=== PATIENT | male | born 1970 | race Caucasian/White ===

== ENCOUNTER 2022-01-27 14:39 | Outpatient (CLI) | payer OTHER, SELFPAY ==
[2022-01-27 15:02] LABS: Basophils Absolute Auto 0.1 K/mm3 (0.0-0.1); Basophils Percent Auto 0.9 % (0.2-1.2); Eosinophils Absolute Auto 0.5 K/mm3 (0-0.3); Eosinophils Percent Auto 5.5 % (0-4.4); Hematocrit 47.7 % (42.0-52.0); Hemoglobin 14.1 g/dL (14.0-18.0); Immature Granulocyte Absolute 0.04 K/mm3 (0.00-0.031); Immature Granulocyte Percent A 0.4 % (0-0.5); Lymphocytes Absolute Auto 1.59 K/mm3 (0.9-3.2); Lymphocytes Percent Auto 17.6 % (18.3-44.2); Mean Corpuscular HGB Conc 29.6 g/dl (32-36); Mean Corpuscular Hemoglobin 24.7 pg (26-34); Mean Corpuscular Volume 83.5 fl (80-100); Mean Platelet Volume 10.7 fl (7.4-10.4); Monocytes Absolute Auto 0.8 K/mm3 (0.1-0.6); Monocytes Percent Auto 8.4 % (2.6-8.5); Neutrophils Absolute Auto 6.1 K/mm3 (1.3-6.7); Neutrophils Percent Auto 67.2 % (45.5-73.1); Platelet Count Result 250 k/mm3 (150-375); Red Blood Count 5.71 M/mm3 (4.6-6.20); Red Cell Distribution Width 19.7 % (11.5-14.5)
[2022-01-27 15:09] LABS: Hypochromasia 1+ (NORMAL); Ovalocytes 1+ (NORMAL); Platelet Estimate Adequate (Adequate); Schistocytes None Seen (NORMAL)
[2022-01-27 15:10] LABS: Poikilocytosis 1+ (NORMAL)
[2022-01-27 16:29] LABS: Alanine Aminotransferase 43 U/L (6-50); Alkaline Phosphatase 134 U/L (38-126); Anion Gap 8 mmol/L (8-16); Aspartate Amino Transferase 36 U/L (17-59); Bilirubin,Total 0.8 mg/dL (0.2-1.3); Blood Urea Nitrogen 17 mg/dL (9-20); Calcium 8.6 mg/dL (8.4-10.2); Carbon Dioxide 30 mmol/L (22-30); Chloride 99 mmol/L (98-107); Estimated Glomerular Filt Rate > 60; Glucose 95 mg/dL (65-110); Potassium 4.2 mmol/L (3.4-5.0); Sodium 137 mmol/L (137-145)
[2022-02-07 17:11] LABS: Serotonin <10 ng/mL (56-244)
== END 2022-01-27 14:40 | disposition home or self-care (01) ==
LOC: ANHLAB 14:43
PROVIDERS: PCP Family Medicine; Visit Provider Internal Medicine Hematology & Oncology
DX: D3A.00 Benign carcinoid tumor of unspecified site (principal); Z85.89 Personal history of malignant neoplasm of other organs and systems
CPT/HCPCS: 36415; 80053; 84260; 85025; 86316

== ENCOUNTER 2022-06-01 07:31 | Emergency (ER) | payer OTHER, SELFPAY ==
[2022-06-01] VITALS (17 sets, daily range): BP systolic 76–112; BP diastolic 41–72; PULSE 74–94; RESP 14–23; TEMP 36.9; O2SAT 83–98
--- NOTE | 2022-06-01 07:50 | ED.ABDPAIN ---
HPI - Abdominal Pain General Chief Complaint: Abdominal Pain Stated Complaint: LLQ pain from [facility] Time Seen by Provider: 06/01/22 07:37 History of Present Illness HPI narrative: Patient presents with pain in his left side, started last night, but became worse today, initially was in the left upper quadrant but seem to radiate down to the left lower quadrant. States he had a CT scan done 3 months ago at [place] showing something on his pancreas. Related Data Allergies Allergy/AdvReac Type Severity Reaction Status Date / Time No Known Allergies Allergy Mild Verified 06/01/22 08:22 Review of Systems Review of Systems: CONST: No fever. HEENT: No sore throat C/V: No chest pain RESP: No cough GI: Reports abdominal pain : No dysuria. M/S: No joint pain. SKIN: No rash. NEURO: [No headache or focal numbness or weakness] PSYCH: [No depression] [facility] Past Medical History Medical History (Updated 06/01/22 @ 10:01 by Soraida Rodríguez MD) Obesity Exam Narrative: EXAMINATION OF ORGAN SYSTEMS/BODY AREAS: Constitutional: Vital signs per nursing GENERAL: Appears somewhat uncomfortable in bed, quite obese HEAD: Normal with no signs of head trauma. EYES: EOMI, conjunctiva normal ENT: Hearing grossly intact, somewhat nasally LUNGS: Nonlabored breathing. HEART: [Regular rate and rhythm] ABD: [Soft], [mildly tender to palpation] left lower abdomen EXT: Moving all extremities SKIN: [No rashes or lesions.] NEURO: [Alert and oriented x 3. No gross focal sensory or strength deficits.] PSYCH: Normal affect Course Vital Signs Vital signs: Vital Signs Temperature 98.4 F 06/01/22 07:37 Pulse Rate 92 06/01/22 07:37 Respiratory Rate 16 06/01/22 07:37 Blood Pressure 110/72 06/01/22 07:37 Pulse Oximetry 88 L 06/01/22 07:37 Oxygen Delivery Room Air 06/01/22 07:37 Temperature 98.4 F 06/01/22 07:37 Pulse Rate 77 06/01/22 09:51 Respiratory Rate 20 06/01/22 09:51 Blood Pressure 103/65 06/01/22 09:51 Pulse Oximetry 95 06/01/22 09:51 Oxygen Delivery Nasal Cannula 06/01/22 08:20 Oxygen Flow Rate 2 06/01/22 08:20 MDM - Abdominal Pain MDM Narrative Medical decision making narrative: Electronic medical record was reviewed. Patient presented to the ED with complaint of [abdominal pain]. Vitals notable for hypoxia. Physical exam revealed soft abdomen with some mild [tenderness to palpation in left side of abdomen]. Based on the patient's history and physical exam, my differential includes but is not limited to [gastritis, gastroenteritis, diverticulitis, UTI, nephrolithiasis]. [IV access was established by nursing staff]. CBC, BMP, lipase, LFTs, bilirubin and alk phos were obtained. Labs were pertinent for Cr of 5 with baseline of 0.8, and K 5.1. CT ordered however patient could not fit in our CT scanner; as pt has been to [facility] before and would like to be transferred there, call made, Dr Rainey (uro) accepting and Dr Griffin in ER accepting physician. Patient agreeable with plan. total crit care time 31 min Lab Data 06/01/22 07:57 06/01/22 07:57 Labs: Lab Results 06/01/22 06/01/22 06/01/22 Range/Units 07:57 07:57 09:10 WBC 7.3 (4.5-10.0) K/mm3 RBC 4.74 (4.6-6.20) M/mm3 Hgb 12.2 L (14.0-18.0) g/dL Hct 41.6 L (42.0-52.0) % MCV 87.8 (80-100) fl MCH 25.7 L (26-34) pg MCHC 29.3 L (32-36) g/dl RDW 17.9 H (11.5-14.5) % Plt Count 242 (150-375) k/mm3 MPV 10.7 H (7.4-10.4) fl Immature Gran % (Auto) 0.4 (0-0.5) % Neut % (Auto) 73.9 H (45.5-73.1) % Lymph % (Auto) 9.9 L (18.3-44.2) % [place] % (Auto) 10.7 H (2.6-8.5) % Eos % (Auto) 4.3 (0-4.4) % Baso % (Auto) 0.8 (0.2-1.2) % Lymph # (Auto) 0.72 L (0.9-3.2) K/mm3 [place] # (Auto) 0.8 H (0.1-0.6) K/mm3 Eos # (Auto) 0.3 (0-0.3) K/mm3 Baso # (Auto) 0.1 (0.0-0.1) K/mm3 Abs Immat Gran (auto) 0.03 (0.00-0.031)
[2022-06-01 08:04] LABS: Basophils Absolute Auto 0.1 K/mm3 (0.0-0.1); Basophils Percent Auto 0.8 % (0.2-1.2); Eosinophils Absolute Auto 0.3 K/mm3 (0-0.3); Eosinophils Percent Auto 4.3 % (0-4.4); Hematocrit 41.6 % (42.0-52.0); Hemoglobin 12.2 g/dL (14.0-18.0); Immature Granulocyte Absolute 0.03 K/mm3 (0.00-0.031); Immature Granulocyte Percent A 0.4 % (0-0.5); Lymphocytes Absolute Auto 0.72 K/mm3 (0.9-3.2); Lymphocytes Percent Auto 9.9 % (18.3-44.2); Mean Corpuscular HGB Conc 29.3 g/dl (32-36); Mean Corpuscular Hemoglobin 25.7 pg (26-34); Mean Corpuscular Volume 87.8 fl (80-100); Mean Platelet Volume 10.7 fl (7.4-10.4); Monocytes Absolute Auto 0.8 K/mm3 (0.1-0.6); Monocytes Percent Auto 10.7 % (2.6-8.5); Neutrophils Absolute Auto 5.4 K/mm3 (1.3-6.7); Neutrophils Percent Auto 73.9 % (45.5-73.1); Platelet Count Result 242 k/mm3 (150-375); Red Blood Count 4.74 M/mm3 (4.6-6.20); Red Cell Distribution Width 17.9 % (11.5-14.5); White Blood Count 7.3 K/mm3 (4.5-10.0)
[2022-06-01 08:28] LABS: Alanine Aminotransferase 26 U/L (6-50); Alkaline Phosphatase 133 U/L (38-126); Anion Gap 8 mmol/L (8-16); Aspartate Amino Transferase 28 U/L (17-59); Blood Urea Nitrogen 43 mg/dL (9-20); Calcium 8.5 mg/dL (8.4-10.2); Carbon Dioxide 29 mmol/L (22-30); Chloride 99 mmol/L (98-107); Estimated CRCL calculation 26 ml/min; Estimated Glomerular Filt Rate 12; Glucose 101 mg/dL (65-110); Lipase 35 U/L (23-300); Potassium 5.1 mmol/L (3.4-5.0); Sodium 136 mmol/L (137-145)
--- NOTE | 2022-06-01 09:41 | PC.NURSE ---
Patient unable to be scanned in our CT scanner. [facility] notified for possible transfer. [facility] access requested that we measure his girth and of his hips from underneath and return their call. We measured and girth is 55 and 31 underneath of hips/buttocks. Information was given to [facility] access line and will await an accepting provider and guidance.
[2022-06-01 09:52] LABS: Influenza A QL RT-PCR Negative (Negative); Influenza B QL RT-PCR Negative (Negative); RSV RNA, RT-PCR Negative (Negative); SARS-CoV-2 RNA PCR Negative
--- NOTE | 2022-06-01 12:01 | PC.NURSE ---
[facility] arrived to take patient over to [facility].
== END 2022-06-01 12:01 | disposition short-term general hospital (02) ==
PROVIDERS: Emergency Provider Emergency Medicine; PCP Family Medicine
DX: N17.9 Acute kidney failure, unspecified (principal); R10.32 Left lower quadrant pain; Z20.822 Contact with and (suspected) exposure to COVID-19
CPT/HCPCS: 36415; 80053; 83690; 85025; 87637; 96365; 99285; J0131

== ENCOUNTER 2022-12-02 21:24 | Inpatient (IN) | payer OTHER, SELFPAY ==
[2022-12-02] VITALS (8 sets, daily range): BP systolic 101–119; BP diastolic 59–75; PULSE 69–83; RESP 8–18; TEMP 36.9; O2SAT 98–100
[2022-12-03] VITALS (50 sets, daily range): BP systolic 101–153; BP diastolic 67–103; PULSE 61–108; RESP 8–22; TEMP 36.3–36.4; O2SAT 93–100; BMI 66.4
--- NOTE | 2022-12-03 02:39 | ED.WOUNDLAC ---
HPI - Wound/Laceration General Chief Complaint: Wound/Laceration Stated Complaint: MULTIPLE WOUNDS; >500# Time Seen by Provider: 12/03/22 02:26 Source: patient Limitations: no limitations History of Present Illness HPI narrative: Patient is a 52 yo M presenting to the ED from [facility] living for multiple sores that are painful. Patient states he has had sores for a long time and sometimes they get worse which he is having now, noting they are more painful. Patient states he has sores on his buttock, scrotum, and left calf. Patient denies any recent injuries nor history of blood clots. Patient denies recent antibiotic use. Patient denies fever, vomiting, chest pain, shortness of breath, cough, dysuria, decreased urine production, diarrhea, numbness, weakness, sore throat, abdominal pain. Patient admits to chronic swelling of his legs without recent changes. Patient notes all of the sores are painful and he usually takes oxycodone 10 mg for his pain over the past 15 years but his doctor recently decreased his dose to 5 mg which he believes is also a source of more pain. Patient admits to a small amount of bleeding from various sores yesterday which he doesn't usually have. Admits to tetanus being up to date. Related Data Allergies Allergy/AdvReac Type Severity Reaction Status Date / Time No Known Allergies Allergy Mild Verified 12/02/22 21:36 Review of Systems Review of Systems: A 10 system review of systems was completed on the patient and is negative except for what is stated in the HPI. Nursing and ancillary documentation was reviewed. [facility] Past Medical History Medical History (Updated 12/03/22 @ 05:21 by Shiva Cheng DO) Obesity Comments At time of signature, I have reviewed and agree with nursing past medical, surgical, social and family history unless otherwise noted. Please see the nursing chart for further information. There is no relevant family history pertinent to the presenting complaint. Exam Narrative: CONST: No acute distress. Well nourished. Morbidly obese. HENMT: Head is normocephalic and atraumatic. Tacky mucous membranes. No posterior oropharynx erythema. EYES: No conjunctival icterus, injection, or pallor. PERRL. NECK: No meningeal signs. RESP: Able to speak in full sentences. Normal respiratory effort. CTAB. CARDIO: Regular rate. Regular rhythm. 2+ DP and radial pulses bilaterally. GI: Nondistended. No tenderness to palpation. Soft. : No CVA tenderness to palpation. NEURO: Oriented x3. Moves all extremities. No focal neurological deficits. EXTREM: Diffuse bilateral lower extremity edema, trace pitting. Left calf mild tenderness to palpation with overlying erythema and palpable warmth, mild induration present, no crepitus, no fluctuance, compartments are soft, no bleeding or discharge, no joint space involvement. PSYCH: Normal affect. Skin: Other: Multiple ulcers and macerated tissue present throughout the perineum, proximal medial thighs, scrotum, pannus, and inter-pannus fold: no palpable fluctuance, scant purulent exudate and granulation tissue present, scant induration, mild erythema surrounding the ulcers, mild tenderness to palpation, no bleeding, no crepitus, no fistulous tracts, all ulcers are superficial and do not extend deeper than the dermis, no joint space involvement. Course Vital Signs Vital signs: Vital Signs Temperature 98.5 F 12/02/22 21:34 Pulse Rate 73 12/02/22 21:34 Respiratory Rate 15 12/02/22 21:34 Blood Pressure 119/75 12/02/22 21:34 Pulse Oximetry 99 12/02/22 21:34 Oxygen Delivery Room Air 12/02/22 21:34 Temperature 98.5 F 12/02/22 21:34 Pulse Rate 108 H 12/03/22 09:41 Respiratory Rate 20 12/03/22 09:41 Blood Pressure 119/70 12/03/22 09:41 Pulse Oximetry 97 12/03/22 07:01 Oxygen Delivery Room Air 12/02/22 21:34 MDM - Wound/Laceration MDM Narrative Medical decision making narrat
[2022-12-03] MEDS: CLINDAMYCIN 900 MG/D5W 50 ML 900 MG/50 ML PIGGYBACK 50 MG IVPB ×2 (02:40→08:58)
[2022-12-03 03:27] LABS: Basophils Percent Auto 0.3 % (0.2-1.2); Eosinophils Absolute Auto 0.1 K/mm3 (0-0.3); Eosinophils Percent Auto 0.6 % (0-4.4); Hematocrit 33.5 % (42.0-52.0); Immature Granulocyte Absolute 0.48 K/mm3 (0.00-0.031); Immature Granulocyte Percent A 4.8 % (0-0.5); Lymphocytes Absolute Auto 2.44 K/mm3 (0.9-3.2); Lymphocytes Percent Auto 24.4 % (18.3-44.2); Mean Corpuscular HGB Conc 32.8 g/dl (32-36); Mean Corpuscular Hemoglobin 31.9 pg (26-34); Mean Corpuscular Volume 97.1 fl (80-100); Mean Platelet Volume 9.5 fl (7.4-10.4); Monocytes Absolute Auto 0.8 K/mm3 (0.1-0.6); Monocytes Percent Auto 7.9 % (2.6-8.5); Neutrophils Absolute Auto 6.2 K/mm3 (1.3-6.7); Nucleated Red Blood Cells Perc 0.4 % (0.0-0.2); Platelet Count Result 213 k/mm3 (150-375); Red Blood Count 3.45 M/mm3 (4.6-6.20)
[2022-12-03 03:29] LABS: Appearance Urine Clear (Clear); Bilirubin Urine Negative (Negative); Blood Urine Negative (Negative); Color Urine Yellow (Yellow); Glucose Urine UA 1+ mg/dL (Negative); Ketones Urine Negative (Negative); Leukocyte Esterase Ur Negative LEU/UL (Negative); Nitrate Urine Negative (Negative); Protein Urine Negative (Negative); Specific Grav Ur 1.012 (1.001-1.035); Urobilinogen Urine 0.2 mg/dL (<2.0); pH Urine 7.5 (5.0-9.0)
[2022-12-03 03:37] LABS: Partial Thromboplastin Time 32.6 SECONDS (22.3-36.8); Prothrombin Time 13.6 Seconds (11.1-14.7)
[2022-12-03 03:39] LABS: Add Urine Microscopic? NO
[2022-12-03 03:41] LABS: D Dimer 0.45 ug/mL (<0.48)
[2022-12-03 03:44] LABS: Alanine Aminotransferase 55 U/L (6-50); Albumin Level 3.4 g/dL (3.5-5.1); Alkaline Phosphatase 71 U/L (38-126); Aspartate Amino Transferase 25 U/L (17-59); Bilirubin,Total 0.6 mg/dL (0.2-1.3); Blood Urea Nitrogen 23 mg/dL (9-20); CRP 2.2 mg/dL (<1.0); Calcium 8.8 mg/dL (8.4-10.2); Carbon Dioxide > 40 mmol/L (22-30); Chloride 91 mmol/L (98-107); Estimated CRCL calculation 173 ml/min; Estimated Glomerular Filt Rate > 60; Glucose 202 mg/dL (65-110); Magnesium 1.4 mg/dL (1.6-2.3); Potassium 3.5 mmol/L (3.4-5.0); Sodium 135 mmol/L (137-145)
[2022-12-03 03:47] LABS: NT Pro B Type Natriuretic Pept 1910 pg/mL (19.9-100)
[2022-12-03 03:57] LABS: Creatine Kinase 30 U/L (55-170)
[2022-12-03] MEDS: MORPHINE SULFATE (*CRX) 4 MG/ML INJ IV PUSH (04:27)
[2022-12-03] MEDS: LACTATED RINGERS 1,000 ML 999 ML IV CONT (04:27)
[2022-12-03] MEDS: PIPERACILLN/TAZ 3.375GM/NS50ML 3.375 GM/50 ML BAG IVPB (04:28)
[2022-12-03 05:03] LABS: Lactic Acid Reflex 2.9 mmol/L (0.7-2.0)
[2022-12-03] MEDS: MAGNESIUM SULF 2 GM/WATER 50ML 2 GM/50 ML BAG IVPB (06:38)
[2022-12-03 07:46] LABS: Reflex Lactic Acid Yes or No Add Lactic
[2022-12-03 08:39] LABS: Lactic Acid 1.9 mmol/L (0.7-2.0)
[2022-12-03] MEDS: LACTATED RINGERS 1,000 ML 125 ML IV CONT (08:58)
--- NOTE | 2022-12-03 11:23 | PM.IMHP ---
H&P: HPI History of Present Illness Date/Time: 12/03/22 11:23 Chief Complaint: Painful bedsores Narrative: 52-year-old male from assisted living presenting with multiple bedsores. He states they have increased in pain recently and if started to have some scant amounts of bleeding which is new. No chest pain or shortness of breath. No nausea, vomiting or diarrhea. No fevers or chills. In the ER, he was noted to have significant macerated skin over the buttocks, scrotum and calf. Patient denies any trauma or injury to the areas. He was initiated on IV antibiotics due to concern for superimposed infection and admitted for further wound care. Review of Systems Review of Systems: 12 point review of systems was assessed and was negative except as noted in the HPI [facility] Past Medical History Medical History (Updated 12/03/22 @ 15:18 by Allyson Fernandez DO) Obesity Social History Social History Smoking packs per day: 2 Smoking cigarettes per day: 40.0 Years smoked: 33 Smoking pack-years: 66.00 Smoking status: Former smoker Tobacco type: cigarettes Alcohol intake: never Substance use: current Substance use type: marijuana Lack of Transportation: No Lack of Food: Never True Current Housing: I Have Housing Concerned About Future Housing: No Difficulty Paying Gas/Electric Bills: No Difficulty Paying for Meds: No Currently Unemployed: No Education: High School Diploma/GED Difficulty w/ Childcare or Family Care: No Spiritual care concerns: No Meds Home Medications and Allergies Home Medications Medication Instructions Recorded Confirmed Type albuterol sulfate 90 mcg/actuation 2 puff inhalation QID PRN 12/03/22 12/03/22 History aerosol inhaler (ProAir HFA) Shortness Of Breath Or Wheezing aripiprazole 2 mg tablet 2 mg PO HS 12/03/22 12/03/22 History cyclobenzaprine 10 mg tablet 10 mg PO BID PRN Spasms 12/03/22 12/03/22 History dexamethasone 6 mg tablet 6 mg PO DAILY 12/03/22 12/03/22 History ergocalciferol (vitamin D2) 50,000 50,000 unit PO WEEKLY 12/03/22 12/03/22 History unit tablet fluoxetine 60 mg tablet 60 mg PO DAILY 12/03/22 12/03/22 History furosemide 40 mg tablet 40 mg PO BID 12/03/22 12/03/22 History hydrochlorothiazide 25 mg tablet 25 mg PO DAILY 12/03/22 12/03/22 History insulin glargine 100 unit/mL 30 unit subcut BID 12/03/22 12/03/22 History subcutaneous solution losartan 100 mg tablet 100 mg PO DAILY 12/03/22 12/03/22 History metformin 1,000 mg tablet 1,000 mg PO BID 12/03/22 12/03/22 History metoprolol succinate 50 mg 50 mg PO DAILY 12/03/22 12/03/22 History tablet,extended release 24 hr (Toprol XL) oxycodone 5 mg tablet 5 mg PO Q8H PRN Pain 12/03/22 12/03/22 History potassium chloride 20 mEq oral 20 meq PO DAILY 12/03/22 12/03/22 History packet rivaroxaban 20 mg tablet (Xarelto) 20 mg PO DAILY 12/03/22 12/03/22 History tamsulosin 0.4 mg capsule 0.4 mg PO DAILY 12/03/22 12/03/22 History Allergies Allergy/AdvReac Type Severity Reaction Status Date / Time No Known Allergies Allergy Mild Verified 12/02/22 21:36 Vital Signs Vital Signs - 24 hr 12/02/22 21:34 12/02/22 22:53 12/02/22 23:48 Temperature 98.5 F Pulse Rate 73 69 78 Respiratory Rate 15 17 12 Blood Pressure 119/75 101/59 L 114/71 Pulse Oximetry 99 98 100 Oxygen Delivery Room Air 12/03/22 02:54 12/03/22 06:05 12/03/22 09:41 Temperature Pulse Rate 70 80 108 H Respiratory Rate 16 20 Blood Pressure 129/87 113/73 119/70 Pulse Oximetry 97 98 Oxygen Delivery 12/02/22 23:10 12/02/22 23:25 12/02/22 23:40 Temperature Pulse Rate 77 72 83 Respiratory Rate 8 L 12 18 Blood Pressure Pulse Oximetry 98 98 98 Oxygen Delivery 12/02/22 23:45 12/02/22 23:50 12/03/22 00:00 Temperature Pulse Rate 76 76 74 Respiratory Rate 15 10 L 11 L Blood Pressure 114/71 Pulse Oximetry 99 100 99
[2022-12-03 12:26] LABS: Procalcitonin 0.1 ng/mL
[2022-12-03 12:26] LABS: Alveolar/Arterial O2 Gradient 9.6 mmHg; Base Excess ABG 7.8 mEq/l (+/-2.0); Fractional Inspired Oxygen 21 %; HCO3 ABG 29.6 mEq/l (22.0-26.0); Oxygen Content ABG 16.1 %vol (16.0-22.0); Oxygen Saturation ABG 98.4 % (95.0-100.0); Oxyhemoglobin 96.8 % THb (90.0-100.0); PCO2 ABG 32.1 mmHg (35.0-45.0); PO2 ABG 101.7 mmHg (80.0-100.0); PO2 FiO2 Ratio Arterial Blood 4.84 %; Total Hemoglobin 11.7 g/dL (12.0-18.0)
[2022-12-03 12:28] LABS: pH ABG 7.583 (7.350-7.450)
[2022-12-03 12:29] LABS: Device ROOM AIR; Modified Allen's Test Pass; Site Drawn LEFT RADIAL
--- NOTE | 2022-12-03 12:37 | PC.NURSE ---
Blood gas results call to provider. No answer. Message left. Will follow up.
[2022-12-03] MEDS: metroNIDAZOLE 500 MG/ISO 100ML 500 MG/100 ML BAG 100 MG IVPB ×2 (13:04→22:00)
[2022-12-03] MEDS: CEFEPIME 2 GM/NS 50 ML 2 GM/50 ML BAG IVPB ×2 (13:04→20:39)
--- NOTE | 2022-12-03 13:19 | PCDIET ---
Provider called. Message left.
--- NOTE | 2022-12-03 14:54 | PCPTNOTE ---
Attempted to see for physical therapy initial evaluation. Pt refused stating he is in too much pain (10/22 and nurse notified) and is frustrated cause he is still NPO. Will continue to follow.
--- NOTE | 2022-12-03 15:38 | PCOTNOTE ---
Attempted to see pt. for occupational therapy evaluation. Pt. stating that he was in too much pain and has not received pain medication yet. Nursing updated and aware.
[2022-12-03 17:22] LABS: Glucose Point of Care 207 mg/dl (65-105)
[2022-12-03] MEDS: RIVAROXABAN 20 MG TABLET PO (17:30)
[2022-12-03] MEDS: oxyCODONE HCL (*CRX) 5 MG TAB IR PO (17:30)
[2022-12-03] MEDS: FUROSEMIDE 40 MG TABLET PO (17:31)
[2022-12-03] MEDS: INSULIN GLARGINE (*BKC) 100 UNITS/ML 30 UNITS SUB-Q (17:31)
[2022-12-03] MEDS: metFORMIN HCL 500 MG TABLET 1000 MG PO (17:31)
[2022-12-03] MEDS: CYCLOBENZAPRINE HCL 10 MG TABLET PO (20:24)
[2022-12-03] MEDS: ARIPiprazole 2 MG TABLET PO (20:24)
[2022-12-03 22:03] LABS: Glucose Point of Care 227 mg/dl (65-105)
[2022-12-04] MEDS: CEFEPIME 2 GM/NS 50 ML 2 GM/50 ML BAG IVPB ×3 (03:32→19:56)
[2022-12-04] MEDS: metroNIDAZOLE 500 MG/ISO 100ML 500 MG/100 ML BAG 100 MG IVPB ×3 (04:15→19:55)
[2022-12-04 06:00] VITALS: BP 136/77; PULSE 96; RESP 20; TEMP 36.9; O2SAT 99
[2022-12-04 07:15] LABS: Basophils Absolute Auto 0.1 K/mm3 (0.0-0.1); Basophils Percent Auto 0.8 % (0.2-1.2); Eosinophils Absolute Auto 0.2 K/mm3 (0-0.3); Eosinophils Percent Auto 2.2 % (0-4.4); Hematocrit 33.7 % (42.0-52.0); Hemoglobin 10.8 g/dL (14.0-18.0); Immature Granulocyte Absolute 0.29 K/mm3 (0.00-0.031); Immature Granulocyte Percent A 3.8 % (0-0.5); Lymphocytes Absolute Auto 1.55 K/mm3 (0.9-3.2); Lymphocytes Percent Auto 20.2 % (18.3-44.2); Mean Corpuscular Hemoglobin 31.4 pg (26-34); Mean Platelet Volume 9.2 fl (7.4-10.4); Monocytes Absolute Auto 0.5 K/mm3 (0.1-0.6); Monocytes Percent Auto 6.8 % (2.6-8.5); Neutrophils Absolute Auto 5.1 K/mm3 (1.3-6.7); Neutrophils Percent Auto 66.2 % (45.5-73.1); Nucleated Red Blood Cells Perc 0.5 % (0.0-0.2); Platelet Count Result 164 k/mm3 (150-375); Red Blood Count 3.44 M/mm3 (4.6-6.20); Red Cell Distribution Width 16.6 % (11.5-14.5); White Blood Count 7.7 K/mm3 (4.5-10.0)
[2022-12-04 07:29] LABS: Alanine Aminotransferase 58 U/L (6-50); Albumin Level 3.2 g/dL (3.5-5.1); Alkaline Phosphatase 65 U/L (38-126); Anion Gap 2 mmol/L (8-16); Aspartate Amino Transferase 29 U/L (17-59); Bilirubin,Total 0.8 mg/dL (0.2-1.3); Blood Urea Nitrogen 16 mg/dL (9-20); Carbon Dioxide 38 mmol/L (22-30); Chloride 93 mmol/L (98-107); Estimated CRCL calculation 173 ml/min; Estimated Glomerular Filt Rate > 60; Glucose 146 mg/dL (65-110); Magnesium 1.5 mg/dL (1.6-2.3); Sodium 133 mmol/L (137-145)
[2022-12-04 07:57] LABS: Glucose Point of Care 162 mg/dl (65-105)
--- NOTE | 2022-12-04 08:32 | PCOTNOTE ---
Attempted OT evaluation this AM. Patient declined at this time due to being in too much pain. He is willing to work with therapy after pain meds and breakfast.
[2022-12-04] MEDS: oxyCODONE HCL (*CRX) 5 MG TAB IR PO (08:42)
[2022-12-04] MEDS: hydroCHLOROthiazide 25 MG TABLET PO (08:43)
[2022-12-04] MEDS: FUROSEMIDE 40 MG TABLET PO ×2 (08:43→17:03)
[2022-12-04] MEDS: LOSARTAN POTASSIUM 100 MG TABLET PO (08:43)
[2022-12-04] MEDS: FLUoxetine HCL 20 MG CAPSULE 60 MG PO (08:43)
[2022-12-04 08:44] VITALS: PULSE 72
[2022-12-04] MEDS: METOPROLOL SUCCINATE EXT REL 50 MG TABCR PO (08:44)
[2022-12-04] MEDS: metFORMIN HCL 500 MG TABLET 1000 MG PO (08:44)
[2022-12-04] MEDS: INSULIN GLARGINE (*BKC) 100 UNITS/ML 30 UNITS SUB-Q ×2 (08:45→17:03)
[2022-12-04] MEDS: TAMSULOSIN HCL 0.4 MG CAPSULE PO (08:45)
[2022-12-04 09:41] VITALS: O2SAT 97
[2022-12-04] MEDS: POTASSIUM CHLORIDE 20 MEQ ER TABLET 60 MEQ PO (11:33)
[2022-12-04] MEDS: POTASSIUM CHLORIDE 20 MEQ ER TABLET PO (11:33)
[2022-12-04 11:47] LABS: Glucose Point of Care 176 mg/dl (65-105)
--- NOTE | 2022-12-04 13:41 | PM.IMPN ---
Progress Note: A&P Assessment and Plan (1) Cellulitis: Code(s): L03.90 - Cellulitis, unspecified Status: Acute Assessment and Plan: Initially started on vancomycin, Zosyn and clindamycin 12/03 Switched to vanc, cefepime, Flagyl Blood cultures pending Consult wound care (2) Hypomagnesemia: Code(s): E83.42 - Hypomagnesemia Status: Acute Assessment and Plan: Repleted, recheck 12/04 pending (3) Obesity: Code(s): E66.9 - Obesity, unspecified Status: Acute (4) Essential hypertension: Code(s): I10 - Essential (primary) hypertension Status: Acute Assessment and Plan: Blood pressures reviewed 12/04 Continue home losartan (5) Type 2 diabetes mellitus: Code(s): E11.9 - Type 2 diabetes mellitus without complications Status: Acute Assessment and Plan: Accu-Cheks, sliding scale insulin, check A1c Blood glucose reviewed 12/04 Hold home metformin Plan Chronic pain: Restart home oxycodone 10 mg q.8 hours p.r.n. DVT prophylaxis with Xarelto GI prophylaxis not indicated Code status full code Subjective Date/time seen: 12/04/22 13:41 Exam Narrative: General: No acute distress, alert and oriented per baseline HEENT: Atraumatic, normocephalic, mucous membranes moist CV: Regular rate and rhythm, S1, S2 Lungs: Clear to auscultation bilaterally, no rales or crackles noted, no wheezes, good air entry Abdomen: Soft, nontender, nondistended Extremities: Normal to inspection, significant edema and redness Skin: Diffuse and scattered macerated areas of skin with serosanguineous drainage noted throughout sub pannus area, and thigh folds Psych: Euthymic, normal affect Objective Data Vital Signs Vital Signs: Vital Signs - 24 hr 12/03/22 14:00 12/03/22 22:00 12/04/22 06:00 Temperature 97.6 F 97.4 F L 98.4 F Pulse Rate 86 82 96 Respiratory Rate 22 H 18 20 Blood Pressure 115/67 153/89 H 136/77 Pulse Oximetry 99 93 99 Oxygen Delivery 12/04/22 08:44 12/04/22 08:40 12/04/22 09:41 Temperature Pulse Rate 72 Respiratory Rate Blood Pressure Pulse Oximetry 97 Oxygen Delivery Room Air Room Air Intake/Output Intake/Output: Intake & Output 12/01/22 12/02/22 12/03/22 12/04/22 23:59 23:59 23:59 23:59 Intake Total 3690 940 Balance 3690 940 Meds/Results Medications: Active Medications Generic Name Dose Route Start Last Admin Trade Name Freq PRN Reason Stop Dose Admin Albuterol 2 puff 12/03/22 15:12 Albuterol Sulfate (*Sp) Aerosol 1 Puff INHALATION QIDRT PRN Shortness Of Breath Or Wheezin Aripiprazole 2 mg 12/03/22 21:00 12/03/22 20:24 Aripiprazole 2 Mg Tablet PO 2 mg HS ANKUR Administration Cyclobenzaprine HCl 10 mg 12/03/22 15:12 12/03/22 20:24 Cyclobenzaprine Hcl 10 Mg Tablet PO 10 mg BID PRN Administration Spasms Ergocalciferol 50,000 units 12/11/22 09:00 Ergocalciferol 50,000 Units Capsule PO 01/09/23 08:59 WEEKLY ANKUR Fluoxetine HCl 60 mg 12/04/22 09:00 12/04/22 08:43 Fluoxetine Hcl 20 Mg Capsule PO 60 mg DAILY ANKUR Administration Furosemide 40 mg 12/03/22 17:00 12/04/22 08:43 Furosemide 40 Mg Tablet PO 40 mg BID ANKUR Administration Hydrochlorothiazide 25 mg 12/04/22 09:00 12/04/22 08:43 Hydrochlorothiazide 25 Mg Tablet PO 25 mg DAILY ANKUR Administration Vancomycin HCl 2,000 mg in 500 mls @ 250 mls/hr 12/03/22 05:00 12/04/22 07:35 Vancomycin 2,000 Mg/D5w 500 Ml IVPB Infused Q12H ANKUR Infusion Cefepime HCl 2 gm in 50 mls @ 100 mls/hr 12/03/22 12:00 12/04/22 12:40 Maxipime 2 Gm/Ns 50 Ml IVPB Infused Q8H ANKUR Infusion Metronidazole 500 mg in 100 mls @ 100 mls/hr 12/03/22 12:00 12/04/22 12:41 Flagyl 500 Mg/Iso Soln 100 Ml IVPB 100 mls/hr Q8H ANKUR Administration Insulin Glargine 30 units 12/03/22 17:00 12/04/22 08:45 Insulin Glargine (*[facility]) 100 Units
[2022-12-04 14:00] VITALS: BP 92/48; PULSE 83; RESP 18; TEMP 36.4; O2SAT 95
[2022-12-04] MEDS: oxyCODONE HCL (*CRX) 5 MG TAB IR 10 MG PO ×2 (16:04→21:13)
[2022-12-04 16:26] LABS: Glucose Point of Care 152 mg/dl (65-105)
[2022-12-04] MEDS: RIVAROXABAN 20 MG TABLET PO (17:03)
[2022-12-04 18:30] LABS: Vancomycin Trough 15.4 ug/mL (10.0-20.0)
[2022-12-04] MEDS: ARIPiprazole 2 MG TABLET PO (19:57)
[2022-12-04 20:00] VITALS: PULSE 83; RESP 18; O2SAT 95
[2022-12-04 22:00] VITALS: BP 96/52; PULSE 82; RESP 18; TEMP 35.7; O2SAT 94
[2022-12-05 00:18] LABS: Glucose Point of Care 163 mg/dl (65-105)
[2022-12-05] MEDS: CEFEPIME 2 GM/NS 50 ML 2 GM/50 ML BAG IVPB ×3 (03:32→22:48)
[2022-12-05] MEDS: metroNIDAZOLE 500 MG/ISO 100ML 500 MG/100 ML BAG 100 MG IVPB ×3 (03:32→23:42)
[2022-12-05] MEDS: oxyCODONE HCL (*CRX) 5 MG TAB IR 10 MG PO ×3 (03:36→17:31)
[2022-12-05 05:51] LABS: Basophils Absolute Auto 0.1 K/mm3 (0.0-0.1); Basophils Percent Auto 0.7 % (0.2-1.2); Eosinophils Absolute Auto 0.2 K/mm3 (0-0.3); Eosinophils Percent Auto 1.7 % (0-4.4); Hematocrit 31.6 % (42.0-52.0); Hemoglobin 10.1 g/dL (14.0-18.0); Immature Granulocyte Absolute 0.41 K/mm3 (0.00-0.031); Immature Granulocyte Percent A 4.6 % (0-0.5); Lymphocytes Absolute Auto 1.68 K/mm3 (0.9-3.2); Lymphocytes Percent Auto 18.8 % (18.3-44.2); Mean Corpuscular Hemoglobin 31.9 pg (26-34); Mean Corpuscular Volume 99.7 fl (80-100); Mean Platelet Volume 9.2 fl (7.4-10.4); Monocytes Absolute Auto 0.8 K/mm3 (0.1-0.6); Monocytes Percent Auto 9.4 % (2.6-8.5); Neutrophils Absolute Auto 5.8 K/mm3 (1.3-6.7); Neutrophils Percent Auto 64.8 % (45.5-73.1); Nucleated Red Blood Cells Absolute Auto 0.1 K/mm3 (0.0-0.012); Nucleated Red Blood Cells Perc 0.9 % (0.0-0.2); Platelet Count Result 178 k/mm3 (150-375); Red Blood Count 3.17 M/mm3 (4.6-6.20); Red Cell Distribution Width 17.4 % (11.5-14.5); White Blood Count 8.9 K/mm3 (4.5-10.0)
[2022-12-05 06:00] VITALS: BP 108/58; PULSE 90; RESP 18; TEMP 35.8; O2SAT 91
[2022-12-05 06:03] LABS: Alanine Aminotransferase 52 U/L (6-50); Albumin Level 3.1 g/dL (3.5-5.1); Alkaline Phosphatase 62 U/L (38-126); Anion Gap -1 mmol/L (8-16); Aspartate Amino Transferase 28 U/L (17-59); Bilirubin,Total 1.2 mg/dL (0.2-1.3); Blood Urea Nitrogen 21 mg/dL (9-20); Calcium 7.9 mg/dL (8.4-10.2); Carbon Dioxide 37 mmol/L (22-30); Chloride 94 mmol/L (98-107); Estimated CRCL calculation 85 ml/min; Estimated Glomerular Filt Rate 42; Glucose 152 mg/dL (65-110); Potassium 3.5 mmol/L (3.4-5.0); Sodium 130 mmol/L (137-145)
[2022-12-05 08:08] LABS: Glucose Point of Care 168 mg/dl (65-105)
[2022-12-05] MEDS: FUROSEMIDE 40 MG TABLET PO ×2 (08:32→17:30)
[2022-12-05] MEDS: FLUoxetine HCL 20 MG CAPSULE 60 MG PO (08:32)
[2022-12-05] MEDS: hydroCHLOROthiazide 25 MG TABLET PO (08:32)
[2022-12-05 08:33] VITALS: PULSE 86
[2022-12-05] MEDS: METOPROLOL SUCCINATE EXT REL 50 MG TABCR PO (08:33)
[2022-12-05] MEDS: POTASSIUM CHLORIDE 20 MEQ ER TABLET PO (08:33)
[2022-12-05] MEDS: INSULIN GLARGINE (*BKC) 100 UNITS/ML 30 UNITS SUB-Q ×2 (08:33→17:31)
[2022-12-05] MEDS: LOSARTAN POTASSIUM 100 MG TABLET PO (08:33)
[2022-12-05] MEDS: TAMSULOSIN HCL 0.4 MG CAPSULE PO (08:33)
[2022-12-05] MEDS: SODIUM CHLORIDE 0.9% IV 1,000 ML 100 ML IV CONT (10:28)
--- NOTE | 2022-12-05 10:33 | PCPTNOTE ---
attempted PT evaluation, nursing was giving pt meds and he needs to be cleaned up.
[2022-12-05 11:29] LABS: Glucose Point of Care 166 mg/dl (65-105)
[2022-12-05 13:11] VITALS: O2SAT 95
[2022-12-05 14:00] VITALS: BP 102/49; PULSE 86; RESP 16; TEMP 36.1; O2SAT 100
[2022-12-05 16:57] LABS: Glucose Point of Care 207 mg/dl (65-105)
[2022-12-05] MEDS: RIVAROXABAN 20 MG TABLET PO (17:30)
[2022-12-05] MEDS: INSULIN ASPART (*BKC) 100 UNITS/ML SUB-Q (17:31)
--- NOTE | 2022-12-05 18:58 | PM.IMPN ---
Progress Note: A&P Assessment and Plan (1) Cellulitis: Code(s): L03.90 - Cellulitis, unspecified Status: Acute Assessment and Plan: Initially started on vancomycin, Zosyn and clindamycin 12/03 Switched to vanc, cefepime, Flagyl Blood cultures pending Consult wound care (2) Hypomagnesemia: Code(s): E83.42 - Hypomagnesemia Status: Acute Assessment and Plan: Repleted, recheck 12/04 still low, replete and recheck (3) Obesity: Code(s): E66.9 - Obesity, unspecified Status: Acute (4) Essential hypertension: Code(s): I10 - Essential (primary) hypertension Status: Acute Assessment and Plan: Blood pressures reviewed 12/05 Continue home losartan (5) Type 2 diabetes mellitus: Code(s): E11.9 - Type 2 diabetes mellitus without complications Status: Acute Assessment and Plan: Accu-Cheks, sliding scale insulin, check A1c Blood glucose reviewed 12/05 Hold home metformin Plan Chronic pain: Restart home oxycodone 10 mg q.8 hours p.r.n. DVT prophylaxis with Xarelto GI prophylaxis not indicated Code status full code Subjective Date/time seen: 12/05/22 18:58 Interval history: No overnight events noted. No chest pain or shortness of breath. No nausea, vomiting or diarrhea. No fevers or chills. States he feels better than yesterday. Review of Systems Review of Systems: 12 point review of systems was assessed and was negative except as noted in the HPI Exam Narrative: General: No acute distress, alert and oriented per baseline HEENT: Atraumatic, normocephalic, mucous membranes moist CV: Regular rate and rhythm, S1, S2 Lungs: Clear to auscultation bilaterally, no rales or crackles noted, no wheezes, good air entry Abdomen: Soft, nontender, nondistended Extremities: Normal to inspection, significant edema and redness Skin: Diffuse and scattered macerated areas of skin with serosanguineous drainage noted throughout sub pannus area, and thigh folds Psych: Euthymic, normal affect Objective Data Vital Signs Vital Signs: Vital Signs - 24 hr 12/04/22 20:00 12/04/22 22:00 12/05/22 06:00 Temperature 96.3 F L 96.5 F L Pulse Rate 83 82 90 Respiratory Rate 18 18 18 Blood Pressure 96/52 L 108/58 L Pulse Oximetry 95 94 91 Oxygen Delivery Room Air 12/05/22 08:33 12/05/22 08:30 12/05/22 13:10 Temperature Pulse Rate 86 Respiratory Rate Blood Pressure Pulse Oximetry Oxygen Delivery Room Air Room Air 12/05/22 13:11 12/05/22 14:00 Temperature 97.0 F L Pulse Rate 86 Respiratory Rate 16 Blood Pressure 102/49 L Pulse Oximetry 95 100 Oxygen Delivery Room Air Intake/Output Intake/Output: Intake & Output 12/02/22 12/03/22 12/04/22 12/05/22 23:59 23:59 23:59 23:59 Intake Total 3690 1852 2890 Balance 3690 1852 2890 Meds/Results Medications: Active Medications Generic Name Dose Route Start Last Admin Trade Name Freq PRN Reason Stop Dose Admin Albuterol 2 puff 12/03/22 15:12 Albuterol Sulfate (*Sp) Aerosol 1 Puff INHALATION QIDRT PRN Shortness Of Breath Or Wheezin Aripiprazole 2 mg 12/03/22 21:00 12/04/22 19:57 Aripiprazole 2 Mg Tablet PO 2 mg HS ANKUR Administration Cyclobenzaprine HCl 10 mg 12/03/22 15:12 12/03/22 20:24 Cyclobenzaprine Hcl 10 Mg Tablet PO 10 mg BID PRN Administration Spasms Dextrose 12.5 gm 12/04/22 19:02 Dextrose 50% 25 Gm/50 Ml Syringe IV PUSH PRN PRN Hypoglycemia Protocol Ergocalciferol 50,000 units 12/11/22 09:00 Ergocalciferol 50,000 Units Capsule PO 01/09/23 08:59 WEEKLY ANKUR Fluoxetine HCl 60 mg 12/04/22 09:00 12/05/22 08:32 Fluoxetine Hcl 20 Mg Capsule PO 60 mg DAILY ANKUR Administration Furosemide 40 mg 12/03/22 17:00 12/05/22 17:30 Furosemide 40 Mg Tablet PO 40 mg BID ANKUR Administration Glucagon 1 mg 12/04/22 19:02 Glu
[2022-12-05] MEDS: MAGNESIUM SULF 2 GM/WATER 50ML 2 GM/50 ML BAG IVPB (20:53)
[2022-12-05] MEDS: ARIPiprazole 2 MG TABLET PO (20:59)
[2022-12-05 22:00] VITALS: BP 97/47; PULSE 77; RESP 20; TEMP 36.5; O2SAT 98
[2022-12-06 03:29] LABS: Glucose Point of Care 213 mg/dl (65-105)
[2022-12-06] MEDS: CEFEPIME 2 GM/NS 50 ML 2 GM/50 ML BAG IVPB ×3 (03:32→21:15)
[2022-12-06] MEDS: metroNIDAZOLE 500 MG/ISO 100ML 500 MG/100 ML BAG 100 MG IVPB ×3 (04:09→21:15)
[2022-12-06 06:00] VITALS: BP 106/51; PULSE 85; RESP 16; TEMP 36.1; O2SAT 94
[2022-12-06 08:21] LABS: Glucose Point of Care 197 mg/dl (65-105)
[2022-12-06 08:46] VITALS: PULSE 79
[2022-12-06] MEDS: oxyCODONE HCL (*CRX) 5 MG TAB IR 10 MG PO ×2 (08:46→16:27)
[2022-12-06] MEDS: METOPROLOL SUCCINATE EXT REL 50 MG TABCR PO (08:46)
[2022-12-06] MEDS: LOSARTAN POTASSIUM 100 MG TABLET PO (08:46)
[2022-12-06] MEDS: FUROSEMIDE 40 MG TABLET PO ×2 (08:46→16:27)
[2022-12-06] MEDS: TAMSULOSIN HCL 0.4 MG CAPSULE PO (08:46)
[2022-12-06] MEDS: POTASSIUM CHLORIDE 20 MEQ ER TABLET PO (08:46)
[2022-12-06] MEDS: FLUoxetine HCL 20 MG CAPSULE 60 MG PO (08:46)
[2022-12-06] MEDS: SODIUM CHLORIDE 0.9% IV 1,000 ML 100 ML IV CONT (08:47)
[2022-12-06] MEDS: INSULIN GLARGINE (*BKC) 100 UNITS/ML 30 UNITS SUB-Q ×2 (08:47→16:27)
[2022-12-06 11:17] LABS: Glucose Point of Care 205 mg/dl (65-105)
[2022-12-06] MEDS: INSULIN ASPART (*BKC) 100 UNITS/ML SUB-Q ×2 (11:45→16:28)
[2022-12-06 12:24] LABS: Alanine Aminotransferase 39 U/L (6-50); Albumin Level 2.9 g/dL (3.5-5.1); Alkaline Phosphatase 56 U/L (38-126); Anion Gap 4 mmol/L (8-16); Aspartate Amino Transferase 26 U/L (17-59); Bilirubin,Total 1.4 mg/dL (0.2-1.3); Blood Urea Nitrogen 24 mg/dL (9-20); Calcium 7.5 mg/dL (8.4-10.2); Carbon Dioxide 30 mmol/L (22-30); Chloride 94 mmol/L (98-107); Estimated CRCL calculation 102 ml/min; Estimated Glomerular Filt Rate 53; Glucose 206 mg/dL (65-110); Magnesium 1.9 mg/dL (1.6-2.3); Potassium 3.4 mmol/L (3.4-5.0); Sodium 128 mmol/L (137-145)
[2022-12-06 12:57] LABS: Vancomycin Trough 24.7 ug/mL (10.0-20.0)
[2022-12-06 13:14] LABS: Basophils Percent Auto 0.5 % (0.2-1.2); Eosinophils Absolute Auto 0.1 K/mm3 (0-0.3); Eosinophils Percent Auto 1.6 % (0-4.4); Hematocrit 23.1 % (42.0-52.0); Hemoglobin 7.6 g/dL (14.0-18.0); Immature Granulocyte Absolute 0.34 K/mm3 (0.00-0.031); Immature Granulocyte Percent A 4.3 % (0-0.5); Lymphocytes Absolute Auto 1.13 K/mm3 (0.9-3.2); Lymphocytes Percent Auto 14.3 % (18.3-44.2); Mean Corpuscular HGB Conc 32.9 g/dl (32-36); Mean Corpuscular Hemoglobin 32.6 pg (26-34); Mean Corpuscular Volume 99.1 fl (80-100); Mean Platelet Volume 9.2 fl (7.4-10.4); Neutrophils Absolute Auto 5.2 K/mm3 (1.3-6.7); Neutrophils Percent Auto 66.3 % (45.5-73.1); Nucleated Red Blood Cells Perc 0.5 % (0.0-0.2); Platelet Count Result 142 k/mm3 (150-375); Red Blood Count 2.33 M/mm3 (4.6-6.20); Red Cell Distribution Width 17.4 % (11.5-14.5); White Blood Count 7.9 K/mm3 (4.5-10.0)
[2022-12-06 13:21] LABS: Hemoglobin A1C 9.6 % (<5.7)
[2022-12-06 14:00] VITALS: BP 98/40; PULSE 80; RESP 16; TEMP 36.6; O2SAT 94
--- NOTE | 2022-12-06 15:11 | PM.IMPN ---
Progress Note: A&P Assessment and Plan (1) Cellulitis: Code(s): L03.90 - Cellulitis, unspecified Status: Acute Assessment and Plan: Initially started on vancomycin, Zosyn and clindamycin 12/03 Switched to vanc, cefepime, Flagyl Blood cultures pending, NGTD Consult wound care (2) Hypomagnesemia: Code(s): E83.42 - Hypomagnesemia Status: Acute Assessment and Plan: Resolved (3) Obesity: Code(s): E66.9 - Obesity, unspecified Status: Acute (4) Essential hypertension: Code(s): I10 - Essential (primary) hypertension Status: Acute Assessment and Plan: Blood pressures reviewed 12/06 Continue home losartan (5) Type 2 diabetes mellitus: Code(s): E11.9 - Type 2 diabetes mellitus without complications Status: Acute Assessment and Plan: Accu-Cheks, sliding scale insulin, A1c 9.6 Blood glucose reviewed 12/06 Hold home metformin (6) Hyponatremia: Code(s): E87.1 - Hypo-osmolality and hyponatremia Status: Acute Assessment and Plan: Worsened with IV fluids, DC IV fluids and recheck tomorrow Plan Chronic pain: Restart home oxycodone 10 mg q.8 hours p.r.n. DVT prophylaxis with Xarelto GI prophylaxis not indicated Code status full code Subjective Date/time seen: 12/06/22 15:11 Interval history: 52-year-old male from assisted living presenting with multiple bedsores. No overnight events noted. No chest pain or shortness of breath. No nausea, vomiting or diarrhea. No fevers or chills. Pain almost completely resolved. Review of Systems Review of Systems: 12 point review of systems was assessed and was negative except as noted in the HPI Exam Narrative: General: No acute distress, alert and oriented per baseline HEENT: Atraumatic, normocephalic, mucous membranes moist CV: Regular rate and rhythm, S1, S2 Lungs: Clear to auscultation bilaterally, no rales or crackles noted, no wheezes, good air entry Abdomen: Soft, nontender, nondistended Extremities: Normal to inspection, significant edema and redness Skin: Erythema and drainage much improved over wounds Psych: Euthymic, normal affect Objective Data Vital Signs Vital Signs: Vital Signs - 24 hr 12/05/22 20:00 12/05/22 22:00 12/06/22 06:00 Temperature 97.7 F 97.0 F L Pulse Rate 77 85 Respiratory Rate 20 16 Blood Pressure 97/47 L 106/51 L Pulse Oximetry 98 94 Oxygen Delivery Room Air 12/06/22 08:46 12/06/22 08:40 12/06/22 14:00 Temperature 97.9 F Pulse Rate 79 80 Respiratory Rate 16 Blood Pressure 98/40 L Pulse Oximetry 94 Oxygen Delivery Room Air Intake/Output Intake/Output: Intake & Output 12/03/22 12/04/22 12/05/22 12/06/22 23:59 23:59 23:59 23:59 Intake Total 1777 1858 4552 2015 Balance 3697 6356 9982 2015 Meds/Results Medications: Active Medications Generic Name Dose Route Start Last Admin Trade Name Freq PRN Reason Stop Dose Admin Albuterol 2 puff 12/03/22 15:12 Albuterol Sulfate (*Sp) Aerosol 1 Puff INHALATION QIDRT PRN Shortness Of Breath Or Wheezin Aripiprazole 2 mg 12/03/22 21:00 12/05/22 20:59 Aripiprazole 2 Mg Tablet PO 2 mg HS ANKUR Administration Cyclobenzaprine HCl 10 mg 12/03/22 15:12 12/03/22 20:24 Cyclobenzaprine Hcl 10 Mg Tablet PO 10 mg BID PRN Administration Spasms Dextrose 12.5 gm 12/04/22 19:02 Dextrose 50% 25 Gm/50 Ml Syringe IV PUSH PRN PRN Hypoglycemia Protocol Ergocalciferol 50,000 units 12/11/22 09:00 Ergocalciferol 50,000 Units Capsule PO 01/09/23 08:59 WEEKLY ANKUR Fluoxetine HCl 60 mg 12/04/22 09:00 12/06/22 08:46 Fluoxetine Hcl 20 Mg Capsule PO 60 mg DAILY ANKUR Administration Furosemide 40 mg 12/03/22 17:00 12/06/22 08:46 Furosemide 40 Mg Tablet PO 40 mg BID ANKUR Administration Glucagon 1 mg 12/04/22 19:02 Glucagon For Inj 1 Mg Vial
[2022-12-06 16:16] LABS: Glucose Point of Care 206 mg/dl (65-105)
[2022-12-06] MEDS: RIVAROXABAN 20 MG TABLET PO (16:27)
[2022-12-06 19:47] VITALS: BP 103/53; PULSE 77; RESP 16; TEMP 36.9; O2SAT 95
[2022-12-06] MEDS: ARIPiprazole 2 MG TABLET PO (21:15)
[2022-12-06 22:27] LABS: Glucose Point of Care 222 mg/dl (65-105)
[2022-12-07 04:23] VITALS: BP 99/54; PULSE 69; RESP 20; TEMP 36.1; O2SAT 97
[2022-12-07] MEDS: metroNIDAZOLE 500 MG/ISO 100ML 500 MG/100 ML BAG 100 MG IVPB ×2 (04:26→11:10)
[2022-12-07] MEDS: CEFEPIME 2 GM/NS 50 ML 2 GM/50 ML BAG IVPB ×2 (04:26→11:10)
[2022-12-07 06:52] LABS: Basophils Absolute Auto 0.1 K/mm3 (0.0-0.1); Basophils Percent Auto 0.7 % (0.2-1.2); Eosinophils Absolute Auto 0.2 K/mm3 (0-0.3); Hemoglobin 9.3 g/dL (14.0-18.0); Immature Granulocyte Absolute 0.39 K/mm3 (0.00-0.031); Immature Granulocyte Percent A 4.7 % (0-0.5); Lymphocytes Absolute Auto 1.19 K/mm3 (0.9-3.2); Lymphocytes Percent Auto 14.3 % (18.3-44.2); Mean Corpuscular HGB Conc 32.1 g/dl (32-36); Mean Corpuscular Hemoglobin 31.7 pg (26-34); Mean Platelet Volume 9.4 fl (7.4-10.4); Monocytes Absolute Auto 1.3 K/mm3 (0.1-0.6); Monocytes Percent Auto 15.9 % (2.6-8.5); Neutrophils Absolute Auto 5.2 K/mm3 (1.3-6.7); Neutrophils Percent Auto 62.4 % (45.5-73.1); Nucleated Red Blood Cells Perc 0.5 % (0.0-0.2); Platelet Count Result 175 k/mm3 (150-375); Red Blood Count 2.93 M/mm3 (4.6-6.20); Red Cell Distribution Width 17.2 % (11.5-14.5); White Blood Count 8.3 K/mm3 (4.5-10.0)
[2022-12-07 07:05] LABS: Alanine Aminotransferase 34 U/L (6-50); Albumin Level 2.8 g/dL (3.5-5.1); Alkaline Phosphatase 61 U/L (38-126); Anion Gap 3 mmol/L (8-16); Aspartate Amino Transferase 21 U/L (17-59); Bilirubin,Total 1.2 mg/dL (0.2-1.3); Blood Urea Nitrogen 27 mg/dL (9-20); Calcium 7.9 mg/dL (8.4-10.2); Carbon Dioxide 31 mmol/L (22-30); Chloride 95 mmol/L (98-107); Estimated CRCL calculation 85 ml/min; Estimated Glomerular Filt Rate 42; Glucose 184 mg/dL (65-110); Potassium 3.1 mmol/L (3.4-5.0); Sodium 129 mmol/L (137-145)
[2022-12-07 07:34] LABS: Glucose Point of Care 163 mg/dl (65-105)
[2022-12-07] MEDS: INSULIN GLARGINE (*BKC) 100 UNITS/ML 30 UNITS SUB-Q ×2 (08:07→17:07)
[2022-12-07] MEDS: oxyCODONE HCL (*CRX) 5 MG TAB IR 10 MG PO (08:09)
[2022-12-07] MEDS: FLUoxetine HCL 20 MG CAPSULE 60 MG PO (08:11)
[2022-12-07] MEDS: FUROSEMIDE 40 MG TABLET PO ×2 (08:11→17:07)
[2022-12-07] MEDS: LOSARTAN POTASSIUM 100 MG TABLET PO (08:11)
[2022-12-07] MEDS: POTASSIUM CHLORIDE 20 MEQ ER TABLET PO (08:11)
[2022-12-07] MEDS: METOPROLOL SUCCINATE EXT REL 50 MG TABCR PO (08:11)
[2022-12-07] MEDS: TAMSULOSIN HCL 0.4 MG CAPSULE PO (08:11)
[2022-12-07 11:22] LABS: Glucose Point of Care 177 mg/dl (65-105)
--- NOTE | 2022-12-07 13:45 | PM.IMPN ---
Progress Note: A&P Assessment and Plan (1) Cellulitis: Code(s): L03.90 - Cellulitis, unspecified Status: Acute Assessment and Plan: Initially started on vancomycin, Zosyn and clindamycin 12/03 Switched to vanc, cefepime, Flagyl Blood cultures pending, NGTD Consult wound care 12/07: transition to oral abx, d/c vanc, start oral levaquin + flagyl (2) Hypomagnesemia: Code(s): E83.42 - Hypomagnesemia Status: Acute Assessment and Plan: Resolved (3) Obesity: Code(s): E66.9 - Obesity, unspecified Status: Acute (4) Essential hypertension: Code(s): I10 - Essential (primary) hypertension Status: Acute Assessment and Plan: Blood pressures reviewed 12/06 Continue home losartan (5) Type 2 diabetes mellitus: Code(s): E11.9 - Type 2 diabetes mellitus without complications Status: Acute Assessment and Plan: Accu-Cheks, sliding scale insulin, A1c 9.6 Blood glucose reviewed 12/06 Hold home metformin (6) Hyponatremia: Code(s): E87.1 - Hypo-osmolality and hyponatremia Status: Acute Assessment and Plan: Worsened with IV fluids, DC IV fluids and recheck tomorrow Plan Chronic pain: Restart home oxycodone 10 mg q.8 hours p.r.n. DVT prophylaxis with Xarelto GI prophylaxis not indicated Code status full code Subjective Date/time seen: 12/07/22 13:45 Interval history: 52-year-old male from assisted living presenting with multiple bedsores. No overnight events noted. No chest pain or shortness of breath. No nausea, vomiting or diarrhea. No fevers or chills. No complaints. Doing well. Review of Systems Review of Systems: 12 point review of systems was assessed and was negative except as noted in the HPI Exam Narrative: General: No acute distress, alert and oriented per baseline HEENT: Atraumatic, normocephalic, mucous membranes moist CV: Regular rate and rhythm, S1, S2 Lungs: Clear to auscultation bilaterally, no rales or crackles noted, no wheezes, good air entry Abdomen: Soft, nontender, nondistended Extremities: Normal to inspection, significant edema and redness Skin: Erythema and drainage much improved over wounds Psych: Euthymic, normal affect Objective Data Vital Signs Vital Signs: Vital Signs - 24 hr 12/06/22 14:00 12/06/22 19:47 12/07/22 04:23 Temperature 97.9 F 98.5 F 97 F L Pulse Rate 80 77 69 Respiratory Rate 16 16 20 Blood Pressure 98/40 L 103/53 L 99/54 L Pulse Oximetry 94 95 97 Oxygen Delivery 12/07/22 08:00 Temperature Pulse Rate Respiratory Rate Blood Pressure Pulse Oximetry Oxygen Delivery Room Air Intake/Output Intake/Output: Intake & Output 12/04/22 12/05/22 12/06/22 12/07/22 23:59 23:59 23:59 23:59 Intake Total 1852 6090 2838 812 Balance 1852 5390 2838 812 Meds/Results Medications: Active Medications Generic Name Dose Route Start Last Admin Trade Name Freq PRN Reason Stop Dose Admin Albuterol 2 puff 12/03/22 15:12 Albuterol Sulfate (*Sp) Aerosol 1 Puff INHALATION QIDRT PRN Shortness Of Breath Or Wheezin Aripiprazole 2 mg 12/03/22 21:00 12/06/22 21:15 Aripiprazole 2 Mg Tablet PO 2 mg HS ANKUR Administration Cyclobenzaprine HCl 10 mg 12/03/22 15:12 12/03/22 20:24 Cyclobenzaprine Hcl 10 Mg Tablet PO 10 mg BID PRN Administration Spasms Dextrose 12.5 gm 12/04/22 19:02 Dextrose 50% 25 Gm/50 Ml Syringe IV PUSH PRN PRN Hypoglycemia Protocol Ergocalciferol 50,000 units 12/11/22 09:00 Ergocalciferol 50,000 Units Capsule PO 01/09/23 08:59 WEEKLY ANKUR Fluoxetine HCl 60 mg 12/04/22 09:00 12/07/22 08:11 Fluoxetine Hcl 20 Mg Capsule PO 60 mg DAILY ANKUR Administration Furosemide 40 mg 12/03/22 17:00 12/07/22 08:11 Furosemide 40 Mg Tablet PO 40 mg BID ANKUR Administration Glucagon 1 mg 12/04/22 19:02 Glucagon For Inj 1
[2022-12-07 14:00] VITALS: BP 104/39; PULSE 76; RESP 18; TEMP 35.9; O2SAT 97
[2022-12-07 16:52] LABS: Glucose Point of Care 216 mg/dl (65-105)
[2022-12-07] MEDS: RIVAROXABAN 20 MG TABLET PO (17:07)
[2022-12-07] MEDS: INSULIN ASPART (*BKC) 100 UNITS/ML SUB-Q (17:07)
[2022-12-07] MEDS: levoFLOXacin 750 MG TABLET PO (17:07)
[2022-12-07] MEDS: ARIPiprazole 2 MG TABLET PO (21:22)
[2022-12-07 21:34] LABS: Glucose Point of Care 195 mg/dl (65-105)
[2022-12-07 21:40] VITALS: BP 78/36; PULSE 73; RESP 20; TEMP 36.9; O2SAT 96
[2022-12-07] MEDS: metroNIDAZOLE 250 MG TABLET 500 MG PO (22:15)
[2022-12-08] MEDS: ALBUMIN HUMAN 25% 12.5 GM/50ML 50 ML IVPB (01:08)
[2022-12-08 02:18] VITALS: BP 94/62; PULSE 72
[2022-12-08] MEDS: oxyCODONE HCL (*CRX) 5 MG TAB IR 10 MG PO ×2 (02:21→08:59)
[2022-12-08 06:00] VITALS: BP 111/55; PULSE 80; RESP 20; TEMP 36.5; O2SAT 97
[2022-12-08 06:17] LABS: Hematocrit 28.4 % (42.0-52.0); Hemoglobin 9.1 g/dL (14.0-18.0); Mean Corpuscular Hemoglobin 31.5 pg (26-34); Mean Corpuscular Volume 98.3 fl (80-100); Platelet Count Result 187 k/mm3 (150-375); Red Blood Count 2.89 M/mm3 (4.6-6.20); Red Cell Distribution Width 17.4 % (11.5-14.5)
[2022-12-08 06:28] LABS: Alanine Aminotransferase 30 U/L (6-50); Alkaline Phosphatase 63 U/L (38-126); Anion Gap 8 mmol/L (8-16); Aspartate Amino Transferase 21 U/L (17-59); Bilirubin,Total 1.1 mg/dL (0.2-1.3); Blood Urea Nitrogen 30 mg/dL (9-20); Calcium 7.9 mg/dL (8.4-10.2); Carbon Dioxide 27 mmol/L (22-30); Chloride 96 mmol/L (98-107); Estimated CRCL calculation 80 ml/min; Estimated Glomerular Filt Rate 40; Glucose 163 mg/dL (65-110); Potassium 3.2 mmol/L (3.4-5.0); Sodium 131 mmol/L (137-145)
[2022-12-08] MEDS: metroNIDAZOLE 250 MG TABLET 500 MG PO ×2 (06:29→14:50)
[2022-12-08 06:48] LABS: Anisocytosis 1+ (NORMAL); Band Neutrophils Percent 5 % (0-6); Eosinophils Absolute Manual 0.16 K/mm3 (0.02-0.5); Eosinophils Percent Manual 2 % (0-4); Lymphocytes Absolute Manual 1.44 K/mm3 (1.1-4.5); Lymphocytes Percent Manual 18 % (18-44); Metamyelocytes Percent 5 %; Monocytes Absolute Manual 0.56 K/mm3 (0.1-0.90); Monocytes Percent Manual 7 % (3-9); Neutrophils Absolute Manual 5.44 K/mm3 (1.3-6.7); Neutrophils Percent Manual 63 % (46-73); Platelet Estimate Adequate (Adequate); Total Cells Counted 100
[2022-12-08 06:49] LABS: Polychromasia 1+ (NORMAL)
[2022-12-08 06:50] LABS: Hypochromasia 1+ (NORMAL); Schistocytes None Seen (NORMAL)
[2022-12-08 07:59] LABS: Glucose Point of Care 162 mg/dl (65-105)
[2022-12-08] MEDS: TAMSULOSIN HCL 0.4 MG CAPSULE PO (08:53)
[2022-12-08] MEDS: INSULIN GLARGINE (*BKC) 100 UNITS/ML 30 UNITS SUB-Q (08:53)
[2022-12-08] MEDS: POTASSIUM CHLORIDE 20 MEQ ER TABLET PO (08:54)
[2022-12-08] MEDS: LOSARTAN POTASSIUM 100 MG TABLET PO (08:55)
[2022-12-08] MEDS: FLUoxetine HCL 20 MG CAPSULE 60 MG PO (08:55)
[2022-12-08 08:57] VITALS: PULSE 83
[2022-12-08] MEDS: METOPROLOL SUCCINATE EXT REL 50 MG TABCR PO (08:57)
[2022-12-08] MEDS: FUROSEMIDE 40 MG TABLET PO (08:59)
--- NOTE | 2022-12-08 09:55 | PM.DS ---
DS: Admitting Diagnosis Discharge Date 12/09/22 Admitting Diagnosis cellulitis DS: Discharge Diagnosis Discharge Diagnosis (1) Cellulitis: Code(s): L03.90 - Cellulitis, unspecified Status: Acute Assessment and Plan: Initially started on vancomycin, Zosyn and clindamycin 12/03 Switched to vanc, cefepime, Flagyl Blood cultures pending, NGTD Consult wound care 12/07: transition to oral abx, d/c vanc, start oral levaquin + flagyl (2) Hypomagnesemia: Code(s): E83.42 - Hypomagnesemia Status: Acute Assessment and Plan: Resolved (3) Obesity: Code(s): E66.9 - Obesity, unspecified Status: Acute (4) Essential hypertension: Code(s): I10 - Essential (primary) hypertension Status: Inactive Assessment and Plan: Blood pressures reviewed 12/06 Continue home losartan (5) Type 2 diabetes mellitus: Code(s): E11.9 - Type 2 diabetes mellitus without complications Status: Acute Assessment and Plan: Accu-Cheks, sliding scale insulin, A1c 9.6 Blood glucose reviewed 12/06 Hold home metformin (6) Hyponatremia: Code(s): E87.1 - Hypo-osmolality and hyponatremia Status: Acute Assessment and Plan: Worsened with IV fluids, DC IV fluids and recheck tomorrow Plan Chronic pain: Restart home oxycodone 10 mg q.8 hours p.r.n. DVT prophylaxis with Xarelto GI prophylaxis not indicated Code status full code DS: Summary Hospital Course Hospital Course: 52-year-old male from assisted living presenting with multiple bedsores.? He states they have increased in pain recently and if started to have some scant amounts of bleeding which is new. In the ER, he was noted to have significant macerated skin over the buttocks, scrotum and calf.? Patient denies any trauma or injury to the areas.? He was initiated on IV antibiotics due to concern for superimposed infection and admitted for further wound care. Initially started on vancomycin, Zosyn and clindamycin 12/03 Switched to vanc, cefepime, Flagyl Blood cultures pending, NGTD Consult wound care 12/07: transition to oral abx, d/c vanc, start oral levaquin + flagyl Please see above and med rec for details. Patient's symptoms significantly improved and he was eager to be discharged. Wounds much less erythematous and no longer painful. Time Spent with Patient Time attestation: Total time spent providing and/or coordinating discharge services: Exam Narrative: General: No acute distress, alert and oriented per baseline HEENT: Atraumatic, normocephalic, mucous membranes moist CV: Regular rate and rhythm, S1, S2 Lungs: Clear to auscultation bilaterally, no rales or crackles noted, no wheezes, good air entry Abdomen: Soft, nontender, nondistended Extremities: Normal to inspection, significant edema and redness Skin: Erythema and drainage much improved over wounds Psych: Euthymic, normal affect DS: Data Data Completed and Pending Labs on day of discharge: Labs from last 24 hours 12/08/22 12/08/22 12/07/22 07:53 05:58 21:09 WBC 8.0 RBC 2.89 L Hgb 9.1 L Hct 28.4 L MCV 98.3 MCH 31.5 MCHC 32.0 RDW 17.4 H Plt Count 187 MPV 9.0 Immature Gran % (Auto) Not Reportable Neut % (Auto) Not Reportable Lymph % (Auto) Not Reportable [place] % (Auto) Not Reportable Eos % (Auto) Not Reportable Baso % (Auto) Not Reportable Lymph # (Auto) Not Reportable [place] # (Auto) Not Reportable Eos # (Auto) Not Reportable Baso # (Auto) Not Reportable Abs Immat Gran (auto) Not Reportable Absolute Neuts (auto) Not Reportable Absolute Nucleated RBC Not Reportable Total Counted 100 Neutrophils % (Manual) 63 Band Neutrophils % 5 Lymphocytes % (Manual) 18 Monocytes % (Manual) 7 Eosinophils % (Manual) 2 Metamyelocytes % 5 Nucleated RBC % Not Reportable Abs Neuts (Manual) 5.44 Abs Lymphs (Manual
[2022-12-08 11:38] LABS: Glucose Point of Care 170 mg/dl (65-105)
[2022-12-08] MEDS: POTASSIUM CHLORIDE 20 MEQ ER TABLET 40 MEQ PO (12:11)
[2022-12-08 13:04] LABS: SARS-CoV-2 RNA PCR Negative (Negative)
[2022-12-08 14:00] VITALS: BP 93/53; PULSE 76; RESP 16; TEMP 35.7; O2SAT 96
[2022-12-08 16:02] LABS: Glucose Point of Care 166 mg/dl (65-105)
== END 2022-12-08 17:20 | DRG 383 ==
LOC: ANHED 12-03 05:21 → ANH3MEDSUR 12-03 09:41
PROVIDERS: Admitting Provider Family Medicine; Emergency Provider Student in an Organized Health Care Education/Training Program; PCP Family Medicine; Visit Provider Student in an Organized Health Care Education/Training Program
DX: L03.315 Cellulitis of perineum (principal); E87.1 Hypo-osmolality and hyponatremia; L89.309 Pressure ulcer of unspecified buttock, unspecified stage; L03.115 Cellulitis of right lower limb; L03.116 Cellulitis of left lower limb; N49.2 Inflammatory disorders of scrotum; L03.311 Cellulitis of abdominal wall; Z68.44 Body mass index [BMI] 60.0-69.9, adult; L89.899 Pressure ulcer of other site, unspecified stage; E83.42 Hypomagnesemia; I10 Essential (primary) hypertension; E11.9 Type 2 diabetes mellitus without complications; E66.01 Morbid (severe) obesity due to excess calories; Z87.891 Personal history of nicotine dependence
CPT/HCPCS: 36415; 36600; 80053; 80202; 81003; 82550; 82805; 82948; 83036; 83605; 83735; 83880; 84145; 85025; 85380; 85610; 85730; 86140; 86850; 86900; 86901; 87040; 87635; 96361; 96365; 96366; 96367; 96375; 97110; 97161; 97165; 97530; 99285; A9270; G0378; G0379; J0692; J1815; J1836; J2270; J2543; J3370; J3475; J7030; J7120; P9047

== ENCOUNTER 2022-12-08 20:35 | Inpatient (IN) | payer OTHER, SELFPAY ==
--- NOTE | ~2022-12-08 | US_ITS ---
EXAMINATION: US renal BI DATE: 12/10/2022 20:44 INDICATION: Acute kidney injury TECHNIQUE: Multiple grayscale and Doppler ultrasound images of the kidneys were obtained. COMPARISON: None. FINDINGS: The examination is significantly limited by the patient's body habitus. The right kidney measures 13.4 x 5.6 x 6.4 cm. The left kidney measures 15.0 x 6.9 x 6.6 cm. The kidneys demonstrate n ormal parenchymal echogenicity. There is grossly no hydronephrosis. The bladder is not visualized (pa umair voided prior to study). IMPRESSION: 1. Grossly normal kidneys without hydronephrosis. Reviewed, dictated and finalized at location F.
--- NOTE | ~2022-12-08 | US_ITS ---
EXAMINATION:US venous doppler LE LT INDICATION:Leg edema TECHNIQUE: Multiple grayscale, color flow and Doppler images of the left lower extremity deep venous systems were obtained and reviewed. COMPARISON:No prior studies for comparison. FINDINGS: Study is extremely limited due to patient body habitus and intolerance to pain. The left fe moral, popliteal and gastrocnemius veins are patent. The remainder of the left lower extremity veins are not examined. IMPRESSION: 1: No lower extremity deep venous thrombosis. Extremely limited examination. Reviewed, dictated and finalized at location B.
--- NOTE | ~2022-12-08 | XR_ITS ---
EXAMINATION: XR chest 1V portable Exam Date/Time: 12/08/2022 22:00 CDT HISTORY: weakness, DIZZINESS, SHORTNESS OF BREATH AND LOSS OF HEARING Comparison: None. RESULT: Lines, tubes, and devices: None. Lungs and pleura: Clear. Cardiomediastinal silhouette: Unremarkable. Other: No acute osseous or upper abdominal finding. IMPRESSION: No acute cardiopulmonary process. Reviewed, dictated and finalized at location K.
[2022-12-08 20:40] VITALS: BP 82/55; PULSE 80; RESP 20; TEMP 37.3; O2SAT 98
--- NOTE | 2022-12-08 21:27 | ECG_ITS ---
Measurements Intervals [place] Rate: 78 P: -11 MS: 202 QRS: -34 QRSD: 115 T: 9 QT: 419 QTc: 477 Interpretive Statements SINUS RHYTHM LEFT AXIS DEVIATION INCOMPLETE RIGHT BUNDLE BRANCH BLOCK PATTERN CONSISTENT WITH PULMONARY DISEASE ST-T WAVE ABNORMALITY IN SEPTAL LEADS- CONSIDER ISCHEMIA BASELINE ARTIFACT- I, III, AVL, V2 ABNORMAL ECG NO PREVIOUS ECG AVAILABLE FOR COMPARISON Electronically Signed On 12-09-2022 6:34:15 CDT by Andrew Eldridge D.O.
[2022-12-08] MEDS: SODIUM CHLORIDE 0.9% IV 1,000 ML 999 ML IV CONT (22:19)
[2022-12-08 22:35] LABS: Basophils Absolute Auto 0.1 K/mm3 (0.0-0.1); Basophils Percent Auto 0.8 % (0.2-1.2); Eosinophils Absolute Auto 0.2 K/mm3 (0-0.3); Hematocrit 27.2 % (42.0-52.0); Hemoglobin 8.9 g/dL (14.0-18.0); Immature Granulocyte Absolute 0.74 K/mm3 (0.00-0.031); Lymphocytes Absolute Auto 1.25 K/mm3 (0.9-3.2); Lymphocytes Percent Auto 11.7 % (18.3-44.2); Mean Corpuscular HGB Conc 32.7 g/dl (32-36); Mean Corpuscular Hemoglobin 31.9 pg (26-34); Mean Corpuscular Volume 97.5 fl (80-100); Mean Platelet Volume 9.2 fl (7.4-10.4); Monocytes Absolute Auto 1.5 K/mm3 (0.1-0.6); Monocytes Percent Auto 13.9 % (2.6-8.5); Neutrophils Absolute Auto 6.9 K/mm3 (1.3-6.7); Neutrophils Percent Auto 64.6 % (45.5-73.1); Nucleated Red Blood Cells Absolute Auto 0.1 K/mm3 (0.0-0.012); Nucleated Red Blood Cells Perc 1.1 % (0.0-0.2); Platelet Count Result 229 k/mm3 (150-375); Red Blood Count 2.79 M/mm3 (4.6-6.20); Red Cell Distribution Width 17.7 % (11.5-14.5); White Blood Count 10.6 K/mm3 (4.5-10.0)
[2022-12-08 22:46] LABS: INR 1.4; Prothrombin Time 18.2 Seconds (11.1-14.7)
[2022-12-08 22:47] LABS: Lactic Acid Reflex 2.2 mmol/L (0.7-2.0)
[2022-12-08 22:48] LABS: Alanine Aminotransferase 29 U/L (6-50); Albumin Level 3.1 g/dL (3.5-5.1); Alkaline Phosphatase 74 U/L (38-126); Anion Gap 7 mmol/L (8-16); Aspartate Amino Transferase 26 U/L (17-59); Blood Urea Nitrogen 32 mg/dL (9-20); Calcium 8.4 mg/dL (8.4-10.2); Carbon Dioxide 27 mmol/L (22-30); Chloride 95 mmol/L (98-107); Estimated CRCL calculation 57 ml/min; Estimated Glomerular Filt Rate 31; Glucose 211 mg/dL (65-110); Magnesium 1.6 mg/dL (1.6-2.3); Potassium 3.7 mmol/L (3.4-5.0); Sodium 129 mmol/L (137-145)
[2022-12-08 22:59] LABS: Troponin I 0.013 ng/mL (0.000-0.034)
[2022-12-08 23:05] LABS: Large Platelets Present; Platelet Estimate Adequate (Adequate); Polychromasia 1+ (NORMAL)
[2022-12-08 23:06] LABS: Anisocytosis 1+ (NORMAL); Basophilic Stippling 1+ (NORMAL); Schistocytes None Seen (NORMAL)
[2022-12-08 23:11] LABS: Appearance Urine Clear (Clear); Bacteria Urine None Seen /hpf; Bilirubin Urine 1+ (Negative); Blood Urine Negative (Negative); Color Urine Dark Yellow (Yellow); Glucose Urine UA Negative (Negative); Hyaline Casts Urine Present /lpf; Ketones Urine Trace mg/dL (Negative); Leukocyte Esterase Ur Negative LEU/UL (Negative); Nitrate Urine Negative (Negative); Protein Urine 1+ mg/dL (Negative); RBC Urine 0-2 /hpf (0-2); Specific Grav Ur 1.016 (1.001-1.035); Squamous Epithelial Cell Urine Occasional /hpf (Few); Urobilinogen Urine 0.2 mg/dL (<2.0); WBC Urine 0-5 /hpf
[2022-12-08 23:15] LABS: Add Urine Microscopic? YES
[2022-12-09] VITALS (10 sets, daily range): BP systolic 90–98; BP diastolic 46–64; PULSE 71–86; RESP 12–20; TEMP 35.7–36.8; O2SAT 94–98
--- NOTE | 2022-12-09 | ECHO_ITS ---
Patient Info Name: Yobani Murillo Age: 52 years : 1970 Gender: Male Ht: 71 in Wt: 475 lbs BSA: 3.42 m2 HR: 99 bpm BP: 90 / 53 mmHg Heart Rhythm: Sinus Rhythm Technical Quality: Poor Exam Date: 12/09/2022 10:01 AM Exam Location: [facility] Patient Status: Inpatient Admit Date: 12/09/2022 Staff Ordering Physician: Ofelia Harrington DO Attending Provider: Ofelia Harrington DO Referring Physician: Len RODRIGUEZ; Exam Type: CA echo dop color flow w con Study Info Indications - hypotension, Edema Complete two-dimensional, color flow and Doppler transthoracic echocardiogram is performed with contrast to opacify the left ventricle and to improve the deliniation of the left ventricle endocardial borders. Contrast/Agitated Saline Contrast/Ag. Saline: Definity Amount: 3.00 ml Reason for Poor Study: poor echocardiographic windows Summary 1. Technically difficult study with limited views. 2. Left ventricular chamber dimension is normal. 3. Left ventricular systolic function is hyperdynamic, estimated at >70%. 4. Right ventricular systolic function is normal. 5. There is mild tricuspid valve regurgitation. 6. There is trivial pericardial effusion. Left Ventricle Left ventricular chamber dimension is normal. Left ventricular systolic function is hyperdynamic, estimated at >70%. Right Ventricle Right ventricular chamber dimension is normal. Right ventricular systolic function is normal. Left Atria Left atrial chamber dimension is normal. Right Atria Right atrial chamber dimension is normal. Atrial Septum Interatrial septum is not well visualized. Aortic Valve The aortic valve is not well visualized. There is no aortic valve stenosis. There is no aortic valve regurgitation. Pulmonic Valve The pulmonic valve is not well visualized. Mitral Valve There is trace mitral valve regurgitation. Tricuspid Valve There is mild tricuspid valve regurgitation. Pericardium/Pleural The pericardium appears epicardial fat pad. There is trivial pericardial effusion. Inferior Vena Cava Inferior vena cava is not well visualized. Aorta The aortic root size at the sinus of Valsalva is normal. Left Ventricular Outflow Tract Name Value Normal LVOT 2D LVOT Diameter 2.00 cm LVOT Doppler LVOT Peak Gradient 5 mmHg LVOT Mean Gradient 3 mmHg LVOT VTI 27.34 cm LVOT VTI/AV VTI Ratio 0.55 LVOT Stroke Volume 85.47 ml LVOT CO 6.67 l/min LVOT CI 1.95 L/min/m2 Pulmonic Valve Name Value Normal RVOT Doppler RVOT Peak Gradient 3 mmHg PV Doppler PV Peak Gradient 4 mmHg Tricuspid Valve ---
--- NOTE | 2022-12-09 00:10 | ED.GENADULT ---
HPI - General Adult General Chief complaint: Dizziness Stated complaint: dizziness and rt ear hearing loss Time Seen by Provider: 12/08/22 21:21 History of Present Illness HPI narrative: Patient 52-year-old gentleman who presents emergency department with chief complaint of dizziness. Patient reports he was just in the hospital and was discharged after being treated for cellulitis patient reports that he got home and started feeling very lightheaded and as though he was in a tunnel with his hearing patient states that he had no syncope denies chest pain Related Data Home Medications Medication Instructions Recorded Confirmed albuterol sulfate 90 mcg/actuation 2 puff inhalation QID PRN 12/03/22 12/03/22 aerosol inhaler (ProAir HFA) Shortness Of Breath Or Wheezing aripiprazole 2 mg tablet 2 mg PO HS 12/03/22 12/03/22 cyclobenzaprine 10 mg tablet 10 mg PO BID PRN Spasms 12/03/22 12/03/22 ergocalciferol (vitamin D2) 50,000 50,000 unit PO WEEKLY 12/03/22 12/03/22 unit tablet fluoxetine 60 mg tablet 60 mg PO DAILY 12/03/22 12/03/22 furosemide 40 mg tablet 40 mg PO BID 12/03/22 12/03/22 insulin glargine 100 unit/mL 30 unit subcut BID 12/03/22 12/03/22 subcutaneous solution losartan 100 mg tablet 100 mg PO DAILY 12/03/22 12/03/22 metformin 1,000 mg tablet 1,000 mg PO BID 12/03/22 12/03/22 metoprolol succinate 50 mg 50 mg PO DAILY 12/03/22 12/03/22 tablet,extended release 24 hr (Toprol XL) oxycodone 5 mg tablet 5 mg PO Q8H PRN Pain 12/03/22 12/03/22 potassium chloride 20 mEq oral 20 meq PO DAILY 12/03/22 12/03/22 packet rivaroxaban 20 mg tablet (Xarelto) 20 mg PO DAILY 12/03/22 12/03/22 tamsulosin 0.4 mg capsule 0.4 mg PO DAILY 12/03/22 12/03/22 Allergies Allergy/AdvReac Type Severity Reaction Status Date / Time No Known Allergies Allergy Mild Verified 12/02/22 21:36 Review of Systems Review of Systems: A 10 system review of systems was completed on the patient and is negative except for what is stated in the HPI. Nursing and ancillary documentation was reviewed. [facility] Past Medical History Medical History Obesity Social History Social History Smoking packs per day: 2 Smoking cigarettes per day: 40.0 Years smoked: 33 Smoking pack-years: 66.00 Smoking status: Former smoker Tobacco type: cigarettes Alcohol intake: never Substance use: current Substance use type: marijuana Lack of Transportation: No Lack of Food: Never True Current Housing: I Have Housing Concerned About Future Housing: No Difficulty Paying Gas/Electric Bills: No Difficulty Paying for Meds: No Currently Unemployed: No Education: High School Diploma/GED Difficulty w/ Childcare or Family Care: No Spiritual care concerns: No Exam Narrative: GENERAL: Ill-appearing, obese, and in no acute distress. HEAD: Normocephalic, atraumatic. EYES: PERRLA and EOMI. ENT: Nares clear, no rhinorrhea or epistaxis. Mucous membranes moist. TMs clear NECK: Supple. CHEST: Clear to auscultation. No respiratory distress. HEART: Regular rate and rhythm. No murmur heard. Normal peripheral pulses. ABDOMEN: Soft, nontender, nondistended, normal active bowel sounds. EXTREMITIES: Normal range of motion. No edema. SKIN: Warm, dry, no rash. NEURO: No focal deficits. Alert and oriented x3. PSYCH: Normal mood and affect. Course Vital Signs Vital signs: Vital Signs Temperature 37.3 C 12/08/22 20:40 Pulse Rate 80 12/08/22 20:40 Respiratory Rate 20 12/08/22 20:40 Blood Pressure 82/55 L 12/08/22 20:40 Pulse Oximetry 98 12/08/22 20:40 Oxygen Delivery Room Air 12/08/22 20:40 Temperature 37.3 C 12/08/22 20:40 Pulse Rate 82 12/09/22 00:07 Respiratory Rate 20 12/09/22 00:07 Blood Pressure 98/54 L 12/09/22 00:07 Pulse Oximetry 98 12/09/22 00:07 Oxyge
[2022-12-09] MEDS: SODIUM CHLORIDE 0.9% IV 1,000 ML 999 ML IV CONT ×2 (00:44→02:27)
--- NOTE | 2022-12-09 00:44 | PM.IMHP ---
H&P: HPI History of Present Illness Date/Time: 12/09/22 00:44 Chief Complaint: Dizziness, tunnel vision and ringing in his ears Narrative: 52-year-old male with a past medical history of essential hypertension, BPH, type 2 diabetes mellitus and morbid obesity with BMI greater than 55 who presented to the ER from [facility] via EMS 2 hours after discharge from the hospital with dizziness, tunnel vision and ringing in his ears. The patient had been hospitalized for cellulitis of the buttocks and legs he will. He had been initially treated with vanc Zosyn and clindamycin had been transition to cefepime, Flagyl and vanc. He was switched to oral antibiotics with Levaquin and Flagyl on discharge. The patient was found to be hypotensive in the field with blood pressures in the low 80s systolic. On review of the patient's recent hospital stay the patient's blood pressures had been trending downward throughout his stay. His blood pressures the 1st couple of days of his stay were in the 120s to 130s. As his hospital stay for [facility] patient's blood pressures were mostly in the upper 90s in the 100 systolic. The patient also had increasing creatinine during his hospital stay with creatinine going from 0.8 up to 1.8 on discharge. Patient does not have a history of chronic kidney disease. Patient was afebrile during her recent hospitalization and his temperature on arrival to the ER today was 99.2. Patient is on Lasix at home but does not have an echocardiogram on file confirming history of CHF. The patient received 1 L of IV fluids on arrival to the ER and systolic blood pressures improved up to the 100s initially. However after an additional 2 L of fluid bolus patient's blood pressure still borderline low in the low to mid 90s. Maps were maintained above 60. The patient reports he has been having terrible pain in his buttocks and calf since his last presentation the hospital on the . On examination the patient had a large area of induration and erythema with increased warmth over the left calf. Bedside ultrasound was utilized and demonstrated a large area of subcutaneous abscess. Bedside I&D was offered to the patient and the patient refused. Patient has been started on antibiotic therapy with cefepime and Flagyl in the ER. I will add vancomycin and check MRSA screen. General surgery has been consulted. Patient does report decreased appetite but no nausea vomiting or changes in bowel habits. He reports chronic sensation of incomplete bladder emptying. He denies any dysuria. His A1c on the 24 of this month was 9.6. His glucoses are in the 200s. Patient reports that he was evaluated at [place] in March and was diagnosed with pancreatic cancer. He states that he is supposed to follow-up with Dr. Villa from Oncology in December. Review of Systems Review of Systems: 12 systems were reviewed with pertinent positives and negatives per HPI. Except as documented in the HPI, all other systems were reviewed and are negative. [facility] Past Medical History Medical History (Updated 12/09/22 @ 05:29 by Ofelia Harrington DO) Anxiety and depression BPH (benign prostatic hyperplasia) COPD (chronic obstructive pulmonary disease) Essential hypertension GERD (gastroesophageal reflux disease) Lymphedema associated with obesity Obstructive sleep apnea Pancreatic mass Rheumatoid arthritis Type 2 diabetes mellitus Surgical History Surgical History (Updated 12/09/22 @ 05:17 by Ofelia Harrington DO) History of arthroscopy of right knee Hx of cholecystectomy Family History Family History Mother Pacemaker Diabetes mellitus Hypertension Father Heart attack Diabetes mellitus Hypertension Sibling Epilepsy Diabetes mellitus Hypertension Social History Social History (Updated 12/09/22 @ 05:19 by Ofelia Harrington DO) Social History: Patient reports that before July 02
[2022-12-09] MEDS: CEFEPIME 2 GM/NS 50 ML 2 GM/50 ML BAG IVPB ×3 (01:16→17:59)
[2022-12-09 01:32] LABS: Reflex Lactic Acid Yes or No Add Lactic
[2022-12-09] MEDS: metroNIDAZOLE 500 MG/ISO 100ML 500 MG/100 ML BAG 100 MG IVPB ×3 (01:44→17:59)
[2022-12-09] MEDS: SODIUM CHLORIDE 0.9% IV 1,000 ML 100 ML IV CONT (01:56)
[2022-12-09] MEDS: fentaNYL CITRATE INJ (*CRX) 100 MCG/2 ML VIAL 50 MCG IV PUSH (02:21)
[2022-12-09 03:21] LABS: Lactic Acid 2.2 mmol/L (0.7-2.0)
[2022-12-09] MEDS: VANCOMYCIN 1,250 MG/NS 250 ML 1,250 MG/250 ML BAG 166.67 MG IVPB ×2 (04:43→06:20)
[2022-12-09] MEDS: INSULIN GLARGINE (*BKC) 100 UNITS/ML 30 UNITS SUB-Q (06:23)
[2022-12-09 06:49] LABS: Glucose Point of Care 166 mg/dl (65-105)
[2022-12-09 07:59] LABS: Hematocrit 26.6 % (42.0-52.0); Hemoglobin 8.5 g/dL (14.0-18.0); Mean Corpuscular Hemoglobin 31.6 pg (26-34); Mean Corpuscular Volume 98.9 fl (80-100); Mean Platelet Volume 9.1 fl (7.4-10.4); Platelet Count Result 192 k/mm3 (150-375); Red Blood Count 2.69 M/mm3 (4.6-6.20); Red Cell Distribution Width 17.7 % (11.5-14.5)
[2022-12-09 08:01] LABS: Alanine Aminotransferase 27 U/L (6-50); Albumin Level 2.8 g/dL (3.5-5.1); Alkaline Phosphatase 68 U/L (38-126); Anion Gap 6 mmol/L (8-16); Aspartate Amino Transferase 21 U/L (17-59); Bilirubin,Total 0.7 mg/dL (0.2-1.3); Blood Urea Nitrogen 30 mg/dL (9-20); Calcium 7.7 mg/dL (8.4-10.2); Carbon Dioxide 26 mmol/L (22-30); Chloride 100 mmol/L (98-107); Estimated CRCL calculation 60 ml/min; Estimated Glomerular Filt Rate 33; Glucose 165 mg/dL (65-110); Potassium 3.7 mmol/L (3.4-5.0); Sodium 132 mmol/L (137-145)
[2022-12-09] MEDS: TAMSULOSIN HCL 0.4 MG CAPSULE PO (08:34)
[2022-12-09] MEDS: POTASSIUM CHLORIDE 20 MEQ PACKET (FOR LIQUID) PO (08:34)
[2022-12-09] MEDS: FLUoxetine HCL 20 MG CAPSULE 60 MG PO (08:34)
[2022-12-09 08:37] LABS: Band Neutrophils Percent 2 % (0-6); Eosinophils Absolute Manual 0.27 K/mm3 (0.02-0.5); Eosinophils Percent Manual 3 % (0-4); Lymphocytes Absolute Manual 2.07 K/mm3 (1.1-4.5); Lymphocytes Percent Manual 23 % (18-44); Metamyelocytes Percent 5 %; Monocytes Absolute Manual 1.17 K/mm3 (0.1-0.90); Monocytes Percent Manual 13 % (3-9); Neutrophils Absolute Manual 5.04 K/mm3 (1.3-6.7); Neutrophils Percent Manual 54 % (46-73); Nucleated Red Blood Cells 1 %; Platelet Estimate Adequate (Adequate); Total Cells Counted 100
[2022-12-09 08:38] LABS: Anisocytosis 1+ (NORMAL); Schistocytes None Seen (NORMAL)
[2022-12-09] MEDS: PERFLUTREN LIPID MICROSPHERES 1.5 ML VIAL DILUTED TO 10 ML TOTAL VOLUME IV PUSH (09:20)
--- NOTE | 2022-12-09 09:45 | PM.CNGS ---
Assessment and Plan Assessment and plan (1) Abscess of lower leg: Code(s): L02.419 - Cutaneous abscess of limb, unspecified <Lizzie RuanoLAURI lechuga - Last Filed: 12/09/22 11:06> Status: Acute <Lizzie AugustineLAURI - Last Filed: 12/09/22 11:06> Assessment and Plan: Patient presented with a left posterior calf abscess. Continue broad-spectrum IV antibiotics for now. Discussed with Dr. Dunham, who has also evaluated the patient as well. We would recommend proceeding with incision and drainage of the left calf abscess in the OR tomorrow. Will allow him to eat today and make him NPO after midnight. Description of the procedure, risks, benefits, expected outcomes, and expected recovery were discussed with the patient in detail. Patient agrees to proceed. <Lizzie RuanoLAURI lechuga - Last Filed: 12/09/22 11:06> Patient presented with a left posterior calf abscess. Continue broad-spectrum IV antibiotics for now. Discussed with Dr. Dunham, who has also evaluated the patient as well. We would recommend proceeding with incision and drainage of the left calf abscess in the OR tomorrow. Will allow him to eat today and make him NPO after midnight. Description of the procedure, risks, benefits, expected outcomes, and expected recovery were discussed with the patient in detail. Patient agrees to proceed. I have personally seen and evaluated the patient today with INTERNET ASSESSOR.? ? I have reviewed any new relevant radiographic and laboratory results.? I have reviewed the fuller elements of the patient's current surgical or medical problems and I have personally performed a substantive portion of the care for this patient.? I personally performed the pertinent physical exam and reviewed and confirmed the patient's medicine list.? ? I have formulated the surgical care plan and I agree with the documented note above. <Caleb Dunham MD - Last Filed: 12/09/22 16:51> (2) Acute kidney injury: Code(s): N17.9 - Acute kidney failure, unspecified <Lizzie RuanoLAURI lechuga - Last Filed: 12/09/22 11:06> Status: Acute <Lizzie RuanoLAURI lechuga - Last Filed: 12/09/22 11:06> Assessment and Plan: YEVGENIY on his last hospitalization and creatinine is up since discharge to 2.2. Could be related to hypotension and dehydration, continue IV fluids, monitor labs. <Lizzie Augustine CROSSING TENDER - Last Filed: 12/09/22 11:06> (3) Anticoagulant long-term use: Code(s): Z79.01 - snf (current) use of anticoagulants <Lizzie Augustine CROSSING TENDER - Last Filed: 12/09/22 11:06> Status: Acute <Lizzie BThomas Augustine CROSSING TENDER - Last Filed: 12/09/22 11:06> Assessment and Plan: Continue to hold Xarelto, plan to go to the OR tomorrow for I&D. 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 <Lizzie Augustine CROSSING TENDER - Last Filed: 12/09/22 11:06> (5) Obstructive sleep apnea: Code(s): G47.33 - Obstructive sleep apnea (adult) (pediatric) <Lizzie BThomas Frazierabhijeet CROSSING TENDER - Last Filed: 12/09/22 11:06> Status: Acute <Lizzie B. Freddieabhijeet CROSSING TENDER - Last Filed: 12/09/22 11:06> (6) Hyponatremia: Code(s): E87.1 - Hypo-osmolality and hyponatremia <Lizzie BThomas Frazierabhijeet CROSSING TENDER - Last Filed: 12/09/22 11:06> Status: Acute <Lizzie BThomas Frazierabhijeet CROSSING TENDER - Last Filed: 12/09/22 11:06> (7) Morbid obesity: Code(s): E66.01 - Morbid (severe) obesity due to excess calories <Lizzie B. Wasmuth, CROSSING TENDER - Last Filed: 12/09/22 11:06> Status: Acute <LAURI Cobian - Last Filed: 12/09/22 11:06> (8) Lymphedema associat
[2022-12-09 11:39] LABS: Glucose Point of Care 164 mg/dl (65-105)
[2022-12-09] MEDS: oxyCODONE HCL (*CRX) 5 MG TAB IR PO (12:13)
[2022-12-09] MEDS: TOLNAFTATE 1% POWDER 45 GM BTL 1 APPLIC TOPICAL ×2 (12:19→20:55)
--- NOTE | 2022-12-09 12:28 | IVDEFINITY ---
Prior to administration of IV Definity the patient was educated on the risks and benefits of the imaging enhancing agent including potential adverse side effects. The patient verbalized understanding. Allergies were verified. No exclusion criteria were identified and at least one of the following inclusion criteria were met: 1) physician request, 2) patient technically difficult to image (per the [place] [employer] guidelines of two or more segments not discernable within the apical view), or 3) questionable left ventricular function. ?
--- NOTE | 2022-12-09 14:18 | PM.IMPN ---
Progress Note: A&P Assessment and Plan (1) Acute hypotension: Code(s): I95.9 - Hypotension, unspecified Status: Acute Assessment and Plan: Patient brought back to the emergency room for dizziness and hypotension. Blood pressure 78/36 on admission. Blood pressure still soft but improved. Patient had been discharged earlier that same day. Was noted that his creatinine climbed from 0.8 to 1.8 so consider possibly dehydration. He was on his home Lasix during his hospital course. Lasix on hold. Contineu IV fluids. Monitor renal fucntion and BP (2) Abscess of lower leg: Code(s): L02.419 - Cutaneous abscess of limb, unspecified Status: Acute Assessment and Plan: Patient was admitted on 12/03 for left leg cellulitis. He also had erythema and possible cellulitis of the buttocks. Was initially treated with vancomycin, Zosyn and clindamycin that was changed to cefepime, Flagyl and vancomycin. No imaging was done. White count was normal and remained normal. He was switched to Levaquin and Flagyl at time of discharge but returned a few hours later for the hypotension. Patient has indurated firm area in the left calf a bedside ultrasound was concerning for subcutaneous abscess. Lower extremity venous Doppler was negative for DVT but was limited due to pain and body habitus. Patient again on cefepime and vancomycin and Flagyl. Original blood cultures were negative from 12/03/2022. Repeat blood cultures from 12/09/2022 are no growth to date. Continue IV antibiotics. General surgery is planned for I and D tomorrow. Appreciate General surgery input. (3) Acute kidney injury: Code(s): N17.9 - Acute kidney failure, unspecified Status: Acute Assessment and Plan: As above. Creatinine climbed to 2.2 but slightly better today. Continue IV fluids. Continue to monitor. (4) Near syncope: Code(s): R55 - Syncope and collapse Status: Acute Assessment and Plan: Related hypotension. As above. (5) Hyponatremia: Code(s): E87.1 - Hypo-osmolality and hyponatremia Status: Acute Assessment and Plan: Sodium dropped to 128 prior to discharge. Sodium has improved to 132 today. Continue to follow. (6) Type 2 diabetes mellitus with hyperglycemia, with long-term current use of insulin: Code(s): E11.65 - Type 2 diabetes mellitus with hyperglycemia; Z79.4 - parts counterman (current) use of insulin Status: Acute Assessment and Plan: A1c 9.6. The patient's blood glucose was reviewed on 12/09 Glucose remains reasonably well controlled. Continue AccuCheks covering with sliding scale. Hypoglycemia protocol available as needed. Continue to monitor. Hold Lantus tonight since NPO in the morning. (7) Obstructive sleep apnea: Code(s): G47.33 - Obstructive sleep apnea (adult) (pediatric) Status: Acute Assessment and Plan: Stable. Continue auto-PAP therapy. Plan DVT prophylaxis - Lovenox; resume Xarelto when able Code status - full Subjective Date/time seen: 12/09/22 14:18 Interval history: 52yo male with HTN, DM, morbid obesity, RA and TAMY here for for dizziness and found to have HoTN and left leg infection. Assuming care. Chart reviewed. Patient complains of buttock and left leg pain. He denies any chest pain shortness of breath. No nausea or vomiting although had not eaten prior to my visit. No cough. Exam Narrative: AF 98.2 97/58 78 16 96% ra Gen - NARD Chest - CTA bilaterally, nml RR CV - RRR S1/S2 Abd -soft. Obese. Ext -left calf firm with central indurated area and surrounding erythema associated with pain Psych - Nml mood and affect Skin -as above. Buttock area was not examined at this time. Objective Data Vital Signs Vital Signs: Vital Signs - 24 hr 12/08/22 20:40 12/09/22 00:07 12/09/22 01:17 Temperature 99.2 F Pulse Rate 80 82 86 Respiratory Rate 20 20 12 Bl
[2022-12-09] MEDS: oxyCODONE HCL (*CRX) 5 MG TAB IR 10 MG PO ×2 (15:29→20:58)
[2022-12-09 16:34] LABS: Glucose Point of Care 163 mg/dl (65-105)
[2022-12-09 20:31] LABS: Glucose Point of Care 206 mg/dl (65-105)
[2022-12-09] MEDS: ARIPiprazole 2 MG TABLET PO (20:53)
[2022-12-09] MEDS: INSULIN ASPART (*BKC) 100 UNITS/ML SUB-Q (21:25)
--- NOTE | 2022-12-09 22:50 | PC.NURSE ---
Woke him up multiple times to educate him on the importance of CPAP use, but he remains noncompliant with use.
[2022-12-10] VITALS (16 sets, daily range): BP systolic 92–126; BP diastolic 45–77; PULSE 77–102; RESP 14–20; TEMP 35.7–37.2; O2SAT 92–100
[2022-12-10] MEDS: metroNIDAZOLE 500 MG/ISO 100ML 500 MG/100 ML BAG 100 MG IVPB ×5 (01:19→23:14)
[2022-12-10] MEDS: CEFEPIME 2 GM/NS 50 ML 2 GM/50 ML BAG IVPB ×3 (01:19→16:58)
[2022-12-10] MEDS: SODIUM CHLORIDE 0.9% IV 1,000 ML 100 ML IV CONT (05:24)
[2022-12-10 06:30] LABS: Hematocrit 27.4 % (42.0-52.0); Hemoglobin 8.7 g/dL (14.0-18.0); Mean Corpuscular HGB Conc 31.8 g/dl (32-36); Mean Corpuscular Hemoglobin 31.6 pg (26-34); Mean Corpuscular Volume 99.6 fl (80-100); Mean Platelet Volume 8.9 fl (7.4-10.4); Platelet Count Result 178 k/mm3 (150-375); Red Blood Count 2.75 M/mm3 (4.6-6.20); Red Cell Distribution Width 18.3 % (11.5-14.5); White Blood Count 7.2 K/mm3 (4.5-10.0)
[2022-12-10 06:42] LABS: Alanine Aminotransferase 26 U/L (6-50); Albumin Level 2.9 g/dL (3.5-5.1); Alkaline Phosphatase 76 U/L (38-126); Anion Gap 5 mmol/L (8-16); Aspartate Amino Transferase 22 U/L (17-59); Bilirubin,Total 0.6 mg/dL (0.2-1.3); Blood Urea Nitrogen 28 mg/dL (9-20); Carbon Dioxide 24 mmol/L (22-30); Chloride 102 mmol/L (98-107); Estimated CRCL calculation 55 ml/min; Estimated Glomerular Filt Rate 30; Glucose 180 mg/dL (65-110); Magnesium 1.9 mg/dL (1.6-2.3); Potassium 3.4 mmol/L (3.4-5.0); Sodium 131 mmol/L (137-145)
[2022-12-10 07:06] LABS: Anisocytosis 1+ (NORMAL); Band Neutrophils Percent 12 % (0-6); Basophils Absolute Manual 0.07 K/mm3 (0.0-0.1); Basophils Percent Manual 1 % (0-1); Hypochromasia 1+ (NORMAL); Large Platelets Present; Lymphocytes Absolute Manual 1.65 K/mm3 (1.1-4.5); Metamyelocytes Percent 5 %; Monocytes Absolute Manual 0.64 K/mm3 (0.1-0.90); Monocytes Percent Manual 9 % (3-9); Myelocytes Percent 3 %; Neutrophils Absolute Manual 4.24 K/mm3 (1.3-6.7); Neutrophils Percent Manual 47 % (46-73); Platelet Estimate Adequate (Adequate); Poikilocytosis 1+ (NORMAL); Schistocytes None Seen (NORMAL); Total Cells Counted 100
[2022-12-10 07:45] LABS: Glucose Point of Care 177 mg/dl (65-105)
[2022-12-10 08:30] LABS: Glucose Point of Care 173 mg/dl (65-105)
[2022-12-10] MEDS: LACTATED RINGERS 1,000 ML 30 ML IV CONT (08:30)
--- NOTE | 2022-12-10 08:36 | WPDANESEPPF ---
Anes - Initial Pre Proc Eval Procedure: Operation Date: 12/10/22 09:30 Proposed Procedures p Incision and Drainage Left Lower Leg(Left) - Caleb Dunham MD Date/Time: 12/10/22 08:36 Surgeon: Ofelia Harrington DO Pre Op Diagnosis: Acute Kidney Injury, Sepsis Patient Data Age: 52 Gender: M Height: 1.78 m Weight: 175 kg Last Vital Signs Temp 36.5 C 12/10/22 08:00 Pulse 78 12/10/22 08:00 Resp 14 12/10/22 08:00 BP 101/62 12/10/22 08:00 Pulse Ox 99 12/10/22 08:00 O2 Del Method Room Air 12/09/22 23:31 Allergies Allergy/AdvReac Type Severity Reaction Status Date / Time No Known Allergies Allergy Mild Verified 12/02/22 21:36 Home Medications Medication Instructions Recorded Confirmed Type albuterol sulfate 90 mcg/actuation 2 puff inhalation QID PRN 12/03/22 12/09/22 History aerosol inhaler (ProAir HFA) Shortness Of Breath Or Wheezing aripiprazole 2 mg tablet 2 mg PO HS 12/03/22 12/09/22 History cyclobenzaprine 10 mg tablet 10 mg PO BID PRN Spasms 12/03/22 12/09/22 History ergocalciferol (vitamin D2) 50,000 50,000 unit PO WEEKLY 12/03/22 12/09/22 History unit tablet fluoxetine 60 mg tablet 60 mg PO DAILY 12/03/22 12/09/22 History furosemide 40 mg tablet 40 mg PO BID 12/03/22 12/09/22 History insulin glargine 100 unit/mL 30 unit subcut BID 12/03/22 12/09/22 History subcutaneous solution losartan 100 mg tablet 100 mg PO DAILY 12/03/22 12/09/22 History metformin 1,000 mg tablet 1,000 mg PO BID 12/03/22 12/09/22 History metoprolol succinate 50 mg 50 mg PO DAILY 12/03/22 12/09/22 History tablet,extended release 24 hr (Toprol XL) oxycodone 5 mg tablet 10 mg PO Q8H PRN Pain 12/03/22 12/09/22 History potassium chloride 20 mEq oral 20 meq PO DAILY 09/21/23 09/27/23 History packet rivaroxaban 20 mg tablet (Xarelto) 20 mg PO DAILY 12/03/22 12/09/22 History tamsulosin 0.4 mg capsule 0.4 mg PO DAILY 12/03/22 12/09/22 History levofloxacin 750 mg tablet 750 mg PO DAILY 3 days #3 tabs 12/08/22 12/09/22 Rx metronidazole 250 mg tablet 500 mg PO Q8HR 3 days #18 tabs 12/08/22 12/09/22 Rx Laboratory Tests 12/09/22 12/09/22 12/09/22 07:35 11:34 16:28 WBC 9.0 K/mm3 (4.5-10.0) RBC 2.69 L M/mm3 (4.6-6.20) Hgb 8.5 L g/dL (14.0-18.0) Hct 26.6 L % (42.0-52.0) MCV 98.9 fl (80-100) MCH 31.6 pg (26-34) MCHC 32.0 g/dl (32-36) RDW 17.7 H % (11.5-14.5) Plt Count 192 k/mm3 (150-375) MPV 9.1 fl (7.4-10.4) Immature Gran % (Auto) Not Reportable Neut % (Auto) Not Reportable Lymph % (Auto) Not Reportable Alexander % (Auto) Not Reportable Eos % (Auto) Not Reportable Baso % (Auto) Not Reportable Lymph # (Auto) Not Reportable Alexander # (Auto) Not Reportable Eos # (Auto) Not Reportable Baso # (Auto) Not Reportable Abs Immat Gran (auto) Not Reportable Absolute Neuts (auto) Not Reportable Absolute Nucleated RBC Not Reportable Total Counted 100 Neutrophils % (Manual) 54 % (46-73) Band Neutrophils % 2 % (0-6) Lymphocytes % (Manual) 23 % (18-44) Monocytes % (Manual) 13 H % (3-9) Eosinophils % (Manual) 3 % (0-4) Basophils % (Manual) Metamyelocytes % 5 % Myelocytes % Nucleated RBC % Not Reportable Abs Neuts (Manual) 5.04 K/mm3 (1.3-6.7) Abs Lymphs (Manual) 2.07 K/mm3 (1.1-4.5) Abs Monocytes (Manual) 1.17 H K/mm3 (0.1-0.90) Absolute Eos (Manual) 0.27 K/mm3 (0.02-0.5) Abs Basophils (Manual) Nucleated RBCs 1 % Platelet Estimate Adequate (Adequate) Large Platelets Hypochromasia Poikilocytosis Anisocytosis 1+
--- NOTE | 2022-12-10 09:31 | WPDHPUPDATE1 ---
History and Physical Update Update Date/Time: 12/10/22 09:31 History and Physical has been reviewed, including an updated exam of the patient. There are NO changes in the patient's condition. Risks, benefits, and alternatives have been discussed and questions answered. Patient agrees to proceed with procedure.
--- NOTE | 2022-12-10 09:55 | PC.NURSE ---
po meds will be late today. pt having procedure this am. will give po meds when pt back to the floor and safe to do so
[2022-12-10] MEDS: LIDO 1%/EPINEPHRINE 1:100,000 20 ML VIAL INFILTRATE (10:26)
--- NOTE | 2022-12-10 10:31 | SUR.OPER ---
Specimen given to Mag in pathology
--- NOTE | 2022-12-10 10:37 | P.OP_ITS ---
Procedure Note - Detailed Date of Procedure 12/10/22 Pre-op Diagnosis Left posterior calf subcutaneous abscess Post-op Diagnosis Same Procedure Performed Incision and drainage of posterior calf subcutaneous abscess Surgeon Caleb Dunham MD Gender Studies Professor JAVIER Coates Anesthesia General Indications Patient is a 52-year-old gentleman who is super morbidly obese. He was readmitted from the long term with low blood pressure and was also found to have a left calf abscess with associated cellulitis. He presents now for incision and drainage of left calf abscess. Findings Patient had a 10cm diameter area of induration in the midportion of the left posterior calf. In the center portion of the induration there was about a 2cm area of fluctuance. The abscess cavity was opened in a cruciate fashion with a scalpel and the contents were cultured. Description of Procedure After informed consent was obtained patient brought to the operating room was placed supine on his specialized hospital bed. General endotracheal anesthesia was then administered. The area of the left posterior calf was then prepped and draped usual sterile fashion. A time-out was then performed correctly i dentifying the patient as well as procedure to be performed verifying the site marking. He was already on scheduled IV antibiotics. I then utilized a #15 blade scalpel to incise the abscess cavity over the most fluctuant portion of the area of induration. There of induration measured about 10cm in diameter in the central portion there was a 2cm area of fluctuance. A cruciate incision was made with a scalpel and less than 5cc of pus drained from the abscess cavity. I obtained a culture swab of the abscess cavity and sent this to microbiology for a routine Gram stain, aerobic, and anaerobic culture. I then irrigated out the abscess cavity with sterile saline solution. A placement dex finger into the abscess cavity to break down any loculations and the abscess cavity had no tunneling. I then achieved hemostasis utilized electrocautery and then packed the wound tightly with quarter-inch iodoform gauze. I then injected some 1% lidocaine mixed with 0.5% Marcaine around the skin edges for local anesthetic effect. The wound was then dressed with fluffed 4x4 gauze and then wrapped with a Kerlix gauze and then finally wrapped with a 6 inch double Jimmy wrap from just below the knee distal to the left toes. The patient tolerated the procedure well no complications. All sponges, needles, and instrument counts were correct at the end procedure. EBL was _5__cc. The patient was awakened and taken to recovery in stable and satisfactory condition. Implants None Estimated Blood Loss 10 Drains No Packing Yes (Approximately 2ft of quarter-inch iodoform gauze left posterior calf.) Pathology Other (Wound culture sent to microbiology) Complications No immediate complications Condition Stable Disposition PACU [facility] Billing Surgery - Charge Forward: Surgery Billing
[2022-12-10 10:53] LABS: Glucose Point of Care 171 mg/dl (65-105)
--- NOTE | 2022-12-10 11:06 | ECG_ITS ---
Measurements Intervals [place] Rate: 89 P: [place]: 0 QRS: -36 QRSD: 118 T: 30 QT: 424 QTc: 519 Interpretive Statements SINUS RHYTHM ATRIAL AND VENTRICULAR PREMATURE COMPLEXES LEFT AXIS DEVIATION INTRAVENTRICULAR CONDUCTION DELAY PATTERN CONSISTENT WITH PULMONARY DISEASE BORDERLINE ST-T WAVE ABNORMALITY- ANT/HIGH LAT LEADS PROLONGED QT INTERVAL BASELINE WANDER- AVR, AVL, AVF ABNORMAL ECG COMPARED TO ECG 12/08/2022 21:50:07 INTRAVENTRICULAR CONDUCTION DELAY NOW PRESENT PROLONGED QT INTERVAL NOW PRESENT Electronically Signed On 12-10-2022 12:13:04 CDT by Andrew Eldridge D.O.
--- NOTE | 2022-12-10 11:21 | SUR.PHASEI ---
Dr. Burns aware of new onset A-fib. He told me to contact hospitalist and see if he/she wanted cardiology consulted. Dr. Vance aware and wants RN to consult cardiology.
--- NOTE | 2022-12-10 11:36 | SUR.PHASEI ---
Dr. Dunham aware of new onset A-fib and said patient may resume Xarelto immediately if that's what cardiology wants to do.
[2022-12-10] MEDS: TAMSULOSIN HCL 0.4 MG CAPSULE PO (12:39)
[2022-12-10] MEDS: POTASSIUM CHLORIDE 20 MEQ PACKET (FOR LIQUID) PO (12:39)
[2022-12-10] MEDS: FLUoxetine HCL 20 MG CAPSULE 60 MG PO (12:39)
[2022-12-10] MEDS: oxyCODONE HCL (*CRX) 5 MG TAB IR 10 MG PO ×2 (12:40→18:57)
[2022-12-10] MEDS: TOLNAFTATE 1% POWDER 45 GM BTL 1 APPLIC TOPICAL ×2 (12:53→21:09)
--- NOTE | 2022-12-10 14:52 | PM.IMPN ---
Progress Note: A&P Assessment and Plan (1) Acute hypotension: Code(s): I95.9 - Hypotension, unspecified Status: Acute Assessment and Plan: Patient brought back to the emergency room on the day of discharge for dizziness and hypotension. Blood pressure 78/36 on admission. Blood pressure still soft but improved. Patient was hospitalized for cellultis and had been discharged earlier that same day. Was noted that his creatinine climbed from 0.8 to 1.8 so consider possibly dehydration. Consider also sepsis related to cellulitis/abscess. He was on his home Lasix during his hospital course but now on hold. Losartan and Metoprolol also on hold. Continue IV fluids. Monitor renal function and BP. If BP does not improve after abscess drainage, consider adding midodrine. (2) Abscess of lower leg: Code(s): L02.419 - Cutaneous abscess of limb, unspecified Status: Acute Assessment and Plan: Patient was admitted on 12/03 for left leg cellulitis. He also had erythema and possible cellulitis of the buttocks. He was initially treated with vancomycin, Zosyn and clindamycin that was changed to cefepime, Flagyl and vancomycin. No imaging was done. White count was normal and remained normal. He was switched to Levaquin and Flagyl at time of discharge and discharged on 12/08. Patient returned a few hours later for dizziness and hypotension. Patient found to have indurated firm area in the left calf a bedside ultrasound that was concerning for subcutaneous abscess. Lower extremity venous Doppler was negative for DVT but was limited due to pain and body habitus. Patient started on cefepime and vancomycin and Flagyl. Original BCx negative from 12/03/22. Repeat BCx from 12/09/2022 NGTD. MRSA screen and Wound Cx pending. WBC normal and remaining normal but bandemia noted today at 12% with metamyelocytes and myelocytes. General surgery consulted and patient underwent I&D of left calf abscess today. Appreciate General surgery input. Continue IV antibiotics. Follow up on cultures (3) Acute kidney injury: Code(s): N17.9 - Acute kidney failure, unspecified Status: Acute Assessment and Plan: Creatine baseline 0.8 on original admission. During that hospitalization, creatinine climbed to 1.8 at time of discharge. Cr 2.2 on this admission and about the same at 2.3. Continue IV fluids. Check renal US. Continue to monitor. (4) Near syncope: Code(s): R55 - Syncope and collapse Status: Acute Assessment and Plan: Related to the hypotension. As above. (5) Hyponatremia: Code(s): E87.1 - Hypo-osmolality and hyponatremia Status: Acute Assessment and Plan: Sodium dropped to 128 prior to discharge. Sodium has improved to 131. Continue to follow. (6) Type 2 diabetes mellitus with hyperglycemia, with long-term current use of insulin: Code(s): E11.65 - Type 2 diabetes mellitus with hyperglycemia; Z79.4 - regional intermodal truck driver (current) use of insulin Status: Acute Assessment and Plan: A1c 9.6. The patient's blood glucose was reviewed on 12/10 Glucose remains reasonably well controlled. Continue AccuCheks covering with sliding scale. Hypoglycemia protocol available as needed. Continue to monitor. Lantus resumed. (7) Obstructive sleep apnea: Code(s): G47.33 - Obstructive sleep apnea (adult) (pediatric) Status: Acute Assessment and Plan: Stable. Continue auto-PAP therapy. 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 Patient had a pancreatic tail mass biopsy March 2021 showing neuroendocrine tumor. He is followed by [facility] oncology. His CT of his abdomen and pelvis in May showed stable pancreatic tail mass, prominent retroperitoneal/mese
[2022-12-10 16:28] LABS: Glucose Point of Care 180 mg/dl (65-105)
[2022-12-10] MEDS: INSULIN GLARGINE (*BKC) 100 UNITS/ML 30 UNITS SUB-Q (17:28)
[2022-12-10] MEDS: RIVAROXABAN 20 MG TABLET PO (18:16)
[2022-12-10 18:25] LABS: Vancomycin Trough 22.5 ug/mL (10.0-20.0)
[2022-12-10] MEDS: ARIPiprazole 2 MG TABLET PO (20:50)
[2022-12-10] MEDS: CYCLOBENZAPRINE HCL 10 MG TABLET PO (20:50)
[2022-12-10 21:29] LABS: Glucose Point of Care 187 mg/dl (65-105)
[2022-12-11] VITALS (9 sets, daily range): BP systolic 80–119; BP diastolic 53–57; PULSE 92–100; RESP 12–18; TEMP 35.6–36.8; O2SAT 91–100
[2022-12-11] MEDS: oxyCODONE HCL (*CRX) 5 MG TAB IR 10 MG PO ×3 (01:07→14:23)
[2022-12-11] MEDS: CEFEPIME 2 GM/NS 50 ML 2 GM/50 ML BAG IVPB ×3 (01:07→16:52)
[2022-12-11] MEDS: metroNIDAZOLE 500 MG/ISO 100ML 500 MG/100 ML BAG 100 MG IVPB ×4 (05:08→23:38)
[2022-12-11 06:36] LABS: Glucose Point of Care 181 mg/dl (65-105)
[2022-12-11] MEDS: INSULIN GLARGINE (*BKC) 100 UNITS/ML 30 UNITS SUB-Q ×2 (06:42→16:55)
[2022-12-11 06:50] LABS: Hematocrit 28.8 % (42.0-52.0); Hemoglobin 8.7 g/dL (14.0-18.0); Mean Corpuscular HGB Conc 30.2 g/dl (32-36); Mean Corpuscular Volume 109.1 fl (80-100); Mean Platelet Volume 9.6 fl (7.4-10.4); Platelet Count Result 189 k/mm3 (150-375); Red Blood Count 2.64 M/mm3 (4.6-6.20); Red Cell Distribution Width 19.2 % (11.5-14.5); White Blood Count 7.8 K/mm3 (4.5-10.0)
[2022-12-11 07:28] LABS: Albumin Level 2.7 g/dL (3.5-5.1); Anion Gap 4 mmol/L (8-16); Blood Urea Nitrogen 29 mg/dL (9-20); CRP 4.9 mg/dL (<1.0); Carbon Dioxide 26 mmol/L (22-30); Chloride 102 mmol/L (98-107); Estimated CRCL calculation 48 ml/min; Estimated Glomerular Filt Rate 26; Glucose 191 mg/dL (65-110); Magnesium 1.7 mg/dL (1.6-2.3); Phosphorus 3.7 mg/dL (2.5-4.5); Sodium 132 mmol/L (137-145)
[2022-12-11 07:41] LABS: Glucose Point of Care 206 mg/dl (65-105)
--- NOTE | 2022-12-11 08:00 | PC.NURSE ---
RN and PCT offered multiple times to turn and clean up patient during the nightshift. Pt only agreeable to be turned when it can coincide with pain medication administration due to the severe leg pain pt experiences with movement. Roxicodone administered this morning and pt did allow RN and PCT to turn him to change his linens. Open areas on back of thighs are draining bloody fluid, pt encouraged to change position with assistance more often so these spots do not continue to worsen.
[2022-12-11] MEDS: CYCLOBENZAPRINE HCL 10 MG TABLET PO ×2 (08:08→16:53)
[2022-12-11] MEDS: POTASSIUM CHLORIDE 20 MEQ PACKET (FOR LIQUID) PO (08:08)
[2022-12-11] MEDS: TAMSULOSIN HCL 0.4 MG CAPSULE PO (08:08)
[2022-12-11] MEDS: FLUoxetine HCL 20 MG CAPSULE 60 MG PO (08:08)
[2022-12-11] MEDS: INSULIN ASPART (*BKC) 100 UNITS/ML SUB-Q (08:09)
[2022-12-11] MEDS: TOLNAFTATE 1% POWDER 45 GM BTL 1 APPLIC TOPICAL ×2 (08:10→21:46)
[2022-12-11 08:13] LABS: Band Neutrophils Percent 8 % (0-6); Eosinophils Absolute Manual 0.07 K/mm3 (0.02-0.5); Eosinophils Percent Manual 1 % (0-4); Lymphocytes Absolute Manual 2.26 K/mm3 (1.1-4.5); Metamyelocytes Percent 3 %; Monocytes Absolute Manual 0.31 K/mm3 (0.1-0.90); Monocytes Percent Manual 4 % (3-9); Neutrophils Absolute Manual 4.91 K/mm3 (1.3-6.7); Neutrophils Percent Manual 55 % (46-73); Platelet Estimate Adequate (Adequate); Schistocytes None Seen (NORMAL); Total Cells Counted 100
[2022-12-11 08:14] LABS: Anisocytosis 1+ (NORMAL); Ovalocytes 1+ (NORMAL); Polychromasia 1+ (NORMAL)
[2022-12-11] MEDS: SODIUM CHLORIDE 0.9% IV 1,000 ML 100 ML IV CONT (08:17)
--- NOTE | 2022-12-11 09:10 | WPDANESPN ---
Anes - Prog Note Post-Op Date/Time: 12/11/22 09:10 Cardiovascular status: normal Respiratory status: normal Airway patency: baseline Mental status: baseline Post-Op hydration status: normal Vital Signs: Last Vital Signs Temp 36.2 C L 12/11/22 08:13 Pulse 92 12/11/22 08:13 Resp 12 12/11/22 08:13 BP 113/54 L 12/11/22 08:13 Pulse Ox 98 12/11/22 08:13 O2 Del Method Room Air 12/10/22 20:00 O2 Flow Rate 2 12/10/22 11:45 Pain Score (VAS): 04/24 I/O: Intake & Output 12/10/22 12/11/22 12/11/22 23:59 07:59 15:59 Intake Total 844 966 0 Balance 844 966 0 Laboratory Tests 12/11/22 06:43 12/11/22 06:53 12/10/22 12/10/22 12/10/22 10:50 16:18 17:38 WBC RBC Hgb Hct MCV MCH MCHC RDW Plt Count MPV Immature Gran % (Auto) Neut % (Auto) Lymph % (Auto) Mcnairy % (Auto) Eos % (Auto) Baso % (Auto) Lymph # (Auto) Mcnairy # (Auto) Eos # (Auto) Baso # (Auto) Abs Immat Gran (auto) Absolute Neuts (auto) Absolute Nucleated RBC Total Counted Neutrophils % (Manual) Band Neutrophils % Lymphocytes % (Manual) Monocytes % (Manual) Eosinophils % (Manual) Metamyelocytes % Nucleated RBC % Abs Neuts (Manual) Abs Lymphs (Manual) Abs Monocytes (Manual) Absolute Eos (Manual) Platelet Estimate Polychromasia Anisocytosis Ovalocytes Schistocytes Sodium Potassium Chloride Carbon Dioxide Anion Gap BUN Creatinine Estim Creat Clear Calc Estimated GFR Glucose POC Capillary Glucose 171 H 180 H Calcium Phosphorus Magnesium C-Reactive Protein Albumin Vancomycin Trough 22.5 H 12/10/22 12/11/22 12/11/22 21:05 06:32 06:43 WBC 7.8 RBC 2.64 L Hgb 8.7 L Hct 28.8 L MCV 109.1 H D MCH 33.0 MCHC 30.2 L RDW 19.2 H Plt Count 189 MPV 9.6 Immature Gran % (Auto) Not Reportable Neut % (Auto) Not Reportable Lymph % (Auto) Not Reportable Mcnairy % (Auto) Not Reportable Eos % (Auto) Not Reportable Baso % (Auto) Not Reportable Lymph # (Auto) Not Reportable Mcnairy # (Auto) Not Reportable Eos # (Auto) Not Reportable Baso # (Auto) Not Reportable Abs Immat Gran (auto) Not Reportable Absolute Neuts (auto) Not Reportable Absolute Nucleated RBC Not Reportable Total Counted 100 Neutrophils % (Manual) 55 Band Neutrophils % 8 H Lymphocytes % (Manual) 29.0 Monocytes % (Manual) 4 Eosinophils % (Manual) 1 Metamyelocytes % 3 Nucleated RBC % Not Reportable Abs Neuts (Manual) 4.91 Abs Lymphs (Manual) 2.26 Abs Monocytes (Manual) 0.31 Absolute Eos (Manual) 0.07 Platelet Estimate Adequate Polychromasia 1+ Anisocytosis 1+ Ovalocytes 1+ Schistocytes None seen Sodium Potassium Chloride Carbon Dioxide Anion Gap BUN Creatinine Estim Creat Clear Calc Estimated GFR Glucose POC Capillary Glucose 187 H 181 H Calcium Phosphorus Magnesium C-Reactive Protein Albumin Vancomycin Trough 12/11/22 12/11/22 06:53 07:27 WBC RBC Hgb Hct MCV MCH MCHC RDW Plt Count MPV Immature Gran % (Auto) Neut % (Auto) Lymph % (Auto) Mcnairy % (Auto) Eos % (Auto) Baso % (Auto) Lymph # (Auto) Mcnairy # (Auto) Eos # (Auto) Baso # (Auto) Abs Immat Gran (auto) Absolute Neuts (auto) Absolute Nucleated RBC Total Counted Neutrophils % (Manual) Band Neutrophils % Lymphocytes % (Manual) Monocytes % (Manual) Eosinophils % (Manual) Metamyelocytes % Nucleated RBC % Abs Neuts (Manual) Abs Lymphs (Manual) Abs Monocytes (Manual) Absolute Eos (Manual) Platelet Estimate Polychromasia Anisocytosis Ovalocytes Schistocytes Sodium 132 L Potassium 4.0 Chloride 102 Carbon Dioxide 26 Anion Gap 4 L BUN 29 H Creat
[2022-12-11 11:25] LABS: Glucose Point of Care 172 mg/dl (65-105)
--- NOTE | 2022-12-11 13:23 | PCPTNOTE ---
Attempted PT evaluation. Per RN, pt is resting and asked that the pt do not be disturbed at this time. Will follow.
--- NOTE | 2022-12-11 15:38 | PM.IMPN ---
Progress Note: A&P Assessment and Plan (1) Acute hypotension: Code(s): I95.9 - Hypotension, unspecified Status: Acute Assessment and Plan: Patient brought back to the emergency room on the day of discharge for dizziness and hypotension. Blood pressure 78/36 on admission. Blood pressure still soft but improved. Patient was hospitalized for cellulitis and had been discharged earlier that same day. Was noted that his creatinine climbed from 0.8 to 1.8 so consider possibly dehydration. Consider also sepsis related to cellulitis/abscess. He was on his home Lasix during his hospital course but now on hold. Losartan and Metoprolol also on hold. BP still soft but better. Continue IV fluids. Monitor renal function and BP. Consider adding midodrine. (2) Abscess of lower leg: Code(s): L02.419 - Cutaneous abscess of limb, unspecified Status: Acute Assessment and Plan: Patient was admitted on 12/03 for left leg cellulitis. He also had erythema and possible cellulitis of the buttocks. He was initially treated with vancomycin, Zosyn and clindamycin that was changed to cefepime, Flagyl and vancomycin. No imaging was done. White count was normal and remained normal. He was switched to Levaquin and Flagyl at time of discharge and discharged on 12/08. Patient returned a few hours later for dizziness and hypotension. Patient found to have indurated firm area in the left calf a bedside ultrasound that was concerning for subcutaneous abscess. Lower extremity venous Doppler was negative for DVT but was limited due to pain and body habitus. Patient started on cefepime and vancomycin and Flagyl. General surgery consulted and patient underwent I&D of left calf abscess 12/10. Appreciate General surgery input. Original BCx negative from 12/03/22. Repeat BCx from 12/09/2022 NGTD. MRSA screen 12/09 negative. Wound Cx 12/10 pending. WBC normal and remaining normal; Bandemia better at 8%. Continue IV antibiotics. Follow up on cultures (3) Acute kidney injury: Code(s): N17.9 - Acute kidney failure, unspecified Status: Acute Assessment and Plan: Creatine baseline 0.8 on original admission. During that hospitalization, creatinine climbed to 1.8 at time of discharge. Cr 2.2 on this admission. UA showing 1+ protein, no RBC/WBC but 11-20 casts. Consider post-strept vs ATN vs pre-renal (Lasix). Consider rhabdo. No exposure to contrast. Panc NET playing a part? Renal US grossly normal. Cr higher. Continue IV fluids. Check blood and urine studies. Nephrology consult Continue to monitor. (4) Near syncope: Code(s): R55 - Syncope and collapse Status: Acute Assessment and Plan: Related to the hypotension. As above. (5) Hyponatremia: Code(s): E87.1 - Hypo-osmolality and hyponatremia Status: Acute Assessment and Plan: Sodium dropped to 128 prior to discharge. Sodium has improved to 132 Continue to follow. (6) Type 2 diabetes mellitus with hyperglycemia, with long-term current use of insulin: Code(s): E11.65 - Type 2 diabetes mellitus with hyperglycemia; Z79.4 - prison (current) use of insulin Status: Acute Assessment and Plan: A1c 9.6. The patient's blood glucose was reviewed on 12/11 Glucose remains reasonably well controlled. Continue AccuCheks covering with sliding scale. Hypoglycemia protocol available as needed. Continue to monitor. (7) Obstructive sleep apnea: Code(s): G47.33 - Obstructive sleep apnea (adult) (pediatric) Status: Acute Assessment and Plan: Stable. Continue auto-PAP therapy. Encouraged compliance. 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 Patient had a pancreatic tail mass biopsy March
[2022-12-11 16:44] LABS: Creatine Kinase 30 U/L (55-170)
[2022-12-11 16:45] LABS: Creatinine Urine 231.7 mg/dL; Urea Random Urine 338 MG/DL
[2022-12-11 16:46] LABS: Sodium Urine Random 8 meq/L
[2022-12-11 16:53] LABS: Complement C3 104 mg/dL (88-165)
[2022-12-11] MEDS: RIVAROXABAN 20 MG TABLET PO (16:53)
[2022-12-11 17:08] LABS: Glucose Point of Care 164 mg/dl (65-105)
[2022-12-11 17:15] LABS: Eosinophil Urine None Seen % (None Seen); Urine Eos QC 2nd Tech Confirmed
[2022-12-11 20:02] LABS: Glucose Point of Care 150 mg/dl (65-105)
[2022-12-11] MEDS: ARIPiprazole 2 MG TABLET PO (21:45)
--- NOTE | 2022-12-11 22:03 | P.PNCROSS_ITS ---
Event Note Event Note Event Note: patient's BP 76/40 at 2140, manual repeated and patient 80/56 x2. patient is as ymptomatic. recheck BP at 2300, if remains low will initiate midodrine. Repeat blood pressure at 2300 80/56. Initiating midodrine 2.5 mg TID. Continue to monitor BP.
--- NOTE | 2022-12-11 22:04 | PC.NURSE ---
Spoke with Maria Isabel Agrawal r/t patient having low BP (80/56). New orders received to recheck BP in 1 hour and call back with results.
--- NOTE | 2022-12-12 00:15 | PC.NURSE ---
Dr. Sheets at nurses station at this time. Spoke with him r/t patient having incontinence with multiple open areas to buttocks, scrotum, and posterior thighs. New order received to place hector catheter.
[2022-12-12] MEDS: CEFEPIME 2 GM/NS 50 ML 2 GM/50 ML BAG IVPB ×3 (01:30→16:29)
[2022-12-12] MEDS: MIDODRINE HCL 2.5 MG TABLET PO ×4 (02:05→16:33)
[2022-12-12] MEDS: SODIUM CHLORIDE 0.9% IV 1,000 ML 100 ML IV CONT ×2 (02:06→14:53)
[2022-12-12 04:30] VITALS: PULSE 107; RESP 20; O2SAT 98
[2022-12-12 05:48] VITALS: BP 105/49; PULSE 104; RESP 16; TEMP 36.4; O2SAT 100
[2022-12-12] MEDS: INSULIN GLARGINE (*BKC) 100 UNITS/ML 30 UNITS SUB-Q ×2 (05:57→17:10)
[2022-12-12] MEDS: metroNIDAZOLE 500 MG/ISO 100ML 500 MG/100 ML BAG 100 MG IVPB ×2 (05:59→12:05)
[2022-12-12 06:07] LABS: Glucose Point of Care 142 mg/dl (65-105)
[2022-12-12 06:41] LABS: Hematocrit 27.5 % (42.0-52.0); Hemoglobin 8.5 g/dL (14.0-18.0); Immature Platelet Fraction Pct 1.7 % (0.9-11.2); Mean Corpuscular HGB Conc 30.9 g/dl (32-36); Mean Corpuscular Hemoglobin 31.6 pg (26-34); Mean Corpuscular Volume 102.2 fl (80-100); Mean Platelet Volume 9.1 fl (7.4-10.4); Platelet Count Result 222 k/mm3 (150-375); Red Blood Count 2.69 M/mm3 (4.6-6.20); Red Cell Distribution Width 18.9 % (11.5-14.5); White Blood Count 7.2 K/mm3 (4.5-10.0)
[2022-12-12 06:45] LABS: Albumin Level 2.8 g/dL (3.5-5.1); Anion Gap 5 mmol/L (8-16); Blood Urea Nitrogen 26 mg/dL (9-20); Calcium 8.1 mg/dL (8.4-10.2); Carbon Dioxide 24 mmol/L (22-30); Chloride 103 mmol/L (98-107); Estimated CRCL calculation 45 ml/min; Estimated Glomerular Filt Rate 24; Glucose 156 mg/dL (65-110); Magnesium 1.7 mg/dL (1.6-2.3); Sodium 132 mmol/L (137-145)
[2022-12-12 07:43] LABS: Band Neutrophils Percent 17 % (0-6); Basophils Absolute Manual 0.07 K/mm3 (0.0-0.1); Basophils Percent Manual 1 % (0-1); Eosinophils Absolute Manual 0.21 K/mm3 (0.02-0.5); Eosinophils Percent Manual 3 % (0-4); Lymphocytes Absolute Manual 1.08 K/mm3 (1.1-4.5); Metamyelocytes Percent 1 %; Monocytes Absolute Manual 0.07 K/mm3 (0.1-0.90); Monocytes Percent Manual 1 % (3-9); Neutrophils Absolute Manual 5.68 K/mm3 (1.3-6.7); Neutrophils Percent Manual 62 % (46-73); Platelet Estimate Adequate (Adequate); Total Cells Counted 100
[2022-12-12 07:44] LABS: Anisocytosis 2+ (NORMAL); Microcytosis 2+ (NORMAL); Ovalocytes 1+ (NORMAL); Poikilocytosis 1+ (NORMAL); Schistocytes None Seen (NORMAL)
[2022-12-12 07:49] LABS: Glucose Point of Care 178 mg/dl (65-105)
[2022-12-12] MEDS: FLUoxetine HCL 20 MG CAPSULE 60 MG PO (09:09)
[2022-12-12] MEDS: TAMSULOSIN HCL 0.4 MG CAPSULE PO (09:09)
[2022-12-12] MEDS: TOLNAFTATE 1% POWDER 45 GM BTL 1 APPLIC TOPICAL ×2 (09:10→21:09)
[2022-12-12] MEDS: CYCLOBENZAPRINE HCL 10 MG TABLET PO (09:18)
[2022-12-12 09:19] VITALS: RESP 16; O2SAT 100
[2022-12-12 09:19] LABS: Free T4 Free Thyroxine Reflex 1.57 ng/dL (0.78-2.19)
[2022-12-12] MEDS: oxyCODONE HCL (*CRX) 5 MG TAB IR 10 MG PO (09:19)
[2022-12-12 09:52] LABS: Folic Acid 18.4 ng/mL (2.76->20)
[2022-12-12 10:08] LABS: Total Triiodothyronine (T3) 0.98 NG/ML (0.97-1.69)
--- NOTE | 2022-12-12 11:11 | PM.PNGS ---
Progress Note: A&P Assessment and Plan (1) Abscess of lower leg: Code(s): L02.419 - Cutaneous abscess of limb, unspecified Status: Acute Assessment and Plan: Left calf abscess is well drained and cellulitis is resolving. Packing was removed from the abscess cavity today and there is no need to repack the wound. Wound just cover with dry gauze now. IV antibiotics as per hospitalist service but can transition to oral antibiotics for another 10 days from my standpoint. Patient may discharge from the hospital when medically stable from hospital standpoint. Can follow-up see me in the office after discharge. Subjective Subjective Date/Time Seen: 12/12/22 11:11 Interval history: Patient is doing well. He is now 2 days status post incision and drainage of left calf abscess. He is doing well from that perspective and has much less pain in the area. Exam Skin: Other: Left mid posterior calf abscess cavity is opened with viable tissue. No purulent drainage. Redness is almost all resolved. Minimal residual induration. Objective Data Vital Signs Vital Signs: Vital Signs - 24 hr 12/11/22 14:00 12/11/22 15:15 12/11/22 15:37 Temperature 36.8 C Pulse Rate 92 Respiratory Rate 16 Blood Pressure 119/54 L Pulse Oximetry 100 Oxygen Delivery Room Air Room Air Oxygen Flow Rate 12/11/22 21:39 12/11/22 21:40 12/11/22 20:00 Temperature 36.7 C 36.7 C Pulse Rate 100 100 Respiratory Rate 13 18 Blood Pressure 80/56 L Pulse Oximetry 94 94 94 Oxygen Delivery Nasal Cannula Oxygen Flow Rate 3 12/11/22 23:59 12/12/22 04:30 12/12/22 05:48 Temperature 36.4 C Pulse Rate 107 H 104 H Respiratory Rate 20 16 Blood Pressure 82/56 L 105/49 L Pulse Oximetry 98 100 Oxygen Delivery Nasal Cannula Oxygen Flow Rate 2 12/12/22 09:19 Temperature Pulse Rate Respiratory Rate 16 Blood Pressure Pulse Oximetry 100 Oxygen Delivery Room Air Oxygen Flow Rate Intake/Output Intake/Output: Intake & Output 12/09/22 12/10/22 12/11/22 12/12/22 23:59 23:59 23:59 23:59 Intake Total 4275 0697 9755 6900 Output Total 150 700 Balance 4272 3717 6974 2430 Meds/Results Medications: Active Medications Generic Name Dose Route Start Last Admin Trade Name Freq PRN Reason Stop Dose Admin Albuterol 2 puff 12/09/22 05:27 Albuterol Sulfate (*Sp) Aerosol 1 Puff INHALATION QIDRT PRN Shortness Of Breath Or Wheezin Aripiprazole 2 mg 12/09/22 21:00 12/11/22 21:45 Aripiprazole 2 Mg Tablet PO 2 mg HS ANKUR Administration Cyclobenzaprine HCl 10 mg 12/09/22 05:27 12/12/22 09:18 Cyclobenzaprine Hcl 10 Mg Tablet PO 10 mg BID PRN Administration Spasms Dextrose 12.5 gm 12/09/22 03:36 Dextrose 50% 25 Gm/50 Ml Syringe IV PUSH PRN PRN Hypoglycemia Protocol Fluoxetine HCl 60 mg 12/09/22 09:00 12/12/22 09:09 Fluoxetine Hcl 20 Mg Capsule PO 60 mg DAILY ANKUR Administration Glucagon 1 mg 12/09/22 03:36 Glucagon For Inj 1 Mg Vial IM PRN PRN Hypoglycemia Protocol Glucose 15 gm 12/09/22 03:36 Glucose Oral Gel 15 Gm Of Glucse In 37.5 Gm Tube PO PRN PRN Hypoglycemia Protocol Cefepime HCl 2 gm in 50 mls @ 100 mls/hr 12/09/22 09:00 12/12/22 09:39 Maxipime 2 Gm/Ns 50 Ml IVPB Infused Q8H ANKUR Infusion Sodium Chloride 1,000 mls @ 100 mls/hr 12/09/22 00:45 12/12/22 09:40 Normal Saline Iv IV CONT 100 mls/hr .Q10H ANKUR Infusion Dextrose 1,000 mls @ 100 mls/hr 12/09/22 03:36 Dextrose 5% 1,000 Ml IVPB PRN PRN Hypoglycemia Protocol Metronidazole 500 mg in 100 mls @ 100 mls/hr 12/09/22 12:00 12/12/22 06:59 Flagyl 500 Mg/Iso Soln 100 Ml IVPB Infused Q6H ANKUR Infusion Vancomycin HCl 1,500 mg in 500 mls @ 250 mls/hr 12/11/22 06:00 12/12/22 08:00 Vancomycin 1,500 Mg/D5w 500 Ml IVPB Infused Q24H ANKUR Infusion Insulin Aspart 4 - 8
--- NOTE | 2022-12-12 11:25 | PM.CNNEP ---
Assessment and Plan Assessment and plan (1) Acute kidney injury: Code(s): N17.9 - Acute kidney failure, unspecified Status: Acute Assessment and Plan: creatinine normal on previous admission however, creatinine alvina to 1.8mg/dl by the time of discharge unclear if normal creatinine on last admission was falsely low possibly due to fluid overload creatinine on this admission 2.2mg/dl... suspect issues with hypotension on admission likely leading to renal hypoperfusion post-infectious GN versus ATN from infection also possible evaluation to date: urine electrolyte prerenal (despite evidence of volume overload) renal ultrasound w/o obstruction urine eosinophils negative CPK okay diuretics on hold gentle IVFs making urine and no critical electrolytes follow trend of repeat labs and UOP (2) Acute hypotension: Code(s): I95.9 - Hypotension, unspecified Status: Acute Assessment and Plan: quite significant on admission - reportedly 70s systolic in ER BP medications and diuretics on hold midodrine added/started due to persistence of hypotension follow trend of hemodynamcis (3) Abscess of lower leg: Code(s): L02.419 - Cutaneous abscess of limb, unspecified Status: Acute Assessment and Plan: as noted on this admission General Surgery follow -- s/p I&D 12/10/22 on antibiotics follow culture data local wound care (4) Pancreatic mass: Code(s): K86.89 - Other specified diseases of pancreas Status: Acute Assessment and Plan: biopsy with neuroendocrine tumor following with [facility] (5) Type 2 diabetes mellitus with hyperglycemia, with long-term current use of insulin: Code(s): E11.65 - Type 2 diabetes mellitus with hyperglycemia; Z79.4 - snf (current) use of insulin Status: Chronic Assessment and Plan: follow accu-cheks glycemic control per hospitalists Discussed case with Dr. Christianson. I will continue to follow patient with you while he remains hospitalized and make further recommendations as needed. Thank you for allowing me to participate in care of this patient. History of Present Illness Reason for Consult Consult date: 12/12/22 Reason for consult: acute renal failure Chief Complaint Chief complaint: Acute Kidney Injury, Sepsis History of Present Illness Narrative: The patient is a 52-year-old male with a past medical history as outlined below who presented to [facility] Emergency room approximately 2 hr of previous hospital discharge with complaints of dizziness, lightheadedness, and tunnel vision. The patient was just hospitalized here [facility] for cellulitis of the buttocks and legs and was treated with broad-spectrum IV antibiotic therapy. These this condition seemed to clinically improve and he was eventually switched to oral antibiotics with subsequent discharge. However, following his discharge, he was noted to have significant lightheadedness and dizziness. He apparently had a systolic BP in the 80s when he had the symptoms. He was subsequently transferred back to the ER given these symptoms and findings. Workup and evaluation in the emergency room confirmed this hypotension with his systolic BP being in the high 70s. he received aggressive IV fluid hydration with improvement in his systolic BP is in the 100s. However, his blood pressure continued to fluctuate in the ER and received further IV fluid boluses an effort to maintain his mean arterial pressure. On further investigation put, the patient complained of increasing pain in his buttocks as well as his calf area and subsequent investigation demonstrated that he had a large subcutaneous abscess in his left calf. Given this finding and his recent hospitalization for cellulitis, repeat cultures were obtained and he was started on broad-spectrum IV antibiotic therapy. General surgery was consulted f
--- NOTE | 2022-12-12 11:25 | P.CONNP_ITS ---
Assessment and Plan Assessment and plan (1) Acute kidney injury: Code(s): N17.9 - Acute kidney failure, unspecified Status: Acute Assessment and Plan: * creatinine normal on previous admission * however, creatinine alvina to 1.8mg/dl by the time of discharge * unclear if normal creatinine on last admission was falsely low possibly due to fluid overload * creatinine on this admission 2.2mg/dl... * suspect issues with hypotension on admission likely leading to renal hypoperfusion * post-infectious GN versus ATN from infection also possible * evaluation to date: * urine electrolyte prerenal (despite evidence of volume overload) * renal ultrasound w/o obstruction * urine eosinophils negative * CPK okay * diuretics on hold * gentle IVFs * making urine and no critical electrolytes * follow trend of repeat labs and UOP (2) Acute hypotension: Code(s): I95.9 - Hypotension, unspecified Status: Acute Assessment and Plan: * quite significant on admission - reportedly 70s systolic in ER * BP medications and diuretics on hold * midodrine added/started due to persistence of hypotension * follow trend of hemodynamcis (3) Abscess of lower leg: Code(s): L02.419 - Cutaneous abscess of limb, unspecified Status: Acute Assessment and Plan: * as noted on this admission * General Surgery follow -- s/p I&D 12/10/22 * on antibiotics * follow culture data * local wound care (4) Pancreatic mass: Code(s): K86.89 - Other specified diseases of pancreas Status: Acute Assessment and Plan: * biopsy with neuroendocrine tumor * following with [facility] (5) Type 2 diabetes mellitus with hyperglycemia, with long-term current use of insulin: Code(s): E11.65 - Type 2 diabetes mellitus with hyperglycemia; Z79.4 - middle or intermediate school principal (current) use of insulin Status: Chronic Assessment and Plan: * follow accu-cheks * glycemic control per hospitalists Discussed case with Dr. Christianson. I will continue to follow patient with you while he remains hospitalized and make further recommendations as needed. Thank you for allowing me to participate in care of this patient. History of Present Illness Reason for Consult Consult date: 12/12/22 Reason for consult: acute renal failure Chief Complaint Chief complaint: Acute Kidney Injury, Sepsis History of Present Illness Narrative: The patient is a 52-year-old male with a past medical history as outlined below who presented to [facility] Emergency room approximately 2 hr of previous hospital discharge with complaints of dizziness, lightheadedness, and tunnel vision. The patient was just hospitalized here [facility] for cellulitis of the buttocks and legs and was treated with broad-spectrum IV antibiotic therapy. These this condition seemed to clinically improve and he was eventually switched to oral antibiotics with subsequent discharge. However, following his discharge, he was noted to have significant lightheadedness and dizziness. He apparently had a systolic BP in the 80s when he had the symptoms. He was subsequently transferred back to the ER given these symptoms and findings. Workup and evaluation in the emergency room confirmed this hypotension with his systolic BP being in the high 70s. he received aggressive IV fluid hydration with improvement in his systolic BP is in the 100s. However, his blood pressure continued to fluctuate in the ER and received further IV fluid boluses an effort to maintain his mean michele
[2022-12-12 11:48] LABS: Glucose Point of Care 157 mg/dl (65-105)
[2022-12-12 14:00] VITALS: BP 101/52; PULSE 97; RESP 22; TEMP 37; O2SAT 96
--- NOTE | 2022-12-12 15:44 | PM.IMPN ---
Progress Note: A&P Assessment and Plan (1) Acute hypotension: Code(s): I95.9 - Hypotension, unspecified Status: Acute Assessment and Plan: Patient brought back to the emergency room on the day of discharge for dizziness and hypotension. Blood pressure 78/36 on admission. Patient was hospitalized for cellulitis and had been discharged earlier that same day. Was noted that his creatinine climbed from 0.8 to 1.8 so consider possibly dehydration. Consider also sepsis related to cellulitis/abscess. He was on his home Lasix during his hospital course but now this is on hold. Losartan and Metoprolol also on hold. BP soft overnight (80/56) and midodrine added. TSH mildly elevated but not significant enough to cause HoTN. Continue IV fluids. Monitor renal function and BP. Consider advancing midodrine if needed. Check cortisol level. Consider Albumin with lasix. Begin to wean down narcotics. (2) Abscess of lower leg: Code(s): L02.419 - Cutaneous abscess of limb, unspecified Status: Acute Assessment and Plan: Patient was admitted on 12/03 for left leg cellulitis. He also had erythema and possible cellulitis of the buttocks. He was initially treated with vancomycin, Zosyn and clindamycin that was changed to cefepime, Flagyl and vancomycin. No imaging was done. White count was normal and remained normal. He was switched to Levaquin and Flagyl at time of discharge and discharged on 12/08. Patient returned a few hours later for dizziness and hypotension. Patient found to have indurated firm area in the left calf a bedside ultrasound that was concerning for subcutaneous abscess. Lower extremity venous Doppler was negative for DVT but was limited due to pain and body habitus. Patient started on cefepime, vancomycin and Flagyl. General surgery consulted and patient underwent I&D of left calf abscess 12/10. Appreciate General surgery input. BCx (12/03) negative BCx (12/09) growing gram positive coccobacilli from aerobic bottle. (1of2) MRSA screen 12/09 negative. Wound Cx 12/10 Staph aureus WBC normal and remaining normal; Bandemia up to 17% now for unclear reasons. CRP 4.9 yesterday. Smoldering infection? He is on good abx coverage. Consider fungal? Continue IV antibiotics. Follow up on cultures (3) Acute kidney injury: Code(s): N17.9 - Acute kidney failure, unspecified Status: Acute Assessment and Plan: Creatine baseline 0.8 on original admission. During that hospitalization, creatinine climbed to 1.8 at time of discharge. -- he may have been fluid overloaded so Cr 0.8 was falsely low. Cr 2.2 on this admission. UA showing 1+ protein, no RBC/WBC but 11-20 casts. Consider post-strept vs ATN vs pre-renal (Lasix and HoTN). No exposure to contrast. Panc NET playing a part? Renal US grossly normal. TCK 30. C3/C4 normal. Urine Eos negative. FEUrea 13% and FENa .06% consistent with prerenal disease despite being fluid positive (I/O not accurate) Cr higher again today Continue IV fluids but hold on lasix since BP soft Nephrology consulted Continue to monitor. (4) Near syncope: Code(s): R55 - Syncope and collapse Status: Acute Assessment and Plan: Related to the hypotension. Continue midodrine. As above. (5) Hyponatremia: Code(s): E87.1 - Hypo-osmolality and hyponatremia Status: Acute Assessment and Plan: Sodium dropped to 128 prior to last discharge. Sodium has improved to 132 Continue to follow. (6) Type 2 diabetes mellitus with hyperglycemia, with long-term current use of insulin: Code(s): E11.65 - Type 2 diabetes mellitus with hyperglycemia; Z79.4 - half-way (current) use of insulin Status: Acute Assessment and Plan: A1c 9.6. The patient's blood glucose was reviewed on 12/12 Glucose remains reasonably well controlled. Continue AccuCheks covering with sliding scale. Hypoglycemia protocol available as needed. Continue to mo
[2022-12-12] MEDS: RIVAROXABAN 20 MG TABLET PO (16:33)
[2022-12-12 16:47] LABS: Glucose Point of Care 161 mg/dl (65-105)
[2022-12-12 20:00] VITALS: O2SAT 96
[2022-12-12 20:31] LABS: Glucose Point of Care 147 mg/dl (65-105)
[2022-12-12] MEDS: ARIPiprazole 2 MG TABLET PO (21:07)
[2022-12-12] MEDS: metroNIDAZOLE 250 MG TABLET 500 MG PO (21:07)
[2022-12-12] MEDS: oxyCODONE HCL (*CRX) 5 MG TAB IR PO (21:07)
[2022-12-12 22:00] VITALS: BP 105/53; PULSE 95; RESP 22; TEMP 36.9; O2SAT 93
[2022-12-13] VITALS (8 sets, daily range): BP systolic 111–133; BP diastolic 68–74; PULSE 78–104; RESP 20–22; TEMP 36.6–36.8; O2SAT 94–98
[2022-12-13] MEDS: SODIUM CHLORIDE 0.9% IV 1,000 ML 100 ML IV CONT (04:30)
[2022-12-13 04:53] LABS: Glucose Point of Care 133 mg/dl (65-105)
[2022-12-13] MEDS: INSULIN GLARGINE (*BKC) 100 UNITS/ML 30 UNITS SUB-Q ×2 (05:22→17:15)
[2022-12-13] MEDS: CEFEPIME 2 GM/NS 50 ML 2 GM/50 ML BAG IVPB (05:22)
[2022-12-13] MEDS: metroNIDAZOLE 250 MG TABLET 500 MG PO ×2 (05:23→13:13)
[2022-12-13] MEDS: oxyCODONE HCL (*CRX) 5 MG TAB IR PO ×2 (05:34→21:13)
[2022-12-13 06:57] LABS: Hemoglobin 8.3 g/dL (14.0-18.0); Mean Corpuscular HGB Conc 30.7 g/dl (32-36); Mean Corpuscular Hemoglobin 31.6 pg (26-34); Mean Corpuscular Volume 102.7 fl (80-100); Mean Platelet Volume 9.1 fl (7.4-10.4); Platelet Count Result 204 k/mm3 (150-375); Red Blood Count 2.63 M/mm3 (4.6-6.20); Red Cell Distribution Width 19.4 % (11.5-14.5); White Blood Count 6.7 K/mm3 (4.5-10.0)
[2022-12-13 07:17] LABS: Albumin Level 2.7 g/dL (3.5-5.1); Anion Gap 6 mmol/L (8-16); Blood Urea Nitrogen 24 mg/dL (9-20); Calcium 8.3 mg/dL (8.4-10.2); Carbon Dioxide 22 mmol/L (22-30); Chloride 106 mmol/L (98-107); Estimated CRCL calculation 50 ml/min; Estimated Glomerular Filt Rate 27; Glucose 149 mg/dL (65-110); Magnesium 1.7 mg/dL (1.6-2.3); Phosphorus 3.2 mg/dL (2.5-4.5); Potassium 3.9 mmol/L (3.4-5.0); Sodium 134 mmol/L (137-145)
[2022-12-13 07:44] LABS: Cortisol Random 9.83 ug/dL
[2022-12-13 07:46] LABS: Band Neutrophils Percent 5 % (0-6); Basophils Absolute Manual 0.06 K/mm3 (0.0-0.1); Basophils Percent Manual 1 % (0-1); Eosinophils Percent Manual 3 % (0-4); Lymphocytes Absolute Manual 1.47 K/mm3 (1.1-4.5); Lymphocytes Percent Manual 22 % (18-44); Metamyelocytes Percent 3 %; Monocytes Absolute Manual 0.53 K/mm3 (0.1-0.90); Monocytes Percent Manual 8 % (3-9); Myelocytes Percent 1 %; Neutrophils Absolute Manual 4.15 K/mm3 (1.3-6.7); Neutrophils Percent Manual 57 % (46-73); Total Cells Counted 100
[2022-12-13 07:47] LABS: Anisocytosis 2+ (NORMAL); Nucleated Red Blood Cells 1 %; Platelet Estimate Adequate (Adequate); Polychromasia 1+ (NORMAL); Schistocytes None Seen (NORMAL)
[2022-12-13 07:59] LABS: Glucose Point of Care 148 mg/dl (65-105)
[2022-12-13] MEDS: TAMSULOSIN HCL 0.4 MG CAPSULE PO (08:41)
[2022-12-13] MEDS: MIDODRINE HCL 2.5 MG TABLET PO ×3 (08:41→16:50)
[2022-12-13] MEDS: FLUoxetine HCL 20 MG CAPSULE 60 MG PO (08:41)
[2022-12-13] MEDS: TOLNAFTATE 1% POWDER 45 GM BTL 1 APPLIC TOPICAL ×2 (08:42→21:09)
--- NOTE | 2022-12-13 10:46 | PM.PNGS ---
Progress Note: A&P Assessment and Plan (1) Abscess of lower leg: Code(s): L02.419 - Cutaneous abscess of limb, unspecified Status: Acute Assessment and Plan: Patient is doing well after incision and drainage of the posterior left calf abscess. Cellulitis is almost all resolved. Induration is resolving. Wound is no longer being packed. Cultures show Staph aureus and susceptibility is pending. He remains on IV antibiotics. We will take down the dressing tomorrow and examined the wound. From a surgical perspective he can likely be discharged from the hospital on oral antibiotics for another 10 days or so so he completes a 14 day course of oral plus IV antibiotics. Item by to be determined was the abscess cavity shows MRSA or oxacillin sensitive Staph aureus. Subjective Subjective Date/Time Seen: 12/13/22 10:46 Interval history: Patient clinically stable. No new complaints. States at the left calf is feeling better and less sore. Exam Skin: Other: Left calf wound is dressed. Dressing is dry. Jimmy wrap from the knee to the toe is in place without any strike through with any bleeding or fluid. Objective Data Vital Signs Vital Signs: Vital Signs - 24 hr 12/12/22 14:00 12/12/22 20:00 12/12/22 22:00 Temperature 37.0 C 36.9 C Pulse Rate 97 95 Respiratory Rate 22 H 22 H Blood Pressure 101/52 L 105/53 L Pulse Oximetry 96 96 93 Oxygen Delivery Room Air 12/13/22 06:00 12/13/22 10:18 Temperature 36.8 C Pulse Rate 94 Respiratory Rate 20 Blood Pressure 126/68 Pulse Oximetry 96 94 Oxygen Delivery Room Air Intake/Output Intake/Output: Intake & Output 12/10/22 12/11/22 12/12/22 12/13/22 23:59 23:59 23:59 23:59 Intake Total 3716 0384 4185 2240 Output Total 150 1600 500 Balance 3716 2504 2585 1740 Meds/Results Medications: Active Medications Generic Name Dose Route Start Last Admin Trade Name Freq PRN Reason Stop Dose Admin Acetaminophen 650 mg 12/12/22 16:41 Acetaminophen 325 Mg Tablet PO Q6H PRN Mild Pain (1-3) or Fever Hydrocodone Bitart/Acetaminophen 1 tab 12/12/22 16:41 Hydrocodone/Acetaminophen (*Crx) 5-325 Mg Tablet PO Q6H PRN Pain Rated 4-6 Albuterol 2 puff 12/09/22 05:27 Albuterol Sulfate (*Sp) Aerosol 1 Puff INHALATION QIDRT PRN Shortness Of Breath Or Wheezin Aripiprazole 2 mg 12/09/22 21:00 12/12/22 21:07 Aripiprazole 2 Mg Tablet PO 2 mg HS ANKUR Administration Cyclobenzaprine HCl 10 mg 12/09/22 05:27 12/12/22 09:18 Cyclobenzaprine Hcl 10 Mg Tablet PO 10 mg BID PRN Administration Spasms Dextrose 12.5 gm 12/09/22 03:36 Dextrose 50% 25 Gm/50 Ml Syringe IV PUSH PRN PRN Hypoglycemia Protocol Fluoxetine HCl 60 mg 12/09/22 09:00 12/13/22 08:41 Fluoxetine Hcl 20 Mg Capsule PO 60 mg DAILY ANKUR Administration Glucagon 1 mg 12/09/22 03:36 Glucagon For Inj 1 Mg Vial IM PRN PRN Hypoglycemia Protocol Glucose 15 gm 12/09/22 03:36 Glucose Oral Gel 15 Gm Of Glucse In 37.5 Gm Tube PO PRN PRN Hypoglycemia Protocol Sodium Chloride 1,000 mls @ 100 mls/hr 12/09/22 00:45 12/13/22 06:05 Normal Saline Iv IV CONT 100 mls/hr .Q10H ANKUR Infusion Dextrose 1,000 mls @ 100 mls/hr 12/09/22 03:36 Dextrose 5% 1,000 Ml IVPB PRN PRN Hypoglycemia Protocol Vancomycin HCl 1,500 mg in 500 mls @ 250 mls/hr 12/11/22 06:00 12/13/22 07:22 Vancomycin 1,500 Mg/D5w 500 Ml IVPB Infused Q24H ANKUR Infusion Cefepime HCl 2 gm in 50 mls @ 100 mls/hr 12/13/22 06:00 12/13/22 05:52 Maxipime 2 Gm/Ns 50 Ml IVPB Infused Q12H ANKUR Infusion Insulin Aspart 4 - 8 units 12/09/22 21:00 12/13/22 07:45 Insulin Aspart (*Bkc) 100 Units/Ml SUB-Q Not Given 0800,1200,1700,2100 [facility] Protocol Insulin Glargine 30 units 12/09/22 06:00 12/13/22 05:22 Insulin Glargine (*Bkc) 100 Units/Ml SUB-Q 30 u
[2022-12-13 11:24] LABS: Glucose Point of Care 139 mg/dl (65-105)
--- NOTE | 2022-12-13 11:33 | PM.PNNEP ---
Progress Note: A&P Assessment and Plan (1) Acute kidney injury: Code(s): N17.9 - Acute kidney failure, unspecified Status: Acute Assessment and Plan: creatinine fluctuating at this time creatinine normal on previous admission however, creatinine alvina to 1.8mg/dl by the time of discharge unclear if normal creatinine on last admission was falsely low possibly due to fluid overload creatinine on this admission 2.2mg/dl... suspect issues with hypotension on admission likely leading to renal hypoperfusion post-infectious GN versus ATN from infection also possible evaluation to date: urine electrolyte prerenal (despite evidence of volume overload) renal ultrasound w/o obstruction urine eosinophils negative CPK okay diuretics on hold making urine and no critical electrolytes follow trend of repeat labs and UOP (2) Acute hypotension: Code(s): I95.9 - Hypotension, unspecified Status: Acute Assessment and Plan: quite significant on admission - reportedly 70s systolic in ER BP medications and diuretics on hold midodrine added/started due to persistence of hypotension follow trend of hemodynamcis (3) Abscess of lower leg: Code(s): L02.419 - Cutaneous abscess of limb, unspecified Status: Acute Assessment and Plan: as noted on this admission General Surgery follow -- s/p I&D 12/10/22 on antibiotics follow culture data local wound care (4) Pancreatic mass: Code(s): K86.89 - Other specified diseases of pancreas Status: Acute Assessment and Plan: biopsy with neuroendocrine tumor following with [facility] (5) Type 2 diabetes mellitus with hyperglycemia, with long-term current use of insulin: Code(s): E11.65 - Type 2 diabetes mellitus with hyperglycemia; Z79.4 - skilled nursing (current) use of insulin Status: Chronic Assessment and Plan: follow accu-cheks glycemic control per hospitalists Will continue to follow. Subjective Date/time seen: 12/13/22 11:33 Interval history: Follow-up for acute renal failure/acute kidney injury. Seems to be feeling reaonably well at the time of my visit; no apparent distress voiced; still with some left calf pain but tolerable; no other issues/events overnight or earlier this morning. Exam Narrative: General: large male in NAD Heart: normal S1 and S2; no rub Lungs: clear anteriorly, decreased at bases Abdomen: soft, nontender, nondistended, positive bowel sounds Extremities: left calf CYNDEE wrapped; diffuse UE/LE edema. Skin: warm and dry Objective Data Vital Signs Vital Signs: Vital Signs Temp Pulse Resp BP Pulse Ox O2 Del Method 12/13/22 08:42 20 94 Room Air 12/13/22 10:18 94 Room Air 12/13/22 06:00 98.3 F 94 20 126/68 96 12/12/22 22:00 98.5 F 95 22 H 105/53 L 93 12/12/22 20:00 96 Room Air Intake/Output Intake/Output: Intake & Output 12/10/22 12/11/22 12/12/22 12/13/22 23:59 23:59 23:59 23:59 Intake Total 3716 2654 4185 3362 Output Total 150 1600 500 Balance 3716 3855 4910 6202 Meds/Results Medications: Active Medications Generic Name Dose Route Start Last Admin Trade Name Freq PRN Reason Stop Dose Admin Acetaminophen 650 mg 12/12/22 16:41 Acetaminophen 325 Mg Tablet PO Q6H PRN Mild Pain (1-3) or Fever Hydrocodone Bitart/Acetaminophen 1 tab 12/12/22 16:41 Hydrocodone/Acetaminophen (*Crx) 5-325 Mg Tablet PO Q6H PRN Pain Rated 4-6 Albuterol 2 puff 12/09/22 05:27 Albuterol Sulfate (*Sp) Aerosol 1 Puff INHALATION QIDRT PRN Shortness Of Breath Or Wheezin Aripiprazole 2 mg 12/09/22 21:00 12/12/22 21:07 Aripiprazole 2 Mg Tablet PO 2 mg HS ANKUR Administration Cyclobenzaprine HCl 10 mg 12/09/22 05:27 12/12/22 09:18 Cyclobenzaprine Hcl 10 Mg Tablet PO 10 mg BID PRN Administration Spasms Dextrose 12.5 gm
--- NOTE | 2022-12-13 11:33 | P.PNNP_ITS ---
Progress Note: A&P Assessment and Plan (1) Acute kidney injury: Code(s): N17.9 - Acute kidney failure, unspecified Status: Acute Assessment and Plan: * creatinine fluctuating at this time * creatinine normal on previous admission * however, creatinine alvina to 1.8mg/dl by the time of discharge * unclear if normal creatinine on last admission was falsely low possibly due to fluid overload * creatinine on this admission 2.2mg/dl... * suspect issues with hypotension on admission likely leading to renal hypoperfusion * post-infectious GN versus ATN from infection also possible * evaluation to date: * urine electrolyte prerenal (despite evidence of volume overload) * renal ultrasound w/o obstruction * urine eosinophils negative * CPK okay * diuretics on hold * making urine and no critical electrolytes * follow trend of repeat labs and UOP (2) Acute hypotension: Code(s): I95.9 - Hypotension, unspecified Status: Acute Assessment and Plan: * quite significant on admission - reportedly 70s systolic in ER * BP medications and diuretics on hold * midodrine added/started due to persistence of hypotension * follow trend of hemodynamcis (3) Abscess of lower leg: Code(s): L02.419 - Cutaneous abscess of limb, unspecified Status: Acute Assessment and Plan: * as noted on this admission * General Surgery follow -- s/p I&D 12/10/22 * on antibiotics * follow culture data * local wound care (4) Pancreatic mass: Code(s): K86.89 - Other specified diseases of pancreas Status: Acute Assessment and Plan: * biopsy with neuroendocrine tumor * following with [facility] (5) Type 2 diabetes mellitus with hyperglycemia, with long-term current use of insulin: Code(s): E11.65 - Type 2 diabetes mellitus with hyperglycemia; Z79.4 - correction (current) use of insulin Status: Chronic Assessment and Plan: * follow accu-cheks * glycemic control per hospitalists Will continue to follow. Subjective Date/time seen: 12/13/22 11:33 Interval history: Follow-up for acute renal failure/acute kidney injury. Seems to be feeling reaonably well at the time of my visit; no apparent distress voiced; still with some left calf pain but tolerable; no other issues/events overnight or earlier this morning. Exam Narrative: General: large male in NAD Heart: normal S1 and S2; no rub Lungs: clear anteriorly, decreased at bases Abdomen: soft, nontender, nondistended, positive bowel sounds Extremities: left calf CYNDEE wrapped; diffuse UE/LE edema. Skin: warm and dry Objective Data Vital Signs Vital Signs: Vital Signs Temp Pulse Resp BP Pulse Ox O2 Del Method 12/13/22 08:42 20 94 Room Air 12/13/22 10:18 94 Room Air 12/13/22 06:00 98.3 F 94 20 126/68 96 12/12/22 22:00 98.5 F 95 22 H 105/53 L 93 12/12/22 20:00 96 Room Air Intake/Output Intake/Output: Intake & Output 12/10/22 12/11/22 12/12/22 12/13/22 23:59 23:59 23:59 23:59 Intake Total 3716 2654 4185 3362 Output Total 150 1600 500 Balance 3716 7464 0985 2862 Meds/Results Medications: Active Medications
--- NOTE | 2022-12-13 13:33 | PM.IMPN ---
Progress Note: A&P Assessment and Plan (1) Acute hypotension: Code(s): I95.9 - Hypotension, unspecified Status: Acute Assessment and Plan: Patient brought back to the emergency room on the day of discharge for dizziness and hypotension. Blood pressure 78/36 on admission. Patient was hospitalized for cellulitis and had been discharged earlier that same day. Was noted that his creatinine climbed from 0.8 to 1.8 so consider possibly dehydration. Consider also sepsis related to cellulitis/abscess. He was on his home Lasix during his hospital course but now this is on hold. Losartan and Metoprolol also on hold. BP soft and midodrine added. Cortisol level okay. TSH mildly elevated but not significant enough to cause HoTN. BP better controlled. Continue IV fluids. Monitor renal function and BP. Continue midodrine. Consider Albumin with lasix. (2) Abscess of lower leg: Code(s): L02.419 - Cutaneous abscess of limb, unspecified Status: Acute Assessment and Plan: Patient was admitted on 12/03 for left leg cellulitis. He also had erythema and possible cellulitis of the buttocks. He was initially treated with vancomycin, Zosyn and clindamycin that was changed to cefepime, Flagyl and vancomycin. No imaging was done. White count was normal and remained normal. He was switched to Levaquin and Flagyl at time of discharge and discharged on 12/08. Patient returned a few hours later for dizziness and hypotension. Patient found to have indurated firm area in the left calf a bedside ultrasound that was concerning for subcutaneous abscess. Lower extremity venous Doppler was negative for DVT but was limited due to pain and body habitus. Patient started on cefepime, vancomycin and Flagyl. General surgery consulted and patient underwent I&D of left calf abscess 12/10. Appreciate General surgery input. BCx (12/03) negative BCx (12/09) growing gram positive coccobacilli from aerobic bottle. (1of2) MRSA screen 12/09 negative. Wound Cx 12/10 MRSA BCx (12/13) pending WBC normal and remaining normal; Bandemia normal. Continue IV antibiotics; change to Rocephin and Vancomycin. Stop Flagyl. Follow up on cultures (3) Acute kidney injury: Code(s): N17.9 - Acute kidney failure, unspecified Status: Acute Assessment and Plan: Creatine baseline 0.8 on original admission. During that hospitalization, creatinine climbed to 1.8 at time of discharge. -- he may have been fluid overloaded so Cr 0.8 was falsely low. Cr 2.2 on this admission. UA showing 1+ protein, no RBC/WBC but 11-20 casts. Consider post-strept vs ATN vs pre-renal (Lasix and HoTN). No exposure to contrast. Panc NET playing a part? Renal US grossly normal. TCK 30. C3/C4 normal. Urine Eos negative. FEUrea 13% and FENa .06% consistent with prerenal disease despite being fluid positive (I/O not accurate) Cr better today. Becoming edematous so will stop IV fluids. Nephrology consulted and appreciate their input. Consider trial of Lasix or Albumin/Lasix Continue to monitor. (4) Near syncope: Code(s): R55 - Syncope and collapse Status: Acute Assessment and Plan: Related to the hypotension. Continue midodrine. As above. (5) Hyponatremia: Code(s): E87.1 - Hypo-osmolality and hyponatremia Status: Acute Assessment and Plan: Sodium dropped to 128 prior to last discharge. Sodium has improved to 134 Continue to follow. (6) Type 2 diabetes mellitus with hyperglycemia, with long-term current use of insulin: Code(s): E11.65 - Type 2 diabetes mellitus with hyperglycemia; Z79.4 - alf (current) use of insulin Status: Acute Assessment and Plan: A1c 9.6. The patient's blood glucose was reviewed on 12/13 Glucose remains reasonably well controlled. Continue AccuCheks covering with sliding scale. Hypoglycemia protocol available as needed. Continue to monitor. (7) Obstructive sleep apnea:
[2022-12-13 16:38] LABS: Glucose Point of Care 155 mg/dl (65-105)
[2022-12-13] MEDS: RIVAROXABAN 20 MG TABLET PO (16:50)
[2022-12-13] MEDS: ARIPiprazole 2 MG TABLET PO (21:08)
[2022-12-13] MEDS: cefTRIAXone 2 GM/NS 100 ML 2 GM/100 ML BAG IVPB (21:08)
[2022-12-13 21:19] LABS: Glucose Point of Care 128 mg/dl (65-105)
--- NOTE | 2022-12-13 21:22 | PC.NURSE ---
informed Maria Isabel COATES that sepsis alert was alerted this evening, reported current vitals to Maria Isabel COATES 111/74 97.8 86 98% Ra 20
--- NOTE | 2022-12-13 21:30 | PC.NURSE ---
[employer] Maria Isabel Agrawal to place orders r/t sepsis alert.
[2022-12-14] VITALS (10 sets, daily range): BP systolic 113–116; BP diastolic 69–79; PULSE 77–92; RESP 18; TEMP 35.9–36.8; O2SAT 95–98
[2022-12-14] MEDS: oxyCODONE HCL (*CRX) 5 MG TAB IR PO ×3 (05:36→17:07)
[2022-12-14] MEDS: INSULIN GLARGINE (*BKC) 100 UNITS/ML 30 UNITS SUB-Q ×2 (05:40→17:07)
[2022-12-14 05:59] LABS: Glucose Point of Care 155 mg/dl (65-105)
--- NOTE | 2022-12-14 06:02 | PC.NURSE ---
awaiting results of vancomycin trough before giving vancomycin this morning lab here now to draw trough
[2022-12-14 06:16] LABS: Hematocrit 30.9 % (42.0-52.0); Hemoglobin 9.6 g/dL (14.0-18.0); Mean Corpuscular HGB Conc 31.1 g/dl (32-36); Mean Corpuscular Hemoglobin 31.6 pg (26-34); Mean Corpuscular Volume 101.6 fl (80-100); Mean Platelet Volume 8.9 fl (7.4-10.4); Platelet Count Result 232 k/mm3 (150-375); Red Blood Count 3.04 M/mm3 (4.6-6.20); Red Cell Distribution Width 19.4 % (11.5-14.5); White Blood Count 7.3 K/mm3 (4.5-10.0)
[2022-12-14 06:27] LABS: Alanine Aminotransferase 20 U/L (6-50); Albumin Level 3.2 g/dL (3.5-5.1); Alkaline Phosphatase 73 U/L (38-126); Anion Gap 7 mmol/L (8-16); Aspartate Amino Transferase 18 U/L (17-59); Bilirubin,Total 0.5 mg/dL (0.2-1.3); Blood Urea Nitrogen 21 mg/dL (9-20); Calcium 8.7 mg/dL (8.4-10.2); Carbon Dioxide 21 mmol/L (22-30); Chloride 106 mmol/L (98-107); Estimated CRCL calculation 50 ml/min; Estimated Glomerular Filt Rate 27; Glucose 126 mg/dL (65-110); Magnesium 1.7 mg/dL (1.6-2.3); Phosphorus 3.1 mg/dL (2.5-4.5); Potassium 3.7 mmol/L (3.4-5.0); Sodium 134 mmol/L (137-145)
--- NOTE | 2022-12-14 06:46 | PC.NURSE ---
vancomycin trough still has not resulted yet this morning, awaiting results for vancomycin dosing this morning
[2022-12-14 06:55] LABS: Band Neutrophils Percent 2 % (0-6); Basophils Absolute Manual 0.21 K/mm3 (0.0-0.1); Basophils Percent Manual 3 % (0-1); Lymphocytes Absolute Manual 2.26 K/mm3 (1.1-4.5); Metamyelocytes Percent 1 %; Monocytes Absolute Manual 0.43 K/mm3 (0.1-0.90); Monocytes Percent Manual 6 % (3-9); Myelocytes Percent 2 %; Neutrophils Absolute Manual 4.16 K/mm3 (1.3-6.7); Neutrophils Percent Manual 55 % (46-73); Nucleated Red Blood Cells 1 %; Total Cells Counted 100
[2022-12-14 06:56] LABS: Platelet Estimate Adequate (Adequate)
[2022-12-14 06:57] LABS: Anisocytosis 1+ (NORMAL); Schistocytes None Seen (NORMAL)
[2022-12-14 06:58] LABS: Vancomycin Trough 23.8 ug/mL (10.0-20.0)
--- NOTE | 2022-12-14 07:00 | PC.NURSE ---
vancomycin trough high, pharmacist to redose vancomycin
[2022-12-14 07:51] LABS: Glucose Point of Care 131 mg/dl (65-105)
[2022-12-14] MEDS: TAMSULOSIN HCL 0.4 MG CAPSULE PO (07:59)
[2022-12-14] MEDS: MIDODRINE HCL 2.5 MG TABLET PO ×3 (07:59→17:07)
[2022-12-14] MEDS: FLUoxetine HCL 20 MG CAPSULE 60 MG PO (07:59)
[2022-12-14] MEDS: TOLNAFTATE 1% POWDER 45 GM BTL 1 APPLIC TOPICAL ×2 (07:59→20:31)
--- NOTE | 2022-12-14 10:22 | PM.IMPN ---
Progress Note: A&P Assessment and Plan (1) Acute hypotension: Code(s): I95.9 - Hypotension, unspecified Status: Acute Assessment and Plan: Patient brought back to the emergency room on the day of discharge for dizziness and hypotension. Blood pressure 78/36 on admission. Patient was hospitalized for cellulitis and had been discharged earlier that same day. Was noted that his creatinine climbed from 0.8 to 1.8 so consider possibly dehydration. Consider also sepsis related to cellulitis/abscess. He was on his home Lasix during his hospital course but now this is on hold. Losartan and Metoprolol also on hold. BP soft and midodrine added. Cortisol level okay. TSH mildly elevated but not significant enough to cause HoTN. BP better controlled. IV fluids stopped and able to maintain stable BP. Monitor BP. Continue midodrine. (2) Abscess of lower leg: Code(s): L02.419 - Cutaneous abscess of limb, unspecified Status: Acute Assessment and Plan: Patient was admitted on 12/03 for left leg cellulitis. He also had erythema and possible cellulitis of the buttocks. He was initially treated with vancomycin, Zosyn and clindamycin that was changed to cefepime, Flagyl and vancomycin. No imaging was done. White count was normal and remained normal. He was switched to Levaquin and Flagyl at time of discharge and discharged on 12/08. Patient returned a few hours later for dizziness and hypotension. Patient found to have indurated firm area in the left calf a bedside ultrasound that was concerning for subcutaneous abscess. Lower extremity venous Doppler was negative for DVT but was limited due to pain and body habitus. Patient started on cefepime, vancomycin and Flagyl. General surgery consulted and patient underwent I&D of left calf abscess 12/10. Appreciate General surgery input. BCx (12/03) negative BCx (12/09) growing Corynebacterium (1of2) - felt to be a contaminant MRSA screen 12/09 negative. Wound Cx 12/10 MRSA BCx (12/13) NGTD WBC normal and remaining normal; Bandemia normal. Changed to Rocephin and Vancomycin and Flagyl stopped. Change to Augmentin and Doxycycline to complete 7 days from I&D. Continue current dressing changes. Appreciate GenSurg input (3) Acute kidney injury: Code(s): N17.9 - Acute kidney failure, unspecified Status: Acute Assessment and Plan: Creatine baseline 0.8 on original admission. During that hospitalization, creatinine climbed to 1.8 at time of discharge. -- he may have been fluid overloaded so Cr 0.8 may have been falsely low. Cr 2.2 on this admission. UA showing 1+ protein, no RBC/WBC but 11-20 casts. Consider post-strept vs ATN vs pre-renal (Lasix and HoTN). No exposure to contrast. Panc NET playing a part? Renal US grossly normal. TCK 30. C3/C4 normal. Urine Eos negative. FEUrea 13% and FENa .06% consistent with prerenal disease despite being fluid positive (I/O not accurate) Cr stable at 2.5 Becoming edematous so IV fluids stopped. Nephrology consulted and appreciate their input. Consider trial of Lasix or Albumin/Lasix. Remove Portillo Continue to monitor. (4) Near syncope: Code(s): R55 - Syncope and collapse Status: Acute Assessment and Plan: Related to the hypotension. Continue midodrine. As above. (5) Hyponatremia: Code(s): E87.1 - Hypo-osmolality and hyponatremia Status: Acute Assessment and Plan: Sodium dropped to 128 prior to last discharge. Sodium has improved to 134 Continue to follow. (6) Type 2 diabetes mellitus with hyperglycemia, with long-term current use of insulin: Code(s): E11.65 - Type 2 diabetes mellitus with hyperglycemia; Z79.4 - nursing home (current) use of insulin Status: Acute Assessment and Plan: A1c 9.6. The patient's blood glucose was reviewed on 12/14 Glucose remains reasonably well controlled. Continue AccuCheks covering with sliding scale. Hypoglycemia protoc
--- NOTE | 2022-12-14 10:50 | P.PNNP_ITS ---
Progress Note: A&P Assessment and Plan (1) Acute kidney injury: Code(s): N17.9 - Acute kidney failure, unspecified Status: Acute Assessment and Plan: * creatinine fluctuating at this time * creatinine normal on previous admission * however, creatinine alvina to 1.8mg/dl by the time of discharge * unclear if normal creatinine on last admission was falsely low possibly due to fluid overload * creatinine on this admission 2.2mg/dl... * suspect issues with hypotension on admission likely leading to renal hypoperfusion * post-infectious GN versus ATN from infection also possible * evaluation to date: * urine electrolyte prerenal (despite evidence of volume overload) * renal ultrasound w/o obstruction * urine eosinophils negative * CPK okay * diuretics on hold * making urine and no critical electrolytes * follow trend of repeat labs and UOP (2) Acute hypotension: Code(s): I95.9 - Hypotension, unspecified Status: Acute Assessment and Plan: * quite significant on admission - reportedly 70s systolic in ER * BP medications and diuretics on hold * midodrine added/started due to persistence of hypotension * follow trend of hemodynamcis (3) Abscess of lower leg: Code(s): L02.419 - Cutaneous abscess of limb, unspecified Status: Acute Assessment and Plan: * as noted on this admission * General Surgery follow -- s/p I&D 12/10/22 * on antibiotics * follow culture data * local wound care (4) Pancreatic mass: Code(s): K86.89 - Other specified diseases of pancreas Status: Acute Assessment and Plan: * biopsy with neuroendocrine tumor * following with [facility] (5) Type 2 diabetes mellitus with hyperglycemia, with long-term current use of insulin: Code(s): E11.65 - Type 2 diabetes mellitus with hyperglycemia; Z79.4 - residential (current) use of insulin Status: Chronic Assessment and Plan: * follow accu-cheks * glycemic control per hospitalists Will continue to follow. Subjective Date/time seen: 12/14/22 10:50 Interval history: Follow-up for acute renal failure/acute kidney injury. No apparent distress noted at the time of my visti; pain control seems satisfctory, swelling/edema seems stable if not better at this tie; no events overnight or earlier today; contiues to make good urine output in spite of renal dysfunction. Exam Narrative: General: large male in NAD Heart: normal S1 and S2; no rub Lungs: clear anteriorly, decreased at bases Abdomen: soft, nontender, nondistended, positive bowel sounds Extremities: left calf CYNDEE wrapped; UE/LE edema improved Skin: warm and intact Objective Data Vital Signs Vital Signs: Vital Signs Temp Pulse Resp BP Pulse Ox O2 Del Method 12/14/22 08:00 Room Air 12/14/22 05:37 98.3 F 87 18 116/74 95 12/14/22 04:00 86 12/14/22 00:00 88 12/13/22 23:25 78 97 Autopap 12/13/22 20:00 84 12/13/22 21:24 97.8 F 86 20 111/74 98 12/13/22 16:44 104 H 12/13/22 14:00 97.9 F 94 22 H 133/73 95 Intake/Output Intake/Output: Intake & Output 12/11/22 12/12/22 12/13/22 12/14/22 23:59 23:59 23:59 23:59 Intake Total 4653 9626 4406 12
--- NOTE | 2022-12-14 10:50 | PM.PNNEP ---
Progress Note: A&P Assessment and Plan (1) Acute kidney injury: Code(s): N17.9 - Acute kidney failure, unspecified Status: Acute Assessment and Plan: creatinine fluctuating at this time creatinine normal on previous admission however, creatinine alvina to 1.8mg/dl by the time of discharge unclear if normal creatinine on last admission was falsely low possibly due to fluid overload creatinine on this admission 2.2mg/dl... suspect issues with hypotension on admission likely leading to renal hypoperfusion post-infectious GN versus ATN from infection also possible evaluation to date: urine electrolyte prerenal (despite evidence of volume overload) renal ultrasound w/o obstruction urine eosinophils negative CPK okay diuretics on hold making urine and no critical electrolytes follow trend of repeat labs and UOP (2) Acute hypotension: Code(s): I95.9 - Hypotension, unspecified Status: Acute Assessment and Plan: quite significant on admission - reportedly 70s systolic in ER BP medications and diuretics on hold midodrine added/started due to persistence of hypotension follow trend of hemodynamcis (3) Abscess of lower leg: Code(s): L02.419 - Cutaneous abscess of limb, unspecified Status: Acute Assessment and Plan: as noted on this admission General Surgery follow -- s/p I&D 12/10/22 on antibiotics follow culture data local wound care (4) Pancreatic mass: Code(s): K86.89 - Other specified diseases of pancreas Status: Acute Assessment and Plan: biopsy with neuroendocrine tumor following with [facility] (5) Type 2 diabetes mellitus with hyperglycemia, with long-term current use of insulin: Code(s): E11.65 - Type 2 diabetes mellitus with hyperglycemia; Z79.4 - shelter (current) use of insulin Status: Chronic Assessment and Plan: follow accu-cheks glycemic control per hospitalists Will continue to follow. Subjective Date/time seen: 12/14/22 10:50 Interval history: Follow-up for acute renal failure/acute kidney injury. No apparent distress noted at the time of my visti; pain control seems satisfctory, swelling/edema seems stable if not better at this tie; no events overnight or earlier today; contiues to make good urine output in spite of renal dysfunction. Exam Narrative: General: large male in NAD Heart: normal S1 and S2; no rub Lungs: clear anteriorly, decreased at bases Abdomen: soft, nontender, nondistended, positive bowel sounds Extremities: left calf CYNDEE wrapped; UE/LE edema improved Skin: warm and intact Objective Data Vital Signs Vital Signs: Vital Signs Temp Pulse Resp BP Pulse Ox O2 Del Method 12/14/22 08:00 Room Air 12/14/22 05:37 98.3 F 87 18 116/74 95 12/14/22 04:00 86 12/14/22 00:00 88 12/13/22 23:25 78 97 Autopap 12/13/22 20:00 84 12/13/22 21:24 97.8 F 86 20 111/74 98 12/13/22 16:44 104 H 12/13/22 14:00 97.9 F 94 22 H 133/73 95 Intake/Output Intake/Output: Intake & Output 12/11/22 12/12/22 12/13/22 12/14/22 23:59 23:59 23:59 23:59 Intake Total 2654 4185 4406 1218 Output Total 150 1600 1350 1050 Balance 2504 2585 3056 168 Meds/Results Medications: Active Medications Generic Name Dose Route Start Last Admin Trade Name Freq PRN Reason Stop Dose Admin Acetaminophen 650 mg 12/12/22 16:41 Acetaminophen 325 Mg Tablet PO Q6H PRN Mild Pain (1-3) or Fever Hydrocodone Bitart/Acetaminophen 1 tab 12/12/22 16:41 Hydrocodone/Acetaminophen (*Crx) 5-325 Mg Tablet PO Q6H PRN Pain Rated 4-6 Albuterol 2 puff 12/09/22 05:27 Albuterol Sulfate (*Sp) Aerosol 1 Puff INHALATION QIDRT PRN Shortness Of Breath Or Wheezin Aripiprazole 2 mg 12/09/22 21:00 12/13/22 21:08 Aripiprazole 2 Mg Tablet PO 2 mg HS ANKUR Administration
[2022-12-14 12:21] LABS: Glucose Point of Care 117 mg/dl (65-105)
--- NOTE | 2022-12-14 13:30 | PM.PNGS ---
Progress Note: A&P Assessment and Plan (1) Abscess of lower leg: Code(s): L02.419 - Cutaneous abscess of limb, unspecified Status: Acute Assessment and Plan: Patient is doing well after incision and drainage of the posterior left calf abscess. Cellulitis nearly resolved. Induration is resolving. Cultures with MRSA, currently on IV Vancomycin. Continue local wound care with dry gauze dressing changes and jimmy wrap for compression. No longer needing to be packed. Okay from a surgical standpoint to discharge the patient from the hospital on oral antibiotics when medically stable and okay with the primary service. Would recommend too complete a 14 day course of oral antibiotics plus IV. Plan I have discussed the patient's case and plan of care with Dr. Dunham. Subjective Subjective Date/Time Seen: 12/14/22 13:30 Post Op day: 4 (I&D left calf abscess) Patient reports: no new complaints and afebrile Interval history: Chart reviewed since last seen. Patient reports pain in left lower extremity continues to improve after surgery. Overall redness and swelling has improved. No acute events overnight. Exam Narrative: Left lower leg dressing and Jimmy wrap removed. Open wound posterior calf where incision and drainage was performed. There is some granulating tissue at the base. No purulence drainage. Erythema and swelling nearly completely resolved. Induration much improved. Const: Nutritional Appearance: obese morbidly obese Objective Data Vital Signs Vital Signs: Vital Signs - 24 hr 12/13/22 14:00 12/13/22 16:44 12/13/22 21:24 Temperature 97.9 F 97.8 F Pulse Rate 94 104 H 86 Respiratory Rate 22 H 20 Blood Pressure 133/73 111/74 Pulse Oximetry 95 98 Oxygen Delivery 12/13/22 20:00 12/13/22 23:25 12/14/22 00:00 Temperature Pulse Rate 84 78 88 Respiratory Rate Blood Pressure Pulse Oximetry 97 Oxygen Delivery Autopap 12/14/22 04:00 12/14/22 05:37 12/14/22 08:00 Temperature 98.3 F Pulse Rate 86 87 Respiratory Rate 18 Blood Pressure 116/74 Pulse Oximetry 95 Oxygen Delivery Room Air Intake/Output Intake/Output: Intake & Output 12/11/22 12/12/22 12/13/22 12/14/22 23:59 23:59 23:59 23:59 Intake Total 2654 4185 4406 1218 Output Total 150 1600 1350 1050 Balance 2504 0815 0802 168 Meds/Results Medications: Active Medications Generic Name Dose Route Start Last Admin Trade Name Freq PRN Reason Stop Dose Admin Acetaminophen 650 mg 12/12/22 16:41 Acetaminophen 325 Mg Tablet PO Q6H PRN Mild Pain (1-3) or Fever Hydrocodone Bitart/Acetaminophen 1 tab 12/12/22 16:41 Hydrocodone/Acetaminophen (*Crx) 5-325 Mg Tablet PO Q6H PRN Pain Rated 4-6 Albuterol 2 puff 12/09/22 05:27 Albuterol Sulfate (*Sp) Aerosol 1 Puff INHALATION QIDRT PRN Shortness Of Breath Or Wheezin Aripiprazole 2 mg 12/09/22 21:00 12/13/22 21:08 Aripiprazole 2 Mg Tablet PO 2 mg HS ANKUR Administration Cyclobenzaprine HCl 10 mg 12/09/22 05:27 12/12/22 09:18 Cyclobenzaprine Hcl 10 Mg Tablet PO 10 mg BID PRN Administration Spasms Dextrose 12.5 gm 12/09/22 03:36 Dextrose 50% 25 Gm/50 Ml Syringe IV PUSH PRN PRN Hypoglycemia Protocol Fluoxetine HCl 60 mg 12/09/22 09:00 12/14/22 07:59 Fluoxetine Hcl 20 Mg Capsule PO 60 mg DAILY ANKUR Administration Glucagon 1 mg 12/09/22 03:36 Glucagon For Inj 1 Mg Vial IM PRN PRN Hypoglycemia Protocol Glucose 15 gm 12/09/22 03:36 Glucose Oral Gel 15 Gm Of Glucse In 37.5 Gm Tube PO PRN PRN Hypoglycemia Protocol Dextrose 1,000 mls @ 100 mls/hr 12/09/22 03:36 Dextrose 5% 1,000 Ml IVPB PRN PRN Hypoglycemia Protocol Ceftriaxone Sodium 2 gm in 100 mls @ 200 mls/hr 12/13/22 21:00 12/13/22 21:36 Rocephin 2 Gm/Ns 100 Ml IVPB Infused Q24H ANKUR Infusion Vancomycin HCl 1,500 mg in 5
[2022-12-14 13:38] LABS: Albumin 2.3 g/dL (3.8-4.8); Alpha 1 Globulin 0.4 g/dL (0.2-0.3); Alpha 2 Globulin 0.8 g/dL (0.5-0.9); Beta 1 Globulin 0.5 g/dL (0.4-0.6); Gamma Globulin 0.8 g/dL (0.8-1.7); Protein, Total 5.3 g/dL (6.1-8.1)
[2022-12-14] MEDS: RIVAROXABAN 20 MG TABLET PO (17:07)
[2022-12-14 17:11] LABS: Glucose Point of Care 109 mg/dl (65-105)
[2022-12-14] MEDS: AMOXICILLIN/CLAVULANATE K 875-125 MG TAB 1 TABLET PO (20:31)
[2022-12-14] MEDS: ARIPiprazole 2 MG TABLET PO (20:31)
[2022-12-14] MEDS: DOXYCYCLINE HYCLATE 100 MG TABLET PO (20:31)
[2022-12-14 21:05] LABS: Glucose Point of Care 155 mg/dl (65-105)
[2022-12-15] VITALS (9 sets, daily range): BP systolic 122–138; BP diastolic 70–84; PULSE 85–100; RESP 17–20; TEMP 36–36.4; O2SAT 97–98
[2022-12-15 05:51] LABS: Glucose Point of Care 92 mg/dl (65-105)
[2022-12-15] MEDS: INSULIN GLARGINE (*BKC) 100 UNITS/ML 30 UNITS SUB-Q ×2 (05:51→17:52)
[2022-12-15 07:18] LABS: Hemoglobin 9.4 g/dL (14.0-18.0); Mean Corpuscular HGB Conc 31.3 g/dl (32-36); Mean Corpuscular Hemoglobin 31.8 pg (26-34); Mean Corpuscular Volume 101.4 fl (80-100); Mean Platelet Volume 9.2 fl (7.4-10.4); Platelet Count Result 218 k/mm3 (150-375); Red Blood Count 2.96 M/mm3 (4.6-6.20); Red Cell Distribution Width 18.7 % (11.5-14.5); White Blood Count 6.1 K/mm3 (4.5-10.0)
[2022-12-15 07:27] LABS: Albumin Level 2.9 g/dL (3.5-5.1); Anion Gap 8 mmol/L (8-16); Blood Urea Nitrogen 20 mg/dL (9-20); Calcium 8.4 mg/dL (8.4-10.2); Carbon Dioxide 22 mmol/L (22-30); Chloride 106 mmol/L (98-107); Estimated CRCL calculation 52 ml/min; Estimated Glomerular Filt Rate 28; Glucose 133 mg/dL (65-110); Magnesium 1.6 mg/dL (1.6-2.3); Phosphorus 3.2 mg/dL (2.5-4.5); Potassium 3.5 mmol/L (3.4-5.0); Sodium 136 mmol/L (137-145)
[2022-12-15 07:48] LABS: Glucose Point of Care 141 mg/dl (65-105)
[2022-12-15 08:19] LABS: Band Neutrophils Percent 18 % (0-6); Eosinophils Absolute Manual 0.18 K/mm3 (0.02-0.5); Eosinophils Percent Manual 3 % (0-4); Lymphocytes Absolute Manual 1.46 K/mm3 (1.1-4.5); Monocytes Absolute Manual 0.42 K/mm3 (0.1-0.90); Monocytes Percent Manual 7 % (3-9); Neutrophils Absolute Manual 3.96 K/mm3 (1.3-6.7); Neutrophils Percent Manual 47 % (46-73); Total Cells Counted 100
[2022-12-15 08:20] LABS: Basophilic Stippling 1+ (NORMAL); Platelet Estimate Adequate (Adequate); Schistocytes None Seen (NORMAL)
[2022-12-15 08:21] LABS: Anisocytosis 2+ (NORMAL); Poikilocytosis 1+ (NORMAL); Polychromasia 1+ (NORMAL)
[2022-12-15] MEDS: TOLNAFTATE 1% POWDER 45 GM BTL 1 APPLIC TOPICAL ×2 (10:11→21:04)
[2022-12-15] MEDS: MIDODRINE HCL 2.5 MG TABLET PO ×3 (10:11→17:52)
[2022-12-15] MEDS: DOXYCYCLINE HYCLATE 100 MG TABLET PO ×2 (10:11→21:04)
[2022-12-15] MEDS: AMOXICILLIN/CLAVULANATE K 875-125 MG TAB 1 TABLET PO ×2 (10:11→21:04)
[2022-12-15] MEDS: TAMSULOSIN HCL 0.4 MG CAPSULE PO (10:11)
[2022-12-15] MEDS: FLUoxetine HCL 20 MG CAPSULE 60 MG PO (10:11)
--- NOTE | 2022-12-15 10:34 | PM.PNNEP ---
Progress Note: A&P Assessment and Plan (1) Acute kidney injury: Code(s): N17.9 - Acute kidney failure, unspecified Status: Acute Assessment and Plan: creatinine fluctuating at this time creatinine normal on previous admission however, creatinine alvina to 1.8mg/dl by the time of discharge unclear if normal creatinine on last admission was falsely low possibly due to fluid overload creatinine on this admission 2.2mg/dl... suspect issues with hypotension on admission likely leading to renal hypoperfusion post-infectious GN versus ATN from infection also possible evaluation to date: urine electrolyte prerenal (despite evidence of volume overload) renal ultrasound w/o obstruction urine eosinophils negative CPK okay diuretics on hold making urine and no critical electrolytes follow trend of repeat labs and UOP (2) Acute hypotension: Code(s): I95.9 - Hypotension, unspecified Status: Acute Assessment and Plan: quite significant on admission - reportedly 70s systolic in ER BP medications and diuretics on hold midodrine added/started due to persistence of hypotension follow trend of hemodynamcis (3) Abscess of lower leg: Code(s): L02.419 - Cutaneous abscess of limb, unspecified Status: Acute Assessment and Plan: as noted on this admission General Surgery follow -- s/p I&D 12/10/22 on antibiotics follow culture data local wound care (4) Pancreatic mass: Code(s): K86.89 - Other specified diseases of pancreas Status: Acute Assessment and Plan: biopsy with neuroendocrine tumor following with [facility] (5) Type 2 diabetes mellitus with hyperglycemia, with long-term current use of insulin: Code(s): E11.65 - Type 2 diabetes mellitus with hyperglycemia; Z79.4 - correction (current) use of insulin Status: Chronic Assessment and Plan: follow accu-cheks glycemic control per hospitalists Will continue to follow. Subjective Date/time seen: 12/15/22 10:34 Interval history: Follow-up for acute renal failure/acute kidney injury. Has noted issues/problems with standing and bearing weignt on his legs due to left calf pain; no other acute issues or problems voiced; no issues overnight; no apparent distress. Exam Narrative: General: large male in NAD Heart: normal S1 and S2; no rub Lungs: clear anteriorly, decreased at bases Abdomen: soft, nontender, nondistended, positive bowel sounds Extremities: left calf CYNDEE wrapped; UE/LE edema improving Skin: no rash Objective Data Vital Signs Vital Signs: Vital Signs Temp Pulse Resp BP Pulse Ox O2 Del Method 12/15/22 10:00 97.6 F 90 17 138/70 97 Room Air 12/15/22 12:00 100 12/15/22 08:00 90 12/15/22 05:40 96.8 F L 87 18 122/75 98 12/15/22 04:00 87 12/15/22 00:00 85 12/14/22 23:30 77 98 Autopap 12/14/22 20:00 92 12/14/22 22:00 96.6 F L 86 18 113/79 98 12/14/22 20:00 97 Room Air Intake/Output Intake/Output: Intake & Output 12/12/22 12/13/22 12/14/22 12/15/22 23:59 23:59 23:59 23:59 Intake Total 4185 4406 1898 1712 Output Total 1600 1350 1250 300 Balance 2585 3056 648 1412 Meds/Results Medications: Active Medications Generic Name Dose Route Start Last Admin Trade Name Freq PRN Reason Stop Dose Admin Acetaminophen 650 mg 12/12/22 16:41 Acetaminophen 325 Mg Tablet PO Q6H PRN Mild Pain (1-3) or Fever Hydrocodone Bitart/Acetaminophen 1 tab 12/12/22 16:41 Hydrocodone/Acetaminophen (*Crx) 5-325 Mg Tablet PO Q6H PRN Pain Rated 4-6 Albuterol 2 puff 12/09/22 05:27 Albuterol Sulfate (*Sp) Aerosol 1 Puff INHALATION QIDRT PRN Shortness Of Breath Or Wheezin Amoxicillin/Clavulanate Potassium 1 tablet 12/14/22 21:00 12/15/22 10:11 Amoxicillin/Clavulanate K 875-125 Mg Tab PO 12/17/22 21:01 1 tablet
--- NOTE | 2022-12-15 10:34 | P.PNNP_ITS ---
Progress Note: A&P Assessment and Plan (1) Acute kidney injury: Code(s): N17.9 - Acute kidney failure, unspecified Status: Acute Assessment and Plan: * creatinine fluctuating at this time * creatinine normal on previous admission * however, creatinine alvina to 1.8mg/dl by the time of discharge * unclear if normal creatinine on last admission was falsely low possibly due to fluid overload * creatinine on this admission 2.2mg/dl... * suspect issues with hypotension on admission likely leading to renal hypoperfusion * post-infectious GN versus ATN from infection also possible * evaluation to date: * urine electrolyte prerenal (despite evidence of volume overload) * renal ultrasound w/o obstruction * urine eosinophils negative * CPK okay * diuretics on hold * making urine and no critical electrolytes * follow trend of repeat labs and UOP (2) Acute hypotension: Code(s): I95.9 - Hypotension, unspecified Status: Acute Assessment and Plan: * quite significant on admission - reportedly 70s systolic in ER * BP medications and diuretics on hold * midodrine added/started due to persistence of hypotension * follow trend of hemodynamcis (3) Abscess of lower leg: Code(s): L02.419 - Cutaneous abscess of limb, unspecified Status: Acute Assessment and Plan: * as noted on this admission * General Surgery follow -- s/p I&D 12/10/22 * on antibiotics * follow culture data * local wound care (4) Pancreatic mass: Code(s): K86.89 - Other specified diseases of pancreas Status: Acute Assessment and Plan: * biopsy with neuroendocrine tumor * following with [facility] (5) Type 2 diabetes mellitus with hyperglycemia, with long-term current use of insulin: Code(s): E11.65 - Type 2 diabetes mellitus with hyperglycemia; Z79.4 - nursing home (current) use of insulin Status: Chronic Assessment and Plan: * follow accu-cheks * glycemic control per hospitalists Will continue to follow. Subjective Date/time seen: 12/15/22 10:34 Interval history: Follow-up for acute renal failure/acute kidney injury. Has noted issues/problems with standing and bearing weignt on his legs due to left calf pain; no other acute issues or problems voiced; no issues overnight; no apparent distress. Exam Narrative: General: large male in NAD Heart: normal S1 and S2; no rub Lungs: clear anteriorly, decreased at bases Abdomen: soft, nontender, nondistended, positive bowel sounds Extremities: left calf CYNDEE wrapped; UE/LE edema improving Skin: no rash Objective Data Vital Signs Vital Signs: Vital Signs Temp Pulse Resp BP Pulse Ox O2 Del Method 12/15/22 10:00 97.6 F 90 17 138/70 97 Room Air 12/15/22 12:00 100 12/15/22 08:00 90 12/15/22 05:40 96.8 F L 87 18 122/75 98 12/15/22 04:00 87 12/15/22 00:00 85 12/14/22 23:30 77 98 Autopap 12/14/22 20:00 92 12/14/22 22:00 96.6 F L 86 18 113/79 98 12/14/22 20:00 97 Room Air Intake/Output Intake/Output: Intake & Output 12/12/22 12/13/22 12/14/22 12/15/22 23:59 23:59 23:59 23:59 Intake Total 4185 4404 1890 1712 Output Tot
[2022-12-15 11:43] LABS: Glucose Point of Care 135 mg/dl (65-105)
--- NOTE | 2022-12-15 15:11 | PM.PNGS ---
Progress Note: A&P Assessment and Plan (1) Abscess of lower leg: Code(s): L02.419 - Cutaneous abscess of limb, unspecified Status: Acute Assessment and Plan: Patient is doing well after incision and drainage of the posterior left calf abscess. Cellulitis nearly resolved. Induration is resolving. Cultures with MRSA, transitioned to oral doxycycline and Augmentin. Continue local wound care with dry gauze dressing changes and juan c wrap for compression. No longer needing to be packed. Okay from a surgical standpoint to discharge the patient from the hospital on oral antibiotics when medically stable and okay with the primary service. Would recommend too complete a 14 day course of oral antibiotics plus IV. Plan I have discussed the patient's case and plan of care with Dr. Dunham. Subjective Subjective Date/Time Seen: 12/15/22 15:11 Post Op day: 5 (I&D left calf abscess) Patient reports: no new complaints and afebrile Interval history: Patient without any acute changes today. He denies any events overnight. He denies any pain in his left lower leg. He had a little pain last night, but continues to improve daily. Exam Narrative: Left lower leg dressing dry and intact Objective Data Vital Signs Vital Signs: Vital Signs - 24 hr 12/14/22 16:00 12/14/22 20:00 12/14/22 22:00 Temperature 96.6 F L Pulse Rate 89 86 Respiratory Rate 18 Blood Pressure 113/79 Pulse Oximetry 97 98 Oxygen Delivery Room Air 12/14/22 20:00 12/14/22 23:30 12/15/22 00:00 Temperature Pulse Rate 92 77 85 Respiratory Rate Blood Pressure Pulse Oximetry 98 Oxygen Delivery Autopap 12/15/22 04:00 12/15/22 05:40 12/15/22 08:00 Temperature 96.8 F L Pulse Rate 87 87 90 Respiratory Rate 18 Blood Pressure 122/75 Pulse Oximetry 98 Oxygen Delivery 12/15/22 12:00 12/15/22 08:00 Temperature Pulse Rate 100 Respiratory Rate Blood Pressure Pulse Oximetry Oxygen Delivery Room Air Intake/Output Intake/Output: Intake & Output 12/12/22 12/13/22 12/14/22 12/15/22 23:59 23:59 23:59 23:59 Intake Total 4185 4406 1898 942 Output Total 1600 1350 1250 300 Balance 2585 3056 648 642 Meds/Results Medications: Active Medications Generic Name Dose Route Start Last Admin Trade Name Freq PRN Reason Stop Dose Admin Acetaminophen 650 mg 12/12/22 16:41 Acetaminophen 325 Mg Tablet PO Q6H PRN Mild Pain (1-3) or Fever Hydrocodone Bitart/Acetaminophen 1 tab 12/12/22 16:41 Hydrocodone/Acetaminophen (*Crx) 5-325 Mg Tablet PO Q6H PRN Pain Rated 4-6 Albuterol 2 puff 12/09/22 05:27 Albuterol Sulfate (*Sp) Aerosol 1 Puff INHALATION QIDRT PRN Shortness Of Breath Or Wheezin Amoxicillin/Clavulanate Potassium 1 tablet 12/14/22 21:00 12/15/22 10:11 Amoxicillin/Clavulanate K 875-125 Mg Tab PO 12/17/22 21:01 1 tablet Q12HR ANKUR Administration Aripiprazole 2 mg 12/09/22 21:00 12/14/22 20:31 Aripiprazole 2 Mg Tablet PO 2 mg HS ANKUR Administration Cyclobenzaprine HCl 10 mg 12/09/22 05:27 12/12/22 09:18 Cyclobenzaprine Hcl 10 Mg Tablet PO 10 mg BID PRN Administration Spasms Dextrose 12.5 gm 12/09/22 03:36 Dextrose 50% 25 Gm/50 Ml Syringe IV PUSH PRN PRN Hypoglycemia Protocol Doxycycline Hyclate 100 mg 12/14/22 21:00 12/15/22 10:11 Doxycycline Hyclate 100 Mg Tablet PO 12/17/22 21:01 100 mg Q12HR ANKUR Administration Fluoxetine HCl 60 mg 12/09/22 09:00 12/15/22 10:11 Fluoxetine Hcl 20 Mg Capsule PO 60 mg DAILY ANKUR Administration Glucagon 1 mg 12/09/22 03:36 Glucagon For Inj 1 Mg Vial IM PRN PRN Hypoglycemia Protocol Glucose 15 gm 12/09/22 03:36 Glucose Oral Gel 15 Gm Of Glucse In 37.5 Gm Tube PO PRN PRN Hypoglycemia Protocol Dextrose 1,000 mls @ 100 mls/hr 12/09/22 03:36 Dextrose 5% 1,000 Ml IVPB PRN PRN Hypog
--- NOTE | 2022-12-15 16:38 | PM.IMPN ---
Progress Note: A&P Assessment and Plan (1) Acute hypotension: Code(s): I95.9 - Hypotension, unspecified Status: Acute Assessment and Plan: Patient brought back to the emergency room on the day of discharge for dizziness and hypotension. Blood pressure 78/36 on admission. Patient was hospitalized for cellulitis and had been discharged earlier that same day. Was noted that his creatinine climbed from 0.8 to 1.8 so consider possibly dehydration. Consider also sepsis related to cellulitis/abscess. He was on his home Lasix during his hospital course but now this is on hold. Losartan and Metoprolol also on hold. BP soft and midodrine added. Cortisol level okay. TSH mildly elevated but not significant enough to cause HoTN. BP better controlled. IV fluids stopped and able to maintain stable BP. Monitor BP. Continue midodrine. (2) Abscess of lower leg: Code(s): L02.419 - Cutaneous abscess of limb, unspecified Status: Acute Assessment and Plan: Patient was admitted on 12/03 for left leg cellulitis. He also had erythema and possible cellulitis of the buttocks. He was initially treated with vancomycin, Zosyn and clindamycin that was changed to cefepime, Flagyl and vancomycin. No imaging was done. White count was normal and remained normal. He was switched to Levaquin and Flagyl at time of discharge and discharged on 12/08. Patient returned a few hours later for dizziness and hypotension. Patient found to have indurated firm area in the left calf a bedside ultrasound that was concerning for subcutaneous abscess. Lower extremity venous Doppler was negative for DVT but was limited due to pain and body habitus. Patient started on cefepime, vancomycin and Flagyl. General surgery consulted and patient underwent I&D of left calf abscess 12/10. Appreciate General surgery input. BCx (12/03) negative BCx (12/09) growing Corynebacterium (1of2) - felt to be a contaminant MRSA screen 12/09 negative. Wound Cx 12/10 MRSA BCx (12/13) NGTD WBC normal and remaining normal; Band count back up to 18% for unclear reasons. Changed to Rocephin and Vancomycin and Flagyl stopped. Changed to Augmentin and Doxycycline to complete 7 days from I&D. Continue current dressing changes. Appreciate GenSurg input (3) Acute kidney injury: Code(s): N17.9 - Acute kidney failure, unspecified Status: Acute Assessment and Plan: Creatinine baseline 0.8 on original admission. During that hospitalization, creatinine climbed to 1.8 at time of discharge. -- he may have been fluid overloaded so Cr 0.8 may have been falsely low. Cr 2.2 on this admission. UA showing 1+ protein, no RBC/WBC but 11-20 casts. Consider post-strept vs ATN vs pre-renal (Lasix and HoTN). No exposure to contrast. Panc NET playing a part? Renal US grossly normal. TCK 30. C3/C4 normal. Urine Eos negative. FEUrea 13% and FENa .06% consistent with prerenal disease despite being fluid positive (I/O not accurate) Becoming edematous so IV fluids stopped 12/14. Cr stable at 2.4 Nephrology consulted and appreciate their input. Consider trial of Lasix or Albumin/Lasix. Continue to monitor. (4) Near syncope: Code(s): R55 - Syncope and collapse Status: Acute Assessment and Plan: Related to the hypotension. Continue midodrine. As above. (5) Hyponatremia: Code(s): E87.1 - Hypo-osmolality and hyponatremia Status: Acute Assessment and Plan: Sodium dropped to 128 prior to last discharge. Sodium has improved to 136 Continue to follow. (6) Type 2 diabetes mellitus with hyperglycemia, with long-term current use of insulin: Code(s): E11.65 - Type 2 diabetes mellitus with hyperglycemia; Z79.4 - welfare supervisor (current) use of insulin Status: Acute Assessment and Plan: A1c 9.6. The patient's blood glucose was reviewed on 12/15 Glucose remains reasonably well controlled. Continue AccuCheks covering with sliding sca
[2022-12-15 17:13] LABS: Glucose Point of Care 121 mg/dl (65-105)
[2022-12-15] MEDS: RIVAROXABAN 20 MG TABLET PO (17:52)
[2022-12-15 18:34] LABS: Strep DNASE B Antibody <95 U/mL (<301)
[2022-12-15] MEDS: oxyCODONE HCL (*CRX) 5 MG TAB IR PO (19:46)
[2022-12-15] MEDS: ARIPiprazole 2 MG TABLET PO (21:04)
[2022-12-15 21:36] LABS: Glucose Point of Care 123 mg/dl (65-105)
[2022-12-16] VITALS (14 sets, daily range): BP systolic 128–137; BP diastolic 76–81; PULSE 79–96; RESP 16–18; TEMP 35.8–36.1; O2SAT 95–98
[2022-12-16] MEDS: INSULIN GLARGINE (*BKC) 100 UNITS/ML 30 UNITS SUB-Q ×2 (05:41→17:09)
[2022-12-16 05:45] LABS: Glucose Point of Care 100 mg/dl (65-105)
[2022-12-16 06:14] LABS: Basophils Absolute Auto 0.1 K/mm3 (0.0-0.1); Basophils Percent Auto 0.9 % (0.2-1.2); Eosinophils Absolute Auto 0.3 K/mm3 (0-0.3); Eosinophils Percent Auto 4.2 % (0-4.4); Hemoglobin 9.2 g/dL (14.0-18.0); Immature Granulocyte Absolute 0.32 K/mm3 (0.00-0.031); Immature Granulocyte Percent A 4.9 % (0-0.5); Lymphocytes Absolute Auto 1.84 K/mm3 (0.9-3.2); Lymphocytes Percent Auto 27.9 % (18.3-44.2); Mean Corpuscular HGB Conc 30.7 g/dl (32-36); Mean Corpuscular Hemoglobin 31.1 pg (26-34); Mean Corpuscular Volume 101.4 fl (80-100); Mean Platelet Volume 8.9 fl (7.4-10.4); Monocytes Absolute Auto 0.8 K/mm3 (0.1-0.6); Monocytes Percent Auto 11.8 % (2.6-8.5); Neutrophils Absolute Auto 3.3 K/mm3 (1.3-6.7); Neutrophils Percent Auto 50.3 % (45.5-73.1); Nucleated Red Blood Cells Absolute Auto 0.1 K/mm3 (0.0-0.012); Nucleated Red Blood Cells Perc 0.8 % (0.0-0.2); Platelet Count Result 238 k/mm3 (150-375); Red Blood Count 2.96 M/mm3 (4.6-6.20); Red Cell Distribution Width 18.4 % (11.5-14.5); White Blood Count 6.6 K/mm3 (4.5-10.0)
[2022-12-16 06:29] LABS: Alanine Aminotransferase 17 U/L (6-50); Albumin Level 2.9 g/dL (3.5-5.1); Alkaline Phosphatase 64 U/L (38-126); Anion Gap 8 mmol/L (8-16); Aspartate Amino Transferase 19 U/L (17-59); Bilirubin,Total 0.5 mg/dL (0.2-1.3); Blood Urea Nitrogen 19 mg/dL (9-20); Calcium 8.4 mg/dL (8.4-10.2); Carbon Dioxide 22 mmol/L (22-30); Chloride 105 mmol/L (98-107); Estimated CRCL calculation 52 ml/min; Estimated Glomerular Filt Rate 28; Glucose 102 mg/dL (65-110); Magnesium 1.6 mg/dL (1.6-2.3); Phosphorus 3.5 mg/dL (2.5-4.5); Potassium 3.5 mmol/L (3.4-5.0); Sodium 135 mmol/L (137-145)
[2022-12-16 07:37] LABS: Glucose Point of Care 94 mg/dl (65-105)
[2022-12-16] MEDS: FLUoxetine HCL 20 MG CAPSULE 60 MG PO (08:48)
[2022-12-16] MEDS: MIDODRINE HCL 2.5 MG TABLET PO ×3 (08:48→17:09)
[2022-12-16] MEDS: TAMSULOSIN HCL 0.4 MG CAPSULE PO (08:49)
[2022-12-16] MEDS: AMOXICILLIN/CLAVULANATE K 875-125 MG TAB 1 TABLET PO ×2 (08:49→20:14)
[2022-12-16] MEDS: DOXYCYCLINE HYCLATE 100 MG TABLET PO ×2 (08:49→20:14)
[2022-12-16] MEDS: TOLNAFTATE 1% POWDER 45 GM BTL 1 APPLIC TOPICAL ×2 (08:51→20:14)
[2022-12-16] MEDS: oxyCODONE HCL (*CRX) 5 MG TAB IR PO ×2 (08:54→20:14)
[2022-12-16 09:25] LABS: Anti Streptolysin O Screen <50 IU/mL (<200)
--- NOTE | 2022-12-16 10:29 | PM.IMPN ---
Progress Note: A&P Assessment and Plan (1) Acute hypotension: Code(s): I95.9 - Hypotension, unspecified Status: Acute Assessment and Plan: Patient brought back to the emergency room on the day of discharge for dizziness and hypotension. Blood pressure 78/36 on admission. Patient was hospitalized for cellulitis and had been discharged earlier that same day. Was noted that his creatinine climbed from 0.8 to 1.8 so consider possibly dehydration. Consider also sepsis related to cellulitis/abscess. He was on his home Lasix during his hospital course but now this is on hold. Losartan and Metoprolol also on hold. BP soft and midodrine added. Cortisol level okay. TSH mildly elevated but not significant enough to cause HoTN. BP better controlled. IV fluids stopped and able to maintain stable BP. Monitor BP. Continue midodrine. (2) Abscess of lower leg: Code(s): L02.419 - Cutaneous abscess of limb, unspecified Status: Acute Assessment and Plan: Patient was admitted on 12/03 for left leg cellulitis. He also had erythema and possible cellulitis of the buttocks. He was initially treated with vancomycin, Zosyn and clindamycin that was changed to cefepime, Flagyl and vancomycin. No imaging was done. White count was normal and remained normal. He was switched to Levaquin and Flagyl at time of discharge and discharged on 12/08. Patient returned a few hours later for dizziness and hypotension. Patient found to have indurated firm area in the left calf a bedside ultrasound that was concerning for subcutaneous abscess. Lower extremity venous Doppler was negative for DVT but was limited due to pain and body habitus. Patient started on cefepime, vancomycin and Flagyl. General surgery consulted and patient underwent I&D of left calf abscess 12/10. Appreciate General surgery input. BCx (12/03) negative BCx (12/09) growing Corynebacterium (1of2) - felt to be a contaminant MRSA screen 12/09 negative. Wound Cx 12/10 MRSA BCx (12/13) NGTD WBC normal and remaining normal; Band count back up to 18% for unclear reasons. Changed to Rocephin and Vancomycin and Flagyl stopped. Changed to Augmentin and Doxycycline to complete 7 days from I&D. Continue current dressing changes. Appreciate GenSurg input (3) Acute kidney injury: Code(s): N17.9 - Acute kidney failure, unspecified Status: Acute Assessment and Plan: Creatinine baseline 0.8 on original admission. During that hospitalization, creatinine climbed to 1.8 at time of discharge. -- he may have been fluid overloaded so Cr 0.8 may have been falsely low. Cr 2.2 on this admission. UA showing 1+ protein, no RBC/WBC but 11-20 casts. Consider post-strept vs ATN vs pre-renal (Lasix and HoTN). No exposure to contrast. Panc NET playing a part? Renal US grossly normal. TCK 30. C3/C4 normal. Urine Eos negative. FEUrea 13% and FENa .06% consistent with prerenal disease despite being fluid positive (I/O not accurate) Becoming edematous so IV fluids stopped 12/14. Cr stable at 2.4 Nephrology consulted and appreciate their input. Consider trial of Lasix or Albumin/Lasix. Continue to monitor. (4) Near syncope: Code(s): R55 - Syncope and collapse Status: Acute Assessment and Plan: Related to the hypotension. Continue midodrine. As above. (5) Hyponatremia: Code(s): E87.1 - Hypo-osmolality and hyponatremia Status: Acute Assessment and Plan: Sodium dropped to 128 prior to last discharge. Sodium has improved to 135 Continue to follow. (6) Type 2 diabetes mellitus with hyperglycemia, with long-term current use of insulin: Code(s): E11.65 - Type 2 diabetes mellitus with hyperglycemia; Z79.4 - termite control service representative (current) use of insulin Status: Acute Assessment and Plan: A1c 9.6. The patient's blood glucose was reviewed on 12/16 Glucose remains reasonably well controlled. Continue AccuCheks covering with sliding scal
[2022-12-16 11:31] LABS: Glucose Point of Care 122 mg/dl (65-105)
--- NOTE | 2022-12-16 13:20 | P.PNNP_ITS ---
Progress Note: A&P Assessment and Plan (1) Acute kidney injury: Code(s): N17.9 - Acute kidney failure, unspecified Status: Acute Assessment and Plan: * creatinine fluctuating at this time * creatinine normal on previous admission * however, creatinine alvina to 1.8mg/dl by the time of discharge * unclear if normal creatinine on last admission was falsely low possibly due to fluid overload * creatinine on this admission 2.2mg/dl... * suspect issues with hypotension on admission likely leading to renal hypoperfusion * post-infectious GN versus ATN from infection also possible * evaluation to date: * urine electrolyte prerenal (despite evidence of volume overload) * renal ultrasound w/o obstruction * urine eosinophils negative * CPK okay * diuretics on hold * making urine and no critical electrolytes * follow trend of repeat labs and UOP (2) Acute hypotension: Code(s): I95.9 - Hypotension, unspecified Status: Acute Assessment and Plan: * quite significant on admission - reportedly 70s systolic in ER * BP medications and diuretics on hold * midodrine added/started due to persistence of hypotension * follow trend of hemodynamcis (3) Abscess of lower leg: Code(s): L02.419 - Cutaneous abscess of limb, unspecified Status: Acute Assessment and Plan: * as noted on this admission * General Surgery follow -- s/p I&D 12/10/22 * on antibiotics * follow culture data * local wound care (4) Pancreatic mass: Code(s): K86.89 - Other specified diseases of pancreas Status: Acute Assessment and Plan: * biopsy with neuroendocrine tumor * following with [facility] (5) Type 2 diabetes mellitus with hyperglycemia, with long-term current use of insulin: Code(s): E11.65 - Type 2 diabetes mellitus with hyperglycemia; Z79.4 - residential (current) use of insulin Status: Chronic Assessment and Plan: * follow accu-cheks * glycemic control per hospitalists Will continue to follow. Subjective Date/time seen: 12/16/22 13:20 Interval history: Follow-up for acute renal failure/acute kidney injury. Renal function remains stable (but not really improving) associated with good urine output and no critical electrollytes; pain control seems adequate; no apparent distress voiced. Exam Narrative: General: large male in NAD Heart: normal S1 and S2; no rub Lungs: clear anteriorly, decreased at bases Abdomen: soft, nontender, nondistended, positive bowel sounds Extremities: left calf CYNDEE wrapped; UE/LE edema improving Skin: no nodules Objective Data Vital Signs Vital Signs: Vital Signs Temp Pulse Resp BP Pulse Ox O2 Del Method 12/16/22 13:09 96.4 F L 83 16 130/76 97 12/16/22 11:19 128/76 12/16/22 08:00 88 12/16/22 08:30 98 Room Air 12/16/22 04:00 83 12/16/22 05:33 96.9 F L 88 16 137/81 98 12/16/22 00:00 90 12/16/22 00:25 79 97 Autopap 12/15/22 20:00 90 17 97 Room Air 12/15/22 20:00 90 12/15/22 21:55 97.2 F L 87 20 132/84 98 Intake/Output Intake/Output: Intake & Output 12/13/22 12/14/22 12/15/22 12/16/22 23:59 23:59 23:59 23:59 Int
--- NOTE | 2022-12-16 13:20 | PM.PNNEP ---
Progress Note: A&P Assessment and Plan (1) Acute kidney injury: Code(s): N17.9 - Acute kidney failure, unspecified Status: Acute Assessment and Plan: creatinine fluctuating at this time creatinine normal on previous admission however, creatinine alvina to 1.8mg/dl by the time of discharge unclear if normal creatinine on last admission was falsely low possibly due to fluid overload creatinine on this admission 2.2mg/dl... suspect issues with hypotension on admission likely leading to renal hypoperfusion post-infectious GN versus ATN from infection also possible evaluation to date: urine electrolyte prerenal (despite evidence of volume overload) renal ultrasound w/o obstruction urine eosinophils negative CPK okay diuretics on hold making urine and no critical electrolytes follow trend of repeat labs and UOP (2) Acute hypotension: Code(s): I95.9 - Hypotension, unspecified Status: Acute Assessment and Plan: quite significant on admission - reportedly 70s systolic in ER BP medications and diuretics on hold midodrine added/started due to persistence of hypotension follow trend of hemodynamcis (3) Abscess of lower leg: Code(s): L02.419 - Cutaneous abscess of limb, unspecified Status: Acute Assessment and Plan: as noted on this admission General Surgery follow -- s/p I&D 12/10/22 on antibiotics follow culture data local wound care (4) Pancreatic mass: Code(s): K86.89 - Other specified diseases of pancreas Status: Acute Assessment and Plan: biopsy with neuroendocrine tumor following with [facility] (5) Type 2 diabetes mellitus with hyperglycemia, with long-term current use of insulin: Code(s): E11.65 - Type 2 diabetes mellitus with hyperglycemia; Z79.4 - nursing home (current) use of insulin Status: Chronic Assessment and Plan: follow accu-cheks glycemic control per hospitalists Will continue to follow. Subjective Date/time seen: 12/16/22 13:20 Interval history: Follow-up for acute renal failure/acute kidney injury. Renal function remains stable (but not really improving) associated with good urine output and no critical electrollytes; pain control seems adequate; no apparent distress voiced. Exam Narrative: General: large male in NAD Heart: normal S1 and S2; no rub Lungs: clear anteriorly, decreased at bases Abdomen: soft, nontender, nondistended, positive bowel sounds Extremities: left calf CYNDEE wrapped; UE/LE edema improving Skin: no nodules Objective Data Vital Signs Vital Signs: Vital Signs Temp Pulse Resp BP Pulse Ox O2 Del Method 12/16/22 13:09 96.4 F L 83 16 130/76 97 12/16/22 11:19 128/76 12/16/22 08:00 88 12/16/22 08:30 98 Room Air 12/16/22 04:00 83 12/16/22 05:33 96.9 F L 88 16 137/81 98 12/16/22 00:00 90 12/16/22 00:25 79 97 Autopap 12/15/22 20:00 90 17 97 Room Air 12/15/22 20:00 90 12/15/22 21:55 97.2 F L 87 20 132/84 98 Intake/Output Intake/Output: Intake & Output 12/13/22 12/14/22 12/15/22 12/16/22 23:59 23:59 23:59 23:59 Intake Total 4406 1898 1712 1284 Output Total 1350 1250 300 Balance 3056 648 1412 1284 Meds/Results Medications: Active Medications Generic Name Dose Route Start Last Admin Trade Name Freq PRN Reason Stop Dose Admin Acetaminophen 650 mg 12/12/22 16:41 Acetaminophen 325 Mg Tablet PO Q6H PRN Mild Pain (1-3) or Fever Hydrocodone Bitart/Acetaminophen 1 tab 12/12/22 16:41 Hydrocodone/Acetaminophen (*Crx) 5-325 Mg Tablet PO Q6H PRN Pain Rated 4-6 Albuterol 2 puff 12/09/22 05:27 Albuterol Sulfate (*Sp) Aerosol 1 Puff INHALATION QIDRT PRN Shortness Of Breath Or Wheezin Amoxicillin/Clavulanate Potassium 1 tablet 12/14/22 21:00 12/16/22 08:49 Amoxicillin/Clavulanate K 875-125
--- NOTE | 2022-12-16 13:30 | PCNWS ---
Weekly nutritional screen. Patient is tolerating current diabetic consistent carb diet with adequate intake. No weight loss reported. No nutritional needs at this time.
[2022-12-16 16:30] LABS: Glucose Point of Care 145 mg/dl (65-105)
[2022-12-16] MEDS: RIVAROXABAN 20 MG TABLET PO (17:09)
[2022-12-16] MEDS: ARIPiprazole 2 MG TABLET PO (20:14)
[2022-12-16 21:03] LABS: Glucose Point of Care 142 mg/dl (65-105)
[2022-12-17] VITALS (9 sets, daily range): BP systolic 126–140; BP diastolic 72–82; PULSE 84–95; RESP 16–18; TEMP 36–36.4; O2SAT 94–100
[2022-12-17 05:49] LABS: Glucose Point of Care 72 mg/dl (65-105)
--- NOTE | 2022-12-17 06:15 | PC.NURSE ---
blood sugar 72 juice given, leaving lantus of day nurse to administer if needed.
[2022-12-17 06:31] LABS: Basophils Absolute Auto 0.1 K/mm3 (0.0-0.1); Basophils Percent Auto 1.2 % (0.2-1.2); Eosinophils Absolute Auto 0.3 K/mm3 (0-0.3); Eosinophils Percent Auto 4.6 % (0-4.4); Hematocrit 29.9 % (42.0-52.0); Hemoglobin 9.2 g/dL (14.0-18.0); Immature Granulocyte Absolute 0.25 K/mm3 (0.00-0.031); Immature Granulocyte Percent A 4.3 % (0-0.5); Lymphocytes Absolute Auto 1.54 K/mm3 (0.9-3.2); Lymphocytes Percent Auto 26.5 % (18.3-44.2); Mean Corpuscular HGB Conc 30.8 g/dl (32-36); Mean Corpuscular Hemoglobin 31.7 pg (26-34); Mean Corpuscular Volume 103.1 fl (80-100); Mean Platelet Volume 9.4 fl (7.4-10.4); Monocytes Absolute Auto 0.7 K/mm3 (0.1-0.6); Monocytes Percent Auto 12.7 % (2.6-8.5); Neutrophils Percent Auto 50.7 % (45.5-73.1); Platelet Count Result 243 k/mm3 (150-375); Red Cell Distribution Width 18.3 % (11.5-14.5); White Blood Count 5.8 K/mm3 (4.5-10.0)
[2022-12-17 06:36] LABS: Potassium 3.6 mmol/L (3.4-5.0)
[2022-12-17 06:41] LABS: Alanine Aminotransferase 15 U/L (6-50); Albumin Level 2.7 g/dL (3.5-5.1); Alkaline Phosphatase 63 U/L (38-126); Anion Gap 5 mmol/L (8-16); Aspartate Amino Transferase 21 U/L (17-59); Bilirubin,Total 0.5 mg/dL (0.2-1.3); Blood Urea Nitrogen 18 mg/dL (9-20); Calcium 8.4 mg/dL (8.4-10.2); Carbon Dioxide 24 mmol/L (22-30); Chloride 105 mmol/L (98-107); Estimated CRCL calculation 52 ml/min; Estimated Glomerular Filt Rate 28; Glucose 116 mg/dL (65-110); Sodium 134 mmol/L (137-145)
[2022-12-17 07:37] LABS: Glucose Point of Care 139 mg/dl (65-105)
--- NOTE | 2022-12-17 08:28 | PM.IMPN ---
Progress Note: A&P Assessment and Plan (1) Acute hypotension: Code(s): I95.9 - Hypotension, unspecified Status: Acute Assessment and Plan: Patient brought back to the emergency room on the day of discharge for dizziness and hypotension. Blood pressure 78/36 on admission. Patient was hospitalized for cellulitis and had been discharged earlier that same day. Was noted that his creatinine climbed from 0.8 to 1.8 so consider possibly dehydration. Consider also sepsis related to cellulitis/abscess. He was on his home Lasix during his hospital course but now this is on hold. Losartan and Metoprolol also on hold. BP soft and midodrine added. Cortisol level okay. TSH mildly elevated but not significant enough to cause HoTN. BP better controlled. IV fluids stopped and able to maintain stable BP. Monitor BP. Continue midodrine. Restart home lasix + losartan when able, defer to nephrology for further care 12/17: BP much improved, wean midodrine as able, restart lasix when ok with nephrology (2) Abscess of lower leg: Code(s): L02.419 - Cutaneous abscess of limb, unspecified Status: Acute Assessment and Plan: Patient was admitted on 12/03 for left leg cellulitis. He also had erythema and possible cellulitis of the buttocks. He was initially treated with vancomycin, Zosyn and clindamycin that was changed to cefepime, Flagyl and vancomycin. No imaging was done. White count was normal and remained normal. He was switched to Levaquin and Flagyl at time of discharge and discharged on 12/08. Patient returned a few hours later for dizziness and hypotension. Patient found to have indurated firm area in the left calf a bedside ultrasound that was concerning for subcutaneous abscess. Lower extremity venous Doppler was negative for DVT but was limited due to pain and body habitus. Patient started on cefepime, vancomycin and Flagyl. General surgery consulted and patient underwent I&D of left calf abscess 12/10. Appreciate General surgery input. BCx (12/03) negative BCx (12/09) growing Corynebacterium (1of2) - felt to be a contaminant MRSA screen 12/09 negative. Wound Cx 12/10 MRSA BCx (12/13) NGTD WBC normal and remaining normal; Band count back up to 18% for unclear reasons. Changed to Rocephin and Vancomycin and Flagyl stopped. Changed to Augmentin and Doxycycline to complete 7 days from I&D. Continue current dressing changes. Appreciate GenSurg input (3) Acute kidney injury: Code(s): N17.9 - Acute kidney failure, unspecified Status: Acute Assessment and Plan: Creatinine baseline 0.8 on original admission. During that hospitalization, creatinine climbed to 1.8 at time of discharge. -- he may have been fluid overloaded so Cr 0.8 may have been falsely low. Cr 2.2 on this admission. UA showing 1+ protein, no RBC/WBC but 11-20 casts. Consider post-strept vs ATN vs pre-renal (Lasix and HoTN). No exposure to contrast. Panc NET playing a part? Renal US grossly normal. TCK 30. C3/C4 normal. Urine Eos negative. FEUrea 13% and FENa .06% consistent with prerenal disease despite being fluid positive (I/O not accurate) Becoming edematous so IV fluids stopped 12/14. Cr stable at 2.4 Nephrology consulted and appreciate their input. Consider trial of Lasix or Albumin/Lasix. Continue to monitor. (4) Near syncope: Code(s): R55 - Syncope and collapse Status: Acute Assessment and Plan: Related to the hypotension. Continue midodrine. As above. (5) Hyponatremia: Code(s): E87.1 - Hypo-osmolality and hyponatremia Status: Acute Assessment and Plan: Sodium dropped to 128 prior to last discharge. Sodium has improved to 135 Continue to follow. (6) Type 2 diabetes mellitus with hyperglycemia, with long-term current use of insulin: Code(s): E11.65 - Type 2 diabetes mellitus with hyperglycemia; Z79.4 - [facility] (current) use of insulin Status: Acute Assessm
[2022-12-17] MEDS: AMOXICILLIN/CLAVULANATE K 875-125 MG TAB 1 TABLET PO ×2 (08:54→20:20)
[2022-12-17] MEDS: FLUoxetine HCL 20 MG CAPSULE 60 MG PO (08:54)
[2022-12-17] MEDS: MIDODRINE HCL 2.5 MG TABLET PO ×2 (08:54→12:57)
[2022-12-17] MEDS: TAMSULOSIN HCL 0.4 MG CAPSULE PO (08:54)
[2022-12-17] MEDS: DOXYCYCLINE HYCLATE 100 MG TABLET PO ×2 (08:55→20:20)
[2022-12-17] MEDS: oxyCODONE HCL (*CRX) 5 MG TAB IR PO ×2 (08:58→20:32)
[2022-12-17] MEDS: TOLNAFTATE 1% POWDER 45 GM BTL 1 APPLIC TOPICAL ×2 (09:00→22:45)
[2022-12-17 11:30] LABS: Glucose Point of Care 124 mg/dl (65-105)
--- NOTE | 2022-12-17 13:26 | P.PNNP_ITS ---
Progress Note: A&P Assessment and Plan (1) Acute kidney injury: Code(s): N17.9 - Acute kidney failure, unspecified Status: Acute Assessment and Plan: * creatinine fluctuating at this time * creatinine normal on previous admission * however, creatinine alvina to 1.8mg/dl by the time of discharge * unclear if normal creatinine on last admission was falsely low possibly due to fluid overload * creatinine on this admission 2.2mg/dl... * suspect issues with hypotension on admission likely leading to renal hypoperfusion * post-infectious GN versus ATN from infection also possible * evaluation to date: * urine electrolyte prerenal (despite evidence of volume overload) * renal ultrasound w/o obstruction * urine eosinophils negative * CPK okay * diuretics on hold * making urine and no critical electrolytes * follow trend of repeat labs and UOP (2) Acute hypotension: Code(s): I95.9 - Hypotension, unspecified Status: Acute Assessment and Plan: * quite significant on admission - reportedly 70s systolic in ER * BP medications and diuretics on hold * midodrine added/started due to persistence of hypotension * follow trend of hemodynamcis (3) Abscess of lower leg: Code(s): L02.419 - Cutaneous abscess of limb, unspecified Status: Acute Assessment and Plan: * as noted on this admission * General Surgery follow -- s/p I&D 12/10/22 * on antibiotics * follow culture data * local wound care (4) Pancreatic mass: Code(s): K86.89 - Other specified diseases of pancreas Status: Acute Assessment and Plan: * biopsy with neuroendocrine tumor * following with [facility] (5) Type 2 diabetes mellitus with hyperglycemia, with long-term current use of insulin: Code(s): E11.65 - Type 2 diabetes mellitus with hyperglycemia; Z79.4 - [facility] use of insulin Status: Chronic Assessment and Plan: * follow accu-cheks * glycemic control per hospitalists Will continue to follow. Subjective Date/time seen: 12/17/22 13:26 Interval history: Follow-up for acute renal failure/acute kidney injury. Overall, continues to make slow and steady improvement; creatinine stable if not slightly better but good urine output noted with stable electrolytes; pain control satisfactory; no apparent distress to report. Exam Narrative: General: large male in NAD Heart: normal S1 and S2; no rub Lungs: clear anteriorly, decreased at bases Abdomen: soft, nontender, nondistended, positive bowel sounds Extremities: left calf CYNDEE wrapped; UE/LE edema improving Skin: warm and dry Objective Data Vital Signs Vital Signs: Vital Signs Temp Pulse Resp BP Pulse Ox O2 Del Method 12/17/22 08:00 Room Air 12/17/22 04:00 96.8 F L 84 16 128/82 96 12/17/22 03:00 89 94 Autopap 12/17/22 04:00 87 12/17/22 00:00 87 12/16/22 23:50 96 95 Autopap 12/16/22 20:00 79 12/16/22 21:20 96.6 F L 85 18 129/81 98 12/16/22 19:41 97 Room Air 12/16/22 16:00 85 Intake/Output Intake/Output: Intake & Output 12/14/22 12/15/22 12/16/22 12/17/22 23:59 23:59 23:59 23:59 Intake Total 9062 7995 4627 9607
--- NOTE | 2022-12-17 13:26 | PM.PNNEP ---
Progress Note: A&P Assessment and Plan (1) Acute kidney injury: Code(s): N17.9 - Acute kidney failure, unspecified Status: Acute Assessment and Plan: creatinine fluctuating at this time creatinine normal on previous admission however, creatinine alvina to 1.8mg/dl by the time of discharge unclear if normal creatinine on last admission was falsely low possibly due to fluid overload creatinine on this admission 2.2mg/dl... suspect issues with hypotension on admission likely leading to renal hypoperfusion post-infectious GN versus ATN from infection also possible evaluation to date: urine electrolyte prerenal (despite evidence of volume overload) renal ultrasound w/o obstruction urine eosinophils negative CPK okay diuretics on hold making urine and no critical electrolytes follow trend of repeat labs and UOP (2) Acute hypotension: Code(s): I95.9 - Hypotension, unspecified Status: Acute Assessment and Plan: quite significant on admission - reportedly 70s systolic in ER BP medications and diuretics on hold midodrine added/started due to persistence of hypotension follow trend of hemodynamcis (3) Abscess of lower leg: Code(s): L02.419 - Cutaneous abscess of limb, unspecified Status: Acute Assessment and Plan: as noted on this admission General Surgery follow -- s/p I&D 12/10/22 on antibiotics follow culture data local wound care (4) Pancreatic mass: Code(s): K86.89 - Other specified diseases of pancreas Status: Acute Assessment and Plan: biopsy with neuroendocrine tumor following with [facility] (5) Type 2 diabetes mellitus with hyperglycemia, with long-term current use of insulin: Code(s): E11.65 - Type 2 diabetes mellitus with hyperglycemia; Z79.4 - nursing home (current) use of insulin Status: Chronic Assessment and Plan: follow accu-cheks glycemic control per hospitalists Will continue to follow. Subjective Date/time seen: 12/17/22 13:26 Interval history: Follow-up for acute renal failure/acute kidney injury. Overall, continues to make slow and steady improvement; creatinine stable if not slightly better but good urine output noted with stable electrolytes; pain control satisfactory; no apparent distress to report. Exam Narrative: General: large male in NAD Heart: normal S1 and S2; no rub Lungs: clear anteriorly, decreased at bases Abdomen: soft, nontender, nondistended, positive bowel sounds Extremities: left calf CYNDEE wrapped; UE/LE edema improving Skin: warm and dry Objective Data Vital Signs Vital Signs: Vital Signs Temp Pulse Resp BP Pulse Ox O2 Del Method 12/17/22 08:00 Room Air 12/17/22 04:00 96.8 F L 84 16 128/82 96 12/17/22 03:00 89 94 Autopap 12/17/22 04:00 87 12/17/22 00:00 87 12/16/22 23:50 96 95 Autopap 12/16/22 20:00 79 12/16/22 21:20 96.6 F L 85 18 129/81 98 12/16/22 19:41 97 Room Air 12/16/22 16:00 85 Intake/Output Intake/Output: Intake & Output 12/14/22 12/15/22 12/16/22 12/17/22 23:59 23:59 23:59 23:59 Intake Total 1898 1712 1968 1285 Output Total 1250 300 Balance 648 1412 1968 1285 Meds/Results Medications: Active Medications Generic Name Dose Route Start Last Admin Trade Name Freq PRN Reason Stop Dose Admin Acetaminophen 650 mg 12/12/22 16:41 Acetaminophen 325 Mg Tablet PO Q6H PRN Mild Pain (1-3) or Fever Hydrocodone Bitart/Acetaminophen 1 tab 12/12/22 16:41 Hydrocodone/Acetaminophen (*Crx) 5-325 Mg Tablet PO Q6H PRN Pain Rated 4-6 Albuterol 2 puff 12/09/22 05:27 Albuterol Sulfate (*Sp) Aerosol 1 Puff INHALATION QIDRT PRN Shortness Of Breath Or Wheezin Amoxicillin/Clavulanate Potassium 1 tablet 12/14/22 21:00 12/17/22 08:54 Amoxicillin/Clavulanate K 875-125 Mg Tab PO 12/17/22
[2022-12-17 16:35] LABS: Glucose Point of Care 121 mg/dl (65-105)
[2022-12-17] MEDS: RIVAROXABAN 20 MG TABLET PO (17:14)
[2022-12-17] MEDS: ARIPiprazole 2 MG TABLET PO (20:20)
[2022-12-17] MEDS: CYCLOBENZAPRINE HCL 10 MG TABLET PO (20:32)
[2022-12-17 21:36] LABS: Glucose Point of Care 122 mg/dl (65-105)
[2022-12-18] VITALS (7 sets, daily range): BP systolic 120–131; BP diastolic 69–71; PULSE 75–105; RESP 18; TEMP 35.6–36.6; O2SAT 96–98
[2022-12-18 06:44] LABS: Basophils Absolute Auto 0.1 K/mm3 (0.0-0.1); Basophils Percent Auto 1.3 % (0.2-1.2); Eosinophils Absolute Auto 0.3 K/mm3 (0-0.3); Hematocrit 33.2 % (42.0-52.0); Hemoglobin 9.6 g/dL (14.0-18.0); Immature Granulocyte Absolute 0.16 K/mm3 (0.00-0.031); Immature Granulocyte Percent A 2.7 % (0-0.5); Lymphocytes Absolute Auto 1.71 K/mm3 (0.9-3.2); Lymphocytes Percent Auto 28.7 % (18.3-44.2); Mean Corpuscular HGB Conc 28.9 g/dl (32-36); Mean Corpuscular Hemoglobin 31.2 pg (26-34); Mean Corpuscular Volume 107.8 fl (80-100); Mean Platelet Volume 9.3 fl (7.4-10.4); Monocytes Absolute Auto 0.8 K/mm3 (0.1-0.6); Monocytes Percent Auto 13.1 % (2.6-8.5); Neutrophils Absolute Auto 2.9 K/mm3 (1.3-6.7); Neutrophils Percent Auto 49.2 % (45.5-73.1); Nucleated Red Blood Cells Perc 0.3 % (0.0-0.2); Platelet Count Result 246 k/mm3 (150-375); Red Blood Count 3.08 M/mm3 (4.6-6.20); Red Cell Distribution Width 18.2 % (11.5-14.5)
[2022-12-18 06:55] LABS: Anion Gap 9 mmol/L (8-16); Aspartate Amino Transferase 27 U/L (17-59); Bilirubin,Total 0.6 mg/dL (0.2-1.3); Blood Urea Nitrogen 16 mg/dL (9-20); Calcium 8.1 mg/dL (8.4-10.2); Carbon Dioxide 17 mmol/L (22-30); Chloride 108 mmol/L (98-107); Estimated CRCL calculation 57 ml/min; Estimated Glomerular Filt Rate 31; Glucose 117 mg/dL (65-110); Potassium 3.7 mmol/L (3.4-5.0); Sodium 134 mmol/L (137-145)
[2022-12-18 06:56] LABS: Alanine Aminotransferase 12 U/L (6-50); Albumin Level 2.8 g/dL (3.5-5.1); Alkaline Phosphatase 58 U/L (38-126)
[2022-12-18 07:54] LABS: Glucose Point of Care 121 mg/dl (65-105)
[2022-12-18] MEDS: TAMSULOSIN HCL 0.4 MG CAPSULE PO (09:26)
[2022-12-18] MEDS: FLUoxetine HCL 20 MG CAPSULE 60 MG PO (09:26)
[2022-12-18] MEDS: INSULIN GLARGINE (*BKC) 100 UNITS/ML 10 UNITS SUB-Q (09:27)
--- NOTE | 2022-12-18 11:28 | PM.DS ---
DS: Admitting Diagnosis Discharge Date 12/18/22 Admitting Diagnosis cellulitis/abscess DS: Discharge Diagnosis Discharge Diagnosis (1) Acute hypotension: Code(s): I95.9 - Hypotension, unspecified Status: Acute Assessment and Plan: Patient brought back to the emergency room on the day of discharge for dizziness and hypotension. Blood pressure 78/36 on admission. Patient was hospitalized for cellulitis and had been discharged earlier that same day. Was noted that his creatinine climbed from 0.8 to 1.8 so consider possibly dehydration. Consider also sepsis related to cellulitis/abscess. He was on his home Lasix during his hospital course but now this is on hold. Losartan and Metoprolol also on hold. BP soft and midodrine added. Cortisol level okay. TSH mildly elevated but not significant enough to cause HoTN. BP better controlled. IV fluids stopped and able to maintain stable BP. Monitor BP. Continue midodrine. Restart home lasix + losartan when able, defer to nephrology for further care 12/17: BP much improved, wean midodrine as able, restart lasix when ok with nephrology (2) Abscess of lower leg: Code(s): L02.419 - Cutaneous abscess of limb, unspecified Status: Acute Assessment and Plan: Patient was admitted on 12/03 for left leg cellulitis. He also had erythema and possible cellulitis of the buttocks. He was initially treated with vancomycin, Zosyn and clindamycin that was changed to cefepime, Flagyl and vancomycin. No imaging was done. White count was normal and remained normal. He was switched to Levaquin and Flagyl at time of discharge and discharged on 12/08. Patient returned a few hours later for dizziness and hypotension. Patient found to have indurated firm area in the left calf a bedside ultrasound that was concerning for subcutaneous abscess. Lower extremity venous Doppler was negative for DVT but was limited due to pain and body habitus. Patient started on cefepime, vancomycin and Flagyl. General surgery consulted and patient underwent I&D of left calf abscess 12/10. Appreciate General surgery input. BCx (12/03) negative BCx (12/09) growing Corynebacterium (1of2) - felt to be a contaminant MRSA screen 12/09 negative. Wound Cx 12/10 MRSA BCx (12/13) NGTD WBC normal and remaining normal; Band count back up to 18% for unclear reasons. Changed to Rocephin and Vancomycin and Flagyl stopped. Changed to Augmentin and Doxycycline to complete 7 days from I&D. Continue current dressing changes. Appreciate GenSur input (3) Acute kidney injury: Code(s): N17.9 - Acute kidney failure, unspecified Status: Acute Assessment and Plan: Creatinine baseline 0.8 on original admission. During that hospitalization, creatinine climbed to 1.8 at time of discharge. -- he may have been fluid overloaded so Cr 0.8 may have been falsely low. Cr 2.2 on this admission. UA showing 1+ protein, no RBC/WBC but 11-20 casts. Consider post-strept vs ATN vs pre-renal (Lasix and HoTN). No exposure to contrast. Panc NET playing a part? Renal US grossly normal. TCK 30. C3/C4 normal. Urine Eos negative. FEUrea 13% and FENa .06% consistent with prerenal disease despite being fluid positive (I/O not accurate) Becoming edematous so IV fluids stopped 12/14. Cr stable at 2.4 Nephrology consulted and appreciate their input. Consider trial of Lasix or Albumin/Lasix. Continue to monitor. (4) Near syncope: Code(s): R55 - Syncope and collapse Status: Acute Assessment and Plan: Related to the hypotension. Continue midodrine. As above. (5) Hyponatremia: Code(s): E87.1 - Hypo-osmolality and hyponatremia Status: Acute Assessment and Plan: Sodium dropped to 128 prior to last discharge. Sodium has improved to 135 Continue to follow. (6) Type 2 diabetes mellitus with hyperglycemia, with long-term current use of insulin: Code(s): E11.65 - Type 2 diabetes mellitus
[2022-12-18 11:33] LABS: Glucose Point of Care 136 mg/dl (65-105)
[2022-12-18 12:47] LABS: SARS-CoV-2 RNA PCR Negative (Negative)
[2022-12-18 16:37] LABS: Glucose Point of Care 133 mg/dl (65-105)
[2022-12-18] MEDS: oxyCODONE HCL (*CRX) 5 MG TAB IR PO (17:27)
[2022-12-18] MEDS: RIVAROXABAN 20 MG TABLET PO (17:27)
[2022-12-18 21:07] LABS: Glucose Point of Care 165 mg/dl (65-105)
[2022-12-18 22:07] LABS: Glucose Point of Care 118 mg/dl (65-105)
[2022-12-20 23:44] LABS: Creatinine, Random Urine 199 mg/dL (20-320); Total Protein/Creatinine Ratio 678 mg/g creat (25-148)
== END 2022-12-18 20:40 | DRG 383 ==
LOC: ANHED 12-09 00:46 → ANH3MEDSUR 12-09 01:52
PROVIDERS: Internal Medicine; Surgery; Admitting Provider Internal Medicine; Emergency Provider Emergency Medicine; PCP Family Medicine; Visit Provider Student in an Organized Health Care Education/Training Program
PROC: 0Y9J0ZZ Drainage of Left Lower Leg, Open Approach (ICD-10-PCS; principal; 2022-12-10 09:30)
DX: L02.416 Cutaneous abscess of left lower limb (principal); C78.89 Secondary malignant neoplasm of other digestive organs; N17.9 Acute kidney failure, unspecified; I95.9 Hypotension, unspecified; C7A.8 Other malignant neuroendocrine tumors; I48.20 Chronic atrial fibrillation, unspecified; E87.1 Hypo-osmolality and hyponatremia; Z68.43 Body mass index [BMI] 50.0-59.9, adult; E86.0 Dehydration; L03.116 Cellulitis of left lower limb; E66.01 Morbid (severe) obesity due to excess calories; B95.62 Methicillin resistant Staphylococcus aureus infection as the cause of diseases classified elsewhere; R55 Syncope and collapse; I10 Essential (primary) hypertension; F41.8 Other specified anxiety disorders; J44.9 Chronic obstructive pulmonary disease, unspecified; K21.9 Gastro-esophageal reflux disease without esophagitis; E11.65 Type 2 diabetes mellitus with hyperglycemia; N40.1 Benign prostatic hyperplasia with lower urinary tract symptoms; Z23 Encounter for immunization; R39.14 Feeling of incomplete bladder emptying; G47.33 Obstructive sleep apnea (adult) (pediatric); N50.9 Disorder of male genital organs, unspecified; L97.129 Non-pressure chronic ulcer of left thigh with unspecified severity; L97.119 Non-pressure chronic ulcer of right thigh with unspecified severity; M06.9 Rheumatoid arthritis, unspecified; Z87.891 Personal history of nicotine dependence; Z90.49 Acquired absence of other specified parts of digestive tract; Z79.4 Long term (current) use of insulin; Z74.01 Bed confinement status; Z79.01 Long term (current) use of anticoagulants; Z11.52 Encounter for screening for COVID-19
CPT/HCPCS: 36415; 71045; 76775; 80053; 80069; 80202; 81001; 82533; 82550; 82570; 82607; 82746; 82948; 83605; 83735; 84100; 84155; 84156; 84165; 84166; 84300; 84439; 84443; 84480; 84484; 84540; 85025; 85055; 85610; 85730; 85999; 86038; 86060; 86140; 86160; 86215; 86225; 86334; 86335; 87040; 87070; 87075; 87077; 87081; 87147; 87181; 87186; 87205; 87635; 90471; 90686; 93005; 93971; 96360; 96361; 96365; 96367; 96375; 97110; 97161; 97166; 97530; 99285; A9270; C8929; G0008; J0692; J0696; J1650; J1815; J1836; J2405; J2704; J3010; J3370; J7030; J7120; Q9957

== ENCOUNTER 2023-07-23 00:40 | Inpatient (IN) | payer OTHER, SELFPAY ==
[2023-07-23] VITALS (20 sets, daily range): BP systolic 109–149; BP diastolic 59–85; PULSE 94–108; RESP 13–26; TEMP 37.3–39.4; O2SAT 92–98
--- NOTE | ~2023-07-23 | XR_ITS ---
Portable chest x-ray Comparison: 12/08/2022 Clinical History: Weakness Findings: Questionable minimal central congestive changes. No consolidation or pleural effusion. Ca rdiomediastinal silhouette is stable. Bones and soft tissues are unremarkable. Impression: Questionable minimal central congestive changes. Cardiomegaly. Reviewed, dictated and finalized at location . Impression: Questionable minimal central congestive changes. Cardiomegaly.
--- NOTE | ~2023-07-23 | US_ITS ---
EXAMINATION: US renal BI DATE: 07/26/2023 15:09 INDICATION: Fever. TECHNIQUE: Multiple ultrasound grayscale images of the kidneys were obtained. COMPARISON: Ultrasound 12/10/2022 FINDINGS: The right kidney measures 12.6 x 6.2 x 6.2 cm. The left kidney is not well visualized due to obesity. There is no right-sided hydronephrosis. The bladder is not visualized. IMPRESSION: 1. Normal right kidney. 2. Left kidney not well visualized due to obesity. Reviewed, dictated and finalized at location A.
--- NOTE | 2023-07-23 00:50 | ECG_ITS ---
SEE SCANNED COPY FOR CONFIRMED REPORT MTDD
[2023-07-23 00:56] LABS: Glucose Point of Care 431 mg/dl (65-105)
--- NOTE | 2023-07-23 00:57 | ECG_ITS ---
SEE SCANNED COPY FOR CONFIRMED REPORT MTDD
[2023-07-23] MEDS: SODIUM CHLORIDE 0.9% IV 1,000 ML 999 ML IV CONT (01:28)
[2023-07-23 01:43] LABS: Alanine Aminotransferase 91 U/L (6-50); Albumin Level 3.6 g/dL (3.5-5.1); Alkaline Phosphatase 74 U/L (38-126); Anion Gap 4 mmol/L (4-12); Aspartate Amino Transferase 70 U/L (17-59); Bilirubin,Total 1.2 mg/dL (0.2-1.3); Blood Urea Nitrogen 30 mg/dL (9-20); Calcium 8.5 mg/dL (8.4-10.2); Carbon Dioxide 30 mmol/L (22-30); Chloride 98 mmol/L (98-107); Estimated CRCL calculation 128 ml/min; Estimated Glomerular Filt Rate > 60; Glucose 394 mg/dL (65-110); Potassium 4.2 mmol/L (3.4-5.0); Sodium 132 mmol/L (137-145)
--- NOTE | 2023-07-23 01:53 | ED.WEAKNESS ---
HPI - Weakness General Chief complaint: Weakness Stated complaint: FEVER, WEAKNESS Time Seen by Provider: 07/23/23 01:40 Source: patient and EMS Mode of arrival: EMS Limitations: no limitations History of Present Illness HPI Narrative: 53-year-old male presenting for generalized weakness. Started becoming more weak today after eating dinner. Just feels ill . Nothing really specific. Related Data Home Medications Medication Instructions Recorded Confirmed albuterol sulfate 90 mcg/actuation 2 puff inhalation QID PRN 12/03/22 12/09/22 aerosol inhaler (ProAir HFA) Shortness Of Breath Or Wheezing aripiprazole 2 mg tablet 2 mg PO HS 12/03/22 12/09/22 cyclobenzaprine 10 mg tablet 10 mg PO BID PRN Spasms 12/03/22 12/09/22 ergocalciferol (vitamin D2) 50,000 50,000 unit PO WEEKLY 12/03/22 12/09/22 unit tablet fluoxetine 60 mg tablet 60 mg PO DAILY 12/03/22 12/09/22 insulin glargine 100 unit/mL 30 unit subcut BID 12/03/22 12/09/22 subcutaneous solution metformin 1,000 mg tablet 1,000 mg PO BID 12/03/22 12/09/22 rivaroxaban 20 mg tablet (Xarelto) 20 mg PO DAILY 12/03/22 12/09/22 tamsulosin 0.4 mg capsule 0.4 mg PO DAILY 12/03/22 12/09/22 Allergies Allergy/AdvReac Type Severity Reaction Status Date / Time No Known Allergies Allergy Mild Verified 12/10/22 08:55 Review of Systems Review of Systems: All systems reviewed & are unremarkable except as noted in HPI and below PMFSH Past Medical History Medical History Anxiety and depression BPH (benign prostatic hyperplasia) COPD (chronic obstructive pulmonary disease) Essential hypertension GERD (gastroesophageal reflux disease) Lymphedema associated with obesity Necrotizing fasciitis 2020 treated at [place] with multiple debridements and wound care Obstructive sleep apnea Pancreatic mass Rheumatoid arthritis Type 2 diabetes mellitus Surgical History Surgical History History of arthroscopy of right knee Hx of cholecystectomy Family History Family History Mother Pacemaker Diabetes mellitus Hypertension Father Heart attack Diabetes mellitus Hypertension Sibling Epilepsy Diabetes mellitus Hypertension Social History Social History Social History: Patient reports that before June 2022 he lives with his mother. When his mother needed more assistance she moved in with the patient's sister. The patient himself then had to move into [facility]. He has smoked as much as 2 packs of cigarettes per day for 33 years. He quit smoking in 2020. He still smokes marijuana frequently. He denies alcohol use. Code status: Full code Surrogate decision maker: Brenna Murillo (mother) Smoking packs per day: 2 Smoking cigarettes per day: 40.0 Years smoked: 33 Smoking pack-years: 66.00 Smoking status: Former smoker Alcohol intake: never Substance use: current Substance use type: marijuana Lack of Transportation: No Lack of Food: Never True Current Housing: I Have Housing Concerned About Future Housing: No Difficulty Paying Gas/Electric Bills: No Difficulty Paying for Meds: No Currently Unemployed: No Education: High School Diploma/GED Difficulty w/ Childcare or Family Care: No Spiritual care concerns: No Exam Narrative: Constitutional: Generally well appearing, no acute distress . Morbidly obese Head: Atraumatic, no deformities. Eyes: Pupils equal, round, and reactive to light. Neck: Supple, no tracheal deviation, no JVD. ENMT: Mucous membranes moist Cardiovascular: S1, S2 auscultated. No murmurs, rubs, or gallops. No S3/S4. Normal Distal pulses. No peripheral edema. Respiratory: Lung sounds equal. No wheezes, rales, or rhonchi. Gastrointestinal: Abdomen was soft and non-tend
[2023-07-23 02:01] LABS: INR 1.3; Prothrombin Time 16.4 Seconds (11.1-14.7)
[2023-07-23 02:02] LABS: Partial Thromboplastin Time 37.4 Seconds (22.3-36.8)
[2023-07-23 02:08] LABS: Influenza A QL RT-PCR Negative (Negative); Influenza B QL RT-PCR Negative (Negative); RSV RNA, RT-PCR Negative (Negative); SARS-CoV-2 RNA PCR Negative (Negative)
[2023-07-23 02:13] LABS: Basophils Absolute Auto 0.1 K/mm3 (0.0-0.1); Basophils Percent Auto 0.6 % (0.2-1.2); Eosinophils Percent Auto 0.2 % (0-4.4); Hematocrit 37.9 % (42.0-52.0); Hemoglobin 11.9 g/dL (14.0-18.0); Immature Granulocyte Absolute 0.19 K/mm3 (0.00-0.031); Immature Granulocyte Percent A 1.9 % (0-0.5); Lymphocytes Absolute Auto 0.51 K/mm3 (0.9-3.2); Lymphocytes Percent Auto 5.1 % (18.3-44.2); Mean Corpuscular HGB Conc 31.4 g/dl (32-36); Mean Corpuscular Hemoglobin 29.4 pg (26-34); Mean Corpuscular Volume 93.6 fl (80-100); Monocytes Absolute Auto 0.7 K/mm3 (0.1-0.6); Monocytes Percent Auto 6.9 % (2.6-8.5); Neutrophils Absolute Auto 8.5 K/mm3 (1.3-6.7); Neutrophils Percent Auto 85.3 % (45.5-73.1); Nucleated Red Blood Cells Perc 0.4 % (0.0-0.2); Platelet Count Result 130 k/mm3 (150-375); Red Blood Count 4.05 M/mm3 (4.6-6.20); Red Cell Distribution Width 17.5 % (11.5-14.5)
[2023-07-23 02:22] LABS: Lactic Acid Reflex 2.8 mmol/L (0.7-2.0)
[2023-07-23 02:28] LABS: Appearance Urine Cloudy (Clear); Bacteria Urine 4+ /hpf; Bilirubin Urine 1+ (Negative); Blood Urine 2+ (Negative); Glucose Urine UA 3+ mg/dL (Negative); Ketones Urine Trace mg/dL (Negative); Leukocyte Esterase Ur Trace LEU/UL (Negative); Need Manual Microscopic Reviewed; Nitrate Urine Positive (Negative); Non Pathogenic Casts >20; Protein Urine 2+ mg/dL (Negative); RBC Urine >100 /hpf (0-2); Specific Grav Ur 1.027 (1.001-1.035); Squamous Epithelial Cell Urine None Seen /hpf (Few); WBC Urine 51-100 /hpf (0-3)
[2023-07-23 02:29] LABS: Add Urine Microscopic? YES
[2023-07-23 02:32] LABS: Color Urine Light Red (Yellow)
[2023-07-23] MEDS: cefTRIAXone 2 GM/NS 100 ML 2 GM/100 ML BAG IVPB (02:49)
[2023-07-23] MEDS: ACETAMINOPHEN 500 MG TABLET 1000 MG PO ×2 (02:50→08:24)
[2023-07-23] MEDS: SODIUM CHLORIDE 0.9% IV 1,000 ML 75 ML IV CONT ×2 (03:24→20:12)
[2023-07-23] MEDS: VANCOMYCIN 1,250 MG/NS 250 ML 1,250 MG/250 ML BAG 166.67 MG IVPB ×2 (03:25→05:24)
[2023-07-23 04:09] LABS: Glucose Point of Care 362 mg/dl (65-105)
--- NOTE | 2023-07-23 05:07 | ADMGEN ---
This patient, Yobani Murillo, was admitted to [facility] Surg Room 312-01 at 0335. Patient/family oriented to hospital policies and general routines including ID bracelet, bed and alarms, visiting hours, pain management, procedures, bathroom and other care routines, personal items, smoking policy, room service/diet, and visiting hours. Information on how to activate the Rapid Response Team has been discussed. Patient/Family are encouraged to report perceived risks to care and to ask questions if they do not understand what they are told or what they should do.
[2023-07-23 05:11] LABS: Reflex Lactic Acid Yes or No Add Lactic
--- NOTE | 2023-07-23 05:13 | PC.NURSE ---
pt reported to this RN that he had a fall at [facility] on 07/21/23. pt denies hitting his head or losing consciousness. pt was not evaluated in the ED for this fall
[2023-07-23 05:42] LABS: Lactic Acid 2.4 mmol/L (0.7-2.0)
[2023-07-23 07:26] LABS: Glucose Point of Care 339 mg/dl (65-105)
--- NOTE | 2023-07-23 08:11 | PM.IMHP ---
H&P: HPI History of Present Illness Date/Time: 07/23/23 08:11 Chief Complaint: Fever Narrative: This is a 54-year-old male with a past medical history of insulin-dependent diabetes, COPD, hypertension, lymphedema, TAMY and rheumatoid arthritis that presents to the ED [facility]. Patient has been put on oxygen and mostly requires it during sleep. He does not wear CPAP because he is not compliant with it. [facility] 1 [facility]. He does have chronic indwelling Portillo catheter. This was exchanged in the ED. Patient states that he did not have any symptoms of UTI including dysuria, hematuria or urinary frequency. Patient states that he does not get frequent urinary tract infections. He states that Portillo catheter was placed due to not being able to keep himself dry. Patient did state that he had a fall the day prior to admission. States that he fell because his knees gave out. He was not sent to the hospital after his fall. He denies any residual pain. Vital signs in the ED: Blood pressure 135/85, pulse 108, respirations 26, temp 100.6?, O2 saturation 94 on 3L findings in the ED: White blood cell count 10, hemoglobin and hematocrit 11.9/37.9, sodium 132, BUN and creatinine 30/1.1, glucose 394, lactic acid 2.8, AST 70 ALT 91. UA with 2+ blood, positive nitrate, trace LE, greater than 100 rbc's, 51-100 wbc's, 4+ bacteria Patient admitted for treatment of urosepsis. [facility] Past Medical History Medical History (Updated 07/23/23 @ 08:24 by Flaquita Reddy PA-C) Anxiety and depression BPH (benign prostatic hyperplasia) COPD (chronic obstructive pulmonary disease) Essential hypertension GERD (gastroesophageal reflux disease) Lymphedema associated with obesity Necrotizing fasciitis 2020 treated at [place] with multiple debridements and wound care Obstructive sleep apnea Pancreatic mass Rheumatoid arthritis Type 2 diabetes mellitus Surgical History Surgical History History of arthroscopy of right knee Hx of cholecystectomy Family History Family History Mother Pacemaker Diabetes mellitus Hypertension Father Heart attack Diabetes mellitus Hypertension Sibling Epilepsy Diabetes mellitus Hypertension Social History Social History Social History: Patient reports that before June 2022 he lives with his mother. When his mother needed more assistance she moved in with the patient's sister. The patient himself then had to move into [facility]. He has smoked as much as 2 packs of cigarettes per day for 33 years. He quit smoking in 2020. He still smokes marijuana frequently. He denies alcohol use. Code status: Full code Surrogate decision maker: Brenna Murillo (mother) Smoking packs per day: 2 Smoking cigarettes per day: 40.0 Years smoked: 33 Smoking pack-years: 66.00 Smoking status: Former smoker Alcohol intake: never Substance use: current Substance use type: marijuana Do You Feel Safe in your Home?: Yes Lack of Transportation: No Lack of Food: Never True Current Housing: I Have Housing Concerned About Future Housing: No Difficulty Paying Gas/Electric Bills: No Difficulty Paying for Meds: No Currently Unemployed: No Education: High School Diploma/GED Difficulty w/ Childcare or Family Care: No Spiritual care concerns: No Meds Home Medications and Allergies Home Medications Medication Instructions Recorded Confirmed Type albuterol sulfate 90 mcg/actuation 2 puff inhalation QID PRN 12/03/22 07/23/23 History aerosol inhaler (ProAir HFA) Shortness Of Breath Or Wheezing aripiprazole 2 mg tablet 2 mg PO HS 12/03/22 07/23/23 History cyclobenzaprine 10 mg tablet 10 mg PO BID PRN Spasms 12/03/22 07/23/23 Histor
[2023-07-23] MEDS: INSULIN GLARGINE (*BKC) 100 UNITS/ML 30 UNITS SUB-Q ×2 (08:23→16:44)
[2023-07-23] MEDS: dexAMETHasone 2 MG TABLET 6 MG PO (08:24)
[2023-07-23] MEDS: buPROPion HCL SR (12 HR) 150 MG TAB PO (08:24)
[2023-07-23] MEDS: TAMSULOSIN HCL 0.4 MG CAPSULE PO (08:24)
[2023-07-23] MEDS: diphenhydrAMINE HCl CAP 25 MG CAPSULE PO (08:24)
[2023-07-23] MEDS: FLUoxetine HCL 20 MG CAPSULE 60 MG PO (08:24)
[2023-07-23] MEDS: MIDODRINE HCL 2.5 MG TABLET PO ×3 (08:26→16:43)
--- NOTE | 2023-07-23 11:21 | PC.NURSE ---
Spoke to [facility] about patient's hector catheter that was present on arrival to ED. Per [facility] staff, catheter was placed on 07/21/2023 for retention and to promote wound healing.
[2023-07-23 11:26] LABS: Glucose Point of Care 343 mg/dl (65-105)
[2023-07-23] MEDS: TOLNAFTATE 1% POWDER 45 GM BTL 1 APPLIC TOPICAL ×2 (12:56→20:07)
[2023-07-23] MEDS: VANCOMYCIN 1,500 MG/NS 500 ML 1,500 MG/500 ML BAG 125 MG IVPB (13:51)
[2023-07-23 16:17] LABS: Glucose Point of Care 418 mg/dl (65-105)
[2023-07-23] MEDS: INSULIN ASPART (*BKC) 100 UNITS/ML SUB-Q (16:43)
[2023-07-23] MEDS: BENZONATATE 100 MG CAPSULE PO (16:43)
[2023-07-23] MEDS: RIVAROXABAN 20 MG TABLET PO (16:43)
[2023-07-23] MEDS: ARIPiprazole 2 MG TABLET PO (20:06)
[2023-07-23] MEDS: oxyCODONE HCL (*CRX) 5 MG TAB IR PO (20:06)
[2023-07-23] MEDS: traZODone HCL 50 MG TABLET 100 MG PO (20:06)
[2023-07-23 20:38] LABS: Glucose Point of Care 312 mg/dl (65-105)
[2023-07-24] VITALS (10 sets, daily range): BP systolic 117–141; BP diastolic 70–87; PULSE 86–101; RESP 16–22; TEMP 36.9–37.7; O2SAT 92–97
[2023-07-24] MEDS: VANCOMYCIN 1,500 MG/NS 500 ML 1,500 MG/500 ML BAG 125 MG IVPB (02:46)
[2023-07-24] MEDS: PIPERACILLN/TAZ 3.375GM/NS50ML 3.375 GM/50 ML BAG IVPB ×4 (02:46→20:45)
[2023-07-24 03:52] LABS: Hemoglobin A1C 11.2 % (<5.7)
[2023-07-24 06:43] LABS: Basophils Percent Auto 0.5 % (0.2-1.2); Eosinophils Absolute Auto 0.1 K/mm3 (0-0.3); Eosinophils Percent Auto 1.1 % (0-4.4); Hematocrit 38.1 % (42.0-52.0); Hemoglobin 11.6 g/dL (14.0-18.0); Immature Granulocyte Absolute 0.12 K/mm3 (0.00-0.031); Immature Granulocyte Percent A 1.5 % (0-0.5); Lymphocytes Absolute Auto 0.78 K/mm3 (0.9-3.2); Lymphocytes Percent Auto 9.7 % (18.3-44.2); Mean Corpuscular HGB Conc 30.4 g/dl (32-36); Mean Corpuscular Volume 95.3 fl (80-100); Mean Platelet Volume 10.3 fl (7.4-10.4); Monocytes Absolute Auto 0.9 K/mm3 (0.1-0.6); Monocytes Percent Auto 10.7 % (2.6-8.5); Neutrophils Absolute Auto 6.2 K/mm3 (1.3-6.7); Neutrophils Percent Auto 76.5 % (45.5-73.1); Platelet Count Result 133 k/mm3 (150-375); Red Cell Distribution Width 17.5 % (11.5-14.5); White Blood Count 8.1 K/mm3 (4.5-10.0)
[2023-07-24 06:53] LABS: Alanine Aminotransferase 84 U/L (6-50); Albumin Level 3.4 g/dL (3.5-5.1); Alkaline Phosphatase 80 U/L (38-126); Anion Gap 2 mmol/L (4-12); Aspartate Amino Transferase 36 U/L (17-59); Bilirubin,Total 0.9 mg/dL (0.2-1.3); Blood Urea Nitrogen 21 mg/dL (9-20); Calcium 8.6 mg/dL (8.4-10.2); Carbon Dioxide 30 mmol/L (22-30); Chloride 100 mmol/L (98-107); Estimated CRCL calculation 154 ml/min; Estimated Glomerular Filt Rate > 60; Glucose 249 mg/dL (65-110); Sodium 132 mmol/L (137-145)
[2023-07-24 07:40] LABS: Glucose Point of Care 249 mg/dl (65-105)
[2023-07-24] MEDS: INSULIN ASPART (*BKC) 100 UNITS/ML SUB-Q ×3 (08:25→16:40)
[2023-07-24] MEDS: INSULIN GLARGINE (*BKC) 100 UNITS/ML 30 UNITS SUB-Q ×2 (08:26→16:40)
[2023-07-24] MEDS: dexAMETHasone 2 MG TABLET 6 MG PO (08:27)
[2023-07-24] MEDS: BENZONATATE 100 MG CAPSULE PO ×2 (08:27→16:41)
[2023-07-24] MEDS: TAMSULOSIN HCL 0.4 MG CAPSULE PO (08:27)
[2023-07-24] MEDS: MIDODRINE HCL 2.5 MG TABLET PO ×3 (08:27→16:41)
[2023-07-24] MEDS: buPROPion HCL SR (12 HR) 150 MG TAB PO (08:27)
[2023-07-24] MEDS: diphenhydrAMINE HCl CAP 25 MG CAPSULE PO (08:27)
[2023-07-24] MEDS: FLUoxetine HCL 20 MG CAPSULE 60 MG PO (08:27)
[2023-07-24] MEDS: TOLNAFTATE 1% POWDER 45 GM BTL 1 APPLIC TOPICAL ×2 (08:28→20:46)
[2023-07-24 11:20] LABS: Glucose Point of Care 272 mg/dl (65-105)
[2023-07-24] MEDS: oxyCODONE HCL (*CRX) 5 MG TAB IR PO ×3 (12:44→20:45)
[2023-07-24] MEDS: SODIUM CHLORIDE 0.9% IV 1,000 ML 75 ML IV CONT (13:01)
[2023-07-24 14:40] LABS: Vancomycin Trough 12.5 ug/mL (10.0-20.0)
--- NOTE | 2023-07-24 14:43 | PM.IMPN ---
Progress Note: A&P Assessment and Plan (1) Sepsis: Qualifiers: Sepsis acute organ dysfunction status: with acute organ dysfunction Severe sepsis acute organ dysfunction type: acute respiratory failure Code(s): A41.9 - Sepsis, unspecified organism Status: Acute Assessment and Plan: Meet sepsis criteria with tachycardia, tachypnea, fever of 100.6?, lactic acidosis and source of infection. Patient not hypotensive. Source of infection is the urine. Blood cultures positive for group B strep and Morganella morganii. Urine culture with Gram-positive bacilli Patient being treated with vancomycin and Rocephin 07/22. Rocephin discontinued and Zosyn started on 07/23 Lactic acid 2.8, repeat 2.4 Continue IV fluids (2) Acute UTI: Code(s): N39.0 - Urinary tract infection, site not specified Status: Acute Assessment and Plan: UA with 2+ blood, positive nitrate, trace LE, greater than 100 rbc's, 51-100 wbc's, 4+ bacteria Blood cultures positive for group B strep and Morganella morganii. Urine culture with Gram-positive bacilli Patient being treated with vancomycin and Rocephin 07/22. Rocephin discontinued and Zosyn started on 07/23 Sensitivities pending Blood cultures redrawn on 07/24/2023 (3) Acute kidney injury: Code(s): N17.9 - Acute kidney failure, unspecified Status: Acute Assessment and Plan: On presentation patient's BUN and creatinine 30/1.1. Patient on vancomycin and Rocephin for UTI sepsis. Continue IV fluids at 75 mL/hour Monitor daily labs (4) Type 2 diabetes mellitus with hyperglycemia, with long-term current use of insulin: Code(s): E11.65 - Type 2 diabetes mellitus with hyperglycemia; Z79.4 - [facility] (current) use of insulin Status: Chronic Assessment and Plan: Insulin Lispro sliding scale, Accu-checks qAc and HS and Hold oral hypoglycemics Initiate hypoglycemic precautions [id number] (5) Obstructive sleep apnea: Code(s): G47.33 - Obstructive sleep apnea (adult) (pediatric) Status: Acute Assessment and Plan: Not compliant with CPAP. (6) Morbid obesity: Code(s): E66.01 - Morbid (severe) obesity due to excess calories Status: Acute Assessment and Plan: Heart healthy diet. Encourage weight loss and increased activity. Subjective Date/time seen: 07/24/23 14:43 Interval history: patient states that he is feeling better today. He states that he remembers feeling progressively weak and with some the nurse at his alf to his vitals he realized that he had a fever. He had recently had Portillo catheter placed approximately 3 days prior to ED presentation. Portillo catheter was placed due to sores on the patient's legs and bottom worsening and not healing due to constantly having urine on him. This is likely source of patient's infection. Portillo catheter was replaced in the ED. blood cultures redrawn today. Exam Narrative: GENERAL: Comfortable, no acute distress , morbid obesity HENMT: moist mucous membranes EYES: EOM intact b/l NECK: no lymphadenopathy RESPIRATORY: distant breath sounds likely due to both habitus, no increased respiratory effort CARDIO: Regular rate and rhythm GI: soft, nontender, bowel sounds present SKIN/EXTREMITIES: no redness or tenderness, massive pannus, lower extremity edema NEURO: PROM intact, answers questions appropriately, A&O x4 Objective Data Vital Signs Vital Signs: Vital Signs - 24 hr 07/23/23 16:00 07/23/23 20:00 07/23/23 21:46 Temperature 99.1 F Pulse Rate 94 99 Respiratory Rate 13 Blood Pressure 109/59 L Pulse Oximetry 96 98 Oxygen Delivery Nasal Cannula Oxygen Flow Rate 3 07/23/23 20:00 07/24/23 00:00 07/24/23 04:00 Temperature Pulse Rate 95 97 97 Respiratory Rate Blood Pressure Pulse Oximetry Oxygen Delivery Oxygen Flow Rate
[2023-07-24] MEDS: VANCOMYCIN 2,000 MG/NS 500 ML 2,000 MG/500 ML BAG 125 MG IVPB (15:26)
[2023-07-24 16:27] LABS: Glucose Point of Care 375 mg/dl (65-105)
[2023-07-24] MEDS: RIVAROXABAN 20 MG TABLET PO (16:41)
[2023-07-24 20:34] LABS: Glucose Point of Care 314 mg/dl (65-105)
[2023-07-24] MEDS: traZODone HCL 50 MG TABLET 100 MG PO (20:45)
[2023-07-24] MEDS: ARIPiprazole 2 MG TABLET PO (20:45)
[2023-07-25] VITALS (9 sets, daily range): BP systolic 148–168; BP diastolic 77–88; PULSE 87–99; RESP 22; TEMP 36.6–38.5; O2SAT 93–95
[2023-07-25] MEDS: PIPERACILLN/TAZ 3.375GM/NS50ML 3.375 GM/50 ML BAG IVPB ×4 (01:27→21:11)
[2023-07-25] MEDS: SODIUM CHLORIDE 0.9% IV 1,000 ML 75 ML IV CONT (01:27)
[2023-07-25] MEDS: VANCOMYCIN 2,000 MG/NS 500 ML 2,000 MG/500 ML BAG 125 MG IVPB (03:54)
[2023-07-25 06:01] LABS: Hemoglobin 11.1 g/dL (14.0-18.0); Mean Corpuscular HGB Conc 30.8 g/dl (32-36); Mean Corpuscular Hemoglobin 29.1 pg (26-34); Mean Corpuscular Volume 94.2 fl (80-100); Mean Platelet Volume 9.8 fl (7.4-10.4); Platelet Count Result 164 k/mm3 (150-375); Red Blood Count 3.82 M/mm3 (4.6-6.20); Red Cell Distribution Width 17.5 % (11.5-14.5); White Blood Count 8.6 K/mm3 (4.5-10.0)
[2023-07-25 06:12] LABS: Anion Gap 1 mmol/L (4-12); Blood Urea Nitrogen 20 mg/dL (9-20); Calcium 8.5 mg/dL (8.4-10.2); Carbon Dioxide 32 mmol/L (22-30); Chloride 95 mmol/L (98-107); Estimated CRCL calculation 154 ml/min; Estimated Glomerular Filt Rate > 60; Glucose 189 mg/dL (65-110); Sodium 128 mmol/L (137-145)
[2023-07-25 07:45] LABS: Glucose Point of Care 214 mg/dl (65-105)
[2023-07-25] MEDS: FLUoxetine HCL 20 MG CAPSULE 60 MG PO (08:13)
[2023-07-25] MEDS: buPROPion HCL SR (12 HR) 150 MG TAB PO (08:13)
[2023-07-25] MEDS: dexAMETHasone 2 MG TABLET 6 MG PO (08:14)
[2023-07-25] MEDS: diphenhydrAMINE HCl CAP 25 MG CAPSULE PO (08:14)
[2023-07-25] MEDS: TAMSULOSIN HCL 0.4 MG CAPSULE PO (08:14)
[2023-07-25] MEDS: TOLNAFTATE 1% POWDER 45 GM BTL 1 APPLIC TOPICAL ×2 (08:15→21:11)
[2023-07-25] MEDS: INSULIN ASPART (*BKC) 100 UNITS/ML SUB-Q ×3 (08:15→17:16)
[2023-07-25] MEDS: INSULIN GLARGINE (*BKC) 100 UNITS/ML 30 UNITS SUB-Q ×2 (08:15→17:15)
[2023-07-25] MEDS: CYCLOBENZAPRINE HCL 10 MG TABLET PO ×3 (08:24→21:14)
[2023-07-25] MEDS: oxyCODONE HCL (*CRX) 5 MG TAB IR PO ×3 (08:24→17:22)
[2023-07-25] MEDS: BENZONATATE 100 MG CAPSULE PO (08:24)
[2023-07-25 11:23] LABS: Glucose Point of Care 246 mg/dl (65-105)
--- NOTE | 2023-07-25 12:05 | P.PNIM_ITS ---
Progress Note: A&P Assessment and Plan (1) Sepsis: Qualifiers: Sepsis acute organ dysfunction status: with acute organ dysfunction Severe sepsis acute organ dysfunction type: acute respiratory failure Code(s): A41.9 - Sepsis, unspecified organism Status: Acute Assessment and Plan: Meet sepsis criteria with tachycardia, tachypnea, fever of 100.6?, lactic acidosis and source of infection. Patient not hypotensive. * Source of infection is the urine. * Blood cultures positive for group B strep and Morganella morganii. * Urine culture Positive for Proteus mirabilis * Patient being treated with vancomycin and Rocephin 07/22. Rocephin discontinued and Zosyn started on 07/23 * Lactic acid 2.8 -> 2.4 -> 1.0 * IV fluids discontinued 07/24 No longer meets sepsis protocal (2) Acute UTI: Code(s): N39.0 - Urinary tract infection, site not specified Status: Acute Assessment and Plan: UA with 2+ blood, positive nitrate, trace LE, greater than 100 rbc's, 51-100 wbc's, 4+ bacteria * Blood cultures positive for group B strep and Morganella morganii. * Urine culture positive for Proteus mirabilis * Patient being treated with vancomycin and Rocephin 07/22. Rocephin discontinued and Zosyn started on 07/23 * Sensitivities pending * Blood cultures redrawn on 07/24/2023 (3) Acute kidney injury: Code(s): N17.9 - Acute kidney failure, unspecified Status: Resolved Assessment and Plan: On presentation patient's BUN and creatinine 30/1.1. * Patient on vancomycin and Rocephin for UTI sepsis. * IV fluids discontinued on 07/24 * Monitor daily labs resolved (4) Type 2 diabetes mellitus with hyperglycemia, with long-term current use of insulin: Code(s): E11.65 - Type 2 diabetes mellitus with hyperglycemia; Z79.4 - care home (current ) use of insulin Status: Chronic Assessment and Plan: * Insulin Lispro sliding scale, Accu-checks qAc and HS and Hold oral hypoglycemics * Initiate hypoglycemic precautions * [id number] (5) Obstructive sleep apnea: Code(s): G47.33 - Obstructive sleep apnea (adult) (pediatric) Status: Acute Assessment and Plan: Not compliant with CPAP. (6) Morbid obesity: Code(s): E66.01 - Morbid (severe) obesity due to excess calories Status: Acute Assessment and Plan: Heart healthy diet. Encourage weight loss and increased activity. Subjective Date/time seen: 07/25/23 12:05 Interval history: Patient doing well today. He is having some pain at the and his penis at the c atheter insertion site. the nurses going to adjust catheter to see if this makes the patient more comfortable. Patient did have a low sodium today 128. Kidney function has returned to normal. IV fluids were discontinued. Waiting on culture sensitivities. Exam Narrative: GENERAL: Comfortable, no acute distress , morbid obesity HENMT: moist mucous membranes EYES: EOM intact b/l NECK: no lymphadenopathy RESPIRATORY: distant breath sounds likely due to both habitus, no increased respiratory effort CARDIO: Regular rate and rhythm GI: soft, nontender, bowel sounds present : catheter inserted. Urine is orange and purulent. SKIN/EXTREMITIES: no redness or tenderness, massive pannus, lower extremity edema NEURO: PROM intact, answers questions appropriately, A&O x4 Objective Data Vital Signs Vital Signs
--- NOTE | 2023-07-25 12:05 | PM.IMPN ---
Progress Note: A&P Assessment and Plan (1) Sepsis: Qualifiers: Sepsis acute organ dysfunction status: with acute organ dysfunction Severe sepsis acute organ dysfunction type: acute respiratory failure Code(s): A41.9 - Sepsis, unspecified organism Status: Acute Assessment and Plan: Meet sepsis criteria with tachycardia, tachypnea, fever of 100.6?, lactic acidosis and source of infection. Patient not hypotensive. Source of infection is the urine. Blood cultures positive for group B strep and Morganella morganii. Urine culture Positive for Proteus mirabilis Patient being treated with vancomycin and Rocephin 07/22. Rocephin discontinued and Zosyn started on 07/23 Lactic acid 2.8 -> 2.4 -> 1.0 IV fluids discontinued 07/24 No longer meets sepsis protocal (2) Acute UTI: Code(s): N39.0 - Urinary tract infection, site not specified Status: Acute Assessment and Plan: UA with 2+ blood, positive nitrate, trace LE, greater than 100 rbc's, 51-100 wbc's, 4+ bacteria Blood cultures positive for group B strep and Morganella morganii. Urine culture positive for Proteus mirabilis Patient being treated with vancomycin and Rocephin 07/22. Rocephin discontinued and Zosyn started on 07/23 Sensitivities pending Blood cultures redrawn on 07/24/2023 (3) Acute kidney injury: Code(s): N17.9 - Acute kidney failure, unspecified Status: Resolved Assessment and Plan: On presentation patient's BUN and creatinine 30/1.1. Patient on vancomycin and Rocephin for UTI sepsis. IV fluids discontinued on 07/24 Monitor daily labs resolved (4) Type 2 diabetes mellitus with hyperglycemia, with long-term current use of insulin: Code(s): E11.65 - Type 2 diabetes mellitus with hyperglycemia; Z79.4 - ad terminal makeup operator (current) use of insulin Status: Chronic Assessment and Plan: Insulin Lispro sliding scale, Accu-checks qAc and HS and Hold oral hypoglycemics Initiate hypoglycemic precautions [id number] (5) Obstructive sleep apnea: Code(s): G47.33 - Obstructive sleep apnea (adult) (pediatric) Status: Acute Assessment and Plan: Not compliant with CPAP. (6) Morbid obesity: Code(s): E66.01 - Morbid (severe) obesity due to excess calories Status: Acute Assessment and Plan: Heart healthy diet. Encourage weight loss and increased activity. Subjective Date/time seen: 07/25/23 12:05 Interval history: Patient doing well today. He is having some pain at the and his penis at the catheter insertion site. the nurses going to adjust catheter to see if this makes the patient more comfortable. Patient did have a low sodium today 128. Kidney function has returned to normal. IV fluids were discontinued. Waiting on culture sensitivities. Exam Narrative: GENERAL: Comfortable, no acute distress , morbid obesity HENMT: moist mucous membranes EYES: EOM intact b/l NECK: no lymphadenopathy RESPIRATORY: distant breath sounds likely due to both habitus, no increased respiratory effort CARDIO: Regular rate and rhythm GI: soft, nontender, bowel sounds present : catheter inserted. Urine is orange and purulent. SKIN/EXTREMITIES: no redness or tenderness, massive pannus, lower extremity edema NEURO: PROM intact, answers questions appropriately, A&O x4 Objective Data Vital Signs Vital Signs: Vital Signs - 24 hr 07/24/23 12:48 07/24/23 14:00 07/24/23 16:00 Temperature 99.6 F Pulse Rate 98 91 Respiratory Rate 20 Blood Pressure 124/76 Pulse Oximetry 93 92 Oxygen Delivery Room Air 07/24/23 20:46 07/24/23 20:00 07/24/23 20:00 Temperature 99.8 F H Pulse Rate 98 101 H Respiratory Rate 22 H Blood Pressure 141/87 H Pulse Oximetry 94 Oxygen Delivery Room Air 07/25/23 00:00 07/25/23 04:00 07/25/23 05:52 Temperature 97.9 F Pulse Rate 99 87 98 Respirator
[2023-07-25] MEDS: PHENAZOPYRIDINE HCL 100 MG TABLET 200 MG PO ×2 (12:34→17:18)
[2023-07-25 16:37] LABS: Glucose Point of Care 319 mg/dl (65-105)
[2023-07-25] MEDS: RIVAROXABAN 20 MG TABLET PO (17:19)
[2023-07-25 21:01] LABS: Glucose Point of Care 258 mg/dl (65-105)
[2023-07-25] MEDS: ACETAMINOPHEN 500 MG TABLET 1000 MG PO (21:10)
[2023-07-25] MEDS: FLUTICASONE PROPIONATE 0.05% NA SPR 16 GM BTL (*BKC) 1 SPRAY NASAL (21:11)
[2023-07-25] MEDS: ARIPiprazole 2 MG TABLET PO (21:11)
[2023-07-25] MEDS: traZODone HCL 50 MG TABLET 100 MG PO (21:11)
[2023-07-26] VITALS (15 sets, daily range): BP systolic 127–149; BP diastolic 75–88; PULSE 85–98; RESP 20–22; TEMP 37.1–38.6; O2SAT 92–95
[2023-07-26] MEDS: PIPERACILLN/TAZ 3.375GM/NS50ML 3.375 GM/50 ML BAG IVPB ×4 (02:56→20:53)
[2023-07-26] MEDS: oxyCODONE HCL (*CRX) 5 MG TAB IR PO ×3 (03:00→17:30)
[2023-07-26] MEDS: ACETAMINOPHEN 500 MG TABLET 1000 MG PO ×2 (05:39→20:53)
[2023-07-26 06:48] LABS: Hematocrit 35.1 % (42.0-52.0); Mean Corpuscular HGB Conc 31.3 g/dl (32-36); Mean Corpuscular Hemoglobin 28.7 pg (26-34); Mean Corpuscular Volume 91.6 fl (80-100); Platelet Count Result 183 k/mm3 (150-375); Red Blood Count 3.83 M/mm3 (4.6-6.20); Red Cell Distribution Width 17.5 % (11.5-14.5); White Blood Count 9.8 K/mm3 (4.5-10.0)
[2023-07-26 07:08] LABS: Anion Gap 3 mmol/L (4-12); Blood Urea Nitrogen 21 mg/dL (9-20); Calcium 8.4 mg/dL (8.4-10.2); Carbon Dioxide 33 mmol/L (22-30); Chloride 91 mmol/L (98-107); Estimated CRCL calculation 154 ml/min; Estimated Glomerular Filt Rate > 60; Glucose 156 mg/dL (65-110); Potassium 3.8 mmol/L (3.4-5.0); Sodium 127 mmol/L (137-145)
[2023-07-26 07:44] LABS: Glucose Point of Care 169 mg/dl (65-105)
[2023-07-26] MEDS: buPROPion HCL SR (12 HR) 150 MG TAB PO (08:56)
[2023-07-26] MEDS: FLUoxetine HCL 20 MG CAPSULE 60 MG PO (08:56)
[2023-07-26] MEDS: PHENAZOPYRIDINE HCL 100 MG TABLET 200 MG PO ×3 (08:56→17:25)
--- NOTE | 2023-07-26 08:56 | P.PNIM_ITS ---
Progress Note: A&P Assessment and Plan (1) Sepsis: Qualifiers: Sepsis acute organ dysfunction status: with acute organ dysfunction Severe sepsis acute organ dysfunction type: acute respiratory failure Code(s): A41.9 - Sepsis, unspecified organism Status: Acute Assessment and Plan: Meet sepsis criteria with tachycardia, tachypnea, fever of 100.6?, lactic acidosis and source of infection. Patient not hypotensive. * Source of infection is the urine. * Blood cultures positive for group B strep and Morganella morganii. * Urine culture Positive for Proteus mirabilis * Patient being treated with vancomycin and Rocephin 07/22. Rocephin discontinued and Zosyn started on 07/23 * Lactic acid 2.8 -> 2.4 -> 1.0 * IV fluids discontinued 07/24 * 07/25 fevers over night. Order Renal US. If continues to have fevers, consider transfer to outside facility with ID and imaging available. * Order fungal blood cx (2) Acute UTI: Code(s): N39.0 - Urinary tract infection, site not specified Status: Acute Assessment and Plan: UA with 2+ blood, positive nitrate, trace LE, greater than 100 rbc's, 51-100 wbc's, 4+ bacteria * Blood cultures positive for group B strep and Morganella morganii. * Urine culture positive for Proteus mirabilis * Patient being treated with vancomycin and Rocephin 07/22. Rocephin discontinued and Zosyn started on 07/23 * Blood cultures redrawn on 07/24/2023 NGTD * Both cultures sensitive to Zosyn. Vancomycin discontinued 07/24. (3) Bacteremia: Code(s): R78.81 - Bacteremia Status: Acute Assessment and Plan: Blood cultures positive for group B strep and Morganella morganii. * Culture sensitive to Zosyn. Zosyn was initiated on 07/23 * Redraw blood cultures on 07/23, NGTD * Sources suspected to be urine although does not match the urine culture. Could be polymicrobial in nature. * 07/25 fevers over night. Order Renal US. If continues to have fevers, consider transfer to outside facility with ID and imaging available. * Order fungal blood cx (4) Acute kidney injury: Code(s): N17.9 - Acute kidney failure, unspecified Status: Resolved Assessment and Plan: On presentation patient's BUN and creatinine 30/1.1. * Patient on vancomycin and Rocephin for UTI sepsis. * IV fluids discontinued on 07/24 * Monitor daily labs resolved (5) Type 2 diabetes mellitus with hyperglycemia, with long-term current use of insulin: Code(s): E11.65 - Type 2 diabetes mellitus with hyperglycemia; Z79.4 - [facility] (current) use of insulin Status: Chronic Assessment and Plan: * Insulin Lispro sliding scale, Accu-checks qAc and HS and Hold oral hypoglycemics * Initiate hypoglycemic precautions * [id number] (6) Obstructive sleep apnea: Code(s): G47.33 - Obstructive sleep apnea (adult) (pediatric) Status: Acute Assessment and Plan: Not compliant with CPAP. (7) Morbid obesity: Code(s): E66.01 - Morbid (severe) obesity due to excess calories Status: Acute Assessment and Plan: Heart healthy and diabetic diet. Encourage weight loss and increased activity. (8) Steroid long-term use: Status: Acute Assessment and Plan: Patient has been on 6 mg of dexamethasone since June of last year [facility]. * The cause of being on the steroid is unknown.
--- NOTE | 2023-07-26 08:56 | PM.IMPN ---
Progress Note: A&P Assessment and Plan (1) Sepsis: Qualifiers: Sepsis acute organ dysfunction status: with acute organ dysfunction Severe sepsis acute organ dysfunction type: acute respiratory failure Code(s): A41.9 - Sepsis, unspecified organism Status: Acute Assessment and Plan: Meet sepsis criteria with tachycardia, tachypnea, fever of 100.6?, lactic acidosis and source of infection. Patient not hypotensive. Source of infection is the urine. Blood cultures positive for group B strep and Morganella morganii. Urine culture Positive for Proteus mirabilis Patient being treated with vancomycin and Rocephin 07/22. Rocephin discontinued and Zosyn started on 07/23 Lactic acid 2.8 -> 2.4 -> 1.0 IV fluids discontinued 07/24 07/25 fevers over night. Order Renal US. If continues to have fevers, consider transfer to outside facility with ID and imaging available. Order fungal blood cx (2) Acute UTI: Code(s): N39.0 - Urinary tract infection, site not specified Status: Acute Assessment and Plan: UA with 2+ blood, positive nitrate, trace LE, greater than 100 rbc's, 51-100 wbc's, 4+ bacteria Blood cultures positive for group B strep and Morganella morganii. Urine culture positive for Proteus mirabilis Patient being treated with vancomycin and Rocephin 07/22. Rocephin discontinued and Zosyn started on 07/23 Blood cultures redrawn on 07/24/2023 NGTD Both cultures sensitive to Zosyn. Vancomycin discontinued 07/24. (3) Bacteremia: Code(s): R78.81 - Bacteremia Status: Acute Assessment and Plan: Blood cultures positive for group B strep and Morganella morganii. Culture sensitive to Zosyn. Zosyn was initiated on 07/23 Redraw blood cultures on 07/23, NGTD Sources suspected to be urine although does not match the urine culture. Could be polymicrobial in nature. 07/25 fevers over night. Order Renal US. If continues to have fevers, consider transfer to outside facility with ID and imaging available. Order fungal blood cx (4) Acute kidney injury: Code(s): N17.9 - Acute kidney failure, unspecified Status: Resolved Assessment and Plan: On presentation patient's BUN and creatinine 30/1.1. Patient on vancomycin and Rocephin for UTI sepsis. IV fluids discontinued on 07/24 Monitor daily labs resolved (5) Type 2 diabetes mellitus with hyperglycemia, with long-term current use of insulin: Code(s): E11.65 - Type 2 diabetes mellitus with hyperglycemia; Z79.4 - alf (current) use of insulin Status: Chronic Assessment and Plan: Insulin Lispro sliding scale, Accu-checks qAc and HS and Hold oral hypoglycemics Initiate hypoglycemic precautions [id number] (6) Obstructive sleep apnea: Code(s): G47.33 - Obstructive sleep apnea (adult) (pediatric) Status: Acute Assessment and Plan: Not compliant with CPAP. (7) Morbid obesity: Code(s): E66.01 - Morbid (severe) obesity due to excess calories Status: Acute Assessment and Plan: Heart healthy and diabetic diet. Encourage weight loss and increased activity. (8) Steroid long-term use: Status: Acute Assessment and Plan: Patient has been on 6 mg of dexamethasone since June of last year according to his senior care. The cause of being on the steroid is unknown. Due to his morbid obesity and uncontrolled diabetes it is unwise for him to be on chronic steroid use. Cortisol level of 0.9. The supports adrenal insufficiency on long-term steroid use. Discussed with pharmacy and dexamethasone 6 mg is equivalent to prednisone 40 mg. Will start on a prednisone taper. Taper: Starting 06/27/2023 will give 30 mg of prednisone daily x1 week, 20 mg prednisone daily x1 week, 15 mg prednisone daily x1 week, 10 mg prednisone daily x1 week, 9 mg prednisone daily x1 week, 8 mg
[2023-07-26] MEDS: TAMSULOSIN HCL 0.4 MG CAPSULE PO (08:57)
[2023-07-26] MEDS: TOLNAFTATE 1% POWDER 45 GM BTL 1 APPLIC TOPICAL ×2 (08:58→20:54)
[2023-07-26] MEDS: SODIUM CHLORIDE 1 GM TABLET PO ×2 (08:58→17:25)
[2023-07-26] MEDS: INSULIN GLARGINE (*BKC) 100 UNITS/ML 30 UNITS SUB-Q ×2 (09:01→17:29)
[2023-07-26 09:15] LABS: Cortisol Random 0.91 ug/dL
[2023-07-26 11:19] LABS: Glucose Point of Care 172 mg/dl (65-105)
[2023-07-26 16:07] LABS: CRP 5.7 mg/dL (<1.0)
[2023-07-26 16:14] LABS: Glucose Point of Care 158 mg/dl (65-105)
[2023-07-26] MEDS: RIVAROXABAN 20 MG TABLET PO (17:25)
[2023-07-26] MEDS: predniSONE 20 MG TABLET 40 MG PO (17:25)
[2023-07-26 19:15] LABS: Creatinine Urine 44.7 mg/dL
[2023-07-26 19:17] LABS: Sodium Urine Random 68 meq/L
[2023-07-26] MEDS: traZODone HCL 50 MG TABLET 100 MG PO (20:52)
[2023-07-26] MEDS: CYCLOBENZAPRINE HCL 10 MG TABLET PO (20:52)
[2023-07-26] MEDS: ARIPiprazole 2 MG TABLET PO (20:53)
[2023-07-26] MEDS: FLUTICASONE PROPIONATE 0.05% NA SPR 16 GM BTL (*BKC) 1 SPRAY NASAL (20:53)
[2023-07-26 21:15] LABS: Glucose Point of Care 177 mg/dl (65-105)
[2023-07-27] VITALS (9 sets, daily range): BP systolic 136–157; BP diastolic 78–88; PULSE 82–96; RESP 13–20; TEMP 37.1–37.8; O2SAT 92–95
[2023-07-27] MEDS: PIPERACILLN/TAZ 3.375GM/NS50ML 3.375 GM/50 ML BAG IVPB (01:47)
[2023-07-27 06:44] LABS: Hematocrit 36.4 % (42.0-52.0); Hemoglobin 11.7 g/dL (14.0-18.0); Mean Corpuscular HGB Conc 32.1 g/dl (32-36); Mean Corpuscular Hemoglobin 29.3 pg (26-34); Mean Corpuscular Volume 91.2 fl (80-100); Mean Platelet Volume 10.1 fl (7.4-10.4); Platelet Count Result 212 k/mm3 (150-375); Red Blood Count 3.99 M/mm3 (4.6-6.20); Red Cell Distribution Width 17.6 % (11.5-14.5); White Blood Count 12.4 K/mm3 (4.5-10.0)
--- NOTE | 2023-07-27 06:56 | P.PNIM_ITS ---
Progress Note: A&P Assessment and Plan (1) Sepsis: Qualifiers: Sepsis acute organ dysfunction status: with acute organ dysfunction Severe sepsis acute organ dysfunction type: acute respiratory failure Code(s): A41.9 - Sepsis, unspecified organism Status: Acute Assessment and Plan: Meet sepsis criteria with tachycardia, tachypnea, fever of 100.6?, lactic acidosis and source of infection. Patient not hypotensive. * Source of infection is the urine. * Blood cultures positive for group B strep and Morganella morganii. * Urine culture Positive for Proteus mirabilis * Patient being treated with vancomycin and Rocephin 07/22. Rocephin discontinued and Zosyn started on 07/23 * Lactic acid 2.8 -> 2.4 -> 1.0 * IV fluids discontinued 07/24 * 07/25 fevers over night. Order fungal blood cx * 07/26 Discussed care with ID pharmacist and there is a possibility that Morganella morganii is amp C producing organism. Due to continued fevers will transition him off of Zosyn and start cefepime. * Attempted to call [facility] regarding transfer for CT imaging for the patient and due to patient's size he will not fit in there CT scanners either. [facility] max girth of 78 cm, [facility] max girth of 80 cm. Patient's circumference is 210 cm (approximately 110 cm and girth). (2) Acute UTI: Code(s): N39.0 - Urinary tract infection, site not specified Status: Acute Assessment and Plan: UA with 2+ blood, positive nitrate, trace LE, greater than 100 rbc's, 51-100 wbc's, 4+ bacteria * Blood cultures positive for group B strep and Morganella morganii. * Urine culture positive for Proteus mirabilis * Patient being treated with vancomycin and Rocephin 07/22. Rocephin discontinued and Zosyn started on 07/23 * Blood cultures redrawn on 07/24/2023 NGTD * Both cultures sensitive to Zosyn. Vancomycin discontinued 07/24. * 07/26 fevers continued, Zosyn discontinued, Cefepime 2g Q8H started. (3) Bacteremia: Code(s): R78.81 - Bacteremia Status: Acute Assessment and Plan: Blood cultures positive for group B strep and Morganella morganii. * Culture sensitive to Zosyn. Zosyn was initiated on 07/23 * Redraw blood cultures on 07/23, NGTD * Sources suspected to be urine although does not match the urine culture. Could be polymicrobial in nature. * 07/25 fevers over night. Order Renal US. If continues to have fevers, consider transfer to outside facility with ID and imaging available. * Order fungal blood cx (4) Steroid long-term use: Status: Acute Assessment and Plan: Patient has been on 6 mg of dexamethasone since June of last year according to his detention. * The cause of being on the steroid is unknown. Due to his morbid obesity and uncontrolled diabetes it is unwise for him to be on chronic steroid use. * Cortisol level of 0.9. The supports adrenal insufficiency on long-term steroid use. * Discussed with pharmacy and dexamethasone 6 mg is equivalent to prednisone 40 mg. * Will start on a prednisone taper. * Taper: Starting 06/27/2023 will give 30 mg of prednisone daily x1 week, 20 mg prednisone daily x1 week, 15 mg prednisone daily x1 week, 10 mg prednisone daily x1 week, 9 mg prednisone daily x1 week, 8 mg prednisone daily x1 week, 7 mg prednisone daily x1 week, 6 mg prednisone daily x1 week,5 mg prednisone daily x1 week, 4 mg prednisone daily x1 week, 3 mg prednisone daily x1 week, 2 mg prednisone daily x1 week, 1 mg prednisone daily x1 week then discontinue (5) Type 2 diabetes mellitus
--- NOTE | 2023-07-27 06:56 | PM.IMPN ---
Progress Note: A&P Assessment and Plan (1) Sepsis: Qualifiers: Sepsis acute organ dysfunction status: with acute organ dysfunction Severe sepsis acute organ dysfunction type: acute respiratory failure Code(s): A41.9 - Sepsis, unspecified organism Status: Acute Assessment and Plan: Meet sepsis criteria with tachycardia, tachypnea, fever of 100.6?, lactic acidosis and source of infection. Patient not hypotensive. Source of infection is the urine. Blood cultures positive for group B strep and Morganella morganii. Urine culture Positive for Proteus mirabilis Patient being treated with vancomycin and Rocephin 07/22. Rocephin discontinued and Zosyn started on 07/23 Lactic acid 2.8 -> 2.4 -> 1.0 IV fluids discontinued 07/24 07/25 fevers over night. Order fungal blood cx 07/26 Discussed care with ID pharmacist and there is a possibility that Morganella morganii is amp C producing organism. Due to continued fevers will transition him off of Zosyn and start cefepime. Attempted to call [facility] regarding transfer for CT imaging for the patient and due to patient's size he will not fit in there CT scanners either. [facility] max girth of 78 cm, [facility] max girth of 80 cm. Patient's circumference is 210 cm (approximately 110 cm and girth). (2) Acute UTI: Code(s): N39.0 - Urinary tract infection, site not specified Status: Acute Assessment and Plan: UA with 2+ blood, positive nitrate, trace LE, greater than 100 rbc's, 51-100 wbc's, 4+ bacteria Blood cultures positive for group B strep and Morganella morganii. Urine culture positive for Proteus mirabilis Patient being treated with vancomycin and Rocephin 07/22. Rocephin discontinued and Zosyn started on 07/23 Blood cultures redrawn on 07/24/2023 NGTD Both cultures sensitive to Zosyn. Vancomycin discontinued 07/24. 07/26 fevers continued, Zosyn discontinued, Cefepime 2g Q8H started. (3) Bacteremia: Code(s): R78.81 - Bacteremia Status: Acute Assessment and Plan: Blood cultures positive for group B strep and Morganella morganii. Culture sensitive to Zosyn. Zosyn was initiated on 07/23 Redraw blood cultures on 07/23, NGTD Sources suspected to be urine although does not match the urine culture. Could be polymicrobial in nature. 07/25 fevers over night. Order Renal US. If continues to have fevers, consider transfer to outside facility with ID and imaging available. Order fungal blood cx (4) Steroid long-term use: Status: Acute Assessment and Plan: Patient has been on 6 mg of dexamethasone since June of last year according to his [place] [facility]. The cause of being on the steroid is unknown. Due to his morbid obesity and uncontrolled diabetes it is unwise for him to be on chronic steroid use. Cortisol level of 0.9. The supports adrenal insufficiency on long-term steroid use. Discussed with pharmacy and dexamethasone 6 mg is equivalent to prednisone 40 mg. Will start on a prednisone taper. Taper: Starting 06/27/2023 will give 30 mg of prednisone daily x1 week, 20 mg prednisone daily x1 week, 15 mg prednisone daily x1 week, 10 mg prednisone daily x1 week, 9 mg prednisone daily x1 week, 8 mg prednisone daily x1 week, 7 mg prednisone daily x1 week, 6 mg prednisone daily x1 week,5 mg prednisone daily x1 week, 4 mg prednisone daily x1 week, 3 mg prednisone daily x1 week, 2 mg prednisone daily x1 week, 1 mg prednisone daily x1 week then discontinue (5) Type 2 diabetes mellitus with hyperglycemia, with long-term current use of insulin: Code(s): E11.65 - Type 2 diabetes mellitus with hyperglycemia; Z79.4 - custodial (current) use of insulin Status: Chronic Assessment and Plan: Insulin Lispro sliding scale, Accu-checks qAc and HS and Hold oral hypoglycemics Initiate hypoglycemic precautions [id number] Sugars likely uncontrolled in part due to chronic ster
[2023-07-27 07:02] LABS: Alanine Aminotransferase 61 U/L (6-50); Albumin Level 3.6 g/dL (3.5-5.1); Alkaline Phosphatase 84 U/L (38-126); Anion Gap 5 mmol/L (4-12); Aspartate Amino Transferase 46 U/L (17-59); Bilirubin,Total 0.9 mg/dL (0.2-1.3); Blood Urea Nitrogen 20 mg/dL (9-20); Calcium 8.8 mg/dL (8.4-10.2); Carbon Dioxide 31 mmol/L (22-30); Chloride 91 mmol/L (98-107); Estimated CRCL calculation 140 ml/min; Estimated Glomerular Filt Rate > 60; Glucose 261 mg/dL (65-110); Potassium 4.4 mmol/L (3.4-5.0); Sodium 127 mmol/L (137-145)
[2023-07-27] MEDS: predniSONE 20 MG, predniSONE 10 MG 30 MG PO (07:44)
[2023-07-27] MEDS: CEFEPIME 2 GM/NS 50 ML 2 GM/50 ML BAG IVPB ×3 (07:44→21:30)
[2023-07-27] MEDS: FLUoxetine HCL 20 MG CAPSULE 60 MG PO (07:44)
[2023-07-27] MEDS: SODIUM CHLORIDE 1 GM TABLET PO ×2 (07:45→17:18)
[2023-07-27] MEDS: ACETAMINOPHEN 500 MG TABLET 1000 MG PO (07:45)
[2023-07-27] MEDS: buPROPion HCL SR (12 HR) 150 MG TAB PO (07:45)
[2023-07-27] MEDS: TAMSULOSIN HCL 0.4 MG CAPSULE PO (07:46)
[2023-07-27] MEDS: INSULIN GLARGINE (*BKC) 100 UNITS/ML 30 UNITS SUB-Q ×2 (07:46→17:18)
[2023-07-27] MEDS: TOLNAFTATE 1% POWDER 45 GM BTL 1 APPLIC TOPICAL ×2 (07:47→20:53)
[2023-07-27] MEDS: PHENAZOPYRIDINE HCL 100 MG TABLET 200 MG PO ×3 (07:47→17:18)
[2023-07-27 08:02] LABS: Glucose Point of Care 266 mg/dl (65-105)
[2023-07-27] MEDS: INSULIN ASPART (*BKC) 100 UNITS/ML SUB-Q ×3 (08:11→17:17)
[2023-07-27 11:11] LABS: Glucose Point of Care 226 mg/dl (65-105)
[2023-07-27 16:51] LABS: Glucose Point of Care 318 mg/dl (65-105)
[2023-07-27] MEDS: RIVAROXABAN 20 MG TABLET PO (17:18)
[2023-07-27 20:31] LABS: Glucose Point of Care 310 mg/dl (65-105)
[2023-07-27] MEDS: traZODone HCL 50 MG TABLET 100 MG PO (20:51)
[2023-07-27] MEDS: ARIPiprazole 2 MG TABLET PO (20:51)
[2023-07-27] MEDS: oxyCODONE HCL (*CRX) 5 MG TAB IR PO (20:51)
[2023-07-27] MEDS: CYCLOBENZAPRINE HCL 10 MG TABLET PO (20:51)
[2023-07-27] MEDS: FLUTICASONE PROPIONATE 0.05% NA SPR 16 GM BTL (*BKC) 1 SPRAY NASAL (20:53)
[2023-07-28] VITALS (9 sets, daily range): BP systolic 107–132; BP diastolic 63–71; PULSE 75–94; RESP 12–18; TEMP 36.1–36.4; O2SAT 94–95
[2023-07-28] MEDS: CEFEPIME 2 GM/NS 50 ML 2 GM/50 ML BAG IVPB ×3 (05:51→21:19)
[2023-07-28 06:08] LABS: Hematocrit 39.1 % (42.0-52.0); Mean Corpuscular HGB Conc 30.7 g/dl (32-36); Mean Corpuscular Hemoglobin 28.6 pg (26-34); Mean Corpuscular Volume 93.3 fl (80-100); Mean Platelet Volume 9.7 fl (7.4-10.4); Platelet Count Result 220 k/mm3 (150-375); Red Blood Count 4.19 M/mm3 (4.6-6.20); Red Cell Distribution Width 17.9 % (11.5-14.5); White Blood Count 12.2 K/mm3 (4.5-10.0)
[2023-07-28 06:29] LABS: Anion Gap 6 mmol/L (4-12); Blood Urea Nitrogen 18 mg/dL (9-20); CRP 2.6 mg/dL (<1.0); Calcium 8.9 mg/dL (8.4-10.2); Carbon Dioxide 34 mmol/L (22-30); Chloride 95 mmol/L (98-107); Estimated CRCL calculation 128 ml/min; Estimated Glomerular Filt Rate > 60; Glucose 198 mg/dL (65-110); Potassium 3.6 mmol/L (3.4-5.0); Sodium 135 mmol/L (137-145)
[2023-07-28 07:39] LABS: Glucose Point of Care 180 mg/dl (65-105)
[2023-07-28] MEDS: FLUoxetine HCL 20 MG CAPSULE 60 MG PO (08:54)
[2023-07-28] MEDS: buPROPion HCL SR (12 HR) 150 MG TAB PO (08:54)
[2023-07-28] MEDS: PHENAZOPYRIDINE HCL 100 MG TABLET 200 MG PO ×3 (08:54→17:29)
[2023-07-28] MEDS: TAMSULOSIN HCL 0.4 MG CAPSULE PO (08:54)
[2023-07-28] MEDS: SODIUM CHLORIDE 1 GM TABLET PO ×2 (08:54→17:29)
[2023-07-28] MEDS: predniSONE 20 MG, predniSONE 10 MG 30 MG PO (08:54)
[2023-07-28] MEDS: TOLNAFTATE 1% POWDER 45 GM BTL 1 APPLIC TOPICAL ×2 (08:56→21:20)
[2023-07-28] MEDS: INSULIN GLARGINE (*BKC) 100 UNITS/ML 30 UNITS SUB-Q ×2 (08:56→17:28)
[2023-07-28 11:40] LABS: Glucose Point of Care 229 mg/dl (65-105)
[2023-07-28] MEDS: INSULIN ASPART (*BKC) 100 UNITS/ML SUB-Q ×2 (12:09→17:27)
--- NOTE | 2023-07-28 13:11 | P.PNIM_ITS ---
Progress Note: A&P Assessment and Plan (1) Sepsis: Qualifiers: Sepsis acute organ dysfunction status: with acute organ dysfunction Severe sepsis acute organ dysfunction type: acute respiratory failure Code(s): A41.9 - Sepsis, unspecified organism Status: Acute Assessment and Plan: Meet sepsis criteria with tachycardia, tachypnea, fever of 100.6?, lactic acidosis and source of infection. Patient not hypotensive. * Source of infection is the urine. * Blood cultures positive for group B strep and Morganella morganii. * Urine culture Positive for Proteus mirabilis * Patient being treated with vancomycin and Rocephin 07/22. Rocephin discontinued * Pt is currently on zosyn await rpt cultures and DC hopefully [facility] back to [place] * 07/26 fevers continued, Zosyn discontinued, Cefepime 2g Q8H started * no further fevers today (2) Acute UTI: Code(s): N39.0 - Urinary tract infection, site not specified Status: Acute Assessment and Plan: UA with 2+ blood, positive nitrate, trace LE, greater than 100 rbc's, 51-100 wbc's, 4+ bacteria * Blood cultures positive for group B strep and Morganella morganii. * Urine culture positive for Proteus mirabilis * Patient being treated with vancomycin and Rocephin 07/22. Rocephin discontinued and Zosyn started on 07/23 * 07/26 fevers continued, Zosyn discontinued, Cefepime 2g Q8H started (3) Bacteremia: Code(s): R78.81 - Bacteremia Status: Acute Assessment and Plan: Blood cultures positive for group B strep and Morganella morganii. * Culture sensitive to Zosyn. Zosyn was initiated on 07/23 * Redraw blood cultures on 07/23, NGTD * Sources suspected to be urine although does not match the urine culture. Could be polymicrobial in nature. * 07/25 fevers over night. Order Renal US. If continues to have fevers, consider transfer to outside facility with ID and imaging available. * Awaiting fungal culture (4) Steroid long-term use: Status: Acute Assessment and Plan: Patient has been on 6 mg of dexamethasone since June of last year according to his [place] [facility]. * The cause of being on the steroid is unknown. Due to his morbid obesity and uncontrolled diabetes it is unwise for him to be on chronic steroid use. * Cortisol level of 0.9. The supports adrenal insufficiency on long-term steroid use. * Discussed with pharmacy and dexamethasone 6 mg is equivalent to prednisone 40 mg. * Will start on a prednisone taper. (5) Type 2 diabetes mellitus with hyperglycemia, with long-term current use of insulin: Code(s): E11.65 - Type 2 diabetes mellitus with hyperglycemia; Z79.4 - intermediate project manager (current) use of insulin Status: Chronic Assessment and Plan: * Insulin Lispro sliding scale, Accu-checks qAc and HS and Hold oral hypoglycemics * Initiate hypoglycemic precautions * [id number] * Sugars likely uncontrolled in part due to chronic steroid therapy. (6) Acute kidney injury: Code(s): N17.9 - Acute kidney failure, unspecified Status: Resolved Assessment and Plan: On presentation patient's BUN and creatinine 30/1.1. * Patient on vancomycin and Rocephin for UTI sepsis. * IV fluids discontinued on 07/24 * resolved now creat is 1.1 (7) Obstructive sleep apnea: Code(s): G47.33 - Obstructive sleep apnea (adult) (pediatric) Status: Acute Assessment and Plan: Not compliant with CPAP. (8) Morbid obesity:
--- NOTE | 2023-07-28 13:11 | PM.IMPN ---
Progress Note: A&P Assessment and Plan (1) Sepsis: Qualifiers: Sepsis acute organ dysfunction status: with acute organ dysfunction Severe sepsis acute organ dysfunction type: acute respiratory failure Code(s): A41.9 - Sepsis, unspecified organism Status: Acute Assessment and Plan: Meet sepsis criteria with tachycardia, tachypnea, fever of 100.6?, lactic acidosis and source of infection. Patient not hypotensive. Source of infection is the urine. Blood cultures positive for group B strep and Morganella morganii. Urine culture Positive for Proteus mirabilis Patient being treated with vancomycin and Rocephin 07/22. Rocephin discontinued Pt is currently on zosyn await rpt cultures and DC hopefully [facility] back [facility] [place] 07/26 fevers continued, Zosyn discontinued, Cefepime 2g Q8H started no further fevers today (2) Acute UTI: Code(s): N39.0 - Urinary tract infection, site not specified Status: Acute Assessment and Plan: UA with 2+ blood, positive nitrate, trace LE, greater than 100 rbc's, 51-100 wbc's, 4+ bacteria Blood cultures positive for group B strep and Morganella morganii. Urine culture positive for Proteus mirabilis Patient being treated with vancomycin and Rocephin 07/22. Rocephin discontinued and Zosyn started on 07/23 07/26 fevers continued, Zosyn discontinued, Cefepime 2g Q8H started (3) Bacteremia: Code(s): R78.81 - Bacteremia Status: Acute Assessment and Plan: Blood cultures positive for group B strep and Morganella morganii. Culture sensitive to Zosyn. Zosyn was initiated on 07/23 Redraw blood cultures on 07/23, NGTD Sources suspected to be urine although does not match the urine culture. Could be polymicrobial in nature. 07/25 fevers over night. Order Renal US. If continues to have fevers, consider transfer to outside facility with ID and imaging available. Awaiting fungal culture (4) Steroid long-term use: Status: Acute Assessment and Plan: Patient has been on 6 mg of dexamethasone since June of last year according to his [facility]. The cause of being on the steroid is unknown. Due to his morbid obesity and uncontrolled diabetes it is unwise for him to be on chronic steroid use. Cortisol level of 0.9. The supports adrenal insufficiency on long-term steroid use. Discussed with pharmacy and dexamethasone 6 mg is equivalent to prednisone 40 mg. Will start on a prednisone taper. 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 (6) Acute kidney injury: Code(s): N17.9 - Acute kidney failure, unspecified Status: Resolved Assessment and Plan: On presentation patient's BUN and creatinine 30/1.1. Patient on vancomycin and Rocephin for UTI sepsis. IV fluids discontinued on 07/24 resolved now creat is 1.1 (7) Obstructive sleep apnea: Code(s): G47.33 - Obstructive sleep apnea (adult) (pediatric) Status: Acute Assessment and Plan: Not compliant with CPAP. (8) Morbid obesity: Code(s): E66.01 - Morbid (severe) obesity due to excess calories Status: Acute Assessment and Plan: Morbidly obese Heart healthy and diabetic diet. Encourage weight loss and increased activity. Subjective Date/time seen: 07/28/23 13:11 Interval history: Patient does not have any complaints today. He remained afebrile overnight. After discussion with ID pharmacy yesterday will transition him over to cefepime today. He has remain
[2023-07-28 16:44] LABS: Glucose Point of Care 382 mg/dl (65-105)
[2023-07-28] MEDS: RIVAROXABAN 20 MG TABLET PO (17:29)
[2023-07-28 18:05] LABS: Bacteria Urine None Seen /hpf; Need Manual Microscopic Reviewed; Non Pathogenic Casts 0-2; RBC Urine 0-2 /hpf (0-2); Squamous Epithelial Cell Urine None Seen /hpf (Few); WBC Urine 0-5 /hpf (0-3)
[2023-07-28 18:10] LABS: Appearance Urine Clear (Clear); Bilirubin Urine Negative (Negative); Blood Urine Negative (Negative); Color Urine Orange (Yellow); Glucose Urine UA 3+ mg/dL (Negative); Ketones Urine 1+ mg/dL (Negative); Leukocyte Esterase Ur Negative LEU/UL (Negative); Nitrate Urine Positive (Negative); Protein Urine Trace mg/dL (Negative); Specific Grav Ur 1.022 (1.001-1.035)
[2023-07-28 18:11] LABS: Add Urine Microscopic? YES
[2023-07-28 20:27] LABS: Glucose Point of Care 353 mg/dl (65-105)
[2023-07-28] MEDS: traZODone HCL 50 MG TABLET 100 MG PO (21:16)
[2023-07-28] MEDS: BENZONATATE 100 MG CAPSULE PO (21:16)
[2023-07-28] MEDS: ACETAMINOPHEN 500 MG TABLET 1000 MG PO (21:17)
[2023-07-28] MEDS: ARIPiprazole 2 MG TABLET PO (21:17)
[2023-07-28] MEDS: FLUTICASONE PROPIONATE 0.05% NA SPR 16 GM BTL (*BKC) 1 SPRAY NASAL (21:18)
[2023-07-28] MEDS: SODIUM CHLORIDE 0.9% IV 250 ML 20 ML (21:40)
[2023-07-29] VITALS: PULSE 86
[2023-07-29 04:00] VITALS: PULSE 75
[2023-07-29] MEDS: CEFEPIME 2 GM/NS 50 ML 2 GM/50 ML BAG IVPB (05:06)
[2023-07-29 05:20] VITALS: BP 113/60; PULSE 70; RESP 12; TEMP 36.2; O2SAT 97
[2023-07-29 06:46] LABS: Anion Gap 3 mmol/L (4-12); Blood Urea Nitrogen 20 mg/dL (9-20); Calcium 8.8 mg/dL (8.4-10.2); Carbon Dioxide 35 mmol/L (22-30); Chloride 96 mmol/L (98-107); Estimated CRCL calculation 140 ml/min; Estimated Glomerular Filt Rate > 60; Glucose 216 mg/dL (65-110); Potassium 3.3 mmol/L (3.4-5.0); Sodium 134 mmol/L (137-145)
[2023-07-29 07:51] LABS: Glucose Point of Care 204 mg/dl (65-105)
[2023-07-29] MEDS: INSULIN ASPART (*BKC) 100 UNITS/ML SUB-Q ×3 (09:22→17:41)
[2023-07-29] MEDS: INSULIN GLARGINE (*BKC) 100 UNITS/ML 30 UNITS SUB-Q ×2 (09:22→17:41)
[2023-07-29] MEDS: predniSONE 20 MG, predniSONE 10 MG 30 MG PO (09:23)
[2023-07-29] MEDS: buPROPion HCL SR (12 HR) 150 MG TAB PO (09:23)
[2023-07-29] MEDS: oxyCODONE HCL (*CRX) 5 MG TAB IR PO (09:23)
[2023-07-29] MEDS: FLUoxetine HCL 20 MG CAPSULE 60 MG PO (09:23)
[2023-07-29] MEDS: PHENAZOPYRIDINE HCL 100 MG TABLET 200 MG PO ×3 (09:23→17:40)
[2023-07-29] MEDS: CYCLOBENZAPRINE HCL 10 MG TABLET PO (09:23)
[2023-07-29] MEDS: TOLNAFTATE 1% POWDER 45 GM BTL 1 APPLIC TOPICAL ×2 (09:27→20:57)
--- NOTE | 2023-07-29 10:37 | P.PNIM_ITS ---
Progress Note: A&P Assessment and Plan (1) Sepsis: Qualifiers: Sepsis acute organ dysfunction status: with acute organ dysfunction Severe sepsis acute organ dysfunction type: acute respiratory failure Code(s): A41.9 - Sepsis, unspecified organism Status: Acute Assessment and Plan: Meet sepsis criteria with tachycardia, tachypnea, fever of 100.6?, lactic acidosis and source of infection. Patient not hypotensive. * Source of infection is the urine. * Blood cultures positive for group B strep and Morganella morganii. * Urine culture Positive for Proteus mirabilis * Patient being treated with vancomycin and Rocephin 07/22. Rocephin discontinued * Pt is currently on zosyn await rpt cultures and DC hopefully [facility] back to [place] * 07/26 fevers continued, Zosyn discontinued, Cefepime 2g Q8H started * no further fevers today (2) Acute UTI: Code(s): N39.0 - Urinary tract infection, site not specified Status: Acute Assessment and Plan: UA with 2+ blood, positive nitrate, trace LE, greater than 100 rbc's, 51-100 wbc's, 4+ bacteria * Blood cultures positive for group B strep and Morganella morganii. * Urine culture positive for Proteus mirabilis * Patient being treated with vancomycin and Rocephin 07/22. Rocephin discontinued and Zosyn started on 07/23 * 07/26 fevers continued, Zosyn discontinued, Cefepime 2g Q8H started (3) Bacteremia: Code(s): R78.81 - Bacteremia Status: Acute Assessment and Plan: Blood cultures positive for group B strep and Morganella morganii. * Culture sensitive to Zosyn. Zosyn was initiated on 07/23 * Redraw blood cultures on 07/23, NGTD * Sources suspected to be urine although does not match the urine culture. Could be polymicrobial in nature. * 07/25 fevers over night. Order Renal US. If continues to have fevers, consider transfer to outside facility with ID and imaging available. * Awaiting fungal culture, BC and UC to be finalized (4) Steroid long-term use: Status: Acute Assessment and Plan: Patient has been on 6 mg of dexamethasone since June of last year according to his [place] [facility]. * The cause of being on the steroid is unknown. Due to his morbid obesity and uncontrolled diabetes it is unwise for him to be on chronic steroid use. * Cortisol level of 0.9. The supports adrenal insufficiency on long-term steroid use. * Discussed with pharmacy and dexamethasone 6 mg is equivalent to prednisone 40 mg. * Will start on a prednisone taper. (5) Type 2 diabetes mellitus with hyperglycemia, with long-term current use of insulin: Code(s): E11.65 - Type 2 diabetes mellitus with hyperglycemia; Z79.4 - termite control servicer (current) use of insulin Status: Chronic Assessment and Plan: * Insulin Lispro sliding scale, Accu-checks qAc and HS and Hold oral hypog lycemics * Initiate hypoglycemic precautions * [id number] * Sugars likely uncontrolled in part due to chronic steroid therapy. (6) Acute kidney injury: Code(s): N17.9 - Acute kidney failure, unspecified Status: Resolved Assessment and Plan: On presentation patient's BUN and creatinine 30/1.1. * Patient on vancomycin and Rocephin for UTI sepsis. * IV fluids discontinued on 07/24 * resolved now creat is 1.1 (7) Obstructive sleep apnea: Code(s): G47.33 - Obstructive sleep apnea (adult) (pediatric) Status: Acute Assessment and Plan: Not compliant with CPAP. (8)
--- NOTE | 2023-07-29 10:37 | PM.IMPN ---
Progress Note: A&P Assessment and Plan (1) Sepsis: Qualifiers: Sepsis acute organ dysfunction status: with acute organ dysfunction Severe sepsis acute organ dysfunction type: acute respiratory failure Code(s): A41.9 - Sepsis, unspecified organism Status: Acute Assessment and Plan: Meet sepsis criteria with tachycardia, tachypnea, fever of 100.6?, lactic acidosis and source of infection. Patient not hypotensive. Source of infection is the urine. Blood cultures positive for group B strep and Morganella morganii. Urine culture Positive for Proteus mirabilis Patient being treated with vancomycin and Rocephin 07/22. Rocephin discontinued Pt is currently on zosyn await rpt cultures and DC hopefully milo back to [place] 07/26 fevers continued, Zosyn discontinued, Cefepime 2g Q8H started no further fevers today (2) Acute UTI: Code(s): N39.0 - Urinary tract infection, site not specified Status: Acute Assessment and Plan: UA with 2+ blood, positive nitrate, trace LE, greater than 100 rbc's, 51-100 wbc's, 4+ bacteria Blood cultures positive for group B strep and Morganella morganii. Urine culture positive for Proteus mirabilis Patient being treated with vancomycin and Rocephin 07/22. Rocephin discontinued and Zosyn started on 07/23 07/26 fevers continued, Zosyn discontinued, Cefepime 2g Q8H started (3) Bacteremia: Code(s): R78.81 - Bacteremia Status: Acute Assessment and Plan: Blood cultures positive for group B strep and Morganella morganii. Culture sensitive to Zosyn. Zosyn was initiated on 07/23 Redraw blood cultures on 07/23, NGTD Sources suspected to be urine although does not match the urine culture. Could be polymicrobial in nature. 07/25 fevers over night. Order Renal US. If continues to have fevers, consider transfer to outside facility with ID and imaging available. Awaiting fungal culture, BC and UC to be finalized (4) Steroid long-term use: Status: Acute Assessment and Plan: Patient has been on 6 mg of dexamethasone since June of last year according to his shelter. The cause of being on the steroid is unknown. Due to his morbid obesity and uncontrolled diabetes it is unwise for him to be on chronic steroid use. Cortisol level of 0.9. The supports adrenal insufficiency on long-term steroid use. Discussed with pharmacy and dexamethasone 6 mg is equivalent to prednisone 40 mg. Will start on a prednisone taper. (5) Type 2 diabetes mellitus with hyperglycemia, with long-term current use of insulin: Code(s): E11.65 - Type 2 diabetes mellitus with hyperglycemia; Z79.4 - senior living (current) use of insulin Status: Chronic Assessment and Plan: Insulin Lispro sliding scale, Accu-checks qAc and HS and Hold oral hypoglycemics Initiate hypoglycemic precautions [id number] Sugars likely uncontrolled in part due to chronic steroid therapy. (6) Acute kidney injury: Code(s): N17.9 - Acute kidney failure, unspecified Status: Resolved Assessment and Plan: On presentation patient's BUN and creatinine 30/1.1. Patient on vancomycin and Rocephin for UTI sepsis. IV fluids discontinued on 07/24 resolved now creat is 1.1 (7) Obstructive sleep apnea: Code(s): G47.33 - Obstructive sleep apnea (adult) (pediatric) Status: Acute Assessment and Plan: Not compliant with CPAP. (8) Morbid obesity: Code(s): E66.01 - Morbid (severe) obesity due to excess calories Status: Acute Assessment and Plan: Morbidly obese Heart healthy and diabetic diet. Encourage weight loss and increased activity. Subjective Date/time seen: 07/29/23 10:37 Interval history: Patient does not have any complaints today. He remained afebrile overnight. After discussion with ID pharmacy yesterday will transition him over to cef
[2023-07-29] MEDS: SODIUM CHLORIDE 1 GM TABLET PO ×2 (11:33→17:39)
[2023-07-29] MEDS: TAMSULOSIN HCL 0.4 MG CAPSULE PO (11:33)
[2023-07-29 11:42] LABS: Glucose Point of Care 209 mg/dl (65-105)
[2023-07-29] MEDS: SULFAMETHOXAZOLE/TRIMETHOPRIM 800/160 MG DS TABLET 2 TAB PO ×2 (12:33→20:56)
[2023-07-29 14:00] VITALS: BP 151/87; PULSE 91; RESP 18; TEMP 36.7; O2SAT 94
[2023-07-29 16:41] LABS: Glucose Point of Care 358 mg/dl (65-105)
[2023-07-29] MEDS: RIVAROXABAN 20 MG TABLET PO (17:40)
[2023-07-29] MEDS: AMOXICILLIN 500 MG CAPSULE 1000 MG PO ×2 (17:40→20:57)
[2023-07-29 20:00] VITALS: PULSE 91; RESP 18; O2SAT 94
[2023-07-29 20:55] VITALS: BP 124/80; PULSE 88; RESP 18; TEMP 36.8; O2SAT 94
[2023-07-29] MEDS: traZODone HCL 50 MG TABLET 100 MG PO (20:56)
[2023-07-29] MEDS: ARIPiprazole 2 MG TABLET PO (20:56)
[2023-07-29] MEDS: FLUTICASONE PROPIONATE 0.05% NA SPR 16 GM BTL (*BKC) 1 SPRAY NASAL (20:58)
[2023-07-29 21:29] LABS: Glucose Point of Care 351 mg/dl (65-105)
[2023-07-30 04:50] VITALS: BP 132/86; PULSE 87; RESP 20; TEMP 36.6; O2SAT 94
[2023-07-30] MEDS: AMOXICILLIN 500 MG CAPSULE 1000 MG PO ×3 (05:24→20:44)
[2023-07-30 07:41] LABS: Hematocrit 41.1 % (42.0-52.0); Hemoglobin 12.7 g/dL (14.0-18.0); Mean Corpuscular HGB Conc 30.9 g/dl (32-36); Mean Corpuscular Hemoglobin 28.9 pg (26-34); Mean Corpuscular Volume 93.4 fl (80-100); Platelet Count Result 247 k/mm3 (150-375); Red Cell Distribution Width 18.3 % (11.5-14.5)
[2023-07-30 07:53] LABS: Anion Gap 3 mmol/L (4-12); Blood Urea Nitrogen 17 mg/dL (9-20); Calcium 8.7 mg/dL (8.4-10.2); Carbon Dioxide 31 mmol/L (22-30); Chloride 99 mmol/L (98-107); Estimated CRCL calculation 154 ml/min; Estimated Glomerular Filt Rate > 60; Glucose 223 mg/dL (65-110); Potassium 3.5 mmol/L (3.4-5.0); Sodium 133 mmol/L (137-145)
[2023-07-30 08:02] LABS: Glucose Point of Care 219 mg/dl (65-105)
[2023-07-30] MEDS: INSULIN GLARGINE (*BKC) 100 UNITS/ML 30 UNITS SUB-Q ×2 (08:05→16:56)
[2023-07-30] MEDS: INSULIN ASPART (*BKC) 100 UNITS/ML SUB-Q ×3 (08:05→16:56)
[2023-07-30] MEDS: POTASSIUM CHLORIDE 20 MEQ PACKET (FOR LIQUID) 40 MEQ PO (08:06)
[2023-07-30] MEDS: CYCLOBENZAPRINE HCL 10 MG TABLET PO ×2 (08:06→20:44)
[2023-07-30] MEDS: BENZONATATE 100 MG CAPSULE PO ×3 (08:06→20:45)
[2023-07-30] MEDS: SULFAMETHOXAZOLE/TRIMETHOPRIM 800/160 MG DS TABLET 2 TAB PO ×2 (08:06→20:45)
[2023-07-30] MEDS: oxyCODONE HCL (*CRX) 5 MG TAB IR PO ×3 (08:06→20:45)
[2023-07-30] MEDS: FLUoxetine HCL 20 MG CAPSULE 60 MG PO (08:06)
[2023-07-30] MEDS: SODIUM CHLORIDE 1 GM TABLET PO ×2 (08:07→16:56)
[2023-07-30] MEDS: buPROPion HCL SR (12 HR) 150 MG TAB PO (08:07)
[2023-07-30] MEDS: TOLNAFTATE 1% POWDER 45 GM BTL 1 APPLIC TOPICAL ×2 (08:07→20:46)
[2023-07-30] MEDS: PHENAZOPYRIDINE HCL 100 MG TABLET 200 MG PO ×3 (08:07→16:56)
[2023-07-30] MEDS: TAMSULOSIN HCL 0.4 MG CAPSULE PO (08:07)
[2023-07-30] MEDS: predniSONE 20 MG, predniSONE 10 MG 30 MG PO (08:07)
--- NOTE | 2023-07-30 11:05 | PCNWS ---
Weekly nutritional screen. Patient is tolerating current diet with adequate intake, 100% all meals. No weight loss reported. Confirmed current weight, 221 kg, which is an outpatient issue. No acute nutritional needs at this time.
[2023-07-30 11:46] LABS: Glucose Point of Care 238 mg/dl (65-105)
[2023-07-30 14:00] VITALS: BP 149/85; PULSE 94; RESP 18; TEMP 36.4; O2SAT 93
--- NOTE | 2023-07-30 14:51 | P.PNIM_ITS ---
Progress Note: A&P Assessment and Plan (1) Sepsis: Qualifiers: Sepsis acute organ dysfunction status: with acute organ dysfunction Severe sepsis acute organ dysfunction type: acute respiratory failure Code(s): A41.9 - Sepsis, unspecified organism Status: Acute Assessment and Plan: Meet sepsis criteria with tachycardia, tachypnea, fever of 100.6?, lactic acidosis and source of infection. Patient not hypotensive. * Source of infection is the urine. * Blood cultures positive for group B strep and Morganella morganii. * Urine culture Positive for Proteus mirabilis * Patient being treated with vancomycin and Rocephin 07/22. Rocephin discontinued * Pt is currently on zosyn await rpt cultures and DC hopefully milo back to [place] * 07/26 fevers continued, Zosyn discontinued, Cefepime 2g Q8H started * Remains afebrile since 07/27/2023 Repeat cultures negative to date (2) Acute UTI: Code(s): N39.0 - Urinary tract infection, site not specified Status: Acute Assessment and Plan: UA with 2+ blood, positive nitrate, trace LE, greater than 100 rbc's, 51-100 wbc's, 4+ bacteria * Blood cultures positive for group B strep and Morganella morganii. * Urine culture positive for Proteus mirabilis * Patient being treated with vancomycin and Rocephin 07/22. Rocephin discontinued and Zosyn started on 07/23 * 07/26 fevers continued, Zosyn discontinued, Cefepime 2g Q8H started (3) Bacteremia: Code(s): R78.81 - Bacteremia Status: Acute Assessment and Plan: Blood cultures positive for group B strep and Morganella morganii. * Culture sensitive to Zosyn. Zosyn was initiated on 07/23 * Redraw blood cultures on 07/23, NGTD * Sources suspected to be urine although does not match the urine culture. Could be polymicrobial in nature. * 07/25 fevers over night. Order Renal US. If continues to have fevers, consider transfer to outside facility with ID and imaging available. * Awaiting fungal culture, BC and UC to be finalized (4) Steroid long-term use: Status: Acute Assessment and Plan: Patient has been on 6 mg of dexamethasone since June of last [facility] * The cause of being on the steroid is unknown. Due to his morbid obesity and uncontrolled diabetes it is unwise for him to be on chronic steroid use. * Cortisol level of 0.9. The supports adrenal insufficiency on long-term steroid use. * Discussed with pharmacy and dexamethasone 6 mg is equivalent to prednisone 40 mg. * Will start on a prednisone taper. (5) Type 2 diabetes mellitus with hyperglycemia, with long-term current use of insulin: Code(s): E11.65 - Type 2 diabetes mellitus with hyperglycemia; Z79.4 - [facility] (current) use of insulin Status: Chronic Assessment and Plan: * Insulin Lispro sliding scale, Accu-checks qAc and HS and Hold oral hypoglycemics * Initiate hypoglycemic precautions * [id number] * Sugars likely uncontrolled in part due to chronic steroid therapy. (6) Acute kidney injury: Code(s): N17.9 - Acute kidney failure, unspecified Status: Resolved Assessment and Plan: On presentation patient's BUN and creatinine 30/1.1. * Patient on vancomycin and Rocephin for UTI sepsis. * IV fluids discontinued on 07/24 * resolved now creat is 1.1 (7) Obstructive sleep apnea: Code(s): G47.33 - Obstructive sleep apnea (adult) (pediatric) Status: Acute Assessment and Plan: Not compliant with CPAP.
--- NOTE | 2023-07-30 14:51 | PM.IMPN ---
Progress Note: A&P Assessment and Plan (1) Sepsis: Qualifiers: Sepsis acute organ dysfunction status: with acute organ dysfunction Severe sepsis acute organ dysfunction type: acute respiratory failure Code(s): A41.9 - Sepsis, unspecified organism Status: Acute Assessment and Plan: Meet sepsis criteria with tachycardia, tachypnea, fever of 100.6?, lactic acidosis and source of infection. Patient not hypotensive. Source of infection is the urine. Blood cultures positive for group B strep and Morganella morganii. Urine culture Positive for Proteus mirabilis Patient being treated with vancomycin and Rocephin 07/22. Rocephin discontinued Pt is currently on zosyn await rpt cultures and DC hopefully milo back to [place] 07/26 fevers continued, Zosyn discontinued, Cefepime 2g Q8H started Remains afebrile since 07/27/2023 Repeat cultures negative to date (2) Acute UTI: Code(s): N39.0 - Urinary tract infection, site not specified Status: Acute Assessment and Plan: UA with 2+ blood, positive nitrate, trace LE, greater than 100 rbc's, 51-100 wbc's, 4+ bacteria Blood cultures positive for group B strep and Morganella morganii. Urine culture positive for Proteus mirabilis Patient being treated with vancomycin and Rocephin 07/22. Rocephin discontinued and Zosyn started on 07/23 07/26 fevers continued, Zosyn discontinued, Cefepime 2g Q8H started (3) Bacteremia: Code(s): R78.81 - Bacteremia Status: Acute Assessment and Plan: Blood cultures positive for group B strep and Morganella morganii. Culture sensitive to Zosyn. Zosyn was initiated on 07/23 Redraw blood cultures on 07/23, NGTD Sources suspected to be urine although does not match the urine culture. Could be polymicrobial in nature. 07/25 fevers over night. Order Renal US. If continues to have fevers, consider transfer to outside facility with ID and imaging available. Awaiting fungal culture, BC and UC to be finalized (4) Steroid long-term use: Status: Acute Assessment and Plan: Patient has been on 6 mg of dexamethasone since June of last year according to his [facility]. The cause of being on the steroid is unknown. Due to his morbid obesity and uncontrolled diabetes it is unwise for him to be on chronic steroid use. Cortisol level of 0.9. The supports adrenal insufficiency on long-term steroid use. Discussed with pharmacy and dexamethasone 6 mg is equivalent to prednisone 40 mg. Will start on a prednisone taper. (5) Type 2 diabetes mellitus with hyperglycemia, with long-term current use of insulin: Code(s): E11.65 - Type 2 diabetes mellitus with hyperglycemia; Z79.4 - terminal manager (current) use of insulin Status: Chronic Assessment and Plan: Insulin Lispro sliding scale, Accu-checks qAc and HS and Hold oral hypoglycemics Initiate hypoglycemic precautions [id number] Sugars likely uncontrolled in part due to chronic steroid therapy. (6) Acute kidney injury: Code(s): N17.9 - Acute kidney failure, unspecified Status: Resolved Assessment and Plan: On presentation patient's BUN and creatinine 30/1.1. Patient on vancomycin and Rocephin for UTI sepsis. IV fluids discontinued on 07/24 resolved now creat is 1.1 (7) Obstructive sleep apnea: Code(s): G47.33 - Obstructive sleep apnea (adult) (pediatric) Status: Acute Assessment and Plan: Not compliant with CPAP. (8) Morbid obesity: Code(s): E66.01 - Morbid (severe) obesity due to excess calories Status: Acute Assessment and Plan: Morbidly obese Heart healthy and diabetic diet. Encourage weight loss and increased activity. Subjective Date/time seen: 07/30/23 14:51 Interval history: No overnight events. Remains afebrile. Feels okay no chest pain or shortness of breath Review of Systems Review
[2023-07-30 16:56] LABS: Glucose Point of Care 335 mg/dl (65-105)
[2023-07-30] MEDS: RIVAROXABAN 20 MG TABLET PO (16:56)
[2023-07-30 20:00] VITALS: PULSE 88; RESP 18; O2SAT 96
[2023-07-30 20:20] VITALS: BP 131/80; PULSE 88; RESP 18; TEMP 36.2; O2SAT 96
[2023-07-30] MEDS: traZODone HCL 50 MG TABLET 100 MG PO (20:44)
[2023-07-30] MEDS: ARIPiprazole 2 MG TABLET PO (20:44)
[2023-07-30] MEDS: FLUTICASONE PROPIONATE 0.05% NA SPR 16 GM BTL (*BKC) 1 SPRAY NASAL (20:46)
[2023-07-30 21:00] LABS: Glucose Point of Care 392 mg/dl (65-105)
[2023-07-31 04:50] VITALS: BP 117/83; PULSE 90; RESP 24; TEMP 36.1; O2SAT 96
[2023-07-31] MEDS: AMOXICILLIN 500 MG CAPSULE 1000 MG PO ×3 (06:17→20:46)
[2023-07-31 07:03] LABS: Basophils Absolute Auto 0.1 K/mm3 (0.0-0.1); Eosinophils Absolute Auto 0.2 K/mm3 (0-0.3); Eosinophils Percent Auto 1.9 % (0-4.4); Hematocrit 40.9 % (42.0-52.0); Hemoglobin 12.5 g/dL (14.0-18.0); Immature Granulocyte Absolute 0.39 K/mm3 (0.00-0.031); Immature Granulocyte Percent A 4.1 % (0-0.5); Lymphocytes Absolute Auto 1.96 K/mm3 (0.9-3.2); Lymphocytes Percent Auto 20.8 % (18.3-44.2); Mean Corpuscular HGB Conc 30.6 g/dl (32-36); Mean Corpuscular Hemoglobin 28.7 pg (26-34); Mean Corpuscular Volume 93.8 fl (80-100); Mean Platelet Volume 10.2 fl (7.4-10.4); Monocytes Absolute Auto 0.6 K/mm3 (0.1-0.6); Monocytes Percent Auto 6.5 % (2.6-8.5); Neutrophils Absolute Auto 6.2 K/mm3 (1.3-6.7); Neutrophils Percent Auto 65.7 % (45.5-73.1); Nucleated Red Blood Cells Perc 0.3 % (0.0-0.2); Platelet Count Result 263 k/mm3 (150-375); Red Blood Count 4.36 M/mm3 (4.6-6.20); Red Cell Distribution Width 18.3 % (11.5-14.5); White Blood Count 9.4 K/mm3 (4.5-10.0)
[2023-07-31 07:22] LABS: Alanine Aminotransferase 39 U/L (6-50); Albumin Level 3.5 g/dL (3.5-5.1); Alkaline Phosphatase 72 U/L (38-126); Anion Gap 5 mmol/L (4-12); Aspartate Amino Transferase 29 U/L (17-59); Bilirubin,Total 0.6 mg/dL (0.2-1.3); Blood Urea Nitrogen 16 mg/dL (9-20); Calcium 8.8 mg/dL (8.4-10.2); Carbon Dioxide 28 mmol/L (22-30); Chloride 99 mmol/L (98-107); Estimated CRCL calculation 140 ml/min; Estimated Glomerular Filt Rate > 60; Glucose 205 mg/dL (65-110); Magnesium 1.7 mg/dL (1.6-2.3); Potassium 3.5 mmol/L (3.4-5.0); Sodium 132 mmol/L (137-145)
[2023-07-31 07:38] LABS: Glucose Point of Care 205 mg/dl (65-105)
[2023-07-31] MEDS: buPROPion HCL SR (12 HR) 150 MG TAB PO (08:38)
[2023-07-31] MEDS: INSULIN ASPART (*BKC) 100 UNITS/ML SUB-Q ×3 (08:38→16:35)
[2023-07-31] MEDS: INSULIN GLARGINE (*BKC) 100 UNITS/ML 30 UNITS SUB-Q ×2 (08:38→16:35)
[2023-07-31] MEDS: predniSONE 20 MG, predniSONE 10 MG 30 MG PO (08:38)
[2023-07-31] MEDS: TAMSULOSIN HCL 0.4 MG CAPSULE PO (08:38)
[2023-07-31] MEDS: PHENAZOPYRIDINE HCL 100 MG TABLET 200 MG PO ×3 (08:39→16:35)
[2023-07-31] MEDS: oxyCODONE HCL (*CRX) 5 MG TAB IR PO ×3 (08:39→22:22)
[2023-07-31] MEDS: CYCLOBENZAPRINE HCL 10 MG TABLET PO (08:39)
[2023-07-31] MEDS: BENZONATATE 100 MG CAPSULE PO ×2 (08:39→20:46)
[2023-07-31] MEDS: SULFAMETHOXAZOLE/TRIMETHOPRIM 800/160 MG DS TABLET 2 TAB PO ×2 (08:39→20:53)
[2023-07-31] MEDS: FLUoxetine HCL 20 MG CAPSULE 60 MG PO (08:39)
[2023-07-31] MEDS: POTASSIUM CHLORIDE 20 MEQ PACKET (FOR LIQUID) 40 MEQ PO (08:39)
[2023-07-31] MEDS: SODIUM CHLORIDE 1 GM TABLET PO ×2 (08:39→16:35)
[2023-07-31] MEDS: TOLNAFTATE 1% POWDER 45 GM BTL 1 APPLIC TOPICAL ×2 (08:40→20:45)
[2023-07-31 11:18] LABS: Glucose Point of Care 271 mg/dl (65-105)
--- NOTE | 2023-07-31 12:24 | P.PNIM_ITS ---
Progress Note: A&P Assessment and Plan (1) Sepsis: Qualifiers: Sepsis acute organ dysfunction status: with acute organ dysfunction Severe sepsis acute organ dysfunction type: acute respiratory failure Code(s): A41.9 - Sepsis, unspecified organism Status: Acute Assessment and Plan: Meet sepsis criteria with tachycardia, tachypnea, fever of 100.6?, lactic acidosis and source of infection. Patient not hypotensive. * Source of infection is the urine. * Blood cultures positive for group B strep and Morganella morganii. * Urine culture Positive for Proteus mirabilis * Patient being treated with vancomycin and Rocephin 07/22. Rocephin discontinued * Pt is currently on zosyn await rpt cultures and DC hopefully milo back to [place] * 07/26 fevers continued, Zosyn discontinued, Cefepime 2g Q8H started. Antibiotics has been switched to amoxicillin and Bactrim. * Remains afebrile since 07/27/2023 Repeat cultures negative to date (2) Acute UTI: Code(s): N39.0 - Urinary tract infection, site not specified Status: Acute Assessment and Plan: UA with 2+ blood, positive nitrate, trace LE, greater than 100 rbc's, 51-100 wbc's, 4+ bacteria * Blood cultures positive for group B strep and Morganella morganii. * Urine culture positive for Proteus mirabilis * Patient being treated with vancomycin and Rocephin 07/22. Rocephin discontinued and Zosyn started on 07/23 * 07/26 fevers continued, Zosyn discontinued, Cefepime 2g Q8H started Antibiotics switched to Bactrim and amoxicillin (3) Bacteremia: Code(s): R78.81 - Bacteremia Status: Acute Assessment and Plan: Blood cultures positive for group B strep and Morganella morganii. * Culture sensitive to Zosyn. Zosyn was initiated on 07/23 * Redraw blood cultures on 07/23, NGTD * Sources suspected to be urine although does not match the urine culture. Could be polymicrobial in nature. * 07/25 fevers over night. Order Renal US. If continues to have fevers, consider transfer to outside facility with ID and imaging available. * Awaiting fungal culture, BC and UC to be finalized (4) Steroid long-term use: Status: Acute Assessment and Plan: Patient has been on 6 mg of dexamethasone since June of last year according to his [facility]. * The cause of being on the steroid is unknown. Due to his morbid obesity and uncontrolled diabetes it is unwise for him to be on chronic steroid use. * Cortisol level of 0.9. The supports adrenal insufficiency on long-term steroid use. * Discussed with pharmacy and dexamethasone 6 mg is equivalent to prednisone 40 mg. * Will start on a prednisone taper. (5) Type 2 diabetes mellitus with hyperglycemia, with long-term current use of insulin: Code(s): E11.65 - Type 2 diabetes mellitus with hyperglycemia; Z79.4 - [facility] intermediate (current) use of insulin Status: Chronic Assessment and Plan: * Insulin Lispro sliding scale, Accu-checks qAc and HS and Hold oral hypoglycemics * Initiate hypoglycemic precautions * [id number] * Sugars likely uncontrolled in part due to chronic steroid therapy. (6) Acute kidney injury: Code(s): N17.9 - Acute kidney failure, unspecified Status: Resolved Assessment and Plan: On presentation patient's BUN and creatinine 30/1.1. * Patient on vancomycin and Rocephin for UTI sepsis. * IV fluids discontinued on 07/24 * resolved now creat is 1.1 (7) Obstructive sleep apnea: Code(s): G47.33 - Obstructive sleep apnea (adult
--- NOTE | 2023-07-31 12:24 | PM.IMPN ---
Progress Note: A&P Assessment and Plan (1) Sepsis: Qualifiers: Sepsis acute organ dysfunction status: with acute organ dysfunction Severe sepsis acute organ dysfunction type: acute respiratory failure Code(s): A41.9 - Sepsis, unspecified organism Status: Acute Assessment and Plan: Meet sepsis criteria with tachycardia, tachypnea, fever of 100.6?, lactic acidosis and source of infection. Patient not hypotensive. Source of infection is the urine. Blood cultures positive for group B strep and Morganella morganii. Urine culture Positive for Proteus mirabilis Patient being treated with vancomycin and Rocephin 07/22. Rocephin discontinued Pt is currently on zosyn await rpt cultures and DC hopefully milo back to [place] 07/26 fevers continued, Zosyn discontinued, Cefepime 2g Q8H started. Antibiotics has been switched to amoxicillin and Bactrim. Remains afebrile since 07/27/2023 Repeat cultures negative to date (2) Acute UTI: Code(s): N39.0 - Urinary tract infection, site not specified Status: Acute Assessment and Plan: UA with 2+ blood, positive nitrate, trace LE, greater than 100 rbc's, 51-100 wbc's, 4+ bacteria Blood cultures positive for group B strep and Morganella morganii. Urine culture positive for Proteus mirabilis Patient being treated with vancomycin and Rocephin 07/22. Rocephin discontinued and Zosyn started on 07/23 07/26 fevers continued, Zosyn discontinued, Cefepime 2g Q8H started Antibiotics switched to Bactrim and amoxicillin (3) Bacteremia: Code(s): R78.81 - Bacteremia Status: Acute Assessment and Plan: Blood cultures positive for group B strep and Morganella morganii. Culture sensitive to Zosyn. Zosyn was initiated on 07/23 Redraw blood cultures on 07/23, NGTD Sources suspected to be urine although does not match the urine culture. Could be polymicrobial in nature. 07/25 fevers over night. Order Renal US. If continues to have fevers, consider transfer to outside facility with ID and imaging available. Awaiting fungal culture, BC and UC to be finalized (4) Steroid long-term use: Status: Acute Assessment and Plan: Patient has been on 6 mg of dexamethasone since June of last year [facility] to his [facility]. The cause of being on the steroid is unknown. Due to his morbid obesity and uncontrolled diabetes it is unwise for him to be on chronic steroid use. Cortisol level of 0.9. The supports adrenal insufficiency on long-term steroid use. Discussed with pharmacy and dexamethasone 6 mg is equivalent to prednisone 40 mg. Will start on a prednisone taper. (5) Type 2 diabetes mellitus with hyperglycemia, with long-term current use of insulin: Code(s): E11.65 - Type 2 diabetes mellitus with hyperglycemia; Z79.4 - alf (current) use of insulin Status: Chronic Assessment and Plan: Insulin Lispro sliding scale, Accu-checks qAc and HS and Hold oral hypoglycemics Initiate hypoglycemic precautions [id number] Sugars likely uncontrolled in part due to chronic steroid therapy. (6) Acute kidney injury: Code(s): N17.9 - Acute kidney failure, unspecified Status: Resolved Assessment and Plan: On presentation patient's BUN and creatinine 30/1.1. Patient on vancomycin and Rocephin for UTI sepsis. IV fluids discontinued on 07/24 resolved now creat is 1.1 (7) Obstructive sleep apnea: Code(s): G47.33 - Obstructive sleep apnea (adult) (pediatric) Status: Acute Assessment and Plan: Not compliant with CPAP. (8) Morbid obesity: Code(s): E66.01 - Morbid (severe) obesity due to excess calories Status: Acute Assessment and Plan: Morbidly obese Heart healthy and diabetic diet. Encourage weight loss and increased activity. Subjective Date/time seen: 07/31/23 12:24 Interval history: No overnig
[2023-07-31 14:00] VITALS: BP 146/82; PULSE 73; RESP 18; TEMP 36.4; O2SAT 93
[2023-07-31 16:31] LABS: Glucose Point of Care 389 mg/dl (65-105)
[2023-07-31] MEDS: RIVAROXABAN 20 MG TABLET PO (16:35)
[2023-07-31 20:20] LABS: Glucose Point of Care 327 mg/dl (65-105)
[2023-07-31] MEDS: FLUTICASONE PROPIONATE 0.05% NA SPR 16 GM BTL (*BKC) 1 SPRAY NASAL (20:46)
[2023-07-31] MEDS: ACETAMINOPHEN 500 MG TABLET 1000 MG PO (20:46)
[2023-07-31] MEDS: ARIPiprazole 2 MG TABLET PO (20:53)
[2023-07-31] MEDS: traZODone HCL 50 MG TABLET 100 MG PO (20:53)
[2023-07-31 20:54] VITALS: BP 131/79; PULSE 84; RESP 14; TEMP 36.6; O2SAT 94
[2023-08-01 05:20] VITALS: BP 102/63; PULSE 87; RESP 14; TEMP 36.2; O2SAT 96
[2023-08-01] MEDS: AMOXICILLIN 500 MG CAPSULE 1000 MG PO ×2 (06:42→12:59)
[2023-08-01] MEDS: CYCLOBENZAPRINE HCL 10 MG TABLET PO (06:42)
[2023-08-01] MEDS: oxyCODONE HCL (*CRX) 5 MG TAB IR PO (06:42)
[2023-08-01 07:20] LABS: Glucose Point of Care 191 mg/dl (65-105)
[2023-08-01] MEDS: INSULIN GLARGINE (*BKC) 100 UNITS/ML 30 UNITS SUB-Q ×2 (08:50→16:51)
[2023-08-01] MEDS: POTASSIUM CHLORIDE 20 MEQ PACKET (FOR LIQUID) 40 MEQ PO (08:52)
[2023-08-01] MEDS: FLUoxetine HCL 20 MG CAPSULE 60 MG PO (08:55)
[2023-08-01] MEDS: predniSONE 20 MG, predniSONE 10 MG 30 MG PO (08:55)
[2023-08-01] MEDS: PHENAZOPYRIDINE HCL 100 MG TABLET 200 MG PO ×3 (08:56→16:35)
[2023-08-01] MEDS: buPROPion HCL SR (12 HR) 150 MG TAB PO (08:56)
[2023-08-01] MEDS: TAMSULOSIN HCL 0.4 MG CAPSULE PO (08:56)
[2023-08-01] MEDS: SODIUM CHLORIDE 1 GM TABLET PO ×2 (08:56→16:34)
[2023-08-01] MEDS: SULFAMETHOXAZOLE/TRIMETHOPRIM 800/160 MG DS TABLET 2 TAB PO (08:56)
[2023-08-01] MEDS: TOLNAFTATE 1% POWDER 45 GM BTL 1 APPLIC TOPICAL (08:58)
[2023-08-01 11:32] LABS: Glucose Point of Care 281 mg/dl (65-105)
[2023-08-01] MEDS: INSULIN ASPART (*BKC) 100 UNITS/ML SUB-Q ×2 (11:46→16:51)
--- NOTE | 2023-08-01 13:05 | PM.DS ---
DS: Admitting Diagnosis Discharge Date 08/01/2023 Admitting Diagnosis Sepsis DS: Discharge Diagnosis Discharge Diagnosis (1) Sepsis: Qualifiers: Sepsis acute organ dysfunction status: with acute organ dysfunction Severe sepsis acute organ dysfunction type: acute respiratory failure Code(s): A41.9 - Sepsis, unspecified organism Status: Acute (2) Acute UTI: Code(s): N39.0 - Urinary tract infection, site not specified Status: Acute (3) Bacteremia: Code(s): R78.81 - Bacteremia Status: Acute (4) Steroid long-term use: Status: Acute (5) Type 2 diabetes mellitus with hyperglycemia, with long-term current use of insulin: Code(s): E11.65 - Type 2 diabetes mellitus with hyperglycemia; Z79.4 - [facility] (current) use of insulin Status: Chronic (6) Acute kidney injury: Code(s): N17.9 - Acute kidney failure, unspecified Status: Resolved (7) Obstructive sleep apnea: Code(s): G47.33 - Obstructive sleep apnea (adult) (pediatric) Status: Acute (8) Morbid obesity: Code(s): E66.01 - Morbid (severe) obesity due to excess calories Status: Acute DS: Summary Hospital Course Hospital Course: This is a 54-year-old male with a past medical history of insulin-dependent diabetes, COPD, hypertension, lymphedema, TAMY and rheumatoid arthritis that presents to the ED? after being found febrile at the long term. ? Patient has been put on oxygen and mostly requires it during sleep.? He does not wear CPAP because he is not compliant with it. Patient has lived at long term for approximately 1 year since June of 2022.? He does have chronic indwelling Portillo catheter.? This was exchanged in the ED. Patient states that he did not have any symptoms of UTI including dysuria, hematuria or urinary frequency.? Patient states that he does not get frequent urinary tract infections.? He states that Portillo catheter was placed due to not being able to keep himself dry.? Patient did state that he had a fall the day prior to admission.? States that he fell because his knees gave out.? He was not sent to the hospital after his fall.? He denies any residual pain. Vital signs in the ED:? Blood pressure 135/85, pulse 108, respirations 26, temp 100.6?, O2 saturation 94 on 3L ?findings in the ED:? White blood cell count 10, hemoglobin and hematocrit 11.9/37.9, sodium 132, BUN and creatinine 30/1.1, glucose 394, lactic acid 2.8, AST 70 ALT 91.? UA with 2+ blood, positive nitrate, trace LE, greater than 100 rbc's, 51-100 wbc's, 4+ bacteria Patient admitted for treatment of urosepsis. Patient met criteria for sepsis with tachycardia tachypnea 6 lactic acidosis. Patient not hypotensive. Source of infection is urine. He was also bacteremic with group B Streptococcus and Morganella morganii. Urine culture positive for Proteus mirabilis. Patient was initially treated with vancomycin it was switched to Zosyn however patient continued to spike fever and hence was switched to cefepime. Subsequently antibiotic was switched to amoxicillin and Bactrim. Patient remained afebrile since 07/27/2023. Repeat blood culture done on 07/24/2023 were negative. Patient we continued current antibiotics to complete the course with 5 more days of anti also noted to be on chronic steroid therapy with dexamethasone reason unknown. Due to ongoing action and patient was recommended to taper and was switched to prednisone 40 mg equivalent does with subsequent taper during the hospital stay. Patient was also on insulin with hemoglobin A1c at 11.2 is also another reason for tapering off of the steroid. He has underlying obstructive sleep apnea noncompliant with CPAP. Renal ultrasound was done which was negative further CT scan attempt to be done however was unable to be performed due to restriction. He was back to his baseline by the time of discharge. Vitals were stable. Will continue treatment as an outpatien
[2023-08-01 13:32] LABS: SARS-CoV-2 RNA PCR Negative (Negative)
[2023-08-01 14:00] VITALS: BP 125/81; PULSE 83; RESP 18; TEMP 36.2; O2SAT 94
[2023-08-01] MEDS: RIVAROXABAN 20 MG TABLET PO (16:34)
[2023-08-01 16:42] LABS: Glucose Point of Care 397 mg/dl (65-105)
== END 2023-08-01 18:10 | DRG 466 ==
LOC: ANHED 02:45 → ANH3MEDSUR 09:20
PROVIDERS: Family Medicine; Internal Medicine Critical Care Medicine; Admitting Provider Internal Medicine; Emergency Provider Emergency Medicine; PCP Family Medicine; Visit Provider Internal Medicine
DX: T83.511A Infection and inflammatory reaction due to indwelling urethral catheter, initial encounter (principal); A41.9 Sepsis, unspecified organism; N39.0 Urinary tract infection, site not specified; E11.65 Type 2 diabetes mellitus with hyperglycemia; N17.9 Acute kidney failure, unspecified; E66.01 Morbid (severe) obesity due to excess calories; G47.33 Obstructive sleep apnea (adult) (pediatric); J96.01 Acute respiratory failure with hypoxia; M06.9 Rheumatoid arthritis, unspecified; B96.4 Proteus (mirabilis) (morganii) as the cause of diseases classified elsewhere; B95.1 Streptococcus, group B, as the cause of diseases classified elsewhere; Z20.822 Contact with and (suspected) exposure to COVID-19; I10 Essential (primary) hypertension; I89.0 Lymphedema, not elsewhere classified; F41.8 Other specified anxiety disorders; N40.0 Benign prostatic hyperplasia without lower urinary tract symptoms; J44.9 Chronic obstructive pulmonary disease, unspecified; K21.9 Gastro-esophageal reflux disease without esophagitis; Z79.4 Long term (current) use of insulin; Z68.45 Body mass index [BMI] 70 or greater, adult; Z90.49 Acquired absence of other specified parts of digestive tract; Z91.199 Patient's noncompliance with other medical treatment and regimen due to unspecified reason; Z87.891 Personal history of nicotine dependence; Z79.52 Long term (current) use of systemic steroids
CPT/HCPCS: 36415; 71045; 76775; 80048; 80053; 80202; 81001; 82533; 82570; 82948; 83036; 83605; 83735; 84300; 85025; 85027; 85610; 85730; 86140; 87040; 87077; 87086; 87088; 87103; 87181; 87186; 87635; 87637; 93005; 96361; 96365; 96375; 99291; A9270; J0692; J0696; J1815; J2543; J3370; J7030; J7050; J7512; J8540

== ENCOUNTER 2023-08-26 17:07 | Emergency (ER) | payer OTHER, SELFPAY ==
[2023-08-26] VITALS (37 sets, daily range): BP systolic 117–141; BP diastolic 55–105; PULSE 81–101; RESP 15–23; TEMP 37.1; O2SAT 85–100
[2023-08-26 18:55] LABS: Basophils Absolute Auto 0.1 K/mm3 (0.0-0.1); Basophils Percent Auto 0.7 % (0.2-1.2); Eosinophils Absolute Auto 0.4 K/mm3 (0-0.3); Eosinophils Percent Auto 4.3 % (0-4.4); Hematocrit 36.3 % (42.0-52.0); Hemoglobin 11.2 g/dL (14.0-18.0); Immature Granulocyte Absolute 0.15 K/mm3 (0.00-0.031); Immature Granulocyte Percent A 1.8 % (0-0.5); Immature Platelet Fraction Pct 3.7 % (0.9-11.2); Lymphocytes Absolute Auto 1.01 K/mm3 (0.9-3.2); Lymphocytes Percent Auto 12.1 % (18.3-44.2); Mean Corpuscular HGB Conc 30.9 g/dl (32-36); Mean Corpuscular Hemoglobin 29.2 pg (26-34); Mean Corpuscular Volume 94.8 fl (80-100); Mean Platelet Volume 11.8 fl (7.4-10.4); Monocytes Absolute Auto 0.6 K/mm3 (0.1-0.6); Monocytes Percent Auto 7.3 % (2.6-8.5); Neutrophils Absolute Auto 6.2 K/mm3 (1.3-6.7); Neutrophils Percent Auto 73.8 % (45.5-73.1); Nucleated Red Blood Cells Perc 0.8 % (0.0-0.2); Platelet Count Result 172 k/mm3 (150-375); Red Blood Count 3.83 M/mm3 (4.6-6.20); Red Cell Distribution Width 18.7 % (11.5-14.5); White Blood Count 8.4 K/mm3 (4.5-10.0)
[2023-08-26 19:09] LABS: Platelet Estimate Adequate (Adequate)
[2023-08-26 19:10] LABS: Anisocytosis 1+; Ovalocytes 1+; Schistocytes None Seen
[2023-08-26 20:03] LABS: Alanine Aminotransferase 25 U/L (6-50); Albumin Level 3.3 g/dL (3.5-5.1); Alkaline Phosphatase 68 U/L (38-126); Anion Gap 4 mmol/L (4-12); Aspartate Amino Transferase 27 U/L (17-59); Bilirubin,Total 0.7 mg/dL (0.2-1.3); Blood Urea Nitrogen 19 mg/dL (9-20); Calcium 8.7 mg/dL (8.4-10.2); Carbon Dioxide 36 mmol/L (22-30); Chloride 96 mmol/L (98-107); Estimated CRCL calculation 132 ml/min; Estimated Glomerular Filt Rate > 60; Glucose 160 mg/dL (65-110); Potassium 3.4 mmol/L (3.4-5.0); Sodium 136 mmol/L (137-145)
--- NOTE | 2023-08-26 20:15 | ED.GENADULT ---
HPI - General Adult General Chief complaint: GI Bleed Stated complaint: rectal bleeding Time Seen by Provider: 08/26/23 19:05 History of Present Illness HPI narrative: Patient is a 53-year-old morbidly obese male who [facility] the emergency department [facility] due to concern for bloody stools. Patient states that while the nurse was helping him get clean she noticed that there was blood in his stool. Patient was brought here for further evaluation. Patient denies any history of GI bleed and is currently not on any blood thinners. There is a blood thinner listed on his chart although after further investigation, this was not filled since March of this year. Patient does not believe he is on a blood thinner and does not know of any reasons why he would be on one. He is currently denying any symptoms including any abdominal pain and only presented to the ED because he was told to do so. No additional symptoms or concerns at this time. Related Data Home Medications Medication Instructions Recorded Confirmed albuterol sulfate 90 mcg/actuation 2 puff inhalation QID PRN 12/03/22 07/23/23 aerosol inhaler (ProAir HFA) Shortness Of Breath Or Wheezing aripiprazole 2 mg tablet 2 mg PO HS 12/03/22 07/23/23 cyclobenzaprine 10 mg tablet 10 mg PO BID PRN Spasms 12/03/22 07/23/23 ergocalciferol (vitamin D2) 50,000 50,000 unit PO WEEKLY 12/03/22 07/23/23 unit tablet fluoxetine 60 mg tablet 60 mg PO DAILY 12/03/22 07/23/23 insulin glargine 100 unit/mL 30 unit subcut BID 12/03/22 07/23/23 subcutaneous solution metformin 1,000 mg tablet 1,000 mg PO BID 12/03/22 07/23/23 rivaroxaban 20 mg tablet (Xarelto) 20 mg PO DAILY 12/03/22 07/23/23 tamsulosin 0.4 mg capsule 0.4 mg PO DAILY 12/03/22 07/23/23 benzonatate 100 mg capsule 100 mg PO TID PRN Cough 07/23/23 07/23/23 bupropion HCl 150 mg tablet,12 hr 150 mg PO DAILY 07/23/23 07/23/23 sustained-release fluticasone propionate 50 50 mcg intranasal HS 07/23/23 07/23/23 mcg/actuation nasal spray,suspension hydrochlorothiazide 25 mg tablet 25 mg PO DAILY 07/23/23 07/23/23 melatonin 10 mg tablet 10 mg PO HS PRN Insomnia 07/23/23 07/23/23 ondansetron HCl 4 mg tablet 4 mg PO PRN PRN Nausea 07/23/23 07/23/23 oxycodone 5 mg tablet 5 mg PO QID PRN Pain 07/23/23 07/23/23 trazodone 100 mg tablet 100 mg PO HS 07/23/23 07/23/23 Allergies Allergy/AdvReac Type Severity Reaction Status Date / Time No Known Allergies Allergy Mild Verified 12/10/22 08:55 Review of Systems Review of Systems: All systems are reviewed and are negative unless stated otherwise in the HPI. [facility] Past Medical History Medical History Anxiety and depression BPH (benign prostatic hyperplasia) COPD (chronic obstructive pulmonary disease) Essential hypertension GERD (gastroesophageal reflux disease) Lymphedema associated with obesity Necrotizing fasciitis 2020 treated at [place] with multiple debridements and wound care Obstructive sleep apnea Pancreatic mass Rheumatoid arthritis Type 2 diabetes mellitus Surgical History Surgical History History of arthroscopy of right knee Hx of cholecystectomy Family History Family History Mother Pacemaker Diabetes mellitus Hypertension Father Heart attack Diabetes mellitus Hypertension Sibling Epilepsy Diabetes mellitus Hypertension Social History Social History Social History: Patient reports that before June 2022 he lives with his mother. When his mother needed more assistance she moved in with the patient's sister. The patient himself then had to move into [facility]. He has smoked as much as 2 packs of cigarettes per day for 33 years. He quit smoking in 2020. He still smokes marijuana freque
[2023-08-27 00:17] VITALS: BP 121/74; PULSE 88; RESP 20; O2SAT 93
[2023-08-27 00:46] VITALS: BP 115/73; PULSE 86; RESP 16; O2SAT 91
[2023-08-27 01:16] VITALS: BP 143/69; PULSE 88; RESP 18; O2SAT 91
--- NOTE | 2023-08-27 01:26 | PC.NURSE ---
this rn assumed care of patient. this rn took patient report from winston Redman.
[2023-08-27 03:39] VITALS: BP 138/78; PULSE 87; RESP 16; O2SAT 94
== END 2023-08-27 03:39 ==
PROVIDERS: Student in an Organized Health Care Education/Training Program; Emergency Provider Emergency Medicine; PCP Family Medicine
DX: K62.5 Hemorrhage of anus and rectum (principal); I10 Essential (primary) hypertension; J44.9 Chronic obstructive pulmonary disease, unspecified; E11.9 Type 2 diabetes mellitus without complications; E66.9 Obesity, unspecified; Z68.45 Body mass index [BMI] 70 or greater, adult; G47.33 Obstructive sleep apnea (adult) (pediatric); K21.9 Gastro-esophageal reflux disease without esophagitis; M06.9 Rheumatoid arthritis, unspecified; N40.0 Benign prostatic hyperplasia without lower urinary tract symptoms; F41.9 Anxiety disorder, unspecified; F32.A Depression, unspecified; Z87.891 Personal history of nicotine dependence; Z79.01 Long term (current) use of anticoagulants; Z79.4 Long term (current) use of insulin; Z79.84 Long term (current) use of oral hypoglycemic drugs; Z90.49 Acquired absence of other specified parts of digestive tract; Z79.899 Other long term (current) drug therapy
CPT/HCPCS: 36415; 80053; 85025; 85055; 99283

== ENCOUNTER 2023-09-04 09:22 | Inpatient (IN) | payer OTHER, SELFPAY ==
[2023-09-04] VITALS (14 sets, daily range): BP systolic 74–116; BP diastolic 52–78; PULSE 60–71; RESP 14–24; TEMP 36.4–36.8; O2SAT 94–99; BMI 73.5
--- NOTE | ~2023-09-04 | XR_ITS ---
XR chest 1V portable DATE: 09/04/2023 12:53 INDICATION: Shortness of breath TECHNIQUE: Portable supine AP views on 09/04/2023 1251 and 1252 hours COMPARISON: 07/23/2023 portable AP chest FINDINGS: Cardiomegaly. There is pulmonary valve the redistribution which may indicate mild pulmonary venous hypertension. No pulmonary infiltrate or consolidation, pleural effusion or pneumothorax. IMPRESSION: Cardiomegaly, pulmonary vascular redistribution, which may indicate mild congestive encarnacion e Reviewed, dictated and finalized at location A. IMPRESSION: Cardiomegaly, pulmonary vascular redistribution, which may indicate mild congestive change
--- NOTE | ~2023-09-04 | US_ITS ---
EXAMINATION: US renal BI DATE: 09/05/2023 12:04 INDICATION: Elevated creatinine TECHNIQUE: Multiple ultrasound grayscale images of the kidneys were obtained. COMPARISON: None. FINDINGS: The right kidney measures 14.3 x 5.4 x 5.4 cm. The left kidney measures 13.1 x 6.8 x 6.3 cm. The kidn eys demonstrate normal echogenicity. There is no hydronephrosis in either kidney. No stones identifi ed. The bladder is is not clearly visualized due to patient body habitus and likely decompressed stat e with a Portillo catheter reportedly in place. Diffuse hepatic steatosis. IMPRESSION: 1. Normal kidneys without hydronephrosis. Reviewed, dictated and finalized at location A.
--- NOTE | 2023-09-04 09:41 | ED.GENADULT ---
HPI - General Adult General Chief complaint: Unspecified Stated complaint: sick case Time Seen by Provider: 09/04/23 09:35 History of Present Illness HPI narrative: 53-year-old male presenting to the emergency department for evaluation for not feeling well. Patient states that both his arms and legs started bothering him yesterday. Patient denies any falls or injuries. Patient denies any coughs colds or fevers. Patient denies any belly pain. Patient denies any nausea vomiting or diarrhea. Related Data Home Medications Medication Instructions Recorded Confirmed albuterol sulfate 90 mcg/actuation 2 puff inhalation QID PRN 12/03/22 07/23/23 aerosol inhaler (ProAir HFA) Shortness Of Breath Or Wheezing aripiprazole 2 mg tablet 2 mg PO HS 12/03/22 07/23/23 cyclobenzaprine 10 mg tablet 10 mg PO BID PRN Spasms 12/03/22 07/23/23 ergocalciferol (vitamin D2) 50,000 50,000 unit PO WEEKLY 12/03/22 07/23/23 unit tablet fluoxetine 60 mg tablet 60 mg PO DAILY 12/03/22 07/23/23 insulin glargine 100 unit/mL 30 unit subcut BID 12/03/22 07/23/23 subcutaneous solution metformin 1,000 mg tablet 1,000 mg PO BID 12/03/22 07/23/23 rivaroxaban 20 mg tablet (Xarelto) 20 mg PO DAILY 12/03/22 07/23/23 tamsulosin 0.4 mg capsule 0.4 mg PO DAILY 12/03/22 07/23/23 benzonatate 100 mg capsule 100 mg PO TID PRN Cough 07/23/23 07/23/23 bupropion HCl 150 mg tablet,12 hr 150 mg PO DAILY 07/23/23 07/23/23 sustained-release fluticasone propionate 50 50 mcg intranasal HS 07/23/23 07/23/23 mcg/actuation nasal spray,suspension hydrochlorothiazide 25 mg tablet 25 mg PO DAILY 07/23/23 07/23/23 melatonin 10 mg tablet 10 mg PO HS PRN Insomnia 07/23/23 07/23/23 ondansetron HCl 4 mg tablet 4 mg PO PRN PRN Nausea 07/23/23 07/23/23 oxycodone 5 mg tablet 5 mg PO QID PRN Pain 07/23/23 07/23/23 trazodone 100 mg tablet 100 mg PO HS 07/23/23 07/23/23 Allergies Allergy/AdvReac Type Severity Reaction Status Date / Time No Known Allergies Allergy Mild Verified 12/10/22 08:55 Review of Systems Review of Systems: All systems reviewed & are unremarkable except as noted in HPI and below PMFSH Past Medical History Medical History Anxiety and depression BPH (benign prostatic hyperplasia) COPD (chronic obstructive pulmonary disease) Essential hypertension GERD (gastroesophageal reflux disease) Lymphedema associated with obesity Necrotizing fasciitis 2020 treated at [place] with multiple debridements and wound care Obstructive sleep apnea Pancreatic mass Rheumatoid arthritis Type 2 diabetes mellitus Surgical History Surgical History History of arthroscopy of right knee Hx of cholecystectomy Family History Family History Mother Pacemaker Diabetes mellitus Hypertension Father Heart attack Diabetes mellitus Hypertension Sibling Epilepsy Diabetes mellitus Hypertension Social History Social History Social History: Patient reports that before June 2022 he lives with his mother. When his mother needed more assistance she moved in with the patient's sister. The patient himself then had to move into [facility]. He has smoked as much as 2 packs of cigarettes per day for 33 years. He quit smoking in 2020. He still smokes marijuana frequently. He denies alcohol use. Code status: Full code Surrogate decision maker: Brenna Murillo (mother) Smoking packs per day: 2 Smoking cigarettes per day: 40.0 Years smoked: 33 Smoking pack-years: 66.00 Smoking status: Former smoker Tobacco type: cigarettes Alcohol intake: never Substance use: former Substance use type: marijuana Do You Feel Safe in your Home?: Yes Lack of Transportation: No Lack of Food: Never True Current Housing: I Have [facility]
[2023-09-04 10:13] LABS: Lactic Acid Reflex 3.3 mmol/L (0.7-2.0)
[2023-09-04 10:14] LABS: Basophils Absolute Auto 0.1 K/mm3 (0.0-0.1); Basophils Percent Auto 0.6 % (0.2-1.2); Eosinophils Percent Auto 0.4 % (0-4.4); Hematocrit 37.1 % (42.0-52.0); Hemoglobin 10.9 g/dL (14.0-18.0); Immature Granulocyte Absolute 0.09 K/mm3 (0.00-0.031); Immature Granulocyte Percent A 0.9 % (0-0.5); Lymphocytes Absolute Auto 1.22 K/mm3 (0.9-3.2); Lymphocytes Percent Auto 12.9 % (18.3-44.2); Mean Corpuscular HGB Conc 29.4 g/dl (32-36); Mean Corpuscular Hemoglobin 27.4 pg (26-34); Mean Corpuscular Volume 93.2 fl (80-100); Mean Platelet Volume 10.2 fl (7.4-10.4); Monocytes Percent Auto 10.5 % (2.6-8.5); Neutrophils Absolute Auto 7.1 K/mm3 (1.3-6.7); Neutrophils Percent Auto 74.7 % (45.5-73.1); Nucleated Red Blood Cells Perc 0.8 % (0.0-0.2); Platelet Count Result 354 k/mm3 (150-375); Red Blood Count 3.98 M/mm3 (4.6-6.20); Red Cell Distribution Width 18.4 % (11.5-14.5); White Blood Count 9.5 K/mm3 (4.5-10.0)
[2023-09-04 10:15] LABS: Alanine Aminotransferase 37 U/L (6-50); Albumin Level 3.3 g/dL (3.5-5.1); Alkaline Phosphatase 71 U/L (38-126); Anion Gap 10 mmol/L (4-12); Aspartate Amino Transferase 60 U/L (17-59); Bilirubin,Total 0.7 mg/dL (0.2-1.3); Blood Urea Nitrogen 23 mg/dL (9-20); Calcium 7.9 mg/dL (8.4-10.2); Carbon Dioxide 32 mmol/L (22-30); Chloride 93 mmol/L (98-107); Creatine Kinase 40 U/L (55-170); Estimated CRCL calculation 54 ml/min; Estimated Glomerular Filt Rate 24; Glucose 145 mg/dL (65-110); Potassium 3.6 mmol/L (3.4-5.0); Sodium 135 mmol/L (137-145)
[2023-09-04 10:19] LABS: INR 2.2; Prothrombin Time 24.7 Seconds (11.1-14.7)
[2023-09-04 11:01] LABS: Influenza A QL RT-PCR Negative (Negative); Influenza B QL RT-PCR Negative (Negative); RSV RNA, RT-PCR Negative (Negative); SARS-CoV-2 RNA PCR Negative (Negative)
[2023-09-04] MEDS: SODIUM CHLORIDE 0.9% IV 1,000 ML 999 ML IV CONT ×2 (12:30→13:48)
[2023-09-04] MEDS: WATER FOR IRRIGATION, STERILE 500 ML BOTTLE (12:30)
[2023-09-04 12:57] LABS: Reflex Lactic Acid Yes or No Add Lactic
--- NOTE | 2023-09-04 13:38 | ECG_ITS ---
Test Date: 2023-09-04 13:50:07 Measurements Intervals [place] Rate: 63 P: -7 ND: 190 QRS: -61 QRSD: 129 T: -12 QT: 466 QTc: 480 Interpretive Statements SINUS RHYTHM INCOMPLETE RIGHT BUNDLE BRANCH BLOCK LEFT ANTERIOR FASCICULAR BLOCK [QRS AXIS <= -45, QR IN I, RS IN II] ABNORMAL ELECTROCARDIOGRAM No previous ECG available for comparison Electronically Signed On 09-05-2023 08:25:09 CDT by Jay Valdivia M.D.
[2023-09-04 13:48] LABS: Lactic Acid 2.5 mmol/L (0.7-2.0)
[2023-09-04 13:58] LABS: NT Pro B Type Natriuretic Pept 18100 pg/mL (19.9-100)
--- NOTE | 2023-09-04 14:03 | PM.IMHP ---
H&P: HPI History of Present Illness Date/Time: 09/04/23 14:03 Chief Complaint: Weakness Narrative: Mr. Murillo is a 54-year-old male with a PMHx: of insulin-dependent diabetes, COPD, HTN, lymphedema, TAMY, rheumatoid arthritis, multiple chronic sacral wounds, morbidly obese presented to the emergency room via EMS from area longterm with complaints of weakness, citing he was not feeling well. Patient admits he is normally bed-bound with limited mobility due to morbid obesity, he denies any new injuries, he denies any chest pain fever chills nausea vomiting. He was concerned because this morning he noticed that when he would lift both his arms at once they would appear to have a light tremor, he also reports trying to raise his legs experiencing some mild shaking. Of note patient was discharged 08/01/2023 from hospital with a diagnosis of sepsis. ER workup reveals: Initial vitals: b/p116/78, rr16, pr 69, sp02 96% on RA T:98.3, CXR reveals cardiomegaly, pulmonary vascular redistribution, which may indicate mild congestive change. Serum creatinine is 2.80, GFR is 24 lactic acid 3.3, repeat is 2.5 6, BNP 09878, viral PCR is negative. Review of Systems Review of Systems: All systems reviewed & are unremarkable except as noted in HPI and below PMFSH Past Medical History Medical History Anxiety and depression BPH (benign prostatic hyperplasia) COPD (chronic obstructive pulmonary disease) Essential hypertension GERD (gastroesophageal reflux disease) Lymphedema associated with obesity Necrotizing fasciitis 2020 treated at [place] with multiple debridements and wound care Obstructive sleep apnea Pancreatic mass Rheumatoid arthritis Type 2 diabetes mellitus Surgical History Surgical History History of arthroscopy of right knee Hx of cholecystectomy Family History Family History Mother Pacemaker Diabetes mellitus Hypertension Father Heart attack Diabetes mellitus Hypertension Sibling Epilepsy Diabetes mellitus Hypertension Social History Social History Social History: Patient reports that before June 2022 he lives with his mother. When his mother needed more assistance she moved in with the patient's sister. The patient himself then had to move into [facility]. He has smoked as much as 2 packs of cigarettes per day for 33 years. He quit smoking in 2020. He still smokes marijuana frequently. He denies alcohol use. Code status: Full code Surrogate decision maker: Brenna Murillo (mother) Smoking packs per day: 2 Smoking cigarettes per day: 40.0 Years smoked: 33 Smoking pack-years: 66.00 Smoking status: Former smoker Tobacco type: cigarettes Alcohol intake: never Substance use: former Substance use type: marijuana Do You Feel Safe in your Home?: Yes Lack of Transportation: No Lack of Food: Never True Current Housing: I Have Housing Concerned About Future Housing: No Difficulty Paying Gas/Electric Bills: No Difficulty Paying for Meds: No Currently Unemployed: No Education: Trade/Vocational Certificate Difficulty w/ Childcare or Family Care: No Spiritual care concerns: No Meds Home Medications and Allergies Home Medications Medication Instructions Recorded Confirmed Type albuterol sulfate 90 mcg/actuation 2 puff inhalation Q6H PRN 12/03/22 09/04/23 History aerosol inhaler (ProAir HFA) Shortness Of Breath Or Wheezing cyclobenzaprine 10 mg tablet 10 mg PO BID PRN Spasms 12/03/22 09/04/23 History ergocalciferol (vitamin D2) 50,000 50,000 unit PO WEEKLY 12/03/22 09/04/23 History unit tablet fluoxetine 60 mg tablet 60 mg PO DAILY 12/03/22 09/04/23 History insulin glargine 100 unit/mL 30 unit subcut Q12H 12/03/2208/14
[2023-09-04 14:08] LABS: Alveolar/Arterial O2 Gradient 101.7 mmHg; Base Excess ABG 3.7 mEq/l (+/-2.0); Carboxyhemoglobin 1.6 % THb (0-2.0); Fractional Inspired Oxygen 36 %; HCO3 ABG 29.2 mEq/l (22.0-26.0); Methemoglobin ABG 0.1 %THb (0-1.5); Oxygen Content ABG 15.5 %vol (16.0-22.0); Oxygen Saturation ABG 97.4 % (95.0-100.0); Oxyhemoglobin 95.9 % THb (90.0-100.0); PCO2 ABG 48.3 mmHg (35.0-45.0); PO2 FiO2 Ratio Arterial Blood 2.75 %; Reduced Hemoglobin 2.4 %THb (0-5.0); Total Hemoglobin 11.4 g/dL (12.0-18.0)
[2023-09-04 14:10] LABS: Device NASAL CANNULA; Modified Allen's Test Pass; Site Drawn LEFT RADIAL
--- NOTE | 2023-09-04 14:26 | PC.NURSE ---
ordered diabetic diet tray for patient at 1425.
--- NOTE | 2023-09-04 15:39 | PC.NURSE ---
called [facility] at 1536 and gave update to HSARON Richardson about patient getting admitted today. all questions answered.
--- NOTE | 2023-09-04 20:27 | PC.NURSE ---
I spoke with the hospitalist, Amalia Wilson, regarding pt's medications and interventions. In regards to the orders for pt receiving IV fluids and IV lasix simultaneously, Amalia stated she would cancel the IV fluids and to hold the IV lasix if pt's BP was too low. Pt's currently BP is 96/54 therefore I will follow the directions to not administer the IV lasix. In regards to the orders to pull the chronic hector and do a bladder trial, I explained to Amalia that this is a chronic hector it was changed in the ER today but has been a chronic hector for a very long time for longstanding retention issues. Furthermore, the issue at present is that pt is not producing urine as we have clamped the hector to obtain a urine specimen and there has been minimal output. Pt also has extensive skin breakdown in the groin, thighs and buttocks and a hector would be needed to prevent futher skin breakdown as he is entirey incontinent with no desire or ability to be otherwise. In regards to mobility, there are orders for bedrest but also for pt to be out of bed for meals. I explained that pt is in excess of 500 pounds and our hoyers only accommodate to 450 pounds. That pt was unable to stand and he had to be taken down to the ER using their pati lift to put him in the speciality bed and then wheeled back up to the unit. We do not have the means or ability to pati him on this unit. I have received multiple calls from pharmacy regarding the numerous input of medication order errors. I obtained the information I could, specifically whether pt takes both wellbutrin and prozac, but suggested that the pharmacist contact Amalia directly and provided her contact info.
[2023-09-04 20:28] LABS: Glucose Point of Care 133 mg/dl (65-105)
[2023-09-04] MEDS: traZODone HCL 50 MG TABLET 100 MG PO (21:00)
--- NOTE | 2023-09-04 21:03 | PC.NURSE ---
Spoke with pt regarding his mobility. Pt states that he cannot walk and has not been able to for years. Additionally, pt states that he cannot stand and pivot either. Pt claims that he explained this to this hospitalists as well.
[2023-09-05] VITALS (19 sets, daily range): BP systolic 94–105; BP diastolic 47–70; PULSE 61–98; RESP 16–24; TEMP 36.4–36.7; O2SAT 79–100
[2023-09-05 05:56] LABS: Basophils Absolute Auto 0.1 K/mm3 (0.0-0.1); Basophils Percent Auto 1.5 % (0.2-1.2); Eosinophils Absolute Auto 0.3 K/mm3 (0-0.3); Eosinophils Percent Auto 3.1 % (0-4.4); Hematocrit 39.7 % (42.0-52.0); Hemoglobin 10.5 g/dL (14.0-18.0); Immature Granulocyte Absolute 0.09 K/mm3 (0.00-0.031); Lymphocytes Absolute Auto 2.31 K/mm3 (0.9-3.2); Lymphocytes Percent Auto 24.4 % (18.3-44.2); Mean Corpuscular HGB Conc 26.4 g/dl (32-36); Mean Corpuscular Hemoglobin 27.1 pg (26-34); Mean Corpuscular Volume 102.6 fl (80-100); Mean Platelet Volume 10.2 fl (7.4-10.4); Monocytes Absolute Auto 0.9 K/mm3 (0.1-0.6); Monocytes Percent Auto 9.8 % (2.6-8.5); Neutrophils Absolute Auto 5.7 K/mm3 (1.3-6.7); Neutrophils Percent Auto 60.2 % (45.5-73.1); Platelet Count Result 299 k/mm3 (150-375); Red Blood Count 3.87 M/mm3 (4.6-6.20); Red Cell Distribution Width 18.9 % (11.5-14.5); White Blood Count 9.5 K/mm3 (4.5-10.0)
[2023-09-05 06:04] LABS: Sodium Urine Random 104 meq/L
[2023-09-05 06:09] LABS: Anion Gap 9 mmol/L (4-12); Blood Urea Nitrogen 28 mg/dL (9-20); Calcium 7.5 mg/dL (8.4-10.2); Carbon Dioxide 26 mmol/L (22-30); Chloride 96 mmol/L (98-107); Estimated CRCL calculation 43 ml/min; Estimated Glomerular Filt Rate 18; Glucose 104 mg/dL (65-110); Potassium 3.7 mmol/L (3.4-5.0); Sodium 131 mmol/L (137-145)
[2023-09-05 06:18] LABS: NT Pro B Type Natriuretic Pept 14500 pg/mL (19.9-100)
[2023-09-05 07:21] LABS: Anisocytosis 1+; Hypochromasia 1+; Platelet Estimate Adequate (Adequate); Schistocytes None Seen
[2023-09-05 07:51] LABS: Glucose Point of Care 110 mg/dl (65-105)
[2023-09-05] MEDS: oxyCODONE HCL (*CRX) 5 MG TAB IR PO (08:28)
[2023-09-05] MEDS: FLUoxetine HCL 20 MG CAPSULE 60 MG PO (08:28)
[2023-09-05] MEDS: RIVAROXABAN 20 MG TABLET PO (08:28)
[2023-09-05] MEDS: INSULIN GLARGINE (*BKC) 100 UNITS/ML 30 UNITS SUB-Q ×2 (08:43→22:49)
[2023-09-05] MEDS: FLUTICASONE PROPIONATE 0.05% NA SPR 16 GM BTL (*BKC) 1 SPRAY NASAL (08:46)
[2023-09-05] MEDS: buPROPion HCL SR (12 HR) 150 MG TAB PO (08:48)
--- NOTE | 2023-09-05 08:54 | PM.IMPN ---
Progress Note: A&P Assessment and Plan (1) YEVGENIY (acute kidney injury): Code(s): N17.9 - Acute kidney failure, unspecified Status: Acute Assessment and Plan: -acute on chronic, pt has hx of elevated Cr in 2022 greater than 2.6 -continue telemetry monitoring -patient with history of renal ultrasound on07/26/2023 that revealed normal right kidney, left kidney not well visualized due to body habitus -continue strict I&O -UA is still pending due to no urine output -Nephrology consult placed - lasix was initiated in senior care-that could be leading to pre renal YEVGENIY- holding - urology saw pt- doesnot think it is obstruction-as hector was irrigated without any issues - will give 500 ml bolus 0.9ns and start maintenance fluids at 150mg - appreciate nephrology recommendations - unable to complete ct scan due to pt's size as ct scan cannot accommodate it - renal ultrasound ordered (2) Type 2 diabetes mellitus with hyperglycemia, with long-term current use of insulin: Code(s): E11.65 - Type 2 diabetes mellitus with hyperglycemia; Z79.4 - detention (current) use of insulin Status: Chronic Assessment and Plan: chronic last A1c 07/23/2023 was 11.2 -continue home medication insulin 30 units subQ q.12 hours -SSI low corrective dose per protocol -initiate hypoglycemia protocol (3) Morbid obesity: Code(s): E66.01 - Morbid (severe) obesity due to excess calories Status: Acute Assessment and Plan: -patient using bariatric bed (4) Indwelling catheter present on admission: Code(s): Z96.0 - Presence of urogenital implants Status: Acute Assessment and Plan: -patient with history of indwelling Hector catheter -Hector catheter exchanged in the ED, no urine output obtain during exchange -consult urology for management of Hector placement, and acute obstruction, concern patient could benefit from larger Hector catheter -continue Hector catheter care q.4 hours -continue monitor I&O (5) Lymphedema associated with obesity: Code(s): I89.0 - Lymphedema, not elsewhere classified; E66.9 - Obesity, unspecified Status: Acute Assessment and Plan: -chronic large pannus lymphedema (6) Wound of buttock: Code(s): S31.809A - Unspecified open wound of unspecified buttock, initial encounter Status: Acute Assessment and Plan: -several wounds to buttock/sacrum area -consult wound management eval and treat -encourage pt to reposition q1 hr, out of bed for meals (7) Respiratory failure: Code(s): J96.90 - Respiratory failure, unspecified, unspecified whether with hypoxia or hypercapnia Status: Acute Assessment and Plan: - noncompliant with cpap in senior care - was on 2 l per ns last night but weaned off- found to be lethargic this am 09/04 - blood gases ordered: ph 7.32, co2 64.2, hco3 32 - placed on bipap- per resp. protocol - monitor- keep on bipap for now- will repeat gases to monitor - pt is more awake and alert now - will have to be on cpap at [facility] once stable and blood gases improved Plan Continue home medications: As ordered VTE Prophylaxis: Xarelto p.o. daily DIET: Low K+/renal diet Anticipated hospital stay: > 2 days Code Status: Full code Time Spent With Patient Time with patient: 25 - 35 minutes Subjective Date/time seen: 09/05/23 08:54 Interval history: 54 y.o male admitted from senior care for weakness. Mr. Murillo is a 54-year-old male with a PMHx: of insulin-dependent diabetes, COPD, HTN, lymphedema, TAMY, rheumatoid arthritis, multiple chronic sacral wounds, morbidly obese admitted from ed for weakness. Patient admits he is normally bed-bound with limited mobility due to morbid obesity, he denies any new injuries, he denies any chest pain fever chills nausea vomiting. He was concerned because this morning he noticed that when he would lift both his arms at once they would appear to have a light tremor, he also re
--- NOTE | 2023-09-05 09:57 | PM.CNNEP ---
Assessment and Plan Assessment and plan (1) Acute kidney injury: Code(s): N17.9 - Acute kidney failure, unspecified Status: Resolved Assessment and Plan: the patient has acute kidney injury. He had a normal creatinine 1 month ago when he was admitted , but last November he was in the hospital for sepsis and hypotension and he had acute kidney injury then with a creatinine that alvina as high as 2.8 but improved with fluids antibiotics and supportive care. The patient has multiple issues that could be leading to his current episode of acute kidney injury. The patient is on Lasix now. He was not on it when he left in July. He must have been put on this medication in the last week or 2. In addition he says that his swelling is a little better now than it had been in the past and so this could be pre renal azotemia. In addition the patient's blood pressure was quite low in the the [facility]. Usually it runs between 110 and 130 and his pressure was as low as 74. This certainly is contributing to his YEVGENIY as well. The patient has multiple sacral wounds. He could have infection. This could of course lead to hypotension and renal failure plus his lethargy. the patient was discharged on antibiotics which finished about 3 weeks ago. I doubt if he still has interstitial nephritis at this point but this is always a possibility with the new medication like this. Notably he does not have eosinophilia or a maculopapular rash. Obstruction is always a possibility. Will check a renal ultrasound. Will check a bladder scan as well. Rhabdomyolysis is also a possibility. Will check a CPK other causes such as glomerulonephritis, or vascular disease but these are less likely. at this point will hold off on the Lasix. This is already been discontinued by the hospitalist. Will check urine electrolytes , CPK, renal ultrasound, blood and urine cultures, consider starting antibiotics? Believe the latter up to the hospitalist. (2) Essential hypertension: Code(s): I10 - Essential (primary) hypertension Status: Acute Assessment and Plan: Blood pressure is on the low side. Hold blood pressure medications. (3) Type 2 diabetes mellitus: Code(s): E11.9 - Type 2 diabetes mellitus without complications Status: Acute Assessment and Plan: He was on metformin. This has been discontinued. He does have a mildly high lactate but this level is decreasing. (4) Obesity: Code(s): E66.9 - Obesity, unspecified Status: Acute Assessment and Plan: Patient has a very high body mass index. (5) Obstructive sleep apnea: Code(s): G47.33 - Obstructive sleep apnea (adult) (pediatric) Status: Acute Assessment and Plan: The patient does not have a CPAP machine in the room. The patient does have some lethargy. His pCO2 was a bit high yesterday. He might be retaining. Will check another blood gas. Consider getting him back on the CPAP machine at least at night. History of Present Illness Reason for Consult Consult date: 09/05/23 Chief Complaint Chief complaint: Hypoxia/YEVGENIY/Gen Weakness History of Present Illness Narrative: Yobani is a very pleasant 54-year-old gentleman who has multiple medical problems including diabetes, hypertension, chronic swelling, sleep apnea and uses a CPAP machine, rheumatoid arthritis, chronic sacral wounds, high body mass index, COPD. The patient is somewhat lethargic but answers questions mostly yes and no. The patient says that he had a tremor in his arms and legs. He says he felt fine otherwise. He was eating and drinking fine. He was urinating okay. He did not have any bloody, foamy, smelly, or painful urination. No kidney stones or bladder infections that he knows of. There is no record of him taking any [id number] medications. He was in hospital in July for sepsis. He was discharged on h
[2023-09-05 10:37] LABS: Alveolar/Arterial O2 Gradient 13.5 mmHg; Base Excess ABG 4.8 mEq/l (+/-2.0); Fractional Inspired Oxygen 24 %; HCO3 ABG 32.4 mEq/l (22.0-26.0); Oxygen Content ABG 15.3 %vol (16.0-22.0); Oxygen Saturation ABG 94.8 % (95.0-100.0); Oxyhemoglobin 93.5 % THb (90.0-100.0); PO2 ABG 81.2 mmHg (80.0-100.0); PO2 FiO2 Ratio Arterial Blood 3.38 %; Total Hemoglobin 11.6 g/dL (12.0-18.0); pH ABG 7.321 (7.350-7.450)
[2023-09-05 10:39] LABS: Device NASAL CANNULA; Modified Allen's Test Pass; PCO2 ABG 64.2 mmHg (35.0-45.0); Site Drawn LEFT RADIAL
[2023-09-05 11:09] LABS: Glucose Point of Care 136 mg/dl (65-105)
[2023-09-05 12:03] LABS: Creatine Kinase 40 U/L (55-170)
[2023-09-05 13:21] LABS: Lactic Acid Reflex 1.4 mmol/L (0.7-2.0)
--- NOTE | 2023-09-05 15:12 | WPDURCON ---
Assessment and Plan Assessment and plan (1) Acute kidney injury: Code(s): N17.9 - Acute kidney failure, unspecified Status: Resolved Assessment and Plan: Patient has chronic indwelling hector which was changed in the ER. The catheter irrigates freely at the bedside with no significant residual. EUGENIA showed no hydronephrosis. His ARF does not appear to be obstructive in origin- appears to have oliguria, not hector malfunction, since catheter irrigates freely. Agree with need for nephrology management of his ARF. Continue hector catheter for accurate I&Os. Send UA/urine culture to assess for infection. Please call with questions. Urology Consult Note HPI Date Seen: 09/05/23 Requesting Physician: Richard Islas MD Primary Care Provider: Abdelrahman Oneill, Consult Narrative Reason for consult: possible hector malfunction Narrative: Yobani Murillo is a 53 year old male presented to ER yesterday with complaints of not feeling well. Patient is bed bound and has had indwelling hector in place for unclear reasons. He states the PA has been changing the hector without difficulty and that he previously was making a normal amount of urine. Recent Cr was 1.1 on 08/26/23. In the ER, he was found to have elevated BNP and acute renal failure. He was also hypotensive with SBP in the 70s. The hector was changed out in the ER. Patient received fluid bolus. UOP has only been about 50 cc since the catheter change in the ER. Currently his Cr is 3.5. EUGENIA performed today showed no hydronephrosis; due to his body habitus, the bladder could not be visualized and was presumed to be decompressed. He is unable to undergo a CT since he is over the weight limit of [facility]'s CT scanner. Nephrology has been consulted. Review of Systems Constitutional: Constitutional: Reports no additional constitutional complaints Eyes: Eyes: Reports no additional eye complaints ENT: Reports system reviewed and no additional complaints, except as documented Cardiovascular: Cardiovascular: Reports no additional cardiovascular complaints Respiratory: Respiratory: Reports no additional respiratory complaints Gastrointestinal: Gastrointestinal: Reports no additional gastrointestinal complaints Genitourinary: Genitourinary: Reports no additional male genitourinary complaints Musculoskeletal: Musculoskeletal: Reports no additional musculoskeletal complaints Integumentary/Breasts: Skin/Breast: Reports system reviewed and no additional complaints, except as docu Neurologic: Reports system reviewed and no additional complaints, except as documented Psychiatric: Psychiatric: Reports no additional psychiatric complaints Endocrine: Endocrine: Reports no additional endocrine complaints FORMERLY [facility] Past Medical History Medical History Anxiety and depression BPH (benign prostatic hyperplasia) COPD (chronic obstructive pulmonary disease) Essential hypertension GERD (gastroesophageal reflux disease) Lymphedema associated with obesity Necrotizing fasciitis 2020 treated at [place] with multiple debridements and wound care Obstructive sleep apnea Pancreatic mass Rheumatoid arthritis Type 2 diabetes mellitus Surgical History Surgical History History of arthroscopy of right knee Hx of cholecystectomy Family History Family History Mother Pacemaker Diabetes mellitus Hypertension Father Heart attack Diabetes mellitus Hypertension Sibling Epilepsy Diabetes mellitus Hypertension Social History Social History Social History: Patient reports that before June 2022 he lives with his mother. When his mother needed more assistance she moved in with the patient's sister. The patient himself then had to move into [facility]
[2023-09-05] MEDS: SODIUM CHLORIDE 0.9% IV 500 ML 999 ML IV CONT (16:07)
[2023-09-05 16:40] LABS: Glucose Point of Care 117 mg/dl (65-105)
[2023-09-05] MEDS: TAMSULOSIN HCL 0.4 MG CAPSULE PO (17:18)
--- NOTE | 2023-09-05 17:30 | PC.NURSE ---
This patient, Yobani Murillo, was transferred to IMU-7 on 09/05/23 at 1730. Personal belongings sent with patient. Report given to Zuri HERRERA. Appropriate documentation sent with patient.
--- NOTE | 2023-09-05 17:56 | PC.NURSE ---
This patient, Yobani Murillo, was received from [[id number] ] on 09/05/23 at 1730. Patient/family oriented to unit policies and routines
[2023-09-05] MEDS: SODIUM CHLORIDE 0.9% IV 1,000 ML 150 ML IV CONT (18:27)
[2023-09-05 20:35] LABS: Glucose Point of Care 136 mg/dl (65-105)
[2023-09-05] MEDS: traZODone HCL 50 MG TABLET 100 MG PO (22:49)
[2023-09-06] VITALS (17 sets, daily range): BP systolic 95–118; BP diastolic 42–59; PULSE 63–83; RESP 16–22; TEMP 36.6–37; O2SAT 95–100
[2023-09-06] MEDS: SODIUM CHLORIDE 0.9% IV 1,000 ML 150 ML IV CONT (02:17)
[2023-09-06 03:06] LABS: Creatinine Urine 94.8 mg/dL
[2023-09-06 03:07] LABS: Appearance Urine Turbid (Clear); Bacteria Urine 2+ /hpf; Bilirubin Urine 1+ (Negative); Blood Urine 3+ (Negative); Color Urine Dark Yellow (Yellow); Glucose Urine UA Trace mg/dL (Negative); Ketones Urine Trace mg/dL (Negative); Leukocyte Esterase Ur 3+ LEU/UL (Negative); Need Manual Microscopic Reviewed; Nitrate Urine Negative (Negative); Protein Urine 4+ mg/dL (Negative); RBC Urine >100 /hpf (0-2); Squamous Epithelial Cell Urine None Seen /hpf (Few); WBC Urine >100 /hpf (0-3); pH Urine 5.5 (5.0-9.0)
[2023-09-06 03:09] LABS: Add Urine Microscopic? YES
[2023-09-06 03:12] LABS: Sodium Urine Random 84 meq/L
[2023-09-06 03:17] LABS: Total Protein Urine Random 570 mg/dL; Urea Random Urine < 67 MG/DL
[2023-09-06 04:27] LABS: Basophils Absolute Auto 0.1 K/mm3 (0.0-0.1); Basophils Percent Auto 0.7 % (0.2-1.2); Eosinophils Absolute Auto 0.4 K/mm3 (0-0.3); Eosinophils Percent Auto 4.8 % (0-4.4); Hematocrit 34.7 % (42.0-52.0); Hemoglobin 10.2 g/dL (14.0-18.0); Immature Granulocyte Absolute 0.04 K/mm3 (0.00-0.031); Immature Granulocyte Percent A 0.5 % (0-0.5); Lymphocytes Absolute Auto 1.33 K/mm3 (0.9-3.2); Lymphocytes Percent Auto 17.3 % (18.3-44.2); Mean Corpuscular HGB Conc 29.4 g/dl (32-36); Mean Corpuscular Hemoglobin 27.6 pg (26-34); Mean Platelet Volume 9.7 fl (7.4-10.4); Monocytes Absolute Auto 0.7 K/mm3 (0.1-0.6); Monocytes Percent Auto 8.5 % (2.6-8.5); Neutrophils Absolute Auto 5.3 K/mm3 (1.3-6.7); Neutrophils Percent Auto 68.2 % (45.5-73.1); Platelet Count Result 268 k/mm3 (150-375); Red Blood Count 3.69 M/mm3 (4.6-6.20); Red Cell Distribution Width 18.5 % (11.5-14.5); White Blood Count 7.7 K/mm3 (4.5-10.0)
[2023-09-06 04:33] LABS: Lactic Acid Reflex 1.3 mmol/L (0.7-2.0)
[2023-09-06 04:34] LABS: Albumin Level 3.1 g/dL (3.5-5.1); Anion Gap 9 mmol/L (4-12); Blood Urea Nitrogen 33 mg/dL (9-20); Calcium 7.6 mg/dL (8.4-10.2); Carbon Dioxide 30 mmol/L (22-30); Chloride 95 mmol/L (98-107); Estimated CRCL calculation 31 ml/min; Estimated Glomerular Filt Rate 12; Glucose 100 mg/dL (65-110); Phosphorus 6.3 mg/dL (2.5-4.5); Potassium 3.4 mmol/L (3.4-5.0); Sodium 134 mmol/L (137-145)
[2023-09-06 04:44] LABS: NT Pro B Type Natriuretic Pept 13800 pg/mL (19.9-100)
[2023-09-06 04:49] LABS: Anisocytosis 1+; Platelet Estimate Adequate (Adequate); Poikilocytosis 1+
[2023-09-06 04:51] LABS: Schistocytes None Seen
[2023-09-06 07:31] LABS: Glucose Point of Care 105 mg/dl (65-105)
[2023-09-06] MEDS: buPROPion HCL SR (12 HR) 150 MG TAB PO (08:15)
[2023-09-06] MEDS: FLUoxetine HCL 20 MG CAPSULE 60 MG PO (08:15)
[2023-09-06] MEDS: predniSONE 10 MG TABLET PO (08:15)
--- NOTE | 2023-09-06 08:15 | PM.PNNEP ---
Progress Note: A&P Assessment and Plan (1) Acute kidney injury: Code(s): N17.9 - Acute kidney failure, unspecified Status: Resolved Assessment and Plan: the patient has acute kidney injury. He had a normal creatinine 1 month ago when he was admitted , but last November he was in the hospital for sepsis and hypotension and he had acute kidney injury then with a creatinine that alvina as high as 2.8 but improved with fluids antibiotics and supportive care. Urine protein shows nephrotic range proteinuria. UA shows blood and will white cells in the urine. Urine electrolytes are non pre renal. Fractional excretion of urea is not interpretable. Renal ultrasound shows normal kidneys no hydro. The patient has multiple issues that could be leading to his current episode of acute kidney injury. The patient was on Lasix on admission.. He was not on it when he left in July. He must have been put on this medication in the last week or 2. In addition he says that his swelling is a little better now than it had been in the past and so this could be pre renal azotemia. However, his chest x-ray does show some fluid In addition the patient's blood pressure was quite low in the [facility] Emergency Room. Usually it runs between 110 and 130 and his pressure was as low as 74. This certainly is contributing to his YEVGENIY as well. The patient has multiple sacral wounds. he also has pyuria. He could have infection causing this.. This could of course lead to hypotension and renal failure plus his lethargy. the patient was discharged on antibiotics which finished about 3 weeks ago. I doubt if he still has interstitial nephritis at this point but this is always a possibility with the new medication like this. Notably he does not have eosinophilia or a maculopapular rash. Obstruction is always a possibility. Will check a renal ultrasound. Will check a bladder scan as well. Discussed with Dr. Christianson Will decrease fluids. Add antibiotics. Continue CPAP as needed and at bedtime will continue to follow. (2) Essential hypertension: Code(s): I10 - Essential (primary) hypertension Status: Acute Assessment and Plan: Blood pressure is on the low side. Hold blood pressure medications. (3) Type 2 diabetes mellitus: Code(s): E11.9 - Type 2 diabetes mellitus without complications Status: Acute Assessment and Plan: He was on metformin. This has been discontinued. He does have a mildly high lactate but this level is decreasing. (4) Obesity: Code(s): E66.9 - Obesity, unspecified Status: Acute Assessment and Plan: Patient has a very high body mass index. (5) Obstructive sleep apnea: Code(s): G47.33 - Obstructive sleep apnea (adult) (pediatric) Status: Acute Assessment and Plan: Patient is on CPAP. Subjective Date/time seen: 09/06/23 08:15 Interval history: patient feels a little better today. He is on the CPAP machine. More alert today. Review of Systems Cardiovascular: Cardiovascular: Reports no additional cardiovascular complaints Respiratory: Respiratory: Reports no additional respiratory complaints Gastrointestinal: Gastrointestinal: Reports no additional gastrointestinal complaints Genitourinary: Genitourinary: Reports no additional male genitourinary complaints Exam Narrative: WDWN in NAD skin no rash head ncat lungs clear cor reg no rub or gallop abd BS+ nontender and soft ext 2+ edema. Objective Data Vital Signs Vital Signs: Vital Signs - 24 hr 09/05/23 10:50 09/05/23 12:00 09/05/23 14:45 Temperature 97.8 F Pulse Rate 65 61 Respiratory Rate 17 22 H Blood Pressure 98/56 L Pulse Oximetry 92 96 96 Oxygen Delivery BiPAP Nasal Cannula Oxygen Flow Rate 2 09/05/23 12:00 09/05/23 16:00 09/05/23 17:42 Temperature 97.6 F Pulse Rate 64 64 98 Respiratory Rate 18 B
[2023-09-06 08:19] LABS: Glucose Point of Care 135 mg/dl (65-105)
[2023-09-06] MEDS: INSULIN GLARGINE (*BKC) 100 UNITS/ML 30 UNITS SUB-Q ×2 (08:19→21:02)
[2023-09-06 08:31] LABS: Device NASAL CANNULA; Fractional Inspired Oxygen 28 %; HCO3 ABG 30.8 mEq/l (22.0-26.0); Modified Allen's Test Pass; Oxygen Content ABG 15.9 %vol (16.0-22.0); Oxygen Saturation ABG 97.3 % (95.0-100.0); Oxyhemoglobin 96.5 % THb (90.0-100.0); PCO2 ABG 56.9 mmHg (35.0-45.0); PO2 ABG 102.5 mmHg (80.0-100.0); PO2 FiO2 Ratio Arterial Blood 3.66 %; Site Drawn RIGHT RADIAL; Total Hemoglobin 11.6 g/dL (12.0-18.0); pH ABG 7.351 (7.350-7.450)
[2023-09-06] MEDS: FLUTICASONE PROPIONATE 0.05% NA SPR 16 GM BTL (*BKC) 1 SPRAY NASAL (08:31)
[2023-09-06] MEDS: cefTRIAXone 2 GM/NS 100 ML 2 GM/100 ML BAG IVPB (08:33)
[2023-09-06] MEDS: SODIUM CHLORIDE 0.9% IV 1,000 ML 125 ML IV CONT ×2 (09:25→19:01)
--- NOTE | 2023-09-06 09:58 | WPDUROPN2 ---
Progress Note: A&P Assessment and Plan (1) Acute kidney injury: Code(s): N17.9 - Acute kidney failure, unspecified Status: Resolved Assessment and Plan: Patient has chronic indwelling hector which was changed in the ER on presentation. Catheter irrigated freely with no significant residual on 09/04. EUGENIA showed no hydronephrosis. His ARF does not appear to be obstructive in origin- appears to have oliguria, not hector malfunction, since catheter irrigates freely. Agree with need for nephrology management of his ARF. Continue hector catheter for accurate I&Os. Urine culture is pending. Subjective Subjective Date/Time Seen: 09/06/23 09:58 Interval history: Doing well today. No concerns. Still with very low urine output. Review of Systems Review of Systems: All systems reviewed & are unremarkable except as noted in HPI and below Exam Narrative: General: Awake, alert, comfortable, no acute distress, obese HEENT: Normocephalic, atraumatic, sclerae anicteric Respiratory: Normal respiratory effort, no accessory muscle use Abdomen: Nondistended, soft, nontender : Hector with scant yellow urine Skin: Normal coloration, warm and dry Neurologic: No focal neuro deficits noted Psychiatric: Appropriate mood and affect, judgment and insight intact Objective Data Vital Signs Vital Signs: Vital Signs - 24 hr 09/05/23 10:50 09/05/23 12:00 09/05/23 14:45 Temperature 97.8 F Pulse Rate 65 61 Respiratory Rate 17 22 H Blood Pressure 98/56 L Pulse Oximetry 92 96 96 Oxygen Delivery BiPAP Nasal Cannula Oxygen Flow Rate 2 09/05/23 12:00 09/05/23 16:00 09/05/23 17:42 Temperature 97.6 F Pulse Rate 64 64 98 Respiratory Rate 18 Blood Pressure 105/49 L Pulse Oximetry 94 Oxygen Delivery Oxygen Flow Rate 09/05/23 18:00 09/05/23 17:30 09/05/23 20:00 Temperature 97.5 F L Pulse Rate 63 65 Respiratory Rate 20 Blood Pressure 94/48 L Pulse Oximetry 98 97 Oxygen Delivery Nasal Cannula Oxygen Flow Rate 2 09/05/23 20:00 09/05/23 23:15 09/05/23 23:55 Temperature 98.1 F Pulse Rate 63 Respiratory Rate 16 Blood Pressure 96/47 L Pulse Oximetry 100 96 97 Oxygen Delivery Nasal Cannula BiPAP Oxygen Flow Rate 2 09/05/23 20:00 09/05/23 22:00 09/06/23 00:00 Temperature Pulse Rate 66 66 63 Respiratory Rate Blood Pressure Pulse Oximetry Oxygen Delivery Oxygen Flow Rate 09/06/23 02:00 09/05/23 23:25 09/06/23 02:52 Temperature Pulse Rate 67 72 68 Respiratory Rate 20 22 H Blood Pressure Pulse Oximetry 97 98 Oxygen Delivery BiPAP BiPAP Oxygen Flow Rate 09/06/23 04:00 09/06/23 04:00 09/06/23 04:00 Temperature 98.6 F Pulse Rate 65 66 Respiratory Rate 16 Blood Pressure 95/42 L Pulse Oximetry 97 95 Oxygen Delivery BiPAP Oxygen Flow Rate 28 09/06/23 05:53 09/06/23 07:24 09/06/23 08:00 Temperature 98.2 F Pulse Rate 63 64 Respiratory Rate 16 Blood Pressure 108/50 L Pulse Oximetry 100 95 Oxygen Delivery Nasal Cannula Oxygen Flow Rate 2 09/06/23 08:00 Temperature Pulse Rate 66 Respiratory Rate Blood Pressure Pulse Oximetry Oxygen Delivery Oxygen Flow Rate Intake/Output Intake/Output: Intake & Output 09/03/23 09/04/23 09/05/23 09/06/23 23:59 23:59 23:59 23:59 Intake Total 2444 1522 2340.0 Output Total 50 10 Balance 2444 1472 2330.0 Meds/Results Medications: Active Medications Generic Name Dose Route Start Last Admin Trade Name Freq PRN Reason Stop Dose Admin Acetaminophen 650 mg 09/04/23 19:39 Acetaminophen 325 Mg Tablet PO Q4H PRN Pain 1-3 Albuterol 2 puff 09/04/23 19:39 Albuterol Sulfate (*Sp) Aerosol 1 Puff INHALATION Q6HRT PRN Shortness Of Breath Or Wheezing Bupropion HCl 150 mg 09/05/23 09:00 09/06/23 08:15 Bupropion Hcl Sr (12 Hr) 150 Mg Tab PO 150 mg DAILY ANKUR Administration Calcium
[2023-09-06] MEDS: TOLNAFTATE 1% POWDER 45 GM BTL 1 APPLIC TOPICAL ×2 (11:44→21:02)
[2023-09-06 11:47] LABS: Glucose Point of Care 116 mg/dl (65-105)
[2023-09-06 12:56] LABS: Iron 25 ug/dL (49-181)
[2023-09-06 13:05] LABS: Percent Iron Saturation 9 % (20-50)
--- NOTE | 2023-09-06 13:33 | PM.IMPN ---
Progress Note: A&P Assessment and Plan (1) Respiratory failure: Code(s): J96.90 - Respiratory failure, unspecified, unspecified whether with hypoxia or hypercapnia Status: Acute Assessment and Plan: Patient is noncompliant with cpap in intermediate. Patient was on 2L last night but weaned off; he was found to be lethargic inthe morning (09/04) with ABG 7.32/64/81 on 1L. he was started on Bipap and tolerated this well. He wore BiPAP overnight and ABG today showing 7.35/57/103 on 2L Pt is more awake and alert now Encouraged compliance with BiPAP (2) Obstructive sleep apnea: Code(s): G47.33 - Obstructive sleep apnea (adult) (pediatric) Status: Acute Assessment and Plan: Noncompliant with treatment at the intermediate Compliance was encouraged (3) Acute kidney injury: Code(s): N17.9 - Acute kidney failure, unspecified Status: Resolved Assessment and Plan: Patient presents with weakness and found to have acute kidney injury. Baseline Cr is normal. He did have an elevated Cr 2.8 in November when he was ill but this normalized. Cr 2.8 on admission and has climbed to 5. Lactic acid 3.3 -> 1.3 now. Renal ultrasound showing normal kidneys with hydronephrosis. Portillo secured and is draining well. Evaluated by Urology who felt this was in good position and that the etiology of the YEVGENIY was not post-renal/obstructive process. Nephrology consulted Etiology includes: recent Lasix use at the [facility], sepsis/SIRS, HoTN. He was given fluid bolus and started on IV fluids (mostly for the HoTN) UA noted and UCx sent. Start Rocephin. Hold Flomax (due to soft BP) and Xarelto (in case he needs HD) Appreciate nephrology recommendations (4) Type 2 diabetes mellitus with hyperglycemia, with long-term current use of insulin: Code(s): E11.65 - Type 2 diabetes mellitus with hyperglycemia; Z79.4 - care home (current) use of insulin Status: Chronic Assessment and Plan: A1c 11.2 in July 22. The patient's blood glucose was reviewed on 09/05 Glucose remains well controlled. Continue AccuCheks covering with sliding scale. Hypoglycemia protocol available as needed. Continue current meds with Lantus 30U Q12h Continue to follow (5) Morbid obesity: Code(s): E66.01 - Morbid (severe) obesity due to excess calories Status: Acute Assessment and Plan: BMI 75. This is contributing and complicating his other medical problems. Patient using bariatric bed Routine skin care (6) Indwelling catheter present on admission: Code(s): Z96.0 - Presence of urogenital implants Status: Acute Assessment and Plan: Patient with chronic indwelling Portillo catheter Portillo catheter exchanged in the ED but no output so urology consulted for management of Portillo placement Portillo flushes well and now having UOP so not felt his YEVGENIY is post-renal. Routine Portillo care (7) Lymphedema associated with obesity: Code(s): I89.0 - Lymphedema, not elsewhere classified; E66.9 - Obesity, unspecified Status: Acute Assessment and Plan: Patient with chronic lymphedema related to his obesity (8) Wound of buttock: Code(s): S31.809A - Unspecified open wound of unspecified buttock, initial encounter Status: Acute Assessment and Plan: Patient with several wounds to buttock/sacrum area. Wound consult management eval and treat Encourage pt to reposition q1 hr Plan VTE Prophylaxis - Xarelto but will hold for need for possible HD Code Status: Full code Subjective Date/time seen: 09/06/23 13:33 Interval history: 53yo male with DM, COPD, HTN, lymphedema, TAMY, RA, multiple chronic sacral wounds and morbid obesity here from the intermediate with complaints of weakness Assuming care. Chart reviewed. he slept okay. No CP or SOB. Not on oxygen normally. he is bed-bound at the [facility]. No n/v. He wore the mask last night. Moved to the
[2023-09-06 16:45] LABS: Glucose Point of Care 145 mg/dl (65-105)
[2023-09-06 20:16] LABS: Glucose Point of Care 151 mg/dl (65-105)
[2023-09-06] MEDS: traZODone HCL 50 MG TABLET 100 MG PO (21:02)
[2023-09-07] VITALS (15 sets, daily range): BP systolic 105–132; BP diastolic 55–72; PULSE 57–85; RESP 12–24; TEMP 36.4–36.9; O2SAT 95–100
[2023-09-07] MEDS: SODIUM CHLORIDE 0.9% IV 1,000 ML 125 ML IV CONT ×3 (03:08→20:15)
[2023-09-07 04:17] LABS: Basophils Percent Auto 0.5 % (0.2-1.2); Eosinophils Absolute Auto 0.3 K/mm3 (0-0.3); Eosinophils Percent Auto 4.3 % (0-4.4); Hematocrit 34.6 % (42.0-52.0); Hemoglobin 10.4 g/dL (14.0-18.0); Immature Granulocyte Absolute 0.05 K/mm3 (0.00-0.031); Immature Granulocyte Percent A 0.8 % (0-0.5); Lymphocytes Absolute Auto 1.04 K/mm3 (0.9-3.2); Lymphocytes Percent Auto 15.9 % (18.3-44.2); Mean Corpuscular HGB Conc 30.1 g/dl (32-36); Mean Corpuscular Hemoglobin 27.7 pg (26-34); Mean Corpuscular Volume 92.3 fl (80-100); Monocytes Absolute Auto 0.6 K/mm3 (0.1-0.6); Neutrophils Absolute Auto 4.6 K/mm3 (1.3-6.7); Neutrophils Percent Auto 69.5 % (45.5-73.1); Platelet Count Result 251 k/mm3 (150-375); Red Blood Count 3.75 M/mm3 (4.6-6.20); Red Cell Distribution Width 18.2 % (11.5-14.5); White Blood Count 6.6 K/mm3 (4.5-10.0)
[2023-09-07 04:30] LABS: Albumin Level 3.2 g/dL (3.5-5.1); Anion Gap 7 mmol/L (4-12); Blood Urea Nitrogen 39 mg/dL (9-20); Calcium 7.6 mg/dL (8.4-10.2); Carbon Dioxide 30 mmol/L (22-30); Chloride 96 mmol/L (98-107); Estimated CRCL calculation 33 ml/min; Estimated Glomerular Filt Rate 13; Glucose 131 mg/dL (65-110); Phosphorus 6.2 mg/dL (2.5-4.5); Potassium 3.6 mmol/L (3.4-5.0); Sodium 133 mmol/L (137-145)
[2023-09-07 07:29] LABS: Glucose Point of Care 145 mg/dl (65-105)
--- NOTE | 2023-09-07 07:58 | PM.PNNEP ---
Progress Note: A&P Assessment and Plan (1) Acute kidney injury: Code(s): N17.9 - Acute kidney failure, unspecified Status: Resolved Assessment and Plan: the patient has acute kidney injury. He had a normal creatinine 1 month ago when he was admitted , but last November he was in the hospital for sepsis and hypotension and he had acute kidney injury then with a creatinine that alvina as high as 2.8 but improved with fluids antibiotics and supportive care. Urine protein shows nephrotic range proteinuria. UA shows blood and will white cells in the urine. Urine electrolytes are non pre renal. Fractional excretion of urea is not interpretable. Renal ultrasound shows normal kidneys no hydro. The patient has multiple issues that could be leading to his current episode of acute kidney injury. he could have pre renal azotemia since he was on diuretics. Patient was hypotensive in the ER. The patient has multiple sacral wounds. he also has pyuria. These could be contributing as well. Creatinine level has come down some. On cheri IV fluids. Added antibiotics yesterday. Continue CPAP as needed and at bedtime will continue to follow. (2) Essential hypertension: Code(s): I10 - Essential (primary) hypertension Status: Acute Assessment and Plan: Blood pressure is on the lowish side. Hold blood pressure medications. (3) Type 2 diabetes mellitus: Code(s): E11.9 - Type 2 diabetes mellitus without complications Status: Acute Assessment and Plan: He was on metformin. This has been discontinued. He does have a mildly high lactate but this level is decreasing. (4) Obesity: Code(s): E66.9 - Obesity, unspecified Status: Acute Assessment and Plan: Patient has a very high body mass index. (5) Obstructive sleep apnea: Code(s): G47.33 - Obstructive sleep apnea (adult) (pediatric) Status: Acute Assessment and Plan: Patient is on CPAP. Subjective Date/time seen: 09/07/23 07:58 Interval history: Patient is feeling about the same. No chest pain or shortness of Exam Narrative: WDWN in NAD skin no rash head ncat lungs clear bilaterally cor reg no rub or gallop abd BS+ nontender and soft ext 2+ edema bilateral. Objective Data Vital Signs Vital Signs: Vital Signs - 24 hr 09/06/23 08:00 09/06/23 08:00 09/06/23 10:00 Temperature Pulse Rate 66 71 Respiratory Rate Blood Pressure Pulse Oximetry 95 Oxygen Delivery Nasal Cannula Oxygen Flow Rate 2 Fraction of Inspired Oxygen 09/06/23 10:32 09/06/23 11:45 09/06/23 12:00 Temperature 98.6 F Pulse Rate 66 Respiratory Rate 18 Blood Pressure 113/59 L Pulse Oximetry 97 100 98 Oxygen Delivery Nasal Cannula Nasal Cannula Oxygen Flow Rate 2 2 Fraction of Inspired Oxygen 09/06/23 12:00 09/06/23 16:00 09/06/23 14:00 Temperature 97.8 F Pulse Rate 69 75 72 Respiratory Rate 18 Blood Pressure 118/57 L Pulse Oximetry 100 Oxygen Delivery Oxygen Flow Rate Fraction of Inspired Oxygen 09/06/23 16:00 09/06/23 16:00 09/06/23 18:00 Temperature Pulse Rate 83 76 Respiratory Rate Blood Pressure Pulse Oximetry 98 Oxygen Delivery Nasal Cannula Oxygen Flow Rate 2 Fraction of Inspired Oxygen 09/06/23 20:00 09/06/23 20:00 09/06/23 20:00 Temperature 98.3 F Pulse Rate 80 82 Respiratory Rate 18 Blood Pressure 113/58 L Pulse Oximetry 100 100 Oxygen Delivery Nasal Cannula Oxygen Flow Rate 2 Fraction of Inspired Oxygen 09/06/23 22:00 09/06/23 22:00 09/06/23 23:45 Temperature 98.5 F Pulse Rate 68 72 70 Respiratory Rate 21 H 18 Blood Pressure 100/58 L Pulse Oximetry 98 98 Oxygen Delivery BiPAP Oxygen Flow Rate Fraction of Inspired Oxygen 09/07/23 00:00 09/07/23 00:00 09/07/23 02:00 Temperature Pulse Rate 68 70 Respiratory R
[2023-09-07] MEDS: cefTRIAXone 2 GM/NS 100 ML 2 GM/100 ML BAG IVPB (08:45)
[2023-09-07] MEDS: FLUTICASONE PROPIONATE 0.05% NA SPR 16 GM BTL (*BKC) 1 SPRAY NASAL (08:46)
[2023-09-07] MEDS: FLUoxetine HCL 20 MG CAPSULE 60 MG PO (08:46)
[2023-09-07] MEDS: predniSONE 10 MG TABLET PO (08:46)
[2023-09-07] MEDS: buPROPion HCL SR (12 HR) 150 MG TAB PO (08:46)
[2023-09-07] MEDS: INSULIN GLARGINE (*BKC) 100 UNITS/ML 30 UNITS SUB-Q ×2 (08:46→20:18)
--- NOTE | 2023-09-07 09:55 | WPDUROPN2 ---
Progress Note: A&P Assessment and Plan (1) Acute kidney injury: Code(s): N17.9 - Acute kidney failure, unspecified Status: Resolved Assessment and Plan: Patient has chronic indwelling hector which was changed in the ER on presentation. Catheter irrigated freely with no significant residual on 09/04. His ARF does not appear to be obstructive in origin- appears to have oliguria, not hector malfunction, since catheter irrigates freely. Renal ultrasound completed yesterday shows normal kidneys with no evidence of obstruction or hydronephrosis. Agree with need for nephrology management of his ARF. Continue hector catheter for accurate I&Os. Urine output slightly improved today. Urine culture still pending, will continue to monitor for results Subjective Subjective Date/Time Seen: 09/07/23 09:55 Interval history: Doing well today. Reports no concerns. No issues with Hector catheter which is draining clear yellow urine. Tolerating his diet. Review of Systems Review of Systems: All systems reviewed & are unremarkable except as noted in HPI and below Exam Narrative: General: Awake, alert, comfortable, no acute distress, obese HEENT: Normocephalic, atraumatic, sclerae anicteric Respiratory: Normal respiratory effort, no accessory muscle use Abdomen: Nondistended, soft, nontender : Hector catheter draining clear yellow urine Skin: Normal coloration, warm and dry Neurologic: No focal neuro deficits noted Psychiatric: Appropriate mood and affect, judgment and insight intact Objective Data Vital Signs Vital Signs: Vital Signs - 24 hr 09/06/23 10:00 09/06/23 10:32 09/06/23 11:45 Temperature 98.6 F Pulse Rate 71 66 Respiratory Rate 18 Blood Pressure 113/59 L Pulse Oximetry 97 100 Oxygen Delivery Nasal Cannula Oxygen Flow Rate 2 Fraction of Inspired Oxygen 09/06/23 12:00 09/06/23 12:00 09/06/23 16:00 Temperature 97.8 F Pulse Rate 69 75 Respiratory Rate 18 Blood Pressure 118/57 L Pulse Oximetry 98 100 Oxygen Delivery Nasal Cannula Oxygen Flow Rate 2 Fraction of Inspired Oxygen 09/06/23 14:00 09/06/23 16:00 09/06/23 16:00 Temperature Pulse Rate 72 83 Respiratory Rate Blood Pressure Pulse Oximetry 98 Oxygen Delivery Nasal Cannula Oxygen Flow Rate 2 Fraction of Inspired Oxygen 09/06/23 18:00 09/06/23 20:00 09/06/23 20:00 Temperature 98.3 F Pulse Rate 76 80 Respiratory Rate 18 Blood Pressure 113/58 L Pulse Oximetry 100 100 Oxygen Delivery Nasal Cannula Oxygen Flow Rate 2 Fraction of Inspired Oxygen 09/06/23 20:00 09/06/23 22:00 09/06/23 22:00 Temperature Pulse Rate 82 68 72 Respiratory Rate 21 H Blood Pressure Pulse Oximetry 98 Oxygen Delivery BiPAP Oxygen Flow Rate Fraction of Inspired Oxygen 09/06/23 23:45 09/07/23 00:00 09/07/23 00:00 Temperature 98.5 F Pulse Rate 70 68 Respiratory Rate 18 Blood Pressure 100/58 L Pulse Oximetry 98 100 Oxygen Delivery BiPAP Oxygen Flow Rate Fraction of Inspired Oxygen 28 09/07/23 02:00 09/07/23 03:38 09/07/23 04:00 Temperature 97.7 F Pulse Rate 70 74 70 Respiratory Rate 16 Blood Pressure 109/59 L Pulse Oximetry 99 Oxygen Delivery Oxygen Flow Rate Fraction of Inspired Oxygen 09/07/23 04:00 09/07/23 06:00 09/07/23 07:57 Temperature Pulse Rate 71 Respiratory Rate Blood Pressure Pulse Oximetry 100 99 Oxygen Delivery Nasal Cannula Nasal Cannula Oxygen Flow Rate 2 2 Fraction of Inspired Oxygen 09/07/23 08:00 Temperature 97.6 F Pulse Rate 71 Respiratory Rate 16 Blood Pressure 105/55 L Pulse Oximetry 100 Oxygen Delivery Oxygen Flow Rate Fraction of Inspired Oxygen Intake/Output Intake/Output: Intake & Output 09/04/23 09/05/23 09/06/23 09/07/23 23:59 23:59 23:59 23:59 Intake Total 2444 1522 4370.0 1000 Output Total 50 135 400 Balance 2444 1472 4235.0
[2023-09-07 11:35] LABS: Glucose Point of Care 147 mg/dl (65-105)
[2023-09-07] MEDS: TOLNAFTATE 1% POWDER 45 GM BTL 1 APPLIC TOPICAL ×2 (11:36→20:18)
--- NOTE | 2023-09-07 14:36 | PM.IMPN ---
Progress Note: A&P Assessment and Plan (1) Respiratory failure: Code(s): J96.90 - Respiratory failure, unspecified, unspecified whether with hypoxia or hypercapnia Status: Acute Assessment and Plan: Patient is noncompliant with bipap in care home. Patient was found to be lethargic on the morning of 09/04 with ABG 7.32/64/81 on 1L. He was started on Bipap and tolerated this well. ABG the next day showing 7.35/57/103 on 2L Pt states he wore bipap last night; noted state he wore this at 2200 but not 0227 or 0757 Encouraged compliance with BiPAP (2) Obstructive sleep apnea: Code(s): G47.33 - Obstructive sleep apnea (adult) (pediatric) Status: Acute Assessment and Plan: Noncompliant with treatment at the care home Compliance was encouraged (3) Acute kidney injury: Code(s): N17.9 - Acute kidney failure, unspecified Status: Resolved Assessment and Plan: Patient presents with weakness and found to have acute kidney injury. Baseline Cr is normal. He did have an elevated Cr 2.8 in November when he was ill but this normalized. Cr 2.8 on admission and climbed to 5. Lactic acid 3.3 -> 1.3 now. Renal ultrasound showing normal kidneys with hydronephrosis. Evaluated by Urology who felt this was in good position and that the etiology of the YEVGENIY was not post-renal/obstructive process. Nephrology consulted Etiology includes: recent Lasix use at the [place], sepsis/SIRS, HoTN. He was given fluid bolus and started on IV fluids (mostly for the HoTN) UA noted and UCx sent. Started Rocephin. Holding Flomax (due to soft BP) and Xarelto (in case he needs HD) Portillo secured and is draining well. UOP 135mL yesterday and 800mL today. Cr imprvoed to 4.5 today. Monitor UOP, electrolytes and renal function (4) Type 2 diabetes mellitus with hyperglycemia, with long-term current use of insulin: Code(s): E11.65 - Type 2 diabetes mellitus with hyperglycemia; Z79.4 - residential (current) use of insulin Status: Chronic Assessment and Plan: A1c 11.2 in July 22. The patient's blood glucose was reviewed on 09/06 Glucose remains well controlled. Continue AccuCheks covering with sliding scale. Hypoglycemia protocol available as needed. Continue current meds with Lantus 30U Q12h Continue to follow (5) Morbid obesity: Code(s): E66.01 - Morbid (severe) obesity due to excess calories Status: Acute Assessment and Plan: BMI 75. This is contributing and complicating his other medical problems. Patient using bariatric bed Routine skin care (6) Indwelling catheter present on admission: Code(s): Z96.0 - Presence of urogenital implants Status: Acute Assessment and Plan: Patient with chronic indwelling Portillo catheter Portillo catheter exchanged in the ED but no output so urology consulted for management of Portillo placement Portillo flushes well and now having UOP so not felt his YEVGENIY is post-renal. Routine Portillo care (7) Lymphedema associated with obesity: Code(s): I89.0 - Lymphedema, not elsewhere classified; E66.9 - Obesity, unspecified Status: Acute Assessment and Plan: Patient with chronic lymphedema related to his obesity (8) Wound of buttock: Code(s): S31.809A - Unspecified open wound of unspecified buttock, initial encounter Status: Acute Assessment and Plan: Patient with several wounds to buttock/sacrum area. Wound consult management eval and treat Encourage pt to reposition q1 hr Plan VTE Prophylaxis - Xarelto but will hold for need for possible HD, SCDs if possible Code Status: Full code Subjective Date/time seen: 09/07/23 14:36 Interval history: 53yo male with DM, COPD, HTN, lymphedema, TAMY, RA, multiple chronic sacral wounds and morbid obesity here from the care home with complaints of weakness Slept okay. Wore the bipap last night. Not on O2 at the care home. No C
[2023-09-07 16:34] LABS: Glucose Point of Care 168 mg/dl (65-105)
[2023-09-07 20:12] LABS: Glucose Point of Care 182 mg/dl (65-105)
[2023-09-07] MEDS: oxyCODONE HCL (*CRX) 5 MG TAB IR PO (20:17)
[2023-09-07] MEDS: traZODone HCL 50 MG TABLET 100 MG PO (20:18)
[2023-09-08] VITALS (17 sets, daily range): BP systolic 115–138; BP diastolic 63–74; PULSE 66–93; RESP 12–22; TEMP 36.1–36.6; O2SAT 96–100
--- NOTE | 2023-09-08 03:00 | PC.NURSE ---
Pt HR dropped as low as 35 non-sustaining with a BP of 122/66. Pt without symptoms. Pt without complaints.
[2023-09-08 04:21] LABS: Basophils Percent Auto 0.5 % (0.2-1.2); Eosinophils Absolute Auto 0.3 K/mm3 (0-0.3); Eosinophils Percent Auto 5.3 % (0-4.4); Hematocrit 32.7 % (42.0-52.0); Hemoglobin 9.6 g/dL (14.0-18.0); Immature Granulocyte Absolute 0.05 K/mm3 (0.00-0.031); Immature Granulocyte Percent A 0.8 % (0-0.5); Lymphocytes Absolute Auto 1.07 K/mm3 (0.9-3.2); Lymphocytes Percent Auto 17.2 % (18.3-44.2); Mean Corpuscular HGB Conc 29.4 g/dl (32-36); Mean Corpuscular Hemoglobin 27.2 pg (26-34); Mean Corpuscular Volume 92.6 fl (80-100); Mean Platelet Volume 9.5 fl (7.4-10.4); Monocytes Absolute Auto 0.5 K/mm3 (0.1-0.6); Monocytes Percent Auto 7.7 % (2.6-8.5); Neutrophils Absolute Auto 4.3 K/mm3 (1.3-6.7); Neutrophils Percent Auto 68.5 % (45.5-73.1); Platelet Count Result 253 k/mm3 (150-375); Red Blood Count 3.53 M/mm3 (4.6-6.20); White Blood Count 6.2 K/mm3 (4.5-10.0)
[2023-09-08] MEDS: SODIUM CHLORIDE 0.9% IV 1,000 ML 125 ML IV CONT (04:25)
[2023-09-08 04:31] LABS: Albumin Level 3.1 g/dL (3.5-5.1); Anion Gap 5 mmol/L (4-12); Blood Urea Nitrogen 32 mg/dL (9-20); Calcium 7.9 mg/dL (8.4-10.2); Carbon Dioxide 32 mmol/L (22-30); Chloride 98 mmol/L (98-107); Estimated CRCL calculation 54 ml/min; Estimated Glomerular Filt Rate 24; Glucose 136 mg/dL (65-110); Magnesium 1.8 mg/dL (1.6-2.3); Potassium 3.6 mmol/L (3.4-5.0); Sodium 135 mmol/L (137-145)
[2023-09-08 04:52] LABS: Anisocytosis 1+; Hypochromasia 1+; Ovalocytes 1+; Platelet Estimate Adequate (Adequate); Schistocytes None Seen
[2023-09-08 07:53] LABS: Glucose Point of Care 118 mg/dl (65-105)
--- NOTE | 2023-09-08 08:09 | PM.IMPN ---
Progress Note: A&P Assessment and Plan (1) Acute respiratory failure with hypoxia and hypercapnia: Code(s): J96.01 - Acute respiratory failure with hypoxia; J96.02 - Acute respiratory failure with hypercapnia Status: Acute Assessment and Plan: Patient is noncompliant [facility] in [facility]. Reports [facility] did not want to use it.. 09/05 night wore 4 hours 09/06 night wore 2.5 hours, reports mask is pressing on ear Compliance encouraged. Patient was found to be lethargic on the morning of 09/04 with ABG 7.32/64/81 on 1L. He was started on Bipap and tolerated this well. ABG the next day showing 7.35/57/103 on 2L Continue NIV at night. Currently on 2 L nasal cannula. He may have chronic hypoxic and hypercarbic respiratory failure. (2) Obstructive sleep apnea: Code(s): G47.33 - Obstructive sleep apnea (adult) (pediatric) Status: Acute Assessment and Plan: Noncompliant with treatment at the [facility] Compliance was encouraged (3) Acute kidney injury: Code(s): N17.9 - Acute kidney failure, unspecified Status: Resolved Assessment and Plan: Patient presents with weakness and found to have acute kidney injury. Baseline Cr is normal. He did have an elevated Cr 2.8 in November when he was ill but this normalized. Cr 2.8 on admission and climbed to 5. Lactic acid 3.3 -> 1.3 now. Renal ultrasound showing normal kidneys with hydronephrosis. Evaluated by Urology who felt this was in good position and that the etiology of the YEVGENIY was not post-renal/obstructive process. Nephrology consulted Etiology includes: recent Lasix use at the [place], sepsis/SIRS, HoTN. He was given fluid bolus and started on IV fluids (mostly for the HoTN) UA noted urine culture negative. Started Rocephin 09/05. Continue for at least 5 days due to complicated UTI due to indwelling Portillo catheter. Portillo secured and is draining well. UOP adequate Cr continues to improve. Discontinue normal saline. Monitor UOP, electrolytes and renal function (4) Type 2 diabetes mellitus with hyperglycemia, with long-term current use of insulin: Code(s): E11.65 - Type 2 diabetes mellitus with hyperglycemia; Z79.4 - assisted (current) use of insulin Status: Chronic Assessment and Plan: A1c 11.2 in July 22. Glucose remains well controlled. Continue AccuCheks covering with sliding scale. Hypoglycemia protocol available as needed. Continue current meds with Lantus 30U Q12h Continue to follow (5) Morbid obesity: Code(s): E66.01 - Morbid (severe) obesity due to excess calories Status: Acute Assessment and Plan: BMI 75. This is contributing and complicating his other medical problems. Patient using bariatric bed Routine skin care Counseling provided. (6) Indwelling catheter present on admission: Code(s): Z96.0 - Presence of urogenital implants Status: Acute Assessment and Plan: Patient with chronic indwelling Portillo catheter. Reports this was placed in the last few months because of his chronic wounds and they wanted to keep them dry. Also has history of BPH. Portillo catheter exchanged in the ED but no output so urology consulted for management of Portillo placement Portillo flushes well and now having UOP so not felt his YEVGENIY is post-renal. Routine Portillo care (7) Lymphedema associated with obesity: Code(s): I89.0 - Lymphedema, not elsewhere classified; E66.9 - Obesity, unspecified Status: Acute Assessment and Plan: Patient with chronic lymphedema related to his obesity (8) Wound of buttock: Code(s): S31.809A - Unspecified open wound of unspecified buttock, initial encounter Status: Acute Assessment and Plan: Patient with several wounds to buttock/sacrum area. Do not appear infected. Wound consulted Encourage pt to reposition q1 hr (9) BPH (benign prostatic hyperplasia): Qualifiers: Shabnam
[2023-09-08] MEDS: INSULIN GLARGINE (*BKC) 100 UNITS/ML 30 UNITS SUB-Q ×2 (08:17→21:34)
[2023-09-08] MEDS: FLUoxetine HCL 20 MG CAPSULE 60 MG PO (08:18)
[2023-09-08] MEDS: cefTRIAXone 2 GM/NS 100 ML 2 GM/100 ML BAG IVPB (08:18)
[2023-09-08] MEDS: TOLNAFTATE 1% POWDER 45 GM BTL 1 APPLIC TOPICAL ×2 (08:18→21:35)
[2023-09-08] MEDS: buPROPion HCL SR (12 HR) 150 MG TAB PO (08:18)
[2023-09-08] MEDS: FLUTICASONE PROPIONATE 0.05% NA SPR 16 GM BTL (*BKC) 1 SPRAY NASAL (08:18)
[2023-09-08] MEDS: predniSONE 10 MG TABLET PO (08:18)
[2023-09-08 08:48] LABS: Osmolality, Urine 286 mOsm/kg (50-1200)
[2023-09-08 11:40] LABS: Glucose Point of Care 133 mg/dl (65-105)
[2023-09-08 12:39] LABS: PSA, Free 0.1 ng/mL; PSA, Total 0.6 ng/mL (< OR = 4.0); Percent Free Prostate Spec Ag 17 % (calc) (>25)
--- NOTE | 2023-09-08 13:10 | PM.PNNEP ---
Progress Note: A&P Assessment and Plan (1) Acute kidney injury: Code(s): N17.9 - Acute kidney failure, unspecified Status: Acute Assessment and Plan: normal creatinine noted approximately a month ago creatinine peaked/plateaued at 5.0mg/dl - improvement noted evaluation to date noted: UA with blood and WBCs nephrotic range proteinuria noted urine electrolytes non-prerenal renal ultrasound without obstruction CPK low suspect ATN with multifactorial etiology: prerenal factors diuretic use prior to admission (HCTZ and lasix) relative hypotension on admission pyuria multiple sacral wounds follow trend of repeat labs and UOP (2) Essential hypertension: Code(s): I10 - Essential (primary) hypertension Status: Chronic Assessment and Plan: low on admission s/p IVF resuscitation and holding BP medications BP doing better follow trend of hemodynamics (3) Sacral wound: Code(s): S31.000A - Unspecified open wound of lower back and pelvis without penetration into retroperitoneum, initial encounter Status: Acute Assessment and Plan: as noted on admission however, no clear evidence of acute infection wound care following continue supportive therapy (4) Obstructive sleep apnea: Code(s): G47.33 - Obstructive sleep apnea (adult) (pediatric) Status: Acute Assessment and Plan: continue CPAP therapy at night (5) Type 2 diabetes mellitus: Code(s): E11.9 - Type 2 diabetes mellitus without complications Status: Chronic Assessment and Plan: follow accu-cheks holding metformin glycemic control per hospitalists Will continue to follow. Subjective Date/time seen: 09/08/23 13:10 Interval history: Follow-up for acute kidney injury/acute renal failure. Chart reviewed -- assuming care from Dr. Gonzales; renal function improved in the last 24 hours; no apparent distress noted at the time of my visit; no other issues/events overnight or earlier this morning; no other complaints voiced. Exam Narrative: General: large WD/WN male in NAD Heart: normal S1 and S2; no rub Lungs: clear to auscultation Abdomen: soft, nontender, nondistended, positive bowel sounds Extremities: no cyanosis or clubbing; 2+ edema Skin: warm and dry Objective Data Vital Signs Vital Signs: Vital Signs Temp Pulse Resp BP Pulse Ox O2 Del Method O2 Flow Rate 09/08/23 13:03 96 Nasal Cannula 1 09/08/23 12:00 97.3 F L 80 16 138/74 99 09/08/23 08:00 97.6 F 90 16 122/71 96 09/08/23 10:00 74 09/08/23 08:00 98 Nasal Cannula 2 09/08/23 08:00 93 09/08/23 06:00 74 09/08/23 02:10 66 18 99 BiPAP 09/08/23 04:00 98 Nasal Cannula 2 09/08/23 04:00 69 09/08/23 02:00 80 09/08/23 05:14 97.7 F 67 22 H 115/63 98 09/07/23 22:45 64 17 100 BiPAP 09/08/23 00:00 98 Nasal Cannula 2 09/08/23 00:00 69 09/07/23 23:23 98.0 F 74 23 H 119/72 95 09/07/23 22:00 69 09/07/23 20:00 98 Nasal Cannula 2 09/07/23 20:00 85 09/07/23 19:46 98.3 F 57 L 24 H 119/60 99 Intake/Output Intake/Output: Intake & Output 09/05/23 09/06/23 09/07/23 09/08/23 23:59 23:59 23:59 23:59 Intake Total 1522 4370.0 4530 3709.6 Output Total 50 135 2300 4000 Balance 1472 4235.0 2230 -290.4 Meds/Results Medications: Active Medications Generic Name Dose Route Start Last Admin Trade Name Freq PRN Reason Stop Dose Admin Acetaminophen 650 mg 09/04/23 19:39 Acetaminophen 325 Mg Tablet PO Q4H PRN Pain 1-3 Albuterol 2 puff 09/04/23 19:39 Albuterol Sulfate (*Sp) Aerosol 1 Puff INHALATION Q6HRT PRN Shortness Of Breath Or Wheezing Bupropion HCl 150 mg 09/05/23 09:00 09/08/23 08:18 Bupropion Hcl Sr (12 Hr) 150 Mg Tab PO 150 mg DAILY ANKUR Administration Elias
--- NOTE | 2023-09-08 13:10 | P.PNNP_ITS ---
Progress Note: A&P Assessment and Plan (1) Acute kidney injury: Code(s): N17.9 - Acute kidney failure, unspecified Status: Acute Assessment and Plan: * normal creatinine noted approximately a month ago * creatinine peaked/plateaued at 5.0mg/dl - improvement noted * evaluation to date noted: * UA with blood and WBCs * nephrotic range proteinuria noted * urine electrolytes non-prerenal * renal ultrasound without obstruction * CPK low * suspect ATN with multifactorial etiology: * prerenal factors * diuretic use prior to admission (HCTZ and lasix) * relative hypotension on admission * pyuria * multiple sacral wounds * follow trend of repeat labs and UOP (2) Essential hypertension: Code(s): I10 - Essential (primary) hypertension Status: Chronic Assessment and Plan: * low on admission * s/p IVF resuscitation and holding BP medications * BP doing better * follow trend of hemodynamics (3) Sacral wound: Code(s): S31.000A - Unspecified open wound of lower back and pelvis without penetration into retroperitoneum, initial encounter Status: Acute Assessment and Plan: * as noted on admission * however, no clear evidence of acute infection * wound care following * continue supportive therapy (4) Obstructive sleep apnea: Code(s): G47.33 - Obstructive sleep apnea (adult) (pediatric) Status: Acute Assessment and Plan: * continue CPAP therapy at night (5) Type 2 diabetes mellitus: Code(s): E11.9 - Type 2 diabetes mellitus without complications Status: Chronic Assessment and Plan: * follow accu-cheks * holding metformin * glycemic control per hospitalists Will continue to follow. Subjective Date/time seen: 09/08/23 13:10 Interval history: Follow-up for acute kidney injury/acute renal failure. Chart reviewed -- assuming care from Dr. Gonzales; renal function improved in the last 24 hours; no apparent distress noted at the time of my visit; no other issues/events overnight or earlier this morning; no other complaints voiced. Exam Narrative: General: large WD/WN male in NAD Heart: normal S1 and S2; no rub Lungs: clear to auscultation Abdomen: soft, nontender, nondistended, positive bowel sounds Extremities: no cyanosis or clubbing; 2+ edema Skin: warm and dry Objective Data Vital Signs Vital Signs: Vital Signs Temp Pulse Resp BP Pulse Ox O2 Del Method O2 Flow Rate 09/08/23 13:03 96 Nasal Cannula 1 09/08/23 12:00 97.3 F L 80 16 138/74 99 09/08/23 08:00 97.6 F 90 16 122/71 96 09/08/23 10:00 74 09/08/23 08:00 98 Nasal Cannula 2 09/08/23 08:00 93 09/08/23 06:00 74 09/08/23 02:10 66 18 99 BiPAP 09/08/23 04:00 98 Nasal Cannula 2 09/08/23 04:00 69 09/08/23 02:00 80 09/08/23 05:14 97.7 F 67 22 H 115/63 98 09/07/23 22:45 64 17 100 BiPAP 09/08/23 00:00 98 Nasal Cannula 2 09/08/23 00:00 69 09/07/23 23:23 98.0 F 74 23 H 119/72 95 09/07/23 22:00 69 09/07/23 20:00 98 Nasal Cannula 2 09/07/23 20:00 85 09/07/23 19:46 98.3 F 57 L 24 H 119/60 99
[2023-09-08 16:43] LABS: Glucose Point of Care 200 mg/dl (65-105)
[2023-09-08] MEDS: RIVAROXABAN 20 MG TABLET PO (17:16)
[2023-09-08 20:10] LABS: Glucose Point of Care 195 mg/dl (65-105)
[2023-09-08] MEDS: oxyCODONE HCL (*CRX) 5 MG TAB IR PO (21:35)
[2023-09-08] MEDS: traZODone HCL 50 MG TABLET 100 MG PO (21:35)
[2023-09-09] VITALS (15 sets, daily range): BP systolic 118–145; BP diastolic 60–79; PULSE 77–85; RESP 16–22; TEMP 36.1–37.1; O2SAT 95–99
[2023-09-09 04:34] LABS: Basophils Absolute Auto 0.1 K/mm3 (0.0-0.1); Eosinophils Absolute Auto 0.3 K/mm3 (0-0.3); Eosinophils Percent Auto 4.6 % (0-4.4); Hemoglobin 10.5 g/dL (14.0-18.0); Immature Granulocyte Absolute 0.05 K/mm3 (0.00-0.031); Immature Granulocyte Percent A 0.8 % (0-0.5); Lymphocytes Percent Auto 21.3 % (18.3-44.2); Mean Corpuscular HGB Conc 29.2 g/dl (32-36); Mean Corpuscular Hemoglobin 26.9 pg (26-34); Mean Corpuscular Volume 92.3 fl (80-100); Mean Platelet Volume 9.8 fl (7.4-10.4); Monocytes Absolute Auto 0.6 K/mm3 (0.1-0.6); Monocytes Percent Auto 9.7 % (2.6-8.5); Neutrophils Absolute Auto 3.8 K/mm3 (1.3-6.7); Neutrophils Percent Auto 62.6 % (45.5-73.1); Platelet Count Result 248 k/mm3 (150-375); Red Cell Distribution Width 17.5 % (11.5-14.5); White Blood Count 6.1 K/mm3 (4.5-10.0)
[2023-09-09 04:46] LABS: Anion Gap 2 mmol/L (4-12); Blood Urea Nitrogen 25 mg/dL (9-20); Calcium 8.3 mg/dL (8.4-10.2); Carbon Dioxide 35 mmol/L (22-30); Chloride 99 mmol/L (98-107); Estimated CRCL calculation 94 ml/min; Estimated Glomerular Filt Rate 45; Glucose 148 mg/dL (65-110); Potassium 3.6 mmol/L (3.4-5.0); Sodium 136 mmol/L (137-145)
[2023-09-09 05:14] LABS: Ovalocytes 1+; Platelet Estimate Adequate (Adequate)
[2023-09-09 05:15] LABS: Anisocytosis 1+; Schistocytes None Seen
[2023-09-09 07:53] LABS: Glucose Point of Care 129 mg/dl (65-105)
[2023-09-09] MEDS: FLUoxetine HCL 20 MG CAPSULE 60 MG PO (08:40)
[2023-09-09] MEDS: TOLNAFTATE 1% POWDER 45 GM BTL 1 APPLIC TOPICAL (08:41)
[2023-09-09] MEDS: FLUTICASONE PROPIONATE 0.05% NA SPR 16 GM BTL (*BKC) 1 SPRAY NASAL (08:41)
[2023-09-09] MEDS: predniSONE 10 MG TABLET PO (08:41)
[2023-09-09] MEDS: cefTRIAXone 2 GM/NS 100 ML 2 GM/100 ML BAG IVPB (08:41)
[2023-09-09] MEDS: buPROPion HCL SR (12 HR) 150 MG TAB PO (08:41)
[2023-09-09] MEDS: INSULIN GLARGINE (*BKC) 100 UNITS/ML 30 UNITS SUB-Q (08:41)
[2023-09-09 11:45] LABS: Glucose Point of Care 130 mg/dl (65-105)
--- NOTE | 2023-09-09 12:00 | P.PNNP_ITS ---
Progress Note: A&P Assessment and Plan (1) Acute kidney injury: Code(s): N17.9 - Acute kidney failure, unspecified Status: Acute Assessment and Plan: * normal creatinine noted approximately a month ago * creatinine peaked/plateaued at 5.0mg/dl - improvement noted * evaluation to date noted: * UA with blood and WBCs * nephrotic range proteinuria noted * urine electrolytes non-prerenal * renal ultrasound without obstruction * CPK low * suspect ATN with multifactorial etiology: * prerenal factors * diuretic use prior to admission (HCTZ and lasix) * relative hypotension on admission * pyuria * multiple sacral wounds * follow trend of repeat labs and UOP (2) Essential hypertension: Code(s): I10 - Essential (primary) hypertension Status: Chronic Assessment and Plan: * low on admission * s/p IVF resuscitation and holding BP medications * BP doing better at this time * follow trend of hemodynamics (3) Sacral wound: Code(s): S31.000A - Unspecified open wound of lower back and pelvis without penetration into retroperitoneum, initial encounter Status: Acute Assessment and Plan: * as noted on admission * however, no clear evidence of acute infection * wound care following * continue supportive therapy (4) Obstructive sleep apnea: Code(s): G47.33 - Obstructive sleep apnea (adult) (pediatric) Status: Acute Assessment and Plan: * continue CPAP therapy at night (5) Type 2 diabetes mellitus: Code(s): E11.9 - Type 2 diabetes mellitus without complications Status: Chronic Assessment and Plan: * follow accu-cheks * holding metformin * glycemic control per hospitalists Will continue to follow. Subjective Date/time seen: 09/09/23 12:00 Interval history: Follow-up for acute kidney injury/acute renal failure. Renal function continues to improve with ongoing supportive therapy; good urine output noted as well in the last 24 - 48 hours; no apparent distress voiced at the time of my visit; denies any shortness of breath or respiratory difficulties; no events/issues overnight or earlier this AM. Exam Narrative: General: large WD/WN male in NAD Heart: normal S1 and S2; no rub Lungs: clear to auscultation Abdomen: soft, nontender, nondistended, positive bowel sounds Extremities: no cyanosis or clubbing; 2+ edema Skin: warm and intact Objective Data Vital Signs Vital Signs: Vital Signs Temp Pulse Resp BP Pulse Ox O2 Del Method O2 Flow Rate 09/09/23 12:00 97 Nasal Cannula 1 09/09/23 12:00 85 09/09/23 11:49 96.9 F L 83 16 140/72 97 09/09/23 10:00 82 09/09/23 08:00 96 Nasal Cannula 1 09/09/23 08:00 80 09/09/23 07:59 97.9 F 80 16 132/70 96 09/09/23 06:00 80 09/09/23 05:39 97.8 F 80 22 H 118/60 96 09/09/23 04:00 95 Nasal Cannula 2 09/09/23 04:00 77 09/09/23 02:00 78 09/09/23 00:00 77 09/08/23 22:33 77 22 H 98 BiPAP 09/09/23 00:16 98.1 F 78 22 H 126/65 97 09/09/23 00:00 98 Nasal Cannula 2 09/08/23 22:00 77 09/08/23 20:00 98 Nasal Cannula 2 09/08/23 20:00 77 06
--- NOTE | 2023-09-09 12:00 | PM.PNNEP ---
Progress Note: A&P Assessment and Plan (1) Acute kidney injury: Code(s): N17.9 - Acute kidney failure, unspecified Status: Acute Assessment and Plan: normal creatinine noted approximately a month ago creatinine peaked/plateaued at 5.0mg/dl - improvement noted evaluation to date noted: UA with blood and WBCs nephrotic range proteinuria noted urine electrolytes non-prerenal renal ultrasound without obstruction CPK low suspect ATN with multifactorial etiology: prerenal factors diuretic use prior to admission (HCTZ and lasix) relative hypotension on admission pyuria multiple sacral wounds follow trend of repeat labs and UOP (2) Essential hypertension: Code(s): I10 - Essential (primary) hypertension Status: Chronic Assessment and Plan: low on admission s/p IVF resuscitation and holding BP medications BP doing better at this time follow trend of hemodynamics (3) Sacral wound: Code(s): S31.000A - Unspecified open wound of lower back and pelvis without penetration into retroperitoneum, initial encounter Status: Acute Assessment and Plan: as noted on admission however, no clear evidence of acute infection wound care following continue supportive therapy (4) Obstructive sleep apnea: Code(s): G47.33 - Obstructive sleep apnea (adult) (pediatric) Status: Acute Assessment and Plan: continue CPAP therapy at night (5) Type 2 diabetes mellitus: Code(s): E11.9 - Type 2 diabetes mellitus without complications Status: Chronic Assessment and Plan: follow accu-cheks holding metformin glycemic control per hospitalists Will continue to follow. Subjective Date/time seen: 09/09/23 12:00 Interval history: Follow-up for acute kidney injury/acute renal failure. Renal function continues to improve with ongoing supportive therapy; good urine output noted as well in the last 24 - 48 hours; no apparent distress voiced at the time of my visit; denies any shortness of breath or respiratory difficulties; no events/issues overnight or earlier this AM. Exam Narrative: General: large WD/WN male in NAD Heart: normal S1 and S2; no rub Lungs: clear to auscultation Abdomen: soft, nontender, nondistended, positive bowel sounds Extremities: no cyanosis or clubbing; 2+ edema Skin: warm and intact Objective Data Vital Signs Vital Signs: Vital Signs Temp Pulse Resp BP Pulse Ox O2 Del Method O2 Flow Rate 09/09/23 12:00 97 Nasal Cannula 1 09/09/23 12:00 85 09/09/23 11:49 96.9 F L 83 16 140/72 97 09/09/23 10:00 82 09/09/23 08:00 96 Nasal Cannula 1 09/09/23 08:00 80 09/09/23 07:59 97.9 F 80 16 132/70 96 09/09/23 06:00 80 09/09/23 05:39 97.8 F 80 22 H 118/60 96 09/09/23 04:00 95 Nasal Cannula 2 09/09/23 04:00 77 09/09/23 02:00 78 09/09/23 00:00 77 09/08/23 22:33 77 22 H 98 BiPAP 09/09/23 00:16 98.1 F 78 22 H 126/65 97 09/09/23 00:00 98 Nasal Cannula 2 09/08/23 22:00 77 09/08/23 20:00 98 Nasal Cannula 2 09/08/23 20:00 77 09/08/23 19:51 97.8 F 77 22 H 127/71 100 09/08/23 18:00 77 Intake/Output Intake/Output: Intake & Output 09/06/23 09/07/23 09/08/23 09/09/23 23:59 23:59 23:59 23:59 Intake Total 4370.0 4530 3709.6 1580 Output Total 135 2300 4000 3425 Balance 4235.0 2230 -290.4 -1845 Meds/Results Medications: Active Medications Generic Name Dose Route Start Last Admin Trade Name Freq PRN Reason Stop Dose Admin Acetaminophen 650 mg 09/04/23 19:39 Acetaminophen 325 Mg Tablet PO Q4H PRN Pain 1-3 Albuterol 2 puff 09/04/23 19:39 Albuterol Sulfate (*Sp) Aerosol 1 Puff INHALATION Q6HRT PRN Shortness Of Breath Or Wheezing Amoxicillin/Clavulanate Potassium 1 tablet 09/09
--- NOTE | 2023-09-09 12:08 | PM.DS ---
DS: Admitting Diagnosis Discharge Date September 09, 2023 Admitting Diagnosis Acute renal failure DS: Discharge Diagnosis Discharge Diagnosis (1) Atrial fibrillation: Code(s): I48.91 - Unspecified atrial fibrillation Status: Acute (2) Acute respiratory failure with hypoxia and hypercapnia: Code(s): J96.01 - Acute respiratory failure with hypoxia; J96.02 - Acute respiratory failure with hypercapnia Status: Acute (3) Respiratory failure: Code(s): J96.90 - Respiratory failure, unspecified, unspecified whether with hypoxia or hypercapnia Status: Acute (4) Respiratory acidosis: Code(s): E87.29 - Other acidosis Status: Acute (5) Obesity: Code(s): E66.9 - Obesity, unspecified Status: Acute (6) Type 2 diabetes mellitus: Code(s): E11.9 - Type 2 diabetes mellitus without complications Status: Acute (7) Acute kidney injury: Code(s): N17.9 - Acute kidney failure, unspecified Status: Resolved DS: Summary Hospital Course Hospital Course: 53yo male with IDDM, COPD, HTN, lymphedema, TAMY, RA, depression and anxiety, rheumatoid arthritis, BPH, paroxysmal atrial fibrillation, multiple chronic sacral wounds and morbid obesity here from the custodial with complaints of weakness. Patient is a assisted resident of custodial and normally bed-bound with a pati lift and wheelchair. Admitted on 09/04/2023 with acute hypoxia and hypercapnia respiratory failure. He is not compliant with his BiPAP at the custodial. On the morning of 623 patient was found to be lethargic and his pCO2 64. Started on BiPAP be in a good response with pCO2 coming down to 57 the next day. Over the next few nights he did wear the noninvasive ventilator for at least a few hours each night. His breathing is greatly improved as well as his weakness. Veins on 1 L nasal cannula and will be discharged on that with encourage compliance to his noninvasive ventilator. He does not have a music pastor and he sees the custodial doctor. Advised the patient to seek follow-up with the custodial doctor and obtain referral to music pastor to which she agrees. Again, the patient was heavily educated on the risk of not wearing positive airway pressure especially at night. He had an acute kidney injury which was thought to be due to hypotension as he was on diuretics. Complicated UTI due to chronic indwelling Portillo catheter could have contributed as well. Renal ultrasound showed normal kidneys with no hydronephrosis. Kidney injury improved status post fluid resuscitation. Diuretics are being hold on discharge. UA was abnormal but urine culture negative. He received ceftriaxone 4 days and will receive Augmentin for 1 more day to complete 5 days. Time Spent with Patient Time attestation: Total time spent providing and/or coordinating discharge services: Exam Const: General: comfortable and no acute distress Other: Morbidly obese. Eyes: Pupils: Equal, round and reactive pupils present Neck: Neck: supple Resp: Effort & Inspection: normal respiratory effort Other: Difficult to auscultate due to body habitus Cardio: Rate: regular rate Rhythm: abnormal rhythm GI: GI Palp: Yes Soft to palpation and No Tenderness to palpation present (GI) Urinary Catheter: Urinary Catheter: patent and draining and urine clear Extrem: Other: Bilateral lower extremity lymphedema and trace pitting edema DS: Data Data Completed and Pending Labs on day of discharge: Labs from last 24 hours 09/09/23 09/09/23 09/09/23 11:31 07:20 03:54 WBC 6.1 RBC 3.90 L Hgb 10.5 L Hct 36.0 L MCV 92.3 MCH 26.9 MCHC 29.2 L RDW 17.5 H Plt Count 248 MPV 9.8 Immature Gran % (Auto) 0.8 H Neut % (Auto) 62.6 Lymph % (Auto) 21.3 Newton % (Auto) 9.7 H Eos % (Auto) 4.6 H Baso % (Auto) 1.0 Lymph # (Auto) 1.30 Newton # (Auto) 0.6 Eos # (Auto)
[2023-09-09 13:23] LABS: SARS-CoV-2 RNA PCR Negative (Negative)
--- NOTE | 2023-09-09 15:32 | PC.NURSE ---
Report given to Genny at [facility].
[2023-09-09 16:13] LABS: Glucose Point of Care 201 mg/dl (65-105)
[2023-09-09] MEDS: INSULIN ASPART (*BKC) 100 UNITS/ML SUB-Q (17:12)
[2023-09-09] MEDS: RIVAROXABAN 20 MG TABLET PO (17:12)
== END 2023-09-09 19:57 | DRG 133 ==
LOC: ANHED 13:53 → ANH3MEDSUR 15:30 → ANHIMU 09-05 17:40
PROVIDERS: General Practice; Internal Medicine; Internal Medicine Nephrology; Nurse Practitioner; Admitting Provider Hospitalist; Emergency Provider Emergency Medicine; PCP Internal Medicine; Visit Provider Hospitalist
DX: J96.01 Acute respiratory failure with hypoxia (principal); J96.02 Acute respiratory failure with hypercapnia; N17.9 Acute kidney failure, unspecified; T83.511A Infection and inflammatory reaction due to indwelling urethral catheter, initial encounter; I12.9 Hypertensive chronic kidney disease with stage 1 through stage 4 chronic kidney disease, or unspecified chronic kidney disease; N18.9 Chronic kidney disease, unspecified; I48.0 Paroxysmal atrial fibrillation; I89.0 Lymphedema, not elsewhere classified; J44.9 Chronic obstructive pulmonary disease, unspecified; E11.65 Type 2 diabetes mellitus with hyperglycemia; E11.22 Type 2 diabetes mellitus with diabetic chronic kidney disease; L98.9 Disorder of the skin and subcutaneous tissue, unspecified; M06.9 Rheumatoid arthritis, unspecified; G47.33 Obstructive sleep apnea (adult) (pediatric); N40.0 Benign prostatic hyperplasia without lower urinary tract symptoms; E66.01 Morbid (severe) obesity due to excess calories; F41.9 Anxiety disorder, unspecified; F32.A Depression, unspecified; F12.90 Cannabis use, unspecified, uncomplicated; Z20.822 Contact with and (suspected) exposure to COVID-19; Z11.52 Encounter for screening for COVID-19; Z68.45 Body mass index [BMI] 70 or greater, adult; Z79.4 Long term (current) use of insulin; Z87.891 Personal history of nicotine dependence; Z74.01 Bed confinement status; Z91.199 Patient's noncompliance with other medical treatment and regimen due to unspecified reason; Z79.01 Long term (current) use of anticoagulants
CPT/HCPCS: 36415; 36600; 71045; 76775; 80048; 80053; 80069; 81001; 82375; 82550; 82570; 82805; 82948; 83050; 83540; 83550; 83605; 83735; 83880; 83930; 83935; 84153; 84154; 84156; 84300; 84540; 85025; 85610; 85730; 87040; 87086; 87635; 87637; 93005; 94002; 94003; 96360; 97110; 97161; 97165; 99285; A9270; G0378; G0379; J0696; J1815; J7030; J7040; J7512

== ENCOUNTER 2024-11-05 22:01 | Emergency (ER) | payer OTHER, SELFPAY ==
--- NOTE | 2024-11-05 22:26 | ED.CPR ---
HPI - CPR General Chief Complaint: Cardiac Arrest/CPR Stated Complaint: cardiac arrest History of Present Illness HPI narrative: Patient is a 54-year-old male who presents to the emergency department this evening in cardiopulmonary arrest. Per EMS report, they were called to [facility] for patient in cardiac arrest. Per the report, down time 2 minutes. CPR was initiated by longterm staff after he was found unresponsive and pulseless. Upon EMS arrival patient was noted to be in PE a. ACLS protocol was followed. Upon patient's arrival to the emergency department, down time total of 45 minutes. Related Data Home Medications ?Medication ?Instructions ?Recorded ?Confirmed ?Last Taken ?Type albuterol sulfate 90 mcg/actuation 2 puff inhalation Q6H PRN 12/03/22 09/04/23 Unknown History aerosol inhaler (ProAir HFA) Shortness Of Breath Or Wheezing cyclobenzaprine 10 mg tablet 10 mg PO BID PRN Spasms 12/03/22 09/04/23 Unknown History ergocalciferol (vitamin D2) 50,000 50,000 unit PO WEEKLY 12/03/22 09/04/23 09/03/23 08:00 History unit tablet fluoxetine 60 mg tablet 60 mg PO DAILY 12/03/22 09/04/23 Unknown History insulin glargine 100 unit/mL 30 unit subcut Q12H 12/03/22 09/04/23 Unknown History subcutaneous solution metformin 1,000 mg tablet 1,000 mg PO Q12H 12/03/22 09/04/23 Unknown History rivaroxaban 20 mg tablet (Xarelto) 20 mg PO DAILY 12/03/22 09/04/23 Unknown History tamsulosin 0.4 mg capsule 0.4 mg PO 1700 12/03/22 09/04/23 Unknown History benzonatate 100 mg capsule 100 mg PO TID PRN Cough 07/23/23 09/04/23 Unknown History bupropion HCl 150 mg tablet,12 hr 150 mg PO DAILY 07/23/23 09/04/23 Unknown History sustained-release fluticasone propionate 50 50 mcg intranasal DAILY 07/23/23 09/04/23 Unknown History mcg/actuation nasal spray,suspension hydrochlorothiazide 25 mg tablet 25 mg PO DAILY 07/23/23 09/04/23 Unknown History Held on 09/09/23. Instructions: Review this medication with your primary doctor melatonin 10 mg tablet 10 mg PO HS PRN Insomnia 07/23/23 09/04/23 Unknown History ondansetron HCl 4 mg tablet 4 mg PO Q6H PRN Nausea 07/23/23 09/04/23 Unknown History oxycodone 5 mg tablet 5 mg PO Q6H PRN Pain 07/23/23 09/04/23 Unknown History trazodone 100 mg tablet 100 mg PO HS 07/23/23 09/04/23 Unknown History acetaminophen 325 mg tablet 650 mg PO Q4H PRN Pain 09/04/23 09/04/23 Unknown History calcium carbonate (Tums) 400 mg PO BID PRN Acid Reflux 09/04/23 09/04/23 Unknown History furosemide 40 mg tablet 40 mg PO DAILY 09/04/23 09/04/23 Unknown History Held on 09/09/23. Instructions: Review this medication with your primary doctor insulin aspart U-100 100 unit/mL See Rx Instructions .Route .COMPLEX 09/04/23 09/04/23 Unknown History subcutaneous solution (Novolog U-100 Insulin aspart) menthol 0.44 %-zinc oxide 20.6 % 1 applic topical Q12H 09/04/23 09/04/23 Unknown History topical ointment prednisone 1 mg tablet 1 mg PO DAILY 09/04/23 09/04/23 09/03/23 08:00 History wound dressings (Triad Wound 1 applic topical QID 09/04/23 09/04/23 Unknown History Dressing paste) Allergies Allergy/AdvReac Type Severity Reaction Status Date / Time No Known Allergies Allergy Mild Verified 09/04/23 18:00 Review of Systems Review of Systems: Unable to obtain full review of systems secondary to patient's current cardiopulmonary arrest. FOR[facility]LY [facility], [facility] Past Medical History Medical History Atrial fibrillation Necrotizing fasciitis 2020 treated at [place] with multiple debridements and wound care Anxiety and depression Rheumatoid arthritis BPH (benign prostatic hyperplasia) Pancreatic mass GERD (gastroesophageal reflux disease) COPD (chronic obstructive pulmonary disease) Obstructive sleep apnea Lymphedema associated with obesity Type 2 diabetes mellitus Essential hypertension Surgical History Surgical History History of arthroscopy of right knee Hx of cholecystectomy Family History Family History Mother Pacemaker Diabetes mellitus Hypertension Father Heart attack Diabetes mellitus Hypertension Sibling Epilepsy Diabetes mellitus Hypertension Social History Social History Social History: Patient reports that before June 2022 he lives with his mother. When his mother needed more assistance she moved in with the patient's sister. The patient himself then had to move into [facility]. He has smoked as much as 2 packs of cigarettes per day for 33 years. He quit smoking in 2020. He still smokes marijuana frequently. He denies alcohol use. Code status: Full code Surrogate decision maker: Brenna Murillo (mother) Smoking packs per day: 2 Smoking cigarettes per day: 40.0 Years smoked: 33 Smoking pack-years: 66.00 Smoking status: Former smoker Tobacco type: cigarettes Alcohol intake: never Substance use: former Substance use type: marijuana Do You Feel Safe in your Home?: Yes Lack of Transportation: No Lack of Food: Never True Current Housing: I Have Housing Concerned About Future Housing: No Difficulty Paying Gas/Electric Bills: No Difficulty Paying for Meds: No Currently Unemployed: No Education: Trade/Vocational Certificate Difficulty w/ Childcare or Family Care: No Spiritual care concerns: No Exam Narrative: General: Unresponsive, CPR in progress, morbidly obese. HEENT: Pupils fixed and dilated, cyanotic. Neck: Trachea midline, no JVD, no lymphadenopathy. Cardiopulmonary: CPR in progress, patient is being bagged by respiratory therapist, equal breath sounds bilaterally. Abdomen: Soft, nondistended. Musculoskeletal: No joint swelling or deformity, normal muscle tone. Skin: No rashes or petechia, no signs of infection. Neurological: Unable to perform secondary to cardiopulmonary arrest, CPR in progress. MDM - Cardiac Arrest/CPR MDM Narrative Medical decision making narrative: The patient was evaluated by myself in the emergency department immediately upon arrival. CPR actively in progress. Per EMS report, CPR was initiated at 9:15 p.m. after a reported down time of 2 minutes. Per report, patient was found in the room to be struggling to breathe and was placed on nasal cannula, shortly after he lost pulses. CPR was initiated by longterm staff. Upon EMS arrival, CPR was resumed. Patient had a total of 5 epinephrine administered prior to arrival, 5 shocks and 300 mg of amiodarone. In the emergency department, CPR was resumed. Patient had an additional 3 doses of epinephrine, 150 mg of amiodarone and 1 shock for V-tach, otherwise, remainder of the rhythm on rhythm checks revealed PE a and asystole. No pulse palpated during all pulse checks. Time of was called at 10:07 p.m.. Cardiac ultrasound revealed no cardiac activity. Differential diagnosis considerations include VFib arrest, STEMI, pulmonary emboli. Comorbidities impacting this visit include history of obstructive sleep apnea, COPD, morbid obesity and diabetes. Critical care time of 77 minutes, exclusive of separately performed procedures, necessary for treating or preventing eminent or life-threatening deterioration of patient's condition of cardiopulmonary arrest, focused on patient care provided personally by me and time spent during initial evaluation, physical examination, ordering and performing treatments and interventions, ordering and reviewing laboratory studies, ordering and reviewing radiographic studies, re-evaluation of the patient's condition, evaluation of the patient's response to treatment, and discussion of patient case with multiple consultants. Critical Care Time Critical Care Time Critical Care Time: Yes Total Critical Care Time: 77 (Please refer to [facility] for attestation) Discharge Plan Discharge Clinical Impression: Cardiopulmonary arrest Patient Disposition: Condition: Patient Language: [place] Prescriptions: No Action ondansetron HCl 4 mg tablet 4 mg PO Q6H PRN (Reason: Nausea) benzonatate 100 mg Capsule 100 mg PO TID PRN (Reason: Cough) hydrochlorothiazide 25 mg tablet 25 mg PO DAILY fluticasone propionate 50 mcg/actuation spray,suspension 50 mcg INTRANASAL DAILY bupropion HCl 150 mg Tablet Sustained-Release 12 Hr 150 mg PO DAILY trazodone 100 mg tablet 100 mg PO HS oxycodone 5 mg tablet 5 mg PO Q6H PRN (Reason: Pain) melatonin 10 mg Tablet 10 mg PO HS PRN (Reason: Insomnia) diphenhydramine HCl 25 mg Tablet 25 mg PO DAILY PRN (Reason: Allergic Symptoms) Qty: 20 0RF cyclobenzaprine 10 mg Tablet 10 mg PO BID PRN (Reason: Spasms) ergocalciferol (vitamin D2) 50,000 unit Tablet 50,000 unit PO WEEKLY Rx Instructions: Fridays tamsulosin 0.4 mg Capsule 0.4 mg PO 1700 albuterol sulfate [ProAir HFA] 90 mcg/actuation Hfa Aerosol Inhaler 2 puff INHALATION Q6H PRN (Reason: Shortness Of Breath Or Wheezing) insulin glargine 100 unit/mL Solution 30 unit SUBCUT Q12H metformin 1,000 mg Tablet 1,000 mg PO Q12H fluoxetine 60 mg Tablet 60 mg PO DAILY Xarelto 20 mg Tablet 20 mg PO DAILY furosemide 40 mg tablet 40 mg PO DAILY menthol-zinc oxide 0.44-20.6 % Ointment 1 applic TOPICAL Q12H prednisone 1 mg Tablet 1 mg PO DAILY Rx Instructions: 8mg 09/04,7mg 09/05-09/11,6mg 09/12-09/18,5mg 09/19-09/25,4mg 09/26-10/02,3mg 10/03-10/09,2mg 10/10-10/16, 1mg 10/17-10/23 acetaminophen 325 mg Tablet 650 mg PO Q4H PRN (Reason: Pain) Triad Wound Dressing Paste 1 applic TOPICAL QID Rx Instructions: unknown site calcium carbonate [Tums] 200 mg calcium (500 mg) Tablet,Chewable 400 mg PO BID PRN (Reason: Acid Reflux) insulin aspart U-100 [Novolog U-100 Insulin aspart] 100 unit/mL solution See Rx Instructions .ROUTE .COMPLEX Protocol: Insulin Corrective Low-Dose Condition: glucose < 70 mg/dl Dose/Route: Follow Hypoglycemia Order Condition: glucose 70-200 mg/dl Dose/Route: No additional insulin Condition: glucose 201-250 mg/dl Dose/Route: 2 units sub-Q Condition: glucose 251-300 mg/dl Dose/Route: 3 units sub-Q Condition: glucose 301-350 mg/dl Dose/Route: 4 units sub-Q Condition: glucose 351-400 mg/dl Dose/Route: 5 units sub-Q Condition: glucose > 400 mg/dl Dose/Route: Call Protocol Text: *No Correction Dose at Bedtime* Rx Instructions: see sliding scale amoxicillin-pot clavulanate 875-125 mg tablet 1 tablet PO Q12H Qty: 2 0RF Follow-up/Referrals: Ampadu,MD Abdelrahman [Primary Care Provider, Unknown]
--- NOTE | 2024-11-05 22:50 | PC.NURSE ---
Spoke with Dr Healy who agrees to sign certificate.
--- NOTE | 2024-11-05 22:58 | PC.NURSE ---
Spoke with Bonnie at [facility] who reports that pt had been at nursing station for med pass, wheeled himself back to his room with PAPER MACHINE SUPERVISOR assistance. He was assisted into his bed. PAPER MACHINE SUPERVISOR stepped out to get something and moments later returned to bedside to find pt unresponsive, possibly pulseless, and turning colors. Staff could not get pulse ox to work, so placed pt on O2, which initially improved color, but then they thought he lost his pulse and CPR was initiated by NH staff.
--- NOTE | 2024-11-05 23:16 | PC.NURSE ---
Spoke with workers compensation legal secretary at [employer] who states she will pass the message off to the director who will be calling here.
--- NOTE | 2024-11-05 23:19 | PC.NURSE ---
Pt arrived to ED at 2158, pulse check conducted upon arrival, asystole, compressions resumed. 21:59: epi given 22:00: pulse check, asystole, compressions resumed. 22:01: epi given 22:03: pulse check, pulseless v-tach, 200j shock administered, compressions resumed. 22:04: epi given, 150 mg amiodarone given. 22:05: pulse check, PEA, compressions resumed. 22:07: pulse check, asystole, hold compressions for cardiac ultrasound, no cardiac activity. TOD 22:[address] Melgar
--- NOTE | 2024-11-06 08:11 | PCCCNOTE ---
[id number]-Called Katy with [facility] at [phone] and let her know the pt was and needed a family contact. Received the number for Salome Ortiz the sister at [phone]. Called Salome and let her know again the pt was and offered condolences. Asked what home they would like to retrieve the pt and she stated she has to call her mom first and will call back with that information.-jarred
--- NOTE | 2024-11-06 08:33 | PCCCNOTE ---
[id number]-Received a call from Roger with [facility]. Stated this facility always puts their name down regardless of families wishes. Stated he will call the sister to confirm this is the home of choice and follow up with Mar[facility]
== END 2024-11-06 00:47 | disposition expired ==
PROVIDERS: Emergency Provider Emergency Medicine; PCP Internal Medicine
DX: I46.9 Cardiac arrest, cause unspecified (principal); I48.91 Unspecified atrial fibrillation; I10 Essential (primary) hypertension; I89.0 Lymphedema, not elsewhere classified; E11.9 Type 2 diabetes mellitus without complications; E66.01 Morbid (severe) obesity due to excess calories; J44.9 Chronic obstructive pulmonary disease, unspecified; N40.0 Benign prostatic hyperplasia without lower urinary tract symptoms; G47.33 Obstructive sleep apnea (adult) (pediatric); M06.9 Rheumatoid arthritis, unspecified; K21.9 Gastro-esophageal reflux disease without esophagitis; F32.A Depression, unspecified; F41.9 Anxiety disorder, unspecified; Z87.891 Personal history of nicotine dependence; Z79.899 Other long term (current) drug therapy; Z79.4 Long term (current) use of insulin; Z79.84 Long term (current) use of oral hypoglycemic drugs; Z79.01 Long term (current) use of anticoagulants
CPT/HCPCS: 92950; 99285